=== PATIENT | female | born 1940 | race Caucasian/White ===

== ENCOUNTER → 2017-10-20 11:04 | Outpatient (CLI) | payer MEDICARE, OTHER, SELFPAY ==
--- NOTE | 2017-10-20 11:12 | NVE_ITS ---
Venous Exam Indications: 729.5 Pain in limb. IMPRESSIONS 1. There is no evidence of significant Reflux. 2. No evidence of deep or superficial vein thrombosis involving the left lower extremity Left lower extremity venous duplex evaluation. Doppler flow study including spectral analysis, color and gonzalez scale imaging. Location: Vascular laboratory. Patient status: Outpatient. Tables: Venous flow and imaging: + +-------+ + Location Overall Flow properties + +-------+ + Left common femoral Patent Normal phasicity; spontaneous; normal augmentation; compressible + +-------+ + Left saphenofemoral junction Patent Compressible + +-------+ + Left profunda femoral Patent Compressible + +-------+ + Left femoral Patent Normal phasicity; spontaneous; normal augmentation; compressible + +-------+ + Left greater saphenous Patent Normal phasicity; spontaneous; normal augmentation; compressible + +-------+ + Left popliteal Patent Normal phasicity; spontaneous; normal augmentation; compressible + +-------+ + Left posterior tibial Patent Compressible + +-------+ + Left peroneal Patent Compressible + +-------+ + Left gastrocnemius Patent Compressible + +-------+ + Left soleal Patent Compressible + +-------+ + (Report amended ) Electronically signed by: Mervin Haskins [id number]
== END ==
PROVIDERS: PCP Internal Medicine Adolescent Medicine; Visit Provider Nurse Practitioner Family
DX: M79.89 Other specified soft tissue disorders (principal); M79.605 Pain in left leg
CPT/HCPCS: 93971

== ENCOUNTER 2017-10-26 03:26 | Observation (INO) | payer MEDICARE, OTHER, SELFPAY ==
[2017-10-26] VITALS (21 sets, daily range): BP systolic 117–169; BP diastolic 49–82; PULSE 16–82; RESP 16–20; TEMP 36.4–37.1; O2SAT 94–99; BMI 28.3
--- NOTE | 2017-10-26 03:36 | XR_ITS ---
XR chest portable HISTORY: ITS.REASON: CHEST PAIN ORDERING PHYSICIAN: Ronny Marinelli MD PATIENT AGE: 77 years COMPARISON: 08/19/2017 FINDINGS: Borderline cardiomegaly without failure. Calcified nodes are present in the perihilar region with a calcified granuloma in the right lower lung zone. No lobar consolidation or collapse. Calcific tendinitis of the left shoulder. No acute bony anomalies. IMPRESSION: Borderline cardiomegaly without failure with old granulomatous disease. Calcific tendinitis of the left shoulder
--- NOTE | 2017-10-26 03:46 | HMH.EDCP ---
ED Disposition Clinical Impression: Chest pain Qualifiers: Chest pain type: other chest pain Qualified Code(s): R07.89 - Other chest pain; R07.8 - Other chest pain Disposition: Admitted as Observation Condition on Discharge: Good Referrals: Jus Zee MD [Primary Care Provider] - - Critical Care Critical Care Time: No Attestation: On 10/26/17, the high probability of a clinically significant, sudden or life threatening deterioration of the following system(s) required my full and direct attention, intervention and personal management. The time I documented below is in addition to time spent performing reported procedures but includes the following listed in this critical care notation. Medical Decision Making - Medical Records Medical records reviewed: Yes: I reviewed the patient's medical records. Vital Signs: 10/26/17 03:27 10/26/17 03:41 Temperature 98.7 F Temperature Source Oral Pulse Rate 49 L Pulse Rate [Right Brachial] 49 L Respiratory Rate 16 Blood Pressure [Right Arm] 153/64 Blood Pressure Mean [Right Arm] 93 Blood Pressure Source [Right Arm] Automatic Cuff Blood Pressure Position [Right Arm] Supine 02 Sat by Pulse Oximetry 99 Oxygen Delivery Method Room Air - Lab Data Lab results reviewed: Yes: I reviewed the patient's lab results. Lab Results 10/26/17 03:40: WBC 7.9, RBC 4.12 L, Hgb 11.5 L, Hct 36.8 L, MCV 89.4, MCH 28.0, MCHC 31.4 L, RDW 13.4, Plt Count 282, MPV 7.5, Neut % (Auto) 51.5, Lymph % (Auto) 38.7, Callaway % (Auto) 5.7, Eos % (Auto) 3.7, Baso % (Auto) 0.4, Neut # (Auto) 4.1, Lymph # (Auto) 3.1, Callaway # (Auto) 0.5, Eos # (Auto) 0.3, Baso # (Auto) 0.0 10/26/17 03:40: Sodium 143, Potassium 4.4, Chloride 108 H, Carbon Dioxide 27, Anion Gap 12.4, BUN 14, Creatinine 0.80, Estimated Creat Clear 47, Estimated GFR 70, Est GFR ( Amer) 84, Glucose 104, Calcium 8.2 L, Total Bilirubin 0.2, AST 4 L, ALT 21, Alkaline Phosphatase 91, Total Creatine Kinase 25 L, CK-MB (CK-2) < 0.5, CK-MB (CK-2) Rel Index 2.0, Troponin I < 0.02, Total Protein 6.2 L, Albumin 3.4, Globulin 2.8, Albumin/Globulin Ratio 1.2 Result diagrams: 10/26/17 03:40 10/26/17 03:40 Orders (Tests/Meds): ED MEDICATIONS Discontinued Medications Generic Name Dose Route Start Last Admin Trade Name Freq PRN Reason Stop Dose Admin Nitroglycerin 1 gm 10/26/17 05:02 10/26/17 05:05 Nitroglycerin 1 Inch Oint Udp TD 10/26/17 05:03 1 gm ONCE ONE Administration ORDERS Category Date Time Status ECG Request by /Tati Stat Y 10/26/17 03:36 Ordered - Radiology Data #1 Image(s): Chest Image Reviewed: Yes I reviewed the patient's radiology image Preliminary Findings: Normal/NAD - ECG Data Tracing #1 I reviewed this ECG and interpreted as documented below: Arrhythmias present: sinus ezekiel Ischemic changes: non-specific ST-T wave changes - Danilo Inquiry Pt receiving controlled substance: No Chest Pain HPI - General Chief Complaint: Chest Pain Stated Complaint: CHEST P[AIN Time Seen by Provider: 10/26/17 03:46 Mode of Arrival: EMS Limitations: No Limitations Description of Symptoms (Recalled from ER Triage Doc. by RN): MIDSTERNAL CP RADIATING TO NECK AND SHOULDER - History of Present Illness HPI narrative: pt with chest pain with hx of cad complaint: chest pain indicative of cardiac Onset (ago): hour(s) Duration: intermittent Activity at onset: during rest Pain location: substernal Severity: moderate Quality: tightness Exacerbating factors: nothing Risk Factors for CAD: Family Hx of CAD Treatments prior to or on arrival for Cardiac Chest Pain: aspirin - ARISTEO Score Non-Stemi Age of patient: 65 yrs or more Number of risk factors for CAD: Presence of 3 or more Prior coronary artery stenosis(seen in coronary angiography): Less than 50% ST-Segment deviation on ECG (more than 1 min): Absent Prior aspirin intake: ASA intake in the last 7 days Severe anginal madai
[2017-10-26 03:47] LABS: Basophils % 0.4 % (0.1-2.0); Eosinophils # 0.3 K/mm3 (0.0-0.4); Eosinophils % 3.7 % (0.1-12.0); Hematocrit 36.8 % (37.0-47.0); Hemoglobin 11.5 g/dL (12.2-16.2); Lymphocytes # 3.1 K/mm3 (0.7-4.5); Lymphocytes % 38.7 K/mm3 (10-50); Mean Corpuscular HGB Conc 31.4 g/dL (31.8-35.4); Mean Corpuscular Volume 89.4 fl (81-99); Mean Platelet Volume 7.5 fl (7.4-10.4); Monocytes # 0.5 K/mm3 (0.1-1.0); Monocytes % 5.7 % (1.7-9.3); Neutrophils # 4.1 K/mm3 (1.8-7.8); Neutrophils % 51.5 % (37.0-80.0); Platelet Count 282 K/mm3 (142-424); Red Blood Count 4.12 M/mm3 (4.20-5.40); Red Cell Distribution Width 13.4 % (11.5-17.5); White Blood Count 7.9 K/mm3 (4.8-10.8)
[2017-10-26 04:13] LABS: Alanine Aminotransferase 21 U/L (12-78); Albumin Level 3.4 gm/dL (3.4-5.0); Albumin/Globulin Ratio 1.2 (1.1-1.8); Alkaline Phosphatase 91 U/L (46-116); Anion Gap 12.4 mEq/L (5-15); Aspartate Amino Transferase 4 U/L (15-37); Bilirubin,Total 0.2 mg/dL (0.2-1.0); Blood Urea Nitrogen 14 mg/dL (7-18); Calcium 8.2 mg/dL (8.5-10.1); Carbon Dioxide 27 mmol/L (21.0-32.0); Chloride 108 mmol/L (98-107); Creatine Kinase 25 U/L (26-192); Creatine Kinase MB < 0.5 mg/ml (0.0-3.6); Creatinine Clearance Estimated 47 mL/min (0-300); Estimated Glomerular Filt Rate 70 ml/min (>60); GFR (African American) 84 ML/MIN (>60); Globulin 2.8 gm/dl (1.3-3.2); Glucose 104 mg/dL (74-106); Potassium 4.4 mmoL/L (3.5-5.1); Sodium 143 mmol/L (136-145); Total Protein,Serum 6.2 gm/dL (6.4-8.2); Troponin I < 0.02 ng/ml (0.00-0.06)
--- NOTE | 2017-10-26 07:15 | CA_ITS ---
PROCEDURE: 2-D M-mode and color Doppler study INDICATIONS FOR THE TEST: Chest pain X COPD Heart Murmur Tobacco Smoking Palpitations Fatigue Syncope Edema HypertensionXDiabetes Mellitus Rheumatic Fever SOBXDOE Obesity Hyperlipidemia Family History HD Additional History CAD PATIENT INFORMATION HEIGHT: 59 WEIGHT:140 GENDER: Female B/P:155/86 2-D/M-MODE INTERPRETATION: 2-D MEASUREMENTS OBSERVED VALUES IN CMS Right Ventricular Dimension (RVDd) 1.9 Interventricular Septum (Thickness)(IVsd) .9 Left Ventricular Internal Dimensions(LVIDd) 5.5 Left Ventricular Posterior Wall (Thickness)(LVPWd) .9 Aortic Root 2.6 Aortic Cusp Separation 1.8 Left Atrial Dimensions (LAD) 3.7 2D 1. Left atrium is qualitatively mildly enlarged, left ventricle is normal size, left ventricle wall thickness is upper limit of the normal, visually estimated ejection fraction approximately 45%, there appears to be moderate hypokinesis involving the inferior inferobasal and posterobasal wall. 2. The right atrium and right ventricle are normal size and contractility. 3. The aortic valve is minimally thickened and fibrosed. 4. The mitral and tricuspid valve leaflets are minimally thickened. 5. The pulmonic valve is poorly visualized. 6. No significant pericardial effusion noted. DOPPLER INTERROGATION: Doppler interrogation of the aortic, mitral and tricuspid valvular presence of mild mitral and tricuspid regurgitation, tricuspid and jet velocity is insufficient for calculation of the right ventricular systolic pressure, diastolic parameters are inconclusive. CONCLUSION: 1. Mildly enlarged left atrium, normal left ventricular size, visually estimated ejection fraction 45% with segmental wall motion abnormality described above, diastolic parameters are inconclusive. 2. Mild mitral and tricuspid regurgitation 3. No significant pericardial effusion noted.
--- NOTE | 2017-10-26 08:41 | PC.NURSE ---
Patient taking home dose of Plavix. RN instructed patient not to take Bisoprolol related to bradycardia. Updated patient's family on plan of care.
--- NOTE | 2017-10-26 09:39 | PC.NURSE ---
Patient has been boarding in ER, waiting for a bed upstairs. Will continue to monitor patient closely.
--- NOTE | 2017-10-26 10:19 | HMH.CNCARD ---
History of Present Illness Consult date: 10/26/17 Requesting physician: Ronny Marinelli Consult reason: chest pain Chief complaint: chest pain History of present illness: 77 yo WF with known CAD and 3 vessel stenting in 06/2017 presented to the ER with chest pain that woke her from sleep. Radiation of pain to right side of neck and shoulder. Symptoms concerned her so EMS called. NTG SL given en route with improvement and then resolution of symptoms with NTG paste. Initial troponin normal and EKG is sinus ezekiel without acute changes. Pt relates same symptoms prior to 3 vessel stenting in June. Denies any recent exertional symptoms but activity limited due to fatigue (possibly related to combo of BB/CCB for SVT which she is seeing Dr. Shine in [place] with ablation scheduled in November). Cardiology consulted for evaluation. [facility] History 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: Reports:: Coronary Artery Disease, Gastroesophageal Reflux Disease(GERD), Gastrointestinal Bleed, Hyperlipidemia, Hypertension Denies:: Diabetes Mellitus Type 2 Other 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: Reports: Arthritis, Cataracts, Sinus Problems Comment: 1. Tobacco use of one half to one pack per day ?60 years. 2. Hypertension. 3. History of palpitations, controlled with verapamil therapy. A. 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 Increased bisoprolol to 10 mg daily, 08/19/2017. 4. History of abdominal aortic aneurysm, last reported measurement of 4.6 cm approximately 2015. A. Abd U/S, 06/2017, 4 cm. 5. History of prediabetes per patient. She does not take medication and controls her blood sugars with her diet. 6. CAD. A. 3 vessel disease with DELBERT to prox Cx, LAD and RCA. 06/2017. Other Surgeries: Yes: Appendectomy, Hysterectomy-Total, Tubal Ligation Amputation: No Fractures: No - *Social History Smoking Status: Former smoker Tobacco Type: cigarettes #Yrs smoked (if former smoker): 50 Alcohol Intake: never Substance Use Type: denies use - Psychiatric History Expresses thoughts of harming self/others: None Suicide Plan Description: No Plan *Family Hx:: Diabetes, Cancer, Hyperlipidemia Meds Home Medications Medication Instructions Recorded Confirmed Type atorvastatin 40 mg tablet 40 mg PO DAILY 30 Days 10/01/17 10/26/17 History bisoprolol fumarate 5 mg tablet 5 mg PO DAILY 30 Days 10/01/17 10/26/17 History bupropion HCl SR 150 mg tablet,12 150 mg PO BID 30 Days 10/01/17 10/26/17 History hr sustained-release clopidogrel 75 mg tablet 75 mg PO DAILY 30 Days 10/01/17 10/26/17 History verapamil ER (SR) 180 mg 180 mg PO DAILY 30 Days 10/01/17 10/26/17 History tablet,extended release Aspirin [Aspirin 81mg EC Tab] 81 mg PO DAILY 10/26/17 10/26/17 History Allergies Allergy/AdvReac Type Severity Reaction Status Date / Time Antihistamines - Alkylamine Allergy Mild Verified 10/01/17 13:36 [ANTIHISTAMINES - ALKYLAMINE] codeine [CODEINE] Allergy Mild Verified 10/01/17 13:36 Penicillins [PENICILLINS] Allergy Mild Verified 10/01/17 13:36 Sulfa (Sulfonamide Allergy Mild Verified 10/01/17 13:36 Antibiotics) [SULFA (SULFONAMIDE ANTIBIOTICS)] Review of Systems - *Cardiovascular Reports chest pain, Reports shortness of breath - *Respiratory Reports shortness of breath with activity - *Gastrointestinal Reports nausea - *Neurologic Denies seizure-like activity Exam Vital signs and Labs for Last 24 Hours: Temp Pulse Resp BP Pulse Ox 98.7 F 52 L 20 155/73 98 10/26/17 03:27 10/26/17 08:30 10/26/17 08:30 10/26/17 08:30 10/26/17 08:30 - *Routine Neck Exam Absent: JVD - *Routine Respiratory Exam Present: CTA bilaterally - *Routine Cardiovascular Exam Present: RRR. Absent: murmur, gallop, rubs - *Routine Extremities Exam Absent: edema - *Routine Neurological Exam Present: alert, oriented X3, moving all extremities Assessment and Plan (1) Chest pain Current visit: Yes Status: Acute Quali
--- NOTE | 2017-10-26 10:21 | IR_ITS ---
CARDIAC CATHETERIZATION DATE OF CATHETERIZATION:10/26/2017 10:55 AM PROCEDURES: 1. Left heart catheterization 2. Left ventriculogram 3. Selective coronary angiogram 4. Drug-eluting stent deployment to the mid and distal dominant right coronary artery INDICATION FOR TEST: 1. Unstable angina 2. Known coronary artery disease Informed consent was obtained prior to the procedure. COMPLICATIONS: None ESTIMATED BLOOD LOSS: Less than 10 ml. TECHNIQUE: One percent lidocaine used to anesthetize the right anterior aspect of the wrist. The right radial artery was accessed via the Seldinger technique. A 6 Surinamese sheath was placed in the right radial artery. 2.5 mg of verapamil, 800 mcg of nitroglycerin and 5000 U Heparin were given through the arterial sheath. The trap catheter was also used to perform left heart catheterization left ventriculogram and selective coronary angiogram. An additional 2000 units of heparin was administered intravenously and an EVERYWARE right guide catheter was used intubate the right coronary artery. A BMW wire was placed distally and a 3 mm x 38 mm resolute Leon stent was deployed at 15 kyra reducing the severe stenoses to 0%. ARISTEO-3 flow was present down the vessel before and after the procedure. At the end of the procedure the sheath was removed good hemostasis was achieved using TR banding patient was transferred to the postop holding area in stable condition ANGIOGRAPHIC RESULTS: 1. The left main artery normal 2. The left anterior descending artery has a proximal stent which is widely patent free of in-stent restenosis with excellent distal and proximal transitioning. The mid LAD has a 40% long tubular stenosis followed by an additional 40% nonflow limiting stenosis. 3. The circumflex artery is a nondominant vessel and has a stent in the proximal segment which extends into the proximal portion of the large first obtuse marginal artery. This stent is widely patent free of in-stent restenosis. Distal to the stent is a 40% tapering into the first obtuse marginal artery. 4. The right coronary artery is a large dominant vessel with a proximal to mid vessel stent which is widely patent free of in-stent restenosis. Distal to the stent is a concentric 70-80% stenosis followed by 40-50% stenosis and an additional focal 50% stenosis followed by an additional 20-30% stenosis. 5. The VELAZQUEZ ventriculogram reveals normal 65% 6. The left ventricular end-diastolic pressure elevated at 30 mmHg IMPRESSION: 1. Patent LAD and circumflex artery stent as described above 2. Patent right coronary artery stent with de andrey disease distal to the stent 3. Successful stenting of the mid to distal dominant right coronary artery severe moderate and mild disease reduced to 0% with 1 drug-eluting stent 4. Normal ejection fraction 5. Moderate to severely elevated LVEDP PLAN: 1. Continue aspirin Plavix 2. Diuretics needed in order to decrease LVEDP 3. Cardiac rehabilitation 4. Avoidance of tobacco products 5. LDL less than 55
--- NOTE | 2017-10-26 10:31 | PC.NURSE ---
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
[2017-10-26 11:36] LABS: CATHL Activated Clotting Time 332 SEC (74-125)
[2017-10-26 15:00] LABS: Troponin I 0.06 ng/ml (0.00-0.06)
[2017-10-26 15:09] LABS: Chol/HDL Ratio 1.9 (1-3.5); Cholesterol 142 mg/dL (140-200); HDL Cholesterol 76 mg/dL (29-89); LDL Cholesterol 54 mg/dL (0-130); Triglycerides 61 mg/dL (30-200); VLDL Cholesterol 12 mg/dL (0-40)
--- NOTE | 2017-10-26 16:54 | PC.NURSE ---
PT STABLE. BRUISING AT THE SITE IS NOTED- NO LUMPS OR BLEEDING PRESENT.
--- NOTE | 2017-10-26 17:08 | HMH.HP ---
*Admission Date: 10/26/17 *Chief complaint: Chest pain *History of present illness: 77 yo WF with known CAD and 3 vessel stenting in 06/2017 presented to the ER with chest pain that woke her from sleep. Radiation of pain to right side of neck and shoulder. Symptoms concerned her so EMS called. NTG SL given en route with improvement and then resolution of symptoms with NTG paste. Initial troponin normal and EKG is sinus ezekiel without acute changes. Pt relates same symptoms prior to 3 vessel stenting in June. Denies any recent exertional symptoms but activity limited due to fatigue (possibly related to combo of BB/CCB for SVT which she is seeing Dr. Shine in [place] with ablation scheduled in November). [facility] History I have reviewed the patient's past medical history: Yes 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: Reports:: Coronary Artery Disease, Gastroesophageal Reflux Disease(GERD), Gastrointestinal Bleed, Hyperlipidemia, Hypertension Denies:: Diabetes Mellitus Type 2 Other 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: Reports: Arthritis, Cataracts, Sinus Problems Other Surgeries: Yes: Appendectomy, Hysterectomy-Total, Tubal Ligation Amputation: No Fractures: No - *Social History Smoking Status: Former smoker Tobacco Type: cigarettes #Yrs smoked (if former smoker): 50 Alcohol Intake: never Substance Use Type: denies use Occupational Status: retired Housing: house - Psychiatric History Expresses thoughts of harming self/others: None Suicide Plan Description: No Plan *Family Hx:: Diabetes, Cancer, Hyperlipidemia Review of Systems - Review of Systems Review of systems:: unable to obtain, other, pertinent systems reviewed and negative unless documented below - *Cardiovascular Reports chest pain, Reports chest pain with activity, Reports shortness of breath - *Neurologic Denies seizure-like activity Meds Home Medications Medication Instructions Recorded Confirmed Type atorvastatin 40 mg tablet 40 mg PO DAILY 30 Days 10/01/17 10/26/17 History bisoprolol fumarate 5 mg tablet 5 mg PO DAILY 30 Days 10/01/17 10/26/17 History bupropion HCl SR 150 mg tablet,12 150 mg PO BID 30 Days 10/01/17 10/26/17 History hr sustained-release clopidogrel 75 mg tablet 75 mg PO DAILY 30 Days 10/01/17 10/26/17 History verapamil ER (SR) 180 mg 180 mg PO DAILY 30 Days 10/01/17 10/26/17 History tablet,extended release Aspirin [Aspirin 81mg EC Tab] 81 mg PO DAILY 10/26/17 10/26/17 History Allergies Allergy/AdvReac Type Severity Reaction Status Date / Time Antihistamines - Alkylamine Allergy Mild Verified 10/01/17 13:36 [ANTIHISTAMINES - ALKYLAMINE] codeine [CODEINE] Allergy Mild Verified 10/01/17 13:36 Penicillins [PENICILLINS] Allergy Mild Verified 10/01/17 13:36 Sulfa (Sulfonamide Allergy Mild Verified 10/01/17 13:36 Antibiotics) [SULFA (SULFONAMIDE ANTIBIOTICS)] Exam Vital signs and Labs for Last 24 Hours: Temp Pulse Resp BP Pulse Ox 98.2 F 50 L 20 121/65 97 10/26/17 10:38 10/26/17 14:18 10/26/17 14:18 10/26/17 14:18 10/26/17 14:18 Laboratory Results - last 24 hr 10/26/17 14:37: Triglycerides 61, Cholesterol 142, LDL Cholesterol 54, VLDL Cholesterol 12, HDL Cholesterol 76, Cholesterol/HDL Ratio 1.9 10/26/17 14:37: Troponin I 0.06 - Constitutional no acute distress - *Routine HEENT Exam Head: Present: normocephalic - *Routine Respiratory Exam Present: CTA bilaterally. Absent: accessory muscle use - *Routine Cardiovascular Exam Present: Normal S1, Normal S2 - *Routine Abdominal Exam Present: soft, normoactive bowel sounds - *Routine Extremities Exam Present: full ROM, pulses intact. Absent: edema H&P: Result - Labs Labs: Cardiac Enzymes 10/26/17 Range/Units 14:37 Troponin I 0.06 (0.00-0.06) ng/ml Assessment and Plan (1) Chest pain Current visit: Yes Status: Acute Qualifiers: Chest pain type: other chest pain Qualified Code(s): R07.89 - Other chest pain; R07.8 - Other
[2017-10-27] VITALS (9 sets, daily range): BP systolic 122–187; BP diastolic 41–83; PULSE 48–61; RESP 14–18; TEMP 36.5–36.8; O2SAT 92–98
--- NOTE | 2017-10-27 02:15 | PC.NURSE ---
PT IS A&OX3. SHE HAS BEEN BRADYCARDIC ON TELEMETRY WHILE SLEEPING. PULSE 45-50. DENIES PAIN. RIGHT RADIAL DSG IS C/D/I. NO BRUISING OR SWELLING AT SITE. CAPILLARY REFILL <3. POSITIVE RADIAL AND PEDAL PULSES. PT EDUCATED NOT TO USE RIGHT ARM FOR STRENOUS ACTIVITY. SHE WAS EDUCATED THAT DSG COULD COME OFF AFTER 24 HOURS AND TO NOTIFY STAFF IMMEDIATELY IF SHE NOTED ANY BRUISING, BLEEDING, SWELLING, OR HAD ANY FEELINGS OF THROBBING OR PULSATING AT SITE. PT VERIFIED UNDERSTANDING. HER IS AT THE BEDSIDE.
--- NOTE | 2017-10-27 07:37 | P.CONPHA_ITS ---
[facility] Pharmacy VTE Monitoring - Patient Demographics Admission date: 10/26/17 Report Date: 10/27/17 Time: 07:37 Allergies/Adverse Reactions: Patient Allergies Antihistamines - Alkylamine [ANTIHISTAMINES - ALKYLAMINE] Allergy (Mild, Verified 10/01/17 13:36) codeine [CODEINE] Allergy (Mild, Verified 10/01/17 13:36) Penicillins [PENICILLINS] Allergy (Mild, Verified 10/01/17 13:36) Sulfa (Sulfonamide Antibiotics) [SULFA (SULFONAMIDE ANTIBIOTICS)] Allergy (Mild , Verified 10/01/17 13:36) Height: 1.5 m Weight: 65.771 kg Patient Problems: Current Active Problems Chest pain (Acute) CAD (coronary artery disease), cherokee coronary artery (Chronic) Hypertension (Acute) Hyperlipidemia (Acute) SVT (supraventricular tachycardia) (Acute) Ex-smoker (Acute) - VTE Risk Labs: VTE Related Lab Results Hgb 11.5 g/dL (12.2-16.2) L 10/26/17 03:40 Hct 36.8 % (37.0-47.0) L 10/26/17 03:40 Plt Count 282 K/mm3 (142-424) 10/26/17 03:40 BUN 14 mg/dL (7-18) 10/26/17 03:40 Creatinine 0.80 mg/dL (0.55-1.02) 10/26/17 03:40 Estimated Creat Clear 47 mL/min (0-300) 10/26/17 03:40 Was VTE Risk Assessment Performed: Yes VTE Risk Level: Very Low Risk Clinical Trial Participant: No - Prophylaxis VTE Prophylaxis Ordered?: Yes Types of VTE Prophylaxis: TEDS Knee High Location of Applied Device: Bilateral Lower Extremeties
--- NOTE | 2017-10-27 07:49 | HMH.DCSUM ---
General - General Admission date: 10/26/17 Discharge date: 10/27/17 HPI HPI: 77 yo WF with known CAD and 3 vessel stenting in 06/2017 presented to the ER with chest pain that woke her from sleep. Radiation of pain to right side of neck and shoulder. Symptoms concerned her so EMS called. NTG SL given en route with improvement and then resolution of symptoms with NTG paste. Initial troponin normal and EKG is sinus ezekiel without acute changes. Pt relates same symptoms prior to 3 vessel stenting in June. Denies any recent exertional symptoms but activity limited due to fatigue (possibly related to combo of BB/CCB for SVT which she is seeing Dr. Shine in [place] with ablation scheduled in November). Objective Vital signs: Temp Pulse Resp BP Pulse Ox 98.2 F 51 L 14 150/70 94 L 10/27/17 04:02 10/27/17 06:00 10/27/17 06:00 10/27/17 06:00 10/27/17 06:00 Narrative: This morning patient is doing well, chest pain-free, feels good, heart rate regular, lungs clear, abdomen soft, no edema noted. Hospital Course Hospital Course: Patient was admitted, taken to left heart catheterization which revealed new disease distal to the stent in the right coronary artery. This was stented successfully. Had mild elevation of the end-diastolic pressure, otherwise good ejection fraction. She was transferred to the floor in good condition and did well overnight. This morning she is ready to be discharged and feels good. Cardiology has recommended sending patient home on Holter monitor given atrial dysrhythmias and bradycardia issues. Results Labs on day of discharge: Labs from last 24 hours 10/26/17 10/26/17 14:37 14:37 Troponin I 0.06 Triglycerides 61 Cholesterol 142 LDL Cholesterol 54 VLDL Cholesterol 12 HDL Cholesterol 76 Cholesterol/HDL Ratio 1.9 DS: Diagnosis - Discharge Diagnosis (1) Chest pain Status: Acute (2) CAD (coronary artery disease), [place] coronary artery Status: Chronic (3) Hypertension Status: Acute (4) Hyperlipidemia Status: Acute (5) SVT (supraventricular tachycardia) Status: Acute (6) Ex-smoker Status: Acute Meds Home Medications Medication Instructions Recorded Confirmed Type atorvastatin 40 mg tablet 40 mg PO DAILY 30 Days 10/01/17 10/26/17 History bisoprolol fumarate 5 mg tablet 5 mg PO DAILY 30 Days 10/01/17 10/26/17 History bupropion HCl SR 150 mg tablet,12 150 mg PO BID 30 Days 10/01/17 10/26/17 History hr sustained-release clopidogrel 75 mg tablet 75 mg PO DAILY 30 Days 10/01/17 10/26/17 History verapamil ER (SR) 180 mg 180 mg PO DAILY 30 Days 10/01/17 10/26/17 History tablet,extended release Aspirin [Aspirin 81mg EC Tab] 81 mg PO DAILY 10/26/17 10/26/17 History Allergies Allergy/AdvReac Type Severity Reaction Status Date / Time Antihistamines - Alkylamine Allergy Mild Verified 10/01/17 13:36 [ANTIHISTAMINES - ALKYLAMINE] codeine [CODEINE] Allergy Mild Verified 10/01/17 13:36 Penicillins [PENICILLINS] Allergy Mild Verified 10/01/17 13:36 Sulfa (Sulfonamide Allergy Mild Verified 10/01/17 13:36 Antibiotics) [SULFA (SULFONAMIDE ANTIBIOTICS)] Discharge Plan - Patient Discharge Instructions ACTIVITY: Continue current activity DIET: continue same diet - Follow up Plan Follow up with: Thomas Du MD [Staff Physician] - 1 week Disposition: Home, Self-Usp Medications: Home Medications Medication Instructions Recorded Confirmed Type atorvastatin 40 mg tablet 40 mg PO DAILY 30 Days 10/01/17 10/26/17 History bisoprolol fumarate 5 mg tablet 5 mg PO DAILY 30 Days 10/01/17 10/26/17 History bupropion HCl SR 150 mg tablet,12 150 mg PO BID 30 Days 10/01/17 10/26/17 History hr sustained-release clopidogrel 75 mg tablet 75 mg PO DAILY 30 Days 10/01/17 10/26/17 History verapamil ER (SR) 180 mg 180 mg PO DAILY 30 Days 10/01/17 10/26/17 History tablet,ex
--- NOTE | 2017-10-27 07:54 | P.DS_ITS ---
General - General Admission date: 10/26/17 Discharge date: 10/27/17 HPI HPI: 77 yo WF with known CAD and 3 vessel stenting in 06/2017 presented to the ER with chest pain that woke her from sleep. Radiation of pain to right side of neck and shoulder. Symptoms concerned her so EMS called. NTG SL given en route with improvement and then resolution of symptoms with NTG paste. Initial troponin normal and EKG is sinus ezekiel without acute changes. Pt relates same symptoms prior to 3 vessel stenting in June. Denies any recent exertional symptoms but activity limited due to fatigue (possibly related to combo of BB/ CCB for SVT which she is seeing Dr. Shine in [place] with ablation scheduled in November). Objective Vital signs: Temp Pulse Resp BP Pulse Ox 98.2 F 51 L 14 150/70 94 L 10/27/17 04:02 10/27/17 06:00 10/27/17 06:00 10/27/17 06:00 10/27/17 06:00 Narrative: This morning patient is doing well, chest pain-free, feels good, heart rate regular, lungs clear, abdomen soft, no edema noted. Hospital Course Hospital Course: Patient was admitted, taken to left heart catheterization which revealed new disease distal to the stent in the right coronary artery. This was stented successfully. Had mild elevation of the end-diastolic pressure, otherwise good ejection fraction. She was transferred to the floor in good condition and did well overnight. This morning she is ready to be discharged and feels good. Cardiology has recommended sending patient home on Holter monitor given atrial dysrhythmias and bradycardia issues. Results Labs on day of discharge: Labs from last 24 hours 10/26/17 10/26/17 14:37 14:37 Troponin I 0.06 Triglycerides 61 Cholesterol 142 LDL Cholesterol 54 VLDL Cholesterol 12 HDL Cholesterol 76 Cholesterol/HDL Ratio 1.9 DS: Diagnosis - Discharge Diagnosis (1) Chest pain Status: Acute (2) CAD (coronary artery disease), [place] coronary artery Status: Chronic (3) Hypertension Status: Acute (4) Hyperlipidemia Status: Acute (5) SVT (supraventricular tachycardia) Status: Acute (6) Ex-smoker Status: Acute Meds Home Medications Medication Instructions Recorded Confirmed Type atorvastatin 40 mg tablet 40 mg PO DAILY 30 Days 10/01/17 10/26/17 History bisoprolol fumarate 5 mg tablet 5 mg PO DAILY 30 Days 10/01/17 10/26/17 History bupropion HCl SR 150 mg tablet,12 150 mg PO BID 30 Days 10/01/17 10/26/17 History hr sustained-release clopidogrel 75 mg tablet 75 mg PO DAILY 30 Days 10/01/17 10/26/17 History verapamil ER (SR) 180 mg 180 mg PO DAILY 30 Days 10/01/17 10/26/17 History tablet,extended release Aspirin [Aspirin 81mg EC Tab] 81 mg PO DAILY 10/26/17 10/26/17 History Allergies Allergy/AdvReac Type Severity Reaction Status Date / Time Antihistamines - Alkylamine Allergy Mild Verified 10/01/17 13:36 [ANTIHISTAMINES - ALKYLAMINE] codeine [CODEINE] Allergy Mild Verified 10/01/17 13:36 Penicillins [PENICILLINS] Allergy Mild Verified 10/01/17 13:36 Sulfa (Sulfonamide Allergy Mild Verified 10/01/17 13:36 Antibiotics) [SULFA (SULFONAMIDE ANTIBIOTICS)] Discharge Plan - Patient Disc
--- NOTE | 2017-10-27 08:57 | HMH.PNCARD ---
Subjective Date: 10/27/17 Time: 08:00 Principal diagnosis: Angina Interval history: 77 yo WF in bed in NAD. No further chest pains since cath and stent placement. Some questionable ezekiel-arrhythmia last evening for which patient was asymptomatic. EKG obtained showing sinus ezekiel in the 50's with telemetry strips indeterminate due to artifact. Review of Systems - *Cardiovascular Denies chest pain - *Respiratory Denies shortness of breath - *Neurologic Denies seizure-like activity Meds Home Medications Medication Instructions Recorded Confirmed Type atorvastatin 40 mg tablet 40 mg PO DAILY 30 Days 10/01/17 10/26/17 History bisoprolol fumarate 5 mg tablet 5 mg PO DAILY 30 Days 10/01/17 10/26/17 History bupropion HCl SR 150 mg tablet,12 150 mg PO BID 30 Days 10/01/17 10/26/17 History hr sustained-release clopidogrel 75 mg tablet 75 mg PO DAILY 30 Days 10/01/17 10/26/17 History verapamil ER (SR) 180 mg 180 mg PO DAILY 30 Days 10/01/17 10/26/17 History tablet,extended release Aspirin [Aspirin 81mg EC Tab] 81 mg PO DAILY 10/26/17 10/26/17 History Allergies Allergy/AdvReac Type Severity Reaction Status Date / Time Antihistamines - Alkylamine Allergy Mild Verified 10/01/17 13:36 [ANTIHISTAMINES - ALKYLAMINE] codeine [CODEINE] Allergy Mild Verified 10/01/17 13:36 Penicillins [PENICILLINS] Allergy Mild Verified 10/01/17 13:36 Sulfa (Sulfonamide Allergy Mild Verified 10/01/17 13:36 Antibiotics) [SULFA (SULFONAMIDE ANTIBIOTICS)] Exam Vital signs and Labs for Last 24 Hours: Temp Pulse Resp BP Pulse Ox 98.0 F 61 18 187/83 95 10/27/17 08:00 10/27/17 08:00 10/27/17 08:00 10/27/17 08:00 10/27/17 08:00 Laboratory Results - last 24 hr 10/26/17 14:37: Triglycerides 61, Cholesterol 142, LDL Cholesterol 54, VLDL Cholesterol 12, HDL Cholesterol 76, Cholesterol/HDL Ratio 1.9 10/26/17 14:37: Troponin I 0.06 I & O for Last 24 hours: Intake & Output 10/24/17 10/25/17 10/26/17 02/13/18 11:59 11:59 11:59 11:59 Intake Total 820 / 820 Output Total 300 / 300 Balance 520 / 520 Weight 145 lb - *Routine Respiratory Exam Present: CTA bilaterally - *Routine Cardiovascular Exam Present: RRR. Absent: murmur, gallop Plan - Patient/Caregiver Discharge Instructions Activity: Limited use of right wrist over the next few days. OK for discharge home on current meds. - Follow Up Plan Follow up with: Thomas Du MD [Staff Physician] - 1 week
--- NOTE | 2017-10-27 10:24 | P.CONCA_ITS ---
History of Present Illness Consult date: 10/26/17 Requesting physician: Ronny Marinelli Consult reason: chest pain Chief complaint: chest pain History of present illness: 77 yo WF with known CAD and 3 vessel stenting in 06/2017 presented to the ER with chest pain that woke her from sleep. Radiation of pain to right side of neck and shoulder. Symptoms concerned her so EMS called. NTG SL given en route with improvement and then resolution of symptoms with NTG paste. Initial troponin normal and EKG is sinus ezekiel without acute changes. Pt relates same symptoms prior to 3 vessel stenting in June. Denies any recent exertional symptoms but activity limited due to fatigue (possibly related to combo of BB/ CCB for SVT which she is seeing Dr. Shine in [place] with ablation scheduled in November). Cardiology consulted for evaluation. [facility] History 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: Reports:: Coronary Artery Disease, Gastroesophageal Reflux Disease(GERD), Gastrointestinal Bleed, Hyperlipidemia, Hypertension Denies:: Diabetes Mellitus Type 2 Other 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: Reports: Arthritis, Cataracts, Sinus Problems Comment: 1. Tobacco use of one half to one pack per day ?60 years. 2. Hypertension. 3. History of palpitations, controlled with verapamil therapy. A. 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 Increased bisoprolol to 10 mg daily, 08/19/2017. 4. History of abdominal aortic aneurysm, last reported measurement of 4.6 cm approximately 2015. A. Abd U/S, 06/2017, 4 cm. 5. History of prediabetes per patient. She does not take medication and controls her blood sugars with her diet. 6. CAD. A. 3 vessel disease with DELBERT to prox Cx, LAD and RCA. 06/2017. Other Surgeries: Yes: Appendectomy, Hysterectomy-Total, Tubal Ligation Amputation: No Fractures: No - *Social History Smoking Status: Former smoker Tobacco Type: cigarettes #Yrs smoked (if former smoker): 50 Alcohol Intake: never Substance Use Type: denies use - Psychiatric History Expresses thoughts of harming self/others: None Suicide Plan Description: No Plan *Family Hx:: Diabetes, Cancer, Hyperlipidemia Meds Home Medications Medication Instructions Recorded Confirmed Type atorvastatin 40 mg tablet 40 mg PO DAILY 30 Days 10/01/17 10/26/17 History bisoprolol fumarate 5 mg tablet 5 mg PO DAILY 30 Days 10/01/17 10/26/17 History bupropion HCl SR 150 mg tablet,12 150 mg PO BID 30 Days 10/01/17 10/26/17 History hr sustained-release clopidogrel 75 mg tablet 75 mg PO DAILY 30 Days 10/01/17 10/26/17 History verapamil ER (SR) 180 mg 180 mg PO DAILY 30 Days 10/01/17 10/26/17 History tablet,extended release Aspirin [Aspirin 81mg EC Tab] 81 mg PO DAILY 10/26/17 10/26/17 History Allergies Allergy/AdvReac Type Severity Reaction Status Date / Time Antihistamines - Alkylamine Allergy Mild Verified 10/01/17 13:36 [ANTIHISTAMINES - ALKYLAMINE] codeine [CODEINE] Allergy Mild Verified 10/01/17 13:36 Penicillins [PENICILLINS] Allergy Mild Verified 10/01/17 13:36 Sulfa (Sulfonamide Allergy Mild Verified 10/01/17 13:36 Antibiotics) [SULFA (SULFONAMIDE ANTIBIOTICS)] Review of Systems - *Cardiovascular Reports chest pain, Reports shortness of breath - *Respiratory Reports shortness of breath with activity - *Gastrointestinal Reports nausea - *Neurologic Denies seizure-like activity Exam Vital signs and Labs for Last 24 Hours: Temp Pul
== END 2017-10-27 10:20 | disposition home or self-care (01) ==
LOC: ER 07:27 → ICU 08:54 → CATHLAB 11:18 → ICU 13:26
PROVIDERS: Admitting Provider Internal Medicine Adolescent Medicine; Emergency Provider Emergency Medicine; PCP Internal Medicine Adolescent Medicine; Visit Provider Internal Medicine
DX: R07.9 Chest pain, unspecified (principal); I25.110 Atherosclerotic heart disease of native coronary artery with unstable angina pectoris; I47.1 Supraventricular tachycardia
CPT/HCPCS: 36415; 71045; 80053; 80061; 82550; 82553; 84484; 85025; 85347; 92928; 93005; 93041; 93225; 93226; 93306; 93458; 99152; 99284; C1725; C1769; C1876; C9600; G0378; J1644; J2405; Q9967

== ENCOUNTER 2017-10-28 18:12 | Observation (INO) | payer MEDICARE, OTHER, SELFPAY ==
[2017-10-28 18:13] VITALS: RESP 18; TEMP 36.8; O2SAT 98; BMI 30.2
--- NOTE | 2017-10-28 18:25 | XR_ITS ---
XR chest portable HISTORY: ITS.REASON: CHEST PAIN ORDERING PHYSICIAN: Richard Vera MD PATIENT AGE: 77 years COMPARISON: 10/26/2017 FINDINGS: The cardiomediastinal silhouette and pulmonary vascularity are within normal limits. The lungs are clear without infiltrates, suspicious nodules, or pleural effusions. There is evidence of old granulomatous disease No acute bony abnormalities. Calcification noted over the left humerus consistent with calcific tendinitis IMPRESSION: No change with no acute finding
[2017-10-28 18:53] LABS: Basophils % 0.3 % (0.1-2.0); Eosinophils # 0.3 K/mm3 (0.0-0.4); Eosinophils % 3.1 % (0.1-12.0); Hematocrit 41.9 % (37.0-47.0); Hemoglobin 13.6 g/dL (12.2-16.2); Lymphocytes # 3.2 K/mm3 (0.7-4.5); Lymphocytes % 40.1 K/mm3 (10-50); Mean Corpuscular HGB Conc 32.5 g/dL (31.8-35.4); Mean Corpuscular Hemoglobin 28.9 pg (27.0-31.2); Mean Corpuscular Volume 88.8 fl (81-99); Mean Platelet Volume 7.3 fl (7.4-10.4); Monocytes # 0.6 K/mm3 (0.1-1.0); Neutrophils # 3.9 K/mm3 (1.8-7.8); Neutrophils % 49.5 % (37.0-80.0); Platelet Count 311 K/mm3 (142-424); Red Blood Count 4.71 M/mm3 (4.20-5.40); Red Cell Distribution Width 13.2 % (11.5-17.5); White Blood Count 7.9 K/mm3 (4.8-10.8)
[2017-10-28 19:02] LABS: Alanine Aminotransferase 24 U/L (12-78); Albumin Level 3.9 gm/dL (3.4-5.0); Albumin/Globulin Ratio 1.2 (1.1-1.8); Alkaline Phosphatase 97 U/L (46-116); Anion Gap 8.9 mEq/L (5-15); Aspartate Amino Transferase 12 U/L (15-37); Bilirubin,Total 0.3 mg/dL (0.2-1.0); Blood Urea Nitrogen 23 mg/dL (7-18); CKMB Relative Index 1.5 U/L (0-4.0); Calcium 8.5 mg/dL (8.5-10.1); Carbon Dioxide 30 mmol/L (21.0-32.0); Chloride 101 mmol/L (98-107); Creatine Kinase 41 U/L (26-192); Creatine Kinase MB 0.6 mg/ml (0.0-3.6); Creatinine Clearance Estimated 51 mL/min (0-300); Creatinine,Serum 0.97 mg/dL (0.55-1.02); Estimated Glomerular Filt Rate 56 ml/min (>60); GFR (African American) 67 ML/MIN (>60); Globulin 3.3 gm/dl (1.3-3.2); Glucose 87 mg/dL (74-106); Potassium 3.9 mmoL/L (3.5-5.1); Sodium 136 mmol/L (136-145); Total Protein,Serum 7.2 gm/dL (6.4-8.2); Troponin I 0.08 ng/ml (0.00-0.06)
--- NOTE | 2017-10-28 21:47 | HMH.EDCP ---
ED Disposition Clinical Impression: Chest pain at rest, SVT (supraventricular tachycardia) Disposition: Admitted as Observation Condition on Discharge: Good Referrals: Jus Zee MD [Primary Care Provider] - - Critical Care Critical Care Time: No Attestation: On 10/28/17, the high probability of a clinically significant, sudden or life threatening deterioration of the following system(s) required my full and direct attention, intervention and personal management. The time I documented below is in addition to time spent performing reported procedures but includes the following listed in this critical care notation. Medical Decision Making - Medical Records Medical records reviewed: Yes: I reviewed the patient's medical records. Vital Signs: 10/28/17 18:13 Temperature 98.2 F Temperature Source Oral Respiratory Rate 18 02 Sat by Pulse Oximetry 98 Oxygen Delivery Method Room Air - Lab Data Lab results reviewed: Yes: I reviewed the patient's lab results. Lab Results 10/28/17 18:25: WBC 7.9, RBC 4.71, Hgb 13.6, Hct 41.9, MCV 88.8, MCH 28.9, MCHC 32.5, RDW 13.2, Plt Count 311, MPV 7.3 L, Neut % (Auto) 49.5, Lymph % (Auto) 40.1, Dunn % (Auto) 7.0, Eos % (Auto) 3.1, Baso % (Auto) 0.3, Neut # (Auto) 3.9, Lymph # (Auto) 3.2, Dunn # (Auto) 0.6, Eos # (Auto) 0.3, Baso # (Auto) 0.0 10/28/17 18:25: Sodium 136, Potassium 3.9, Chloride 101, Carbon Dioxide 30, Anion Gap 8.9, BUN 23 H D, Creatinine 0.97 D, Estimated Creat Clear 51, Estimated GFR 56 L, Est GFR ( Amer) 67 D, Glucose 87, Calcium 8.5, Total Bilirubin 0.3, AST 12 L D, ALT 24, Alkaline Phosphatase 97, Total Creatine Kinase 41, CK-MB (CK-2) 0.6, CK-MB (CK-2) Rel Index 1.5, Troponin I 0.08 H, Total Protein 7.2, Albumin 3.9, Globulin 3.3 H, Albumin/Globulin Ratio 1.2 Result diagrams: 10/28/17 18:25 10/28/17 18:25 Orders (Tests/Meds): ED MEDICATIONS Discontinued Medications Generic Name Dose Route Start Last Admin Trade Name Dorys PRN Reason Stop Dose Admin Acetaminophen 650 mg 10/28/17 22:04 10/28/17 22:08 Acetaminophen 325mg Tab PO 10/28/17 22:05 650 mg ONCE ONE Administration Nitroglycerin 0.4 mg 10/28/17 19:14 10/28/17 19:15 Nitrostat 0.4mg Sl Tablet SL 10/28/17 19:15 0.4 mg ONCE ONE Administration - Radiology Data #1 Image(s): Chest Image Reviewed: Yes I reviewed the patient's radiology image Preliminary Findings: Normal/NAD - ECG Data Tracing #1 I reviewed this ECG and interpreted as documented below: Normal Sinus Rhythm: Yes Ischemic changes: non-specific ST-T wave changes - Physician Consults Physician Consulted: yolie Reason -: Admission Additional Consult: dipti Reason -: Pt condition - Danilo Inquiry Pt receiving controlled substance: No Chest Pain HPI - General Chief Complaint: PAIN Stated Complaint: CHEST DISCOMFORT Time Seen by Provider: 10/28/17 21:47 Mode of Arrival: EMS Source of Information: Patient, Relative, EMS, Medical Record Limitations: No Limitations Description of Symptoms (Recalled from ER Triage Doc. by RN): CHEST PAIN SINCE 529 RADIATES TO LEFT CHEST/JAW - History of Present Illness HPI narrative: pt with recent stent and had episode of diaphoresis and chest pain relieved with ntg and no tachycardia but rad to neck - MD complaint: chest pain indicative of cardiac Onset (ago): hour(s) Duration: now resolved Activity at onset: during rest Pain location: substernal Severity: similar to previous episodes Quality: tightness Pain radiation: jaw/teeth Relieving factors: nitroglycerin Treatments prior to or on arrival for Cardiac Chest Pain: nitroglycerin - ARISTEO Score Non-Stemi Age of patient: Less than 65 yrs Number of risk factors for CAD: Presence of 3 or more Prior coronary artery stenosis(seen in coronary angiography): Less than 50% ST-Segment deviation on ECG (more than 1 min): Absent Prior aspirin intake: ASA intake in the last 7 days Se
--- NOTE | 2017-10-28 22:02 | ED_ITS ---
ED Disposition Clinical Impression: Chest pain at rest, SVT (supraventricular tachycardia) Disposition: Admitted as Observation Condition on Discharge: Good Referrals: Jus Zee MD [Primary Care Provider] - - Critical Care Critical Care Time: No Attestation: On 10/28/17, the high probability of a clinically significant, sudden or life threatening deterioration of the following system(s) required my full and direct attention, intervention and personal management. The time I documented below is in addition to time spent performing reported procedures but includes the following listed in this critical care notation. Medical Decision Making - Medical Records Medical records reviewed: Yes: I reviewed the patient's medical records. Vital Signs: 10/28/17 18:13 Temperature 98.2 F Temperature Source Oral Respiratory Rate 18 02 Sat by Pulse Oximetry 98 Oxygen Delivery Method Room Air - Lab Data Lab results reviewed: Yes: I reviewed the patient's lab results. Lab Results 10/28/17 18:25: WBC 7.9, RBC 4.71, Hgb 13.6, Hct 41.9, MCV 88.8, MCH 28.9, MCHC 32.5, RDW 13.2, Plt Count 311, MPV 7.3 L, Neut % (Auto) 49.5, Lymph % (Auto) 40.1, [place] % (Auto) 7.0, Eos % (Auto) 3.1, Baso % (Auto) 0.3, Neut # (Auto) 3.9 , Lymph # (Auto) 3.2, [place] # (Auto) 0.6, Eos # (Auto) 0.3, Baso # (Auto) 0.0 10/28/17 18:25: Sodium 136, Potassium 3.9, Chloride 101, Carbon Dioxide 30, Anion Gap 8.9, BUN 23 H D, Creatinine 0.97 D, Estimated Creat Clear 51, Estimated GFR 56 L, Est GFR ( Amer) 67 D, Glucose 87, Calcium 8.5, Total Bilirubin 0.3, AST 12 L D, ALT 24, Alkaline Phosphatase 97, Total Creatine Kinase 41, CK-MB (CK-2) 0.6, CK-MB (CK-2) Rel Index 1.5, Troponin I 0.08 H, Total Protein 7.2, Albumin 3.9, Globulin 3.3 H, Albumin/Globulin Ratio 1.2 Result diagrams: 10/28/17 18:25 10/28/17 18:25 Orders (Tests/Meds): ED MEDICATIONS Discontinued Medications Generic Name Dose Route Start Last Admin Trade Name Dorys PRN Reason Stop Dose Admin Acetaminophen 650 mg 10/28/17 22:04 10/28/17 22:08 Acetaminophen 325mg Tab PO 10/28/17 22:05 650 mg ONCE ONE Administration Nitroglycerin 0.4 mg 10/28/17 19:14 10/28/17 19:15 Nitrostat 0.4mg Sl Tablet SL 10/28/17 19:15 0.4 mg ONCE ONE Administration - Radiology Data #1 Image(s): Chest Image Reviewed: Yes I reviewed the patient's radiology image Preliminary Findings: Normal/NAD - ECG Data Tracing #1 I reviewed this ECG and interpreted as documented below: Normal Sinus Rhythm: Yes Ischemic changes: non-specific ST-T wave changes - Physician Consults Physician Consulted: yolie Reason -: Admission Additional Consult: dipti Reason -: Pt condition - Danilo Inquiry Pt receiving controlled substance: No Chest Pain HPI - General Chief Complaint: PAIN Stated Complaint: CHEST DISCOMFORT Time Seen by Provider: 10/28/17 21:47 Mode of Arrival: EMS Source of Information: Patient, Relative, EMS, Medical Record Limitations: No Limitations Description of Symptoms (Recalled from ER Triage Doc. by RN): CHEST PAIN SINCE 529 RADIATES TO LEFT CHEST/JAW - History of Present Illness HPI narrative: pt with recent stent and had episode of diaphoresis and chest pain relieved with ntg and no tachycardia but rad to neck - MD complaint: chest pain indicative of cardiac Onset
[2017-10-28 22:47] VITALS: BP 149/87; PULSE 74; RESP 16; TEMP -17.7; TEMP 0; O2SAT 95
--- NOTE | 2017-10-28 23:13 | PC.NURSE ---
Report called to Dian Junior RN, pt escorted to floor by same. Dian is currently in pt's room doing admission. Will continue to monitor.
[2017-10-28 23:41] VITALS: BP 142/74; PULSE 69; RESP 20; TEMP 37.1; O2SAT 98; BMI 28.0
[2017-10-28 23:49] VITALS: PULSE 60
[2017-10-29 00:09] VITALS: BP 149/87; PULSE 74; RESP 16; TEMP 36.3; O2SAT 95
[2017-10-29 04:00] VITALS: BP 133/57; PULSE 44; RESP 14; TEMP 36.9; O2SAT 95
--- NOTE | 2017-10-29 05:17 | PC.NURSE ---
Following earlier admission to med/surg unit, pt has not complained of any chest pain. NPO after midnight for upcoming Florian consult this am. Pt is pleasant and cooperative with her attentive at bs. IV infusing well with no s/s of erythema or infiltration. Pt remained safe and stable with nothing acute to report during my care.
--- NOTE | 2017-10-29 06:32 | PC.NURSE ---
Hi Bañuelos phoned to check pt's troponin's. The 0600 had been drawn but not resulted yet. Called lab to verify labs had been drawn, Ranjana voiced they were about to be resulted. Will continue monitoring.
[2017-10-29 06:49] LABS: Basophils % 0.4 % (0.1-2.0); Eosinophils # 0.3 K/mm3 (0.0-0.4); Eosinophils % 3.7 % (0.1-12.0); Hematocrit 37.6 % (37.0-47.0); Lymphocytes # 2.4 K/mm3 (0.7-4.5); Lymphocytes % 35.8 K/mm3 (10-50); Mean Corpuscular HGB Conc 32.5 g/dL (31.8-35.4); Mean Corpuscular Hemoglobin 28.9 pg (27.0-31.2); Mean Corpuscular Volume 88.8 fl (81-99); Mean Platelet Volume 7.5 fl (7.4-10.4); Monocytes # 0.5 K/mm3 (0.1-1.0); Monocytes % 7.6 % (1.7-9.3); Neutrophils # 3.5 K/mm3 (1.8-7.8); Neutrophils % 52.4 % (37.0-80.0); Platelet Count 285 K/mm3 (142-424); Red Blood Count 4.24 M/mm3 (4.20-5.40); Red Cell Distribution Width 13.3 % (11.5-17.5); White Blood Count 6.6 K/mm3 (4.8-10.8)
[2017-10-29 06:53] LABS: Anion Gap 12.2 mEq/L (5-15); Blood Urea Nitrogen 22 mg/dL (7-18); Carbon Dioxide 29 mmol/L (21.0-32.0); Chloride 104 mmol/L (98-107); Creatinine Clearance Estimated 47 mL/min (0-300); Creatinine,Serum 0.92 mg/dL (0.55-1.02); Estimated Glomerular Filt Rate 59 ml/min (>60); GFR (African American) 72 ML/MIN (>60); Glucose 101 mg/dL (74-106); Potassium 4.2 mmoL/L (3.5-5.1); Sodium 141 mmol/L (136-145)
[2017-10-29 06:59] LABS: Troponin I 0.05 ng/ml (0.00-0.06)
[2017-10-29 07:15] LABS: Hemoglobin 12.2 g/dL (12.2-16.2)
[2017-10-29 07:25] VITALS: BP 149/54; PULSE 54; RESP 20; TEMP 36.8; O2SAT 94
--- NOTE | 2017-10-29 07:59 | P.CONPHA_ITS ---
[facility] Pharmacy VTE Monitoring - Patient Demographics Admission date: 10/28/17 Report Date: 10/29/17 Time: 07:59 Allergies/Adverse Reactions: Patient Allergies Antihistamines - Alkylamine [ANTIHISTAMINES - ALKYLAMINE] Allergy (Mild, Verified 10/01/17 13:36) codeine [CODEINE] Allergy (Mild, Verified 10/01/17 13:36) Penicillins [PENICILLINS] Allergy (Mild, Verified 10/01/17 13:36) Sulfa (Sulfonamide Antibiotics) [SULFA (SULFONAMIDE ANTIBIOTICS)] Allergy (Mild , Verified 10/01/17 13:36) Height: 1.5 m Weight: 63.049 kg Patient Problems: Current Active Problems SVT (supraventricular tachycardia) (Acute) Chest pain at rest (Acute) - VTE Risk Labs: VTE Related Lab Results Hgb 12.2 g/dL (12.2-16.2) D 10/29/17 06:15 Hct 37.6 % (37.0-47.0) 10/29/17 06:15 Plt Count 285 K/mm3 (142-424) 10/29/17 06:15 BUN 22 mg/dL (7-18) H 10/29/17 06:15 Creatinine 0.92 mg/dL (0.55-1.02) 10/29/17 06:15 Estimated Creat Clear 47 mL/min (0-300) 10/29/17 06:15 Was VTE Risk Assessment Performed: Yes VTE Score: 1 VTE Risk Level: Very Low Risk - Prophylaxis VTE Prophylaxis Ordered?: Yes Types of VTE Prophylaxis: TEDS Knee High Location of Applied Device: Bilateral Lower Extremeties - VTE Diagnosis Confirmed Treatment or plan recommended: Continue Current Treatment
[2017-10-29 08:00] VITALS: PULSE 50; O2SAT 96
--- NOTE | 2017-10-29 08:04 | HMH.CNCARD ---
History of Present Illness Consult date: 10/29/17 Requesting physician: Jus Zee Consult reason: chest pain Chief complaint: Palpitations, chest pain History of present illness: 77-year-old white female with known coronary artery disease and recently admitted for chest pain with subsequent coronary artery stenting of the right coronary artery was discharged home on 10/27/2017 with a Holter monitor for possible bradycardia arrhythmia. Yesterday evening at about 5:30 PM, the patient developed sudden onset of a tachycardia with subsequent diaphoresis and chest pain. 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 Patient has seen Dr. 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 She will troponin in the emergency department was mildly elevated but the second troponin this morning is normal. Patient has had no further chest pain overnight. Her symptoms improved yesterday after sublingual nitroglycerin in the ambulance. Cardiology consulted for evaluation and recommendations. [facility] History 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: Reports:: Coronary Artery Disease, Gastroesophageal Reflux Disease(GERD), Gastrointestinal Bleed, Hyperlipidemia, Hypertension Denies:: Cancer, Diabetes Mellitus Type 1, Diabetes Mellitus Type 2, MRSA Other 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: Reports: Arthritis, Cataracts, Sinus Problems Other Surgeries: Yes: Appendectomy, Hysterectomy-Total, Tubal Ligation Amputation: No Fractures: No - *Social History Educational Level: Attended High School Smoking Status: Former smoker Tobacco Type: cigarettes #Yrs smoked (if former smoker): 50 Alcohol Intake: never Substance Use Type: denies use Occupational Status: retired Housing: house Household Members: spouse - Psychiatric History Expresses thoughts of harming self/others: None Suicide Plan Description: No Plan *Family Hx:: Diabetes, Cancer, Hyperlipidemia Meds Home Medications Medication Instructions Recorded Confirmed Type atorvastatin 40 mg tablet 40 mg PO DAILY 30 Days 10/01/17 10/28/17 History bisoprolol fumarate 5 mg tablet 5 mg PO DAILY 30 Days 10/01/17 10/28/17 History bupropion HCl SR 150 mg tablet,12 150 mg PO BID 30 Days 10/01/17 10/28/17 History hr sustained-release clopidogrel 75 mg tablet 75 mg PO DAILY 30 Days 10/01/17 10/28/17 History verapamil ER (SR) 180 mg 180 mg PO DAILY 30 Days 10/01/17 10/28/17 History tablet,extended release Aspirin [Aspirin 81mg EC Tab] 81 mg PO DAILY 10/26/17 10/28/17 History Furosemide [Lasix 40mg tab] 40 mg PO DAILY 10/28/17 10/28/17 History Omeprazole [Omeprazole 40mg 40 mg PO DAILY 10/28/17 10/28/17 History Capsule] Allergies Allergy/AdvReac Type Severity Reaction Status Date / Time Antihistamines - Alkylamine Allergy Mild Verified 10/01/17 13:36 [ANTIHISTAMINES - ALKYLAMINE] codeine [CODEINE] Allergy Mild Verified 10/01/17 13:36 Penicillins [PENICILLINS] Allergy Mild Verified 10/01/17 13:36 Sulfa (Sulfonamide Allergy Mild Verified 10/01/17 13:36 Antibiotics) [SULFA (SULFONAMIDE ANTIBIOTICS)] Review of Systems - *Cardiovascular Reports chest pain, Reports shortness of breath - *Respiratory Reports shortness of breath - *Gastrointestinal Denies abdominal pain - *Neurologic Denies seizure-like activity Exam Vital signs and Labs for Last 24 Hours: Temp Pulse Resp BP Pulse Ox 98.3 F 54 L 20 149/54 94 L 10/29/17 07:25 10/29/17 07:25 10/29/17 07:25 10/29/17 07:25 10/29/17 07:25 Laboratory Results - last 24 hr 10/29/17 06:15: Troponin I 0.05 10/29/17 06:15: WBC 6.6, RBC 4.24, Hgb 12.2 D, Hct 37.6, MCV 88.8, MCH 28.9, MCHC 32.5, RDW 13.3, Plt Count 285, MPV 7.5, Neut % (Auto) 52.4, Lymph % (Auto) 35.8, [place] % (Auto) 7.6, Eos % (Auto) 3.7, Baso % (Auto) 0.4, Neut # (Auto) 3.5, Lymph # (Auto) 2.4, [place] # (Auto) 0.5, Eos # (Auto) 0.3, Baso # (Auto) 0.0 10/29/17 06:15: Sodium 14
--- NOTE | 2017-10-29 08:27 | HMH.HP ---
*Admission Date: 10/28/17 *Chief complaint: chest pain, diaphoresis and tachycardia *History of present illness: 77-year-old white female with known coronary artery disease and recently admitted for chest pain with subsequent coronary artery stenting of the right coronary artery was discharged home on 10/27/2017 with a Holter monitor for possible bradycardia arrhythmia. Yesterday evening at about 5:30 PM, the patient developed sudden onset of a tachycardia with subsequent diaphoresis and chest pain. 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 Patient has seen Dr. 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 She will troponin in the emergency department was mildly elevated but the second troponin this morning is normal. Patient has had no further chest pain overnight. Her symptoms improved yesterday after sublingual nitroglycerin in the ambulance. Cardiology consulted for evaluation and recommendations. Above per Modesto Bañuelos PA-C. [facility] History I have reviewed the patient's past medical history: Yes 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: Reports:: Coronary Artery Disease, Gastroesophageal Reflux Disease(GERD), Gastrointestinal Bleed, Hyperlipidemia, Hypertension Denies:: Cancer, Diabetes Mellitus Type 1, Diabetes Mellitus Type 2, MRSA Other 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: Reports: Arthritis, Cataracts, Sinus Problems Other Surgeries: Yes: Appendectomy, Hysterectomy-Total, Tubal Ligation Amputation: No Fractures: No - *Social History Educational Level: Attended High School Smoking Status: Former smoker Tobacco Type: cigarettes #Yrs smoked (if former smoker): 50 Alcohol Intake: never Substance Use Type: denies use Occupational Status: retired Housing: house Household Members: spouse - Psychiatric History Expresses thoughts of harming self/others: None Suicide Plan Description: No Plan *Family Hx:: Diabetes, Cancer, Hyperlipidemia Review of Systems - Review of Systems Review of systems:: pertinent systems reviewed and negative unless documented below - *Cardiovascular Reports chest pain, Reports excessive sweating, Reports fast heart rate - *Neurologic Denies seizure-like activity Meds Home Medications Medication Instructions Recorded Confirmed Type atorvastatin 40 mg tablet 40 mg PO DAILY 30 Days 10/01/17 10/28/17 History bisoprolol fumarate 5 mg tablet 5 mg PO DAILY 30 Days 10/01/17 10/28/17 History bupropion HCl SR 150 mg tablet,12 150 mg PO BID 30 Days 10/01/17 10/28/17 History hr sustained-release clopidogrel 75 mg tablet 75 mg PO DAILY 30 Days 10/01/17 10/28/17 History verapamil ER (SR) 180 mg 180 mg PO DAILY 30 Days 10/01/17 10/28/17 History tablet,extended release Aspirin [Aspirin 81mg EC Tab] 81 mg PO DAILY 10/26/17 10/28/17 History Furosemide [Lasix 40mg tab] 40 mg PO DAILY 10/28/17 10/28/17 History Omeprazole [Omeprazole 40mg 40 mg PO DAILY 10/28/17 10/28/17 History Capsule] Allergies Allergy/AdvReac Type Severity Reaction Status Date / Time Antihistamines - Alkylamine Allergy Mild Verified 10/01/17 13:36 [ANTIHISTAMINES - ALKYLAMINE] codeine [CODEINE] Allergy Mild Verified 10/01/17 13:36 Penicillins [PENICILLINS] Allergy Mild Verified 10/01/17 13:36 Sulfa (Sulfonamide Allergy Mild Verified 10/01/17 13:36 Antibiotics) [SULFA (SULFONAMIDE ANTIBIOTICS)] Exam Vital signs and Labs for Last 24 Hours: Temp Pulse Resp BP Pulse Ox 98.3 F 54 L 20 149/54 94 L 10/29/17 07:25 10/29/17 07:25 10/29/17 07:25 10/29/17 07:25 10/29/17 07:25 Laboratory Results - last 24 hr 10/29/17 06:15: Troponin I 0.05 10/29/17 06:15: WBC 6.6, RBC 4.24, Hgb 12.2 D, Hct 37.6, MCV 88.8, MCH 28.9, MCHC 32.5, RDW 13.3, Plt Count 285, MPV 7.5, Neut % (Auto) 52.4, Lymph % (Auto) 35.8, [place] % (Auto) 7.6, Eos % (Auto) 3.7, Baso % (Auto) 0.4, Neut # (Auto) 3.5, Lymph # (Auto) 2.4, [place] # (Auto) 0.5, Eos # (Auto) 0
--- NOTE | 2017-10-29 08:31 | P.HP_ITS ---
*Admission Date: 10/28/17 *Chief complaint: chest pain, diaphoresis and tachycardia *History of present illness: 77-year-old white female with known coronary artery disease and recently admitted for chest pain with subsequent coronary artery stenting of the right coronary artery was discharged home on 10/27/2017 with a Holter monitor for possible bradycardia arrhythmia. Yesterday evening at about 5:30 PM, the patient developed sudden onset of a tachycardia with subsequent diaphoresis and chest pain. 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 Patient has seen Dr. 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 She will troponin in the emergency department was mildly elevated but the second troponin this morning is normal. Patient has had no further chest pain overnight. Her symptoms improved yesterday after sublingual nitroglycerin in the ambulance. Cardiology consulted for evaluation and recommendations. Above per Modesto Bañuelos PA-C. [facility] History I have reviewed the patient's past medical history: Yes 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: Reports:: Coronary Artery Disease, Gastroesophageal Reflux Disease(GERD), Gastrointestinal Bleed, Hyperlipidemia, Hypertension Denies:: Cancer, Diabetes Mellitus Type 1, Diabetes Mellitus Type 2, MRSA Other 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: Reports: Arthritis, Cataracts, Sinus Problems Other Surgeries: Yes: Appendectomy, Hysterectomy-Total, Tubal Ligation Amputation: No Fractures: No - *Social History Educational Level: Attended High School Smoking Status: Former smoker Tobacco Type: cigarettes #Yrs smoked (if former smoker): 50 Alcohol Intake: never Substance Use Type: denies use Occupational Status: retired Housing: house Household Members: spouse - Psychiatric History Expresses thoughts of harming self/others: None Suicide Plan Description: No Plan *Family Hx:: Diabetes, Cancer, Hyperlipidemia Review of Systems - Review of Systems Review of systems:: pertinent systems reviewed and negative unless documented below - *Cardiovascular Reports chest pain, Reports excessive sweating, Reports fast heart rate - *Neurologic Denies seizure-like activity Meds Home Medications Medication Instructions Recorded Confirmed Type atorvastatin 40 mg tablet 40 mg PO DAILY 30 Days 10/01/17 10/28/17 History bisoprolol fumarate 5 mg tablet 5 mg PO DAILY 30 Days 10/01/17 10/28/17 History bupropion HCl SR 150 mg tablet,12 150 mg PO BID 30 Days 10/01/17 10/28/17 History hr sustained-release clopidogrel 75 mg tablet 75 mg PO DAILY 30 Days 10/01/17 10/28/17 History verapamil ER (SR) 180 mg 180 mg PO DAILY 30 Days 10/01/17 10/28/17 History tablet,extended release Aspirin [Aspirin 81mg EC Tab] 81 mg PO DAILY 10/26/17 10/28/17 History Furosemide [Lasix 40mg tab] 40 mg PO DAILY 10/28/17 10/28/17 History Omeprazole [Omeprazole 40mg 40 mg PO DAILY 10/28/17 10/28/17 History Capsule] Allergies Allergy/AdvReac Type Severity Reaction Status Date / Time Antihistamines - Alkylamine Allergy Mild Verified 10/01/17 13:36 [ANTIHISTAMINES - ALKYLAMINE] codeine [CODEINE] Allergy Mild Verified 10/01/17 13:36 Penicillins [PENICILLINS] Allergy Mild Verified 10/01/17 13:36 Sulfa (Sulfonamide Allergy Mild Verified 10/01/17 13:36 Antibiotics) [SULFA (SULFONAMIDE ANTIBIOTICS)] Exam Vital signs and Labs for Last 24 Hours:
[2017-10-29 11:40] VITALS: BP 135/56; PULSE 50; RESP 20; TEMP 36.7; O2SAT 94
[2017-10-29 12:00] VITALS: PULSE 50
--- NOTE | 2017-10-29 12:34 | HMH.DCSUM ---
General - General Admission date: 10/28/17 Discharge date: 10/29/17 HPI HPI: 77-year-old white female with known coronary artery disease and recently admitted for chest pain with subsequent coronary artery stenting of the right coronary artery was discharged home on 10/27/2017 with a Holter monitor for possible bradycardia arrhythmia. Yesterday evening at about 5:30 PM, the patient developed sudden onset of a tachycardia with subsequent diaphoresis and chest pain. 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 Patient has seen Dr. 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 She will troponin in the emergency department was mildly elevated but the second troponin this morning is normal. Patient has had no further chest pain overnight. Her symptoms improved yesterday after sublingual nitroglycerin in the ambulance. Cardiology consulted for evaluation and recommendations. Above per Modesto Bañuelos PA-C. Objective Vital signs: Temp Pulse Resp BP Pulse Ox 98.0 F 50 L 20 135/56 94 L 10/29/17 11:40 10/29/17 11:40 10/29/17 11:40 10/29/17 11:40 10/29/17 11:40 Narrative: See H&P from this morning. Hospital Course Hospital Course: Patient has not had any further episodes of SVT throughout the day. She remains bradycardiac on the monitor 40-50's. spoke with Dr. Shine regarding patient's holter and recurrent symptoms. Holter monitor was faxed to his office for review. Dr. Shine recommends discharge home with plan for ablation in the next week. He is to call the patient with details. Discharge home on holter monitor. Fu in office with myself on 11/03. Results Labs on day of discharge: Labs from last 24 hours 10/29/17 10/29/17 10/29/17 06:15 06:15 06:15 WBC 6.6 RBC 4.24 Hgb 12.2 D Hct 37.6 MCV 88.8 MCH 28.9 MCHC 32.5 RDW 13.3 Plt Count 285 MPV 7.5 Neut % (Auto) 52.4 Lymph % (Auto) 35.8 [place] % (Auto) 7.6 Eos % (Auto) 3.7 Baso % (Auto) 0.4 Neut # (Auto) 3.5 Lymph # (Auto) 2.4 [place] # (Auto) 0.5 Eos # (Auto) 0.3 Baso # (Auto) 0.0 Sodium 141 Potassium 4.2 Chloride 104 Carbon Dioxide 29 Anion Gap 12.2 BUN 22 H Creatinine 0.92 Estimated Creat Clear 47 Estimated GFR 59 Est GFR ( Amer) 72 Glucose 101 Troponin I 0.05 DS: Diagnosis - Discharge Diagnosis (1) SVT (supraventricular tachycardia) Status: Acute (2) Chest pain Status: Acute (3) Hyperlipidemia Status: Acute (4) Hypertension Status: Acute (5) CAD (coronary artery disease), [place] coronary artery Status: Chronic Discharge Plan - Patient Discharge Instructions ACTIVITY: Continue current activity DIET: continue same diet - Follow up Plan Follow up with: Laura Parisi APRN [Nurse Practitioner] - 11/03/17 Disposition: Home, Self-Detention Medications: Home Medications Medication Instructions Recorded Confirmed Type atorvastatin 40 mg tablet 40 mg PO HS 30 Days 10/01/17 10/29/17 History bisoprolol fumarate 5 mg tablet 5 mg PO DAILY 30 Days 10/01/17 10/28/17 History bupropion HCl SR 150 mg tablet,12 150 mg PO BID 30 Days 10/01/17 10/28/17 History hr sustained-release clopidogrel 75 mg tablet 75 mg PO DAILY 30 Days 10/01/17 10/28/17 History verapamil ER (SR) 180 mg 180 mg PO DAILY 30 Days 10/01/17 10/28/17 History tablet,extended release Aspirin [Aspirin 81mg EC Tab] 81 mg PO DAILY 10/26/17 10/28/17 History Furosemide [Lasix 40mg tab] 40 mg PO DAILY 10/28/17 10/28/17 History Omeprazole [Omeprazole 40mg 40 mg PO DAILY 10/28/17 10/28/17 History Capsule] Prescriptions/Medication Reconciliation: New Melatonin/Pyridoxine HCl (B6) [Melatonin 5 mg Tablet] 1 each PO HS 30 Days #30 tablet Nitroglycerin [Nitrostat 0.4mg SL Tablet] 0.4 mg SL Q5MINP PRN #1 tab.
--- NOTE | 2017-10-29 12:40 | P.DS_ITS ---
General - General Admission date: 10/28/17 Discharge date: 10/29/17 HPI HPI: 77-year-old white female with known coronary artery disease and recently admitted for chest pain with subsequent coronary artery stenting of the right coronary artery was discharged home on 10/27/2017 with a Holter monitor for possible bradycardia arrhythmia. Yesterday evening at about 5:30 PM, the patient developed sudden onset of a tachycardia with subsequent diaphoresis and chest pain. 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 Patient has seen Dr. 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 She will troponin in the emergency department was mildly elevated but the second troponin this morning is normal. Patient has had no further chest pain overnight. Her symptoms improved yesterday after sublingual nitroglycerin in the ambulance. Cardiology consulted for evaluation and recommendations. Above per Modesto Bañuelos PA-C. Objective Vital signs: Temp Pulse Resp BP Pulse Ox 98.0 F 50 L 20 135/56 94 L 10/29/17 11:40 10/29/17 11:40 10/29/17 11:40 10/29/17 11:40 10/29/17 11:40 Narrative: See H&P from this morning. Hospital Course Hospital Course: Patient has not had any further episodes of SVT throughout the day. She remains bradycardiac on the monitor 40-50's. spoke with Dr. Shine regarding patient's holter and recurrent symptoms. Holter monitor was faxed to his office for review. Dr. Shine recommends discharge home with plan for ablation in the next week. He is to call the patient with details. Discharge home on holter monitor. Fu in office with myself on 11/03. Results Labs on day of discharge: Labs from last 24 hours 10/29/17 10/29/17 10/29/17 06:15 06:15 06:15 WBC 6.6 RBC 4.24 Hgb 12.2 D Hct 37.6 MCV 88.8 MCH 28.9 MCHC 32.5 RDW 13.3 Plt Count 285 MPV 7.5 Neut % (Auto) 52.4 Lymph % (Auto) 35.8 [place] % (Auto) 7.6 Eos % (Auto) 3.7 Baso % (Auto) 0.4 Neut # (Auto) 3.5 Lymph # (Auto) 2.4 [place] # (Auto) 0.5 Eos # (Auto) 0.3 Baso # (Auto) 0.0 Sodium 141 Potassium 4.2 Chloride 104 Carbon Dioxide 29 Anion Gap 12.2 BUN 22 H Creatinine 0.92 Estimated Creat Clear 47 Estimated GFR 59 Est GFR ( Amer) 72 Glucose 101 Troponin I 0.05 DS: Diagnosis - Discharge Diagnosis (1) SVT (supraventricular tachycardia) Status: Acute (2) Chest pain Status: Acute (3) Hyperlipidemia Status: Acute (4) Hypertension Status: Acute (5) CAD (coronary artery disease), [place] coronary artery Status: Chronic Discharge Plan - Patient Discharge Instructions ACTIVITY: Continue current activity DIET: continue same diet - Follow up Plan Follow up with: Laura Parisi APRN [Nurse Practitioner] - 11/03/17 Disposition: Home, Self-Long-Term Medications: Home Medications Medication Instructions Recorded Confirmed Type atorvastatin 40 mg tablet 40 mg PO HS 30 Days 10/01/17 10/29/17 History bisoprolol fumarate 5 mg tablet
--- NOTE | 2017-11-26 09:48 | P.CONS_ITS ---
History of Present Illness Consult date: 10/29/17 Requesting physician: Jus Zee Consult reason: chest pain Chief complaint: Palpitations, chest pain History of present illness: 77-year-old white female with known coronary artery disease and recently admitted for chest pain with subsequent coronary artery stenting of the right coronary artery was discharged home on 10/27/2017 with a Holter monitor for possible bradycardia arrhythmia. Yesterday evening at about 5:30 PM, the patient developed sudden onset of a tachycardia with subsequent diaphoresis and chest pain. 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 Patient has seen Dr. 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 She will troponin in the emergency department was mildly elevated but the second troponin this morning is normal. Patient has had no further chest pain overnight. Her symptoms improved yesterday after sublingual nitroglycerin in the ambulance. Cardiology consulted for evaluation and recommendations. [facility] History 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: Reports:: Coronary Artery Disease, Gastroesophageal Reflux Disease(GERD), Gastrointestinal Bleed, Hyperlipidemia, Hypertension Denies:: Cancer, Diabetes Mellitus Type 1, Diabetes Mellitus Type 2, MRSA Other 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: Reports: Arthritis, Cataracts, Sinus Problems Other Surgeries: Yes: Appendectomy, Hysterectomy-Total, Tubal Ligation Amputation: No Fractures: No - *Social History Educational Level: Attended High School Smoking Status: Former smoker Tobacco Type: cigarettes #Yrs smoked (if former smoker): 50 Alcohol Intake: never Substance Use Type: denies use Occupational Status: retired Housing: house Household Members: spouse - Psychiatric History Expresses thoughts of harming self/others: None Suicide Plan Description: No Plan *Family Hx:: Diabetes, Cancer, Hyperlipidemia Meds Home Medications Medication Instructions Recorded Confirmed Type atorvastatin 40 mg tablet 40 mg PO DAILY 30 Days 10/01/17 10/28/17 History bisoprolol fumarate 5 mg tablet 5 mg PO DAILY 30 Days 10/01/17 10/28/17 History bupropion HCl SR 150 mg tablet,12 150 mg PO BID 30 Days 10/01/17 10/28/17 History hr sustained-release clopidogrel 75 mg tablet 75 mg PO DAILY 30 Days 10/01/17 10/28/17 History verapamil ER (SR) 180 mg 180 mg PO DAILY 30 Days 10/01/17 10/28/17 History tablet,extended release Aspirin [Aspirin 81mg EC Tab] 81 mg PO DAILY 10/26/17 10/28/17 History Furosemide [Lasix 40mg tab] 40 mg PO DAILY 10/28/17 10/28/17 History Omeprazole [Omeprazole 40mg 40 mg PO DAILY 10/28/17 10/28/17 History Capsule] Allergies Allergy/AdvReac Type Severity Reaction Status Date / Time Antihistamines - Alkylamine Allergy Mild Verified 10/01/17 13:36 [ANTIHISTAMINES - ALKYLAMINE] codeine [CODEINE] Allergy Mild Verified 10/01/17 13:36 Penicillins [PENICILLINS] Allergy Mild Verified 10/01/17 13:36 Sulfa (Sulfonamide Allergy Mild Verified 10/01/17 13:36 Antibiotics) [SULFA (SULFONAMIDE ANTIBIOTICS)] Review of Systems - *Cardiovascular Reports chest pain, Reports shortness of breath - *Respiratory Reports shortness of breath - *Gastrointestinal Denies abdominal pain - *Neurologic Denies seizure-like activity Exam Vital signs and Labs for Last 24 Hours: T
== END 2017-10-29 16:40 | disposition home or self-care (01) ==
LOC: ER 21:55 → 2ND 22:33
PROVIDERS: Emergency Medicine; Admitting Provider Internal Medicine Adolescent Medicine; Emergency Provider Emergency Medicine; PCP Internal Medicine Adolescent Medicine; Visit Provider Internal Medicine Adolescent Medicine
DX: I47.1 Supraventricular tachycardia (principal); I25.10 Atherosclerotic heart disease of native coronary artery without angina pectoris; I10 Essential (primary) hypertension; Z90.710 Acquired absence of both cervix and uterus; Z79.02 Long term (current) use of antithrombotics/antiplatelets; Z79.82 Long term (current) use of aspirin; Z79.899 Other long term (current) drug therapy; Z88.5 Allergy status to narcotic agent; Z88.0 Allergy status to penicillin; Z88.2 Allergy status to sulfonamides; Z88.8 Allergy status to other drugs, medicaments and biological substances; Z87.891 Personal history of nicotine dependence; Z83.3 Family history of diabetes mellitus; Z83.49 Family history of other endocrine, nutritional and metabolic diseases; Z80.9 Family history of malignant neoplasm, unspecified; Z95.5 Presence of coronary angioplasty implant and graft
CPT/HCPCS: 71045; 80048; 80053; 82550; 82553; 84484; 85025; 93005; 93041; 93225; 93226; 96374; 99284; G0378

== ENCOUNTER 2017-11-12 01:33 | Emergency (ER) | payer MEDICARE, OTHER, SELFPAY ==
[2017-11-12 01:34] VITALS: BP 143/90; PULSE 71; RESP 16; TEMP 36.7; O2SAT 98; BMI 29.0
[2017-11-12 02:00] VITALS: BP 113/69; PULSE 70; RESP 16; O2SAT 98
[2017-11-12 02:02] LABS: Basophils # 0.1 K/mm3 (0-0.2); Basophils % 0.6 % (0.1-2.0); Eosinophils # 0.2 K/mm3 (0.0-0.4); Eosinophils % 2.1 % (0.1-12.0); Hematocrit 42.4 % (37.0-47.0); Hemoglobin 13.8 g/dL (12.2-16.2); Lymphocytes # 3.4 K/mm3 (0.7-4.5); Lymphocytes % 35.7 K/mm3 (10-50); Mean Corpuscular HGB Conc 32.6 g/dL (31.8-35.4); Mean Corpuscular Hemoglobin 28.4 pg (27.0-31.2); Mean Corpuscular Volume 87.1 fl (81-99); Mean Platelet Volume 7.3 fl (7.4-10.4); Monocytes # 0.8 K/mm3 (0.1-1.0); Monocytes % 7.9 % (1.7-9.3); Neutrophils # 5.1 K/mm3 (1.8-7.8); Neutrophils % 53.6 % (37.0-80.0); Platelet Count 340 K/mm3 (142-424); Red Blood Count 4.87 M/mm3 (4.20-5.40); Red Cell Distribution Width 12.6 % (11.5-17.5); White Blood Count 9.5 K/mm3 (4.8-10.8)
[2017-11-12 02:08] LABS: Activated Partial Thrombo Time 24.2 seconds (23.6-34.0); INR 0.89 (0.9-1.1); Prothrombin Time 9.6 seconds (9.4-11.8)
--- NOTE | 2017-11-12 02:18 | XR_ITS ---
XR chest 2V HISTORY: ITS.REASON: chest pain ORDERING PHYSICIAN: Ronny Marinelli MD PATIENT AGE: 77 years COMPARISON: 10/28/2017 FINDINGS: The cardiomediastinal silhouette and pulmonary vascularity are within normal limits. Calcified hilar lymph nodes are present The lungs are clear without infiltrates, suspicious nodules, or pleural effusions. Calcific tendinitis of the left shoulder. Bilateral subacromial stenosis. Coronary stents are present No acute bony abnormalities. IMPRESSION: 1. As above, no change with no acute finding. 2. Coronary artery disease 3. Old granulomatous disease. 4. Calcific tendinitis of the left shoulder with bilateral subacromial stenosis
[2017-11-12 02:25] LABS: Alanine Aminotransferase 27 U/L (12-78); Albumin/Globulin Ratio 1.2 (1.1-1.8); Alkaline Phosphatase 141 U/L (46-116); Anion Gap 10.9 mEq/L (5-15); Aspartate Amino Transferase 10 U/L (15-37); Bilirubin,Total 0.3 mg/dL (0.2-1.0); Blood Urea Nitrogen 23 mg/dL (7-18); Calcium 8.6 mg/dL (8.5-10.1); Carbon Dioxide 31 mmol/L (21.0-32.0); Chloride 100 mmol/L (98-107); Creatine Kinase 36 U/L (26-192); Creatinine Clearance Estimated 43 mL/min (0-300); Creatinine,Serum 1.12 mg/dL (0.55-1.02); Estimated Glomerular Filt Rate 47 ml/min (>60); GFR (African American) 57 ML/MIN (>60); Globulin 3.4 gm/dl (1.3-3.2); Glucose 114 mg/dL (74-106); Potassium 3.9 mmoL/L (3.5-5.1); Sodium 138 mmol/L (136-145); Total Protein,Serum 7.4 gm/dL (6.4-8.2); Troponin I < 0.02 ng/ml (0.00-0.06)
[2017-11-12 02:26] LABS: CKMB Relative Index 1.4 U/L (0-4.0); Creatine Kinase MB < 0.5 mg/ml (0.0-3.6)
[2017-11-12 02:44] VITALS: BP 135/70; PULSE 68; RESP 14; O2SAT 98
--- NOTE | 2017-11-12 04:29 | HMH.EDCP ---
ED Disposition Clinical Impression: Renal insufficiency Chest pain Qualifiers: Chest pain type: precordial pain Qualified Code(s): R07.2 - Precordial pain Disposition: Home, Self-Care Condition on Discharge: Good Instructions: DI for Chest Pain Additional Instructions: call pcp for follow up Prescriptions: Isosorbide Dinitrate [Isordil 10mg tablet] 10 mg PO BID #60 tab Referrals: Jus Zee MD [Primary Care Provider] - - Critical Care Critical Care Time: No Attestation: On 11/12/17, the high probability of a clinically significant, sudden or life threatening deterioration of the following system(s) required my full and direct attention, intervention and personal management. The time I documented below is in addition to time spent performing reported procedures but includes the following listed in this critical care notation. Medical Decision Making - Medical Records Medical records reviewed: Yes: I reviewed the patient's medical records. Vital Signs: 11/12/17 01:34 11/12/17 02:00 11/12/17 02:44 Temperature 98.0 F Temperature Source Oral Pulse Rate [Left Radial] 71 70 68 Respiratory Rate 16 16 14 Blood Pressure [Right Arm] 143/90 113/69 135/70 Blood Pressure Mean [Right Arm] 107 83 91 Blood Pressure Source [Right Arm] Automatic Cuff Automatic Cuff Automatic Cuff Blood Pressure Position [Right Arm] Supine Supine Sitting 02 Sat by Pulse Oximetry 98 98 98 Oxygen Delivery Method Room Air Room Air Room Air 11/12/17 04:45 Temperature 98.5 F Temperature Source Oral Pulse Rate [Left Radial] 68 Respiratory Rate 16 Blood Pressure [Right Arm] 113/70 Blood Pressure Mean [Right Arm] 84 Blood Pressure Source [Right Arm] Automatic Cuff Blood Pressure Position [Right Arm] Sitting 02 Sat by Pulse Oximetry 95 Oxygen Delivery Method Room Air - Lab Data Lab results reviewed: Yes: I reviewed the patient's lab results. Lab Results 11/12/17 01:50: WBC 9.5, RBC 4.87, Hgb 13.8, Hct 42.4, MCV 87.1, MCH 28.4, MCHC 32.6, RDW 12.6, Plt Count 340, MPV 7.3 L, Neut % (Auto) 53.6, Lymph % (Auto) 35.7, [place] % (Auto) 7.9, Eos % (Auto) 2.1, Baso % (Auto) 0.6, Neut # (Auto) 5.1, Lymph # (Auto) 3.4, [place] # (Auto) 0.8, Eos # (Auto) 0.2, Baso # (Auto) 0.1 11/12/17 01:50: PT 9.6, INR 0.89 L, APTT 24.2 11/12/17 01:50: Sodium 138, Potassium 3.9, Chloride 100, Carbon Dioxide 31, Anion Gap 10.9, BUN 23 H, Creatinine 1.12 H, Estimated Creat Clear 43, Estimated GFR 47 L, Est GFR ( Amer) 57 L, Glucose 114 H, Calcium 8.6, Total Bilirubin 0.3, AST 10 L, ALT 27, Alkaline Phosphatase 141 H, Total Creatine Kinase 36, CK-MB (CK-2) < 0.5, CK-MB (CK-2) Rel Index 1.4, Troponin I < 0.02, Total Protein 7.4, Albumin 4.0, Globulin 3.4 H, Albumin/Globulin Ratio 1.2 11/12/17 04:35: Troponin I < 0.02 Result diagrams: 11/12/17 01:50 11/12/17 01:50 Orders (Tests/Meds): ED MEDICATIONS Discontinued Medications Generic Name Dose Route Start Last Admin Trade Name Everettq PRN Reason Stop Dose Admin Aspirin 243 mg 11/12/17 01:50 11/12/17 01:58 Aspirin 81mg Chewable Tablet PO 11/12/17 01:51 243 mg ONCE ONE Administration Nitroglycerin 1 gm 11/12/17 02:39 11/12/17 02:43 Nitroglycerin 1 Inch Oint Udp TD 11/12/17 02:40 1 gm ONCE ONE Administration - Radiology Data #1 Image(s): Chest Image Reviewed: Yes I reviewed the patient's radiology image Preliminary Findings: Normal/NAD - ECG Data Tracing #1 I reviewed this ECG and interpreted as documented below: Normal Sinus Rhythm: Yes Ischemic changes: non-specific ST-T wave changes - Physician Consults Physician Consulted: yolie Reason -: Pt condition Additional Consult: dipti Reason -: Pt condition - Danilo Inquiry Pt receiving controlled substance: No Chest Pain HPI - General Chief Complaint: Chest Pain Stated Complaint: chest pain Time Seen by Provider: 11/12/17 02:00 Mode of Arrival: Ambulatory Source of Information: Rachna
--- NOTE | 2017-11-12 04:33 | ED_ITS ---
ED Disposition Clinical Impression: Renal insufficiency Chest pain Qualifiers: Chest pain type: precordial pain Qualified Code(s): R07.2 - Precordial pain Disposition: Home, Self-Care Condition on Discharge: Good Instructions: DI for Chest Pain Additional Instructions: call pcp for follow up Prescriptions: Isosorbide Dinitrate [Isordil 10mg tablet] 10 mg PO BID #60 tab Referrals: Jus Zee MD [Primary Care Provider] - - Critical Care Critical Care Time: No Attestation: On 11/12/17, the high probability of a clinically significant, sudden or life threatening deterioration of the following system(s) required my full and direct attention, intervention and personal management. The time I documented below is in addition to time spent performing reported procedures but includes the following listed in this critical care notation. Medical Decision Making - Medical Records Medical records reviewed: Yes: I reviewed the patient's medical records. Vital Signs: 11/12/17 01:34 11/12/17 02:00 11/12/17 02:44 Temperature 98.0 F Temperature Source Oral Pulse Rate [Left Radial] 71 70 68 Respiratory Rate 16 16 14 Blood Pressure [Right Arm] 143/90 113/69 135/70 Blood Pressure Mean [Right Arm] 107 83 91 Blood Pressure Source [Right Arm] Automatic Cuff Automatic Cuff Automatic Cuff Blood Pressure Position [Right Arm] Supine Supine Sitting 02 Sat by Pulse Oximetry 98 98 98 Oxygen Delivery Method Room Air Room Air Room Air 11/12/17 04:45 Temperature 98.5 F Temperature Source Oral Pulse Rate [Left Radial] 68 Respiratory Rate 16 Blood Pressure [Right Arm] 113/70 Blood Pressure Mean [Right Arm] 84 Blood Pressure Source [Right Arm] Automatic Cuff Blood Pressure Position [Right Arm] Sitting 02 Sat by Pulse Oximetry 95 Oxygen Delivery Method Room Air - Lab Data Lab results reviewed: Yes: I reviewed the patient's lab results. Lab Results 11/12/17 01:50: WBC 9.5, RBC 4.87, Hgb 13.8, Hct 42.4, MCV 87.1, MCH 28.4, MCHC 32.6, RDW 12.6, Plt Count 340, MPV 7.3 L, Neut % (Auto) 53.6, Lymph % (Auto) 35.7, Parmer % (Auto) 7.9, Eos % (Auto) 2.1, Baso % (Auto) 0.6, Neut # (Auto) 5.1 , Lymph # (Auto) 3.4, Parmer # (Auto) 0.8, Eos # (Auto) 0.2, Baso # (Auto) 0.1 11/12/17 01:50: PT 9.6, INR 0.89 L, APTT 24.2 11/12/17 01:50: Sodium 138, Potassium 3.9, Chloride 100, Carbon Dioxide 31, Anion Gap 10.9, BUN 23 H, Creatinine 1.12 H, Estimated Creat Clear 43, Estimated GFR 47 L, Est GFR ( Amer) 57 L, Glucose 114 H, Calcium 8.6, Total Bilirubin 0.3, AST 10 L, ALT 27, Alkaline Phosphatase 141 H, Total Creatine Kinase 36, CK-MB (CK-2) < 0.5, CK-MB (CK-2) Rel Index 1.4, Troponin I < 0.02, Total Protein 7.4, Albumin 4.0, Globulin 3.4 H, Albumin/Globulin Ratio 1.2 11/12/17 04:35: Troponin I < 0.02 Result diagrams: 11/12/17 01:50 11/12/17 01:50 Orders (Tests/Meds): ED MEDICATIONS Discontinued Medications Generic Name Dose Route Start Last Admin Trade Name Dorys PRN Reason Stop Dose Admin Aspirin 243 mg 11/12/17 01:50 11/12/17 01:58 Aspirin 81mg Chewable Tablet PO 11/12/17 01:51 243 mg ONCE ONE Administration Nitroglycerin 1 gm 11/12/17 02:39 11/12/17 02:43 Nitroglycerin 1 Inch Oint Udp TD 11/12/17 02:40 1 gm ONCE ONE Administration
[2017-11-12 04:45] VITALS: BP 113/70; PULSE 68; RESP 16; TEMP 36.9; O2SAT 95
[2017-11-12 04:58] LABS: Troponin I < 0.02 ng/ml (0.00-0.06)
--- NOTE | 2017-11-12 05:47 | PC.NURSE ---
DR domingo spoke with dr urbano.
--- NOTE | 2017-11-12 05:59 | PC.NURSE ---
DR LAUREN SPEAKING TO DR CONLEY PER DR RESENDIZ'S REQUEST AT THIS TIME
[2017-11-12 06:25] VITALS: BP 134/59; PULSE 78; RESP 16; TEMP 37; O2SAT 97
== END 2017-11-12 06:26 | disposition home or self-care (01) ==
PROVIDERS: Emergency Provider Emergency Medicine; PCP Internal Medicine Adolescent Medicine
DX: N28.9 Disorder of kidney and ureter, unspecified (principal); R07.2 Precordial pain; E78.5 Hyperlipidemia, unspecified; I10 Essential (primary) hypertension; Z86.79 Personal history of other diseases of the circulatory system; Z87.891 Personal history of nicotine dependence
CPT/HCPCS: 71046; 80053; 82550; 82553; 84484; 85025; 85610; 85730; 93005; 93041; 96374; 96375; 99283; J2405

== ENCOUNTER → 2018-01-20 15:39 | Outpatient (CLI) | payer MEDICARE, OTHER, SELFPAY ==
--- NOTE | 2018-01-20 15:43 | XR_ITS ---
XR foot LT min 3V HISTORY: ITS.REASON: LEFT HEEL PAIN ORDERING PHYSICIAN: Jus Zee MD PATIENT AGE: 77 years COMPARISON: None FINDINGS: No fracture or dislocation. No lytic or blastic change. There is normal mineralization.. The joint spaces are well-preserved. No significant degenerative/arthritic changes. No erosive changes evident. Probably small calcaneal spurs noted without erosive change IMPRESSION: Negative left foot, no acute finding
== END ==
PROVIDERS: PCP Internal Medicine Adolescent Medicine; Visit Provider Internal Medicine Adolescent Medicine
DX: M79.672 Pain in left foot (principal)
CPT/HCPCS: 73630

== ENCOUNTER → 2018-01-27 14:37 | Outpatient (CLI) | payer MEDICARE, OTHER, SELFPAY ==
--- NOTE | 2018-01-27 14:40 | MR_ITS ---
MR foot LT wo con Ordering Physician: Jus Zee MD Patient Age: 77 years: Female HISTORY: ITS.REASON: PAIN OF LEFT HEEL, FOOT PAIN, LEFT Left foot and ankle pain 2 weeks pain is mainly at the heel TECHNIQUE: Multiplanar multisequence foot imaging without contrast, on 1.5 T MR COMPARISON :Plain films left foot 01/20/2018 FINDINGS A abnormal calcaneus was seen on the preceding MRI ankle study.. MR appearance most suggestive of a calcaneal stress fracture. This MR study again that the mid foot and continues to the toes.q Metatarsals are intact. The cuneiforms intact, including intact.Cuboid . The slight Inhomogeneous field and signal from this MRI coil contributes to the bright appearance of toes on T1 image..-They appear normal on STIR images & overall toes 2, 3, 4 and 5 intact.. At the great toe I would note 3 mm cystic area At the dorsal base of the distal phalanx great toe. Likely small subchondral cyst. Less likely erosion. But not evident on recent plain film Very tiny 2 mm high signal focus likely tiny degenerative subchondral cystic focus., Noted at the inferior margin of first metatarsal head. No osseous stress reaction or stress response. Generous venous structures between base of first and second metatarsal noted. The sesamoids intact at plantar aspect first MTP joint. Scant edema question is seen between the second and third toe webspace. Equivocal. IMPRESSION No significant appearing findings at the forefoot nor at the visualized portions of the mid foot (Abnormalities at calcaneus as described on MRI ankle report)
--- NOTE | 2018-01-27 14:41 | MR_ITS ---
MR ankle LT wo con Ordering Physician: Jus Zee MD Patient Age: 77 years: Female HISTORY: : PAIN OF LEFT HEEL, ACHILLES TENDONITIS OF LEFT LOWER EXTREMI FOOT PAIN, LEFT Left foot , heel and ankle pain 2 weeks pain is mainly at the heel TECHNIQUE: Multiplanar multisequence foot imaging without contrast, on 1.5 T MR COMPARISON :Plain films left foot 01/20/2018 FINDINGS There is abnormal signal at the calcaneus.. . I favor this is likely traumatic in nature although I understand there is no recent history of acute trauma on note from Dr. Hernandez's office. No evidence of cellulitis or inflammation clinically.. MR pattern suggestive stress fracture.-Correlation required On today's MR images reveal no definitive cortical step-off nor dislocation.-. There is a a band of high signal which extends through the posterior calcaneus cortex slightly less well-defined where it extends through the cortex.-This being most most evident at the superior posterior margin of calcaneus. . suspect microfracture/stress fracture likely present here passing through the posterior calcaneus. Fracture line likely extending from its superior margin of posterior calcaneus, posterior to the ankle. Bone edema/ contusion is most pronounced in this area... Suspect Subtle microfracture line extending downward and in oblique fashion, with associated abnormal bone edema/following this band most evident extending to the medial aspect of posterior calcaneus. Bone edema also seen laterally at the same level but less evident laterally. Is also some subtle less evident bone edema, along the posterior margin the calcaneus just inferior to the Achilles tendon insertion. Achilles tendon insertion. There is edema in the soft tissues flanking the medial> lateral aspect of the posterior calcaneus. However there is concern develops regarding infection this might also be entertained but I believe unlikely from available history and overall appearance Achilles tendon itself seems overall intact withupper normal signal just above its calcaneal insertion... Upper normal caliber here as well borderline thickened.. I would note that there is minimal fluid all along the posterior aspect the distal Achilles tendon,, superior its calcaneal insertion. (. Axial slice 12-6,. & sagittal image 23) which could reflect some mild inflammation of the posterior paratendon as well, or merely dependent edema. I believe this is a secondary feature. In May warrant consider a venous duplex Doppler study as pain improves to exclude any associated such findings. Most evident fluid is seen just along the superior margin of the calcaneus posterior to the ankle. A small joint effusion with some focal bulging fluid posteriorly from the ankle joint as well as diffuse edema in the adjacent soft tissues throughout this region.... Also note slight increased fluid collection along the the anterior aspect of the ankle joint as well as tibial fibular articulation. Also note increased lateral subtalar joint. Modest focal fluid collection here seen extending from lateral subtalar joint,, extending lateral to the angle Gissane here and overlying the lateral ankle at this level Diffuse edema, flanking and stranding at the fat surrounding calcaneus reflects the reactive changes and calcaneus as well. Any additional recent activities or increased walking/step activity which may induce a stress reaction .? Reviewing other x-rays Patient appears to be demineralized typical of age but not excessively osteoporotic on available plain films of foot. 2017 CT chest from last year shows normal appearing bone overall density for age on that ovary view.. Consider DEXA scan. . lateral ankle: The anterior talofibular and tibiofibular ligaments are intact. Previously noted small collection fl
== END ==
PROVIDERS: PCP Internal Medicine Adolescent Medicine; Visit Provider Internal Medicine Adolescent Medicine
DX: M76.72 Peroneal tendinitis, left leg (principal); M76.62 Achilles tendinitis, left leg
CPT/HCPCS: 73718; 73721

== ENCOUNTER → 2018-04-09 11:59 | Outpatient (CLI) | payer MEDICARE, OTHER, SELFPAY ==
[2018-04-09 12:36] LABS: Hemoglobin A1C 7.1 % (0.0-7.0)
[2018-04-09 13:10] LABS: Alanine Aminotransferase 22 U/L (12-78); Albumin/Globulin Ratio 1.4 (1.1-1.8); Alkaline Phosphatase 124 U/L (46-116); Anion Gap 13.1 mEq/L (5-15); Aspartate Amino Transferase 8 U/L (15-37); Bilirubin,Total 0.3 mg/dL (0.2-1.0); Blood Urea Nitrogen 23 mg/dL (7-18); Calcium 9.2 mg/dL (8.5-10.1); Carbon Dioxide 30 mmol/L (21.0-32.0); Chloride 107 mmol/L (98-107); Creatinine,Serum 1.07 mg/dL (0.55-1.02); Estimated Glomerular Filt Rate 50 ml/min (>60); GFR (African American) 60 ML/MIN (>60); Globulin 2.8 gm/dl (1.3-3.2); Glucose 126 mg/dL (74-106); Potassium 5.1 mmoL/L (3.5-5.1); Sodium 145 mmol/L (136-145); Total Protein,Serum 6.8 gm/dL (6.4-8.2)
== END ==
PROVIDERS: Visit Provider Internal Medicine Adolescent Medicine
DX: R73.9 Hyperglycemia, unspecified (principal)
CPT/HCPCS: 36415; 80053; 83036

== ENCOUNTER → 2018-10-01 07:42 | Outpatient (CLI) | payer MEDICARE, OTHER, SELFPAY ==
--- NOTE | 2018-10-01 08:12 | MR_ITS ---
MR head/brain wo con Ordering Physician: Jus Zee MD Patient Age: 78 years: Female HISTORY: ITS.REASON: DIZZINESSand nausea in the morning. Short-term memory loss past 8 weeks. Intermittent dizziness TECHNIQUE: Routine MRI brain performed without contrast . Multiplanar FLAIR, T1, T2 weighted images along with axial diffusion/ADC imaging performed on 1.5 T. Siemens, MRI. COMPARISON :None FINDINGS Cerebral Hemispheres: No acute findings. No territorial infarct. No subdural/extra-axial collection.. No mass lesions Diffuse cerebral atrophy-typical to perhaps slightly advanced for age. With this there are prominent sulci and appropriate concomitant mild dilatation of the lateral ventricles and third ventricle.. . . Moderate chronic small vessel deep white matter ischemic/gliotic changes throughout the cerebral hemispheres bilaterally periventricular and subcortical.. Rim of periventricular signal reflects aging changes of the ependyma as well as likely chronic small vessel changes.. Scattered high signal white matter foci are seen bilaterally particularly evident at the superior aspect of darnell radiata bilaterally extending into centrum semiovale regions bilaterally... One of the aorta larger more confluent Some of the more peripheral white matter high signal foci extend slightly more peripherally, out into one of the precentral gyri, on left more so than right. Tiny barely evident symmetric small linear areas of increased signal along the posterior aspect of chrissie noted on axial FLAIR image 9. May reflect some very minor deep white matter small vessel changes here at posterior chrissie as well. Barely appreciable. Cerebellar hemispheres appear satisfactory bilaterally. Well-maintained with little if any atrophy evident. No mass lesion.. . CP angles are clear. What is seen at cranial nerves Vii & VIII on this nonenhanced survey study appears satisfactory. No appreciable lesion here. Diffusion images show no acute or recent ischemia or infarct. Mastoids. Bilateral mastoid effusion. Mucosal thickening and increased signal throughout the mastoid air cells bilaterally. A few tiny air-fluid levels seen within some of the right mastoid air cells; with this most notable towards right mastoid tip.. I see no definitive fluid within the middle air. Consider CT mastoids follow-up if symptoms progress Paranasal sinuses are well-developed and clear.. Upper normal mucosal thickness ethmoid air cells. Orbits unremarkable. Globes intact. Partial empty sella noted. Generous volume sella with flattened pituitary at the inferior aspect of the slight generous but normal size sella turcica measured up to nearly 12 mm AP. The the pituitary stalk remains midline. No suprasellar abnormalities optic chiasm unremarkable. Limited Views of the [place] with no prominent findings but do demonstrate what appear to be patent bilateral posterior communicating arteries.. The right vertebral artery is dominant with tiny left vertebral artery adjoining to form a normal appearing basilar artery. Incidental observation The cranial cervical junction appears satisfactory. IMPRESSION: 1. . No acute findings No mass lesion. No territorial infarct. No subdural collection. 2. Diffuse cerebral atrophy. 3. Chronic small vessel white matter ischemic/gliotic changes.-. Moderate pronounced throughout cerebral hemispheres bilaterally 4.. Diffuse bilateral mastoid effusions noted.-Slightly more pronounced throughout the right mastoid air cells. Consider CT mastoid follow-up if symptoms progress 5. Partial empty sella incidentally noted.. Generous but normal volume Fluid-filled sella , with flattened pituitary inferiorly . No suprasellar abnormalities
[2018-10-01 08:13] LABS: Blood Urea Nitrogen 24 mg/dL (7-18); Creatinine,Serum 1.67 mg/dL (0.55-1.02); Estimated Glomerular Filt Rate 30 ml/min (>60); GFR (African American) 36 ML/MIN (>60)
== END ==
PROVIDERS: Visit Provider Internal Medicine Adolescent Medicine
DX: R42 Dizziness and giddiness (principal)
CPT/HCPCS: 36415; 70551; 82565; 84520

== ENCOUNTER → 2018-10-11 11:28 | Outpatient (CLI) | payer MEDICARE, OTHER, SELFPAY ==
[2018-10-11 12:12] LABS: Basophils # 0.1 K/mm3 (0-0.2); Basophils % 0.7 % (0.1-2.0); Eosinophils # 0.5 K/mm3 (0.0-0.4); Eosinophils % 5.9 % (0.1-12.0); Hematocrit 36.2 % (37.0-47.0); Hemoglobin 11.1 g/dL (12.2-16.2); Lymphocytes # 2.4 K/mm3 (0.7-4.5); Mean Corpuscular HGB Conc 30.5 g/dL (31.8-35.4); Mean Corpuscular Hemoglobin 27.7 pg (27.0-31.2); Mean Corpuscular Volume 90.7 fl (81-99); Mean Platelet Volume 7.7 fl (7.4-10.4); Monocytes # 0.6 K/mm3 (0.1-1.0); Monocytes % 8.2 % (1.7-9.3); Neutrophils # 4.2 K/mm3 (1.8-7.8); Neutrophils % 54.2 % (37.0-80.0); Platelet Count 331 K/mm3 (142-424); Red Cell Distribution Width 13.2 % (11.5-17.5); White Blood Count 7.7 K/mm3 (4.8-10.8)
[2018-10-11 13:21] LABS: Alanine Aminotransferase 15 U/L (12-78); Albumin Level 3.7 gm/dL (3.4-5.0); Albumin/Globulin Ratio 1.3 (1.1-1.8); Alkaline Phosphatase 140 U/L (46-116); Anion Gap 13.5 mEq/L (5-15); Aspartate Amino Transferase 10 U/L (15-37); Bilirubin,Total 0.3 mg/dL (0.2-1.0); Blood Urea Nitrogen 18 mg/dL (7-18); Calcium 9.1 mg/dL (8.5-10.1); Carbon Dioxide 29 mmol/L (21.0-32.0); Chloride 102 mmol/L (98-107); Creatinine,Serum 1.32 mg/dL (0.55-1.02); Estimated Glomerular Filt Rate 39 ml/min (>60); Free Thyroxine Index 2.3 ug/dL (5.93-13.13); GFR (African American) 47 ML/MIN (>60); Globulin 2.9 gm/dl (1.3-3.2); Glucose 97 mg/dL (74-106); Potassium 4.5 mmoL/L (3.5-5.1); Sodium 140 mmol/L (136-145); T4 (Thyroxine) 6.9 ug/dl (4.7-13.3); Thyroid Stimulating Hormone 1.35 uIU/ml (0.358-3.740); Total Protein,Serum 6.6 gm/dL (6.4-8.2); Triiodothryronine (T3) Uptake 34 % (31-39)
[2018-10-12 09:47] LABS: Vitamin B12 202 pg/mL (232-1245); Vitamin D 25 Hydroxy 12.6 ng/mL (30.0-100.0)
[2018-10-15 12:17] LABS: Methylmalonic Acid 958 nmol/L (0-378)
== END ==
PROVIDERS: Visit Provider Internal Medicine Adolescent Medicine
DX: I25.10 Atherosclerotic heart disease of native coronary artery without angina pectoris (principal); R41.3 Other amnesia; R27.0 Ataxia, unspecified
CPT/HCPCS: 36415; 80053; 82131; 82607; 82652; 84436; 84443; 84479; 85025

== ENCOUNTER → 2018-11-01 13:49 | Outpatient (CLI) | payer MEDICARE, OTHER, SELFPAY ==
--- NOTE | 2018-11-01 13:53 | MR_ITS ---
MR cervical spine wo con Ordering Physician: Jean Delgado MD Patient Age: 78 years: Female HISTORY: ITS.REASON: BALANCE IMPAIRMENTpast 3 weeks. Unable to walk. Neck pain with turning head. TECHNIQUE: Sagittal STIR, T1, T2, axial T1 and T2. On 1.5T Siemens wide bore MRI. 3-D MR myelogram image set obtained & performed on MRI workstation. Additional sagittal thin section T2 weighted dataset obtained from this latter acquisition as well (---76 CPT) COMPARISON :CT cervical spine March 2015 FINDINGS Ovoid mass well-circumscribed inferior right neck posterior aspect of the thyroid. This measures 2 cm length as 1.4 cm AP as 1.6 cm transverse. It appears similar size as to a March 2015 CT C-spine study where they ovoid slight low-density mass along the posterior aspect of the thyroid can be seen in retrospect.. Nonetheless is mass would benefit from fine-needle biopsy aspiration for definitive diagnosis. This is mixed density mass with containing a few ovoid cystic areas throughout the largest measuring up to 7.5 mm size. It seemed to slightly displace the right lobe of thyroid overlying this area. Right Thyroid gland overlying this area is homogeneous with no additional findings but is right lobe thyroid only partially imaged. The isthmus of thyroid region unremarkable Submandibular glands are unremarkable. Right submandibular gland-imaged measuring 3.7 cm in length x 2 cm AP. Left submandibular gland- measures 3.6 cm in length x 2 cm AP IMPRESSION... Well-circumscribed 2 cm x 1.4 x 1.6 cm nodule along the posterior aspect of right lobe of thyroid. Mixed density nodule with a few scattered ovoid cystic areas within it. Recommend FNA biopsy to further evaluate of this most likely benign nodule (Suspect benign nodule likely present on on a 2015 CT cervical spine study..)
== END ==
PROVIDERS: PCP Internal Medicine Adolescent Medicine; Visit Provider Psychiatry & Neurology Sleep Medicine
DX: R41.3 Other amnesia (principal)
CPT/HCPCS: 72141; 76376

== ENCOUNTER → 2018-11-05 15:01 | Outpatient (CLI) | payer MEDICARE, OTHER, SELFPAY ==
[2018-11-05 15:31] LABS: Basophils # 0.1 K/mm3 (0-0.2); Basophils % 0.6 % (0.1-2.0); Eosinophils # 0.4 K/mm3 (0.0-0.4); Eosinophils % 4.5 % (0.1-12.0); Hemoglobin 12.2 g/dL (12.2-16.2); Lymphocytes # 2.3 K/mm3 (0.7-4.5); Lymphocytes % 26.5 % (10-50); Mean Corpuscular HGB Conc 32.9 g/dL (31.8-35.4); Mean Corpuscular Hemoglobin 28.3 pg (27.0-31.2); Mean Platelet Volume 7.6 fl (7.4-10.4); Monocytes # 0.6 K/mm3 (0.1-1.0); Monocytes % 6.6 % (1.7-9.3); Neutrophils # 5.3 K/mm3 (1.8-7.8); Neutrophils % 61.7 % (37.0-80.0); Platelet Count 344 K/mm3 (142-424); Red Blood Count 4.31 M/mm3 (4.20-5.40); Red Cell Distribution Width 12.8 % (11.5-17.5); White Blood Count 8.6 K/mm3 (4.8-10.8)
[2018-11-05 16:06] LABS: Anion Gap 12.6 mEq/L (5-15); Blood Urea Nitrogen 18 mg/dL (7-18); Calcium 9.6 mg/dL (8.5-10.1); Carbon Dioxide 31 mmol/L (21.0-32.0); Chloride 100 mmol/L (98-107); Creatinine,Serum 1.63 mg/dL (0.55-1.02); Estimated Glomerular Filt Rate 31 ml/min (>60); Free Thyroxine Index 3.1 ug/dL (5.93-13.13); GFR (African American) 37 ML/MIN (>60); Glucose 116 mg/dL (74-106); Potassium 3.6 mmoL/L (3.5-5.1); Sodium 140 mmol/L (136-145); T4 (Thyroxine) 8.9 ug/dl (4.7-13.3); Thyroid Stimulating Hormone 1.63 uIU/ml (0.358-3.740); Triiodothryronine (T3) Uptake 35 % (31-39)
== END ==
PROVIDERS: Visit Provider Internal Medicine Adolescent Medicine
DX: R27.0 Ataxia, unspecified (principal); N17.9 Acute kidney failure, unspecified; E04.1 Nontoxic single thyroid nodule
CPT/HCPCS: 36415; 80048; 84436; 84443; 84479; 85025

== ENCOUNTER → 2018-11-11 12:47 | Outpatient (CLI) | payer MEDICARE, OTHER, SELFPAY ==
--- NOTE | 2018-11-11 12:49 | MR_ITS ---
MR lumbar spine wo con, MR 3-d myelogram/MRCP HISTORY: Low back pain X 3 months or so. Bilateral leg pain. ITS.REASON: LUMBAR NEURALGIA ORDERING PHYSICIAN: Jus Zee MD PATIENT AGE: 78 years Comparison: None TECHNIQUE: Standard multiplanar multiecho sequences are performed without contrast. 3-D MIP and myelographic images are also rendered and reviewed FINDINGS: There is normal alignment. The spinal cord and at the L1 level. T10-T11 and T11-T12 show mild degenerative disc disease with mild disc desiccation. T12-L1: Mild concentric bulging disc. L1-L2: Degenerative disc disease with bulging disc with a small broad-based right paracentral and foraminal disc protrusion causing mild right lateral recess narrowing and moderate right-sided foraminal narrowing. L2-L3: Degenerative disc disease with bulging disc with both right and paracentral and foraminal left broad-based disc protrusions along with facet and ligamentum flavum hypertrophy with moderate bilateral lateral recess and foraminal narrowing. There is transverse narrowing of the canal from the facet and ligamentum flavum hypertrophy. L3-L4: Concentric bulging disc with moderate facet and ligamentum flavum hypertrophy and moderate bilateral lateral recess and mild bilateral foraminal narrowing. L4-L5: Concentric bulging disc along with facet and ligamentum flavum hypertrophy with mild bilateral lateral recess and foraminal narrowing. There is small central disc protrusion with borderline narrowing of the canal at this level. L5-S1: Mild concentric bulging disc which is slightly eccentric toward the left versus a small broad-based central and left paracentral disc protrusion with mild left-sided foraminal and lateral recess narrowing No extruded herniated disc is evident. Incidental note made of a 4.5 cm cyst along the upper pole the right kidney. IMPRESSION: 1. L1-L2: Degenerative disc disease with bulging disc with a small broad-based right paracentral and foraminal disc protrusion causing mild right lateral recess narrowing and moderate right-sided foraminal narrowing. 2. L2-L3: Degenerative disc disease with bulging disc with both right and paracentral and foraminal left broad-based disc protrusions along with facet and ligamentum flavum hypertrophy with moderate bilateral lateral recess and foraminal narrowing. There is transverse narrowing of the canal from the facet and ligamentum flavum hypertrophy. 3. L3-L4: Concentric bulging disc with moderate facet and ligamentum flavum hypertrophy and moderate bilateral lateral recess and mild bilateral foraminal narrowing. 4. L4-L5: Concentric bulging disc along with facet and ligamentum flavum hypertrophy with mild bilateral lateral recess and foraminal narrowing. There is small central disc protrusion with borderline narrowing of the canal at this level. 5. L5-S1: Mild concentric bulging disc which is slightly eccentric toward the left versus a small broad-based central and left paracentral disc protrusion with mild left-sided foraminal and lateral recess narrowing 6. No extruded herniated disc evident
== END ==
PROVIDERS: PCP Internal Medicine Adolescent Medicine; Visit Provider Internal Medicine Adolescent Medicine
DX: M54.16 Radiculopathy, lumbar region (principal)
CPT/HCPCS: 72148; 76376

== ENCOUNTER → 2018-11-12 11:04 | Outpatient (CLI) | payer MEDICARE, OTHER, SELFPAY ==
[2018-11-12 13:16] LABS: Anion Gap 12.8 mEq/L (5-15); Blood Urea Nitrogen 13 mg/dL (7-18); Calcium 9.5 mg/dL (8.5-10.1); Carbon Dioxide 30 mmol/L (21.0-32.0); Chloride 102 mmol/L (98-107); Estimated Glomerular Filt Rate 34 ml/min (>60); GFR (African American) 41 ML/MIN (>60); Glucose 103 mg/dL (74-106); Potassium 3.8 mmoL/L (3.5-5.1); Sodium 141 mmol/L (136-145)
== END ==
PROVIDERS: Visit Provider Internal Medicine Adolescent Medicine
DX: N17.9 Acute kidney failure, unspecified (principal)
CPT/HCPCS: 36415; 80048

== ENCOUNTER → 2018-12-31 09:13 | Outpatient (CLI) | payer MEDICARE, OTHER, SELFPAY ==
[2018-12-31 10:27] LABS: Blood Urea Nitrogen 10 mg/dL (7-18); Calcium 9.3 mg/dL (8.5-10.1); Carbon Dioxide 27 mmol/L (21.0-32.0); Chloride 106 mmol/L (98-107); Creatinine,Serum 1.34 mg/dL (0.55-1.02); Estimated Glomerular Filt Rate 38 ml/min (>60); GFR (African American) 46 ML/MIN (>60); Glucose 115 mg/dL (74-106); Sodium 140 mmol/L (136-145)
== END ==
PROVIDERS: Visit Provider Internal Medicine Adolescent Medicine
DX: I25.10 Atherosclerotic heart disease of native coronary artery without angina pectoris (principal)
CPT/HCPCS: 36415; 80048

== ENCOUNTER → 2019-02-08 08:45 | Outpatient (CLI) | payer MEDICARE, OTHER, SELFPAY ==
--- NOTE | 2019-02-08 08:47 | CI_ITS ---
Cerebrovascular Exam Indications: Follow-up carotid 433.10. IMPRESSIONS 1. The bilateral vertebral arteries are patent with normal antegrade flow. 2. Study suggests less than 20% stenosis involving the right internal carotid artery. No change from the study of 27-Aug-2017. 3. Study suggests 20-49% stenosis involving the left internal carotid artery. Disease progression from the study of 17-Aug-2017. 4. Tortuous carotid arteries seen bilaterally. History: Risk factors: Hyperlipidemia. Carotid duplex study. Complete study and Doppler flow study including spectral analysis, color and gonzalez scale imaging. Height: Height: 149.9cm. Height: 59in. Weight: Weight: 62.1kg. Weight: 136.7lb. Body mass index: BMI: 27.7kg/m^2. Body surface area: BSA: 1.63m^2. Location: Vascular laboratory. Patient status: Outpatient. Tables: Arterial flow: + +--------+--------+ Location V sys V ed + +--------+--------+ Right CCA - proximal 79.2cm/s 18cm/s + +--------+--------+ Right CCA - distal 94.2cm/s 26.7cm/s + +--------+--------+ Right ECA 62.2cm/s 10.7cm/s + +--------+--------+ Right ICA - proximal 117cm/s 25.9cm/s + +--------+--------+ Right ICA - mid 99.3cm/s 25.9cm/s + +--------+--------+ Right ICA - distal 82.9cm/s 26.1cm/s + +--------+--------+ Right vertebral 47.5cm/s 15.4cm/s + +--------+--------+ Left CCA - proximal 72.4cm/s 18cm/s + +--------+--------+ Left CCA - distal 96.6cm/s 21.2cm/s + +--------+--------+ Left ECA 91.2cm/s 14.8cm/s + +--------+--------+ Left ICA - proximal 130cm/s 31.4cm/s + +--------+--------+ Left ICA - mid 110cm/s 26.9cm/s + +--------+--------+ Left ICA - distal 84.3cm/s 26.9cm/s + +--------+--------+ Left vertebral 36.3cm/s 12.6cm/s + +--------+--------+ Velocity ratios: + + + + + + Right, V sys Right, V ed Left, V sys Left, V ed + + + + + + Max ICA/dist CCA 1.24 0.98 1.35 1.48 + + + + + + (Report amended ) Electronically signed by: Mervin Haskins [id number]
== END ==
PROVIDERS: PCP Internal Medicine Adolescent Medicine; Visit Provider Urology
DX: I65.23 Occlusion and stenosis of bilateral carotid arteries (principal); R42 Dizziness and giddiness
CPT/HCPCS: 93880

== ENCOUNTER 2019-02-22 09:08 | Day surgery (SDC) | payer MEDICARE, OTHER, SELFPAY ==
[2019-02-21 14:09] VITALS: BMI 26.2
[2019-02-22 10:14] VITALS: BP 159/79; PULSE 71; RESP 18; TEMP 36.8; O2SAT 97
== END 2019-02-22 10:57 | disposition home or self-care (01) ==
LOC: OUTP 09:11
PROVIDERS: PCP Internal Medicine Adolescent Medicine; Visit Provider Ophthalmology
PROC: (CPT 66821; principal; 2019-02-22 11:00)
DX: H26.40 Unspecified secondary cataract (principal)
CPT/HCPCS: 66821

== ENCOUNTER → 2019-03-09 10:55 | Outpatient (CLI) | payer MEDICARE, OTHER, SELFPAY ==
[2019-03-09 11:22] LABS: Basophils % 0.5 % (0.1-2.0); Eosinophils # 0.4 K/mm3 (0.0-0.4); Eosinophils % 7.1 % (0.1-12.0); Hemoglobin 10.6 g/dL (12.2-16.2); Lymphocytes # 2.1 K/mm3 (0.7-4.5); Lymphocytes % 36.3 % (10-50); Mean Corpuscular HGB Conc 30.4 g/dL (31.8-35.4); Mean Corpuscular Hemoglobin 27.2 pg (27.0-31.2); Mean Corpuscular Volume 89.5 fl (81-99); Mean Platelet Volume 7.9 fl (7.4-10.4); Monocytes # 0.4 K/mm3 (0.1-1.0); Monocytes % 6.3 % (1.7-9.3); Neutrophils # 2.9 K/mm3 (1.8-7.8); Neutrophils % 49.8 % (37.0-80.0); Platelet Count 282 K/mm3 (142-424); Red Blood Count 3.91 M/mm3 (4.20-5.40); Red Cell Distribution Width 13.8 % (11.5-17.5); White Blood Count 5.8 K/mm3 (4.8-10.8)
[2019-03-09 12:23] LABS: Alanine Aminotransferase 16 U/L (12-78); Albumin Level 3.7 gm/dL (3.4-5.0); Albumin/Globulin Ratio 1.4 (1.1-1.8); Alkaline Phosphatase 88 U/L (46-116); Anion Gap 13.7 mEq/L (5-15); Aspartate Amino Transferase 11 U/L (15-37); Bilirubin,Total 0.3 mg/dL (0.2-1.0); Blood Urea Nitrogen 14 mg/dL (7-18); Calcium 8.8 mg/dL (8.5-10.1); Carbon Dioxide 29 mmol/L (21.0-32.0); Chloride 104 mmol/L (98-107); Chol/HDL Ratio 2.3 (1-3.5); Cholesterol 129 mg/dL (140-200); Creatinine,Serum 1.16 mg/dL (0.55-1.02); Estimated Glomerular Filt Rate 45 ml/min (>60); GFR (African American) 55 ML/MIN (>60); Globulin 2.7 gm/dl (1.3-3.2); Glucose 95 mg/dL (74-106); HDL Cholesterol 56 mg/dL (29-89); LDL Cholesterol 55 mg/dL (0-130); Potassium 4.7 mmoL/L (3.5-5.1); Sodium 142 mmol/L (136-145); Total Protein,Serum 6.4 gm/dL (6.4-8.2); Triglycerides 88 mg/dL (30-200); VLDL Cholesterol 18 mg/dL (0-40)
[2019-03-09 12:58] LABS: Hemoglobin A1C 6.4 % (0.0-7.0)
== END ==
PROVIDERS: Visit Provider Internal Medicine Adolescent Medicine
DX: I25.10 Atherosclerotic heart disease of native coronary artery without angina pectoris (principal); E11.9 Type 2 diabetes mellitus without complications; N18.2 Chronic kidney disease, stage 2 (mild)
CPT/HCPCS: 36415; 80053; 80061; 83036; 85025

== ENCOUNTER 2020-04-30 00:01 | Observation (INO) | payer MEDICARE, OTHER, SELFPAY ==
[2020-04-29 23:45] VITALS: BP 127/109; PULSE 147; RESP 18; TEMP 37.2; O2SAT 96; BMI 26.2
--- NOTE | 2020-04-29 23:56 | XR_ITS ---
PROCEDURE: XR CHEST 2V CLINICAL HISTORY: chest pain COMPARISON: CR CXR1VP XR chest portable from 10/26/2017 CR CXR1VP XR chest portable from 10/28/2017 CR CXR2V XR chest 2V from 11/12/2017 FINDINGS: The cardiomediastinal silhouette and pulmonary vascularity are within normal limits. There are coronary artery calcifications. The lungs are clear without infiltrates, suspicious nodules, or pleural effusions. No acute bony abnormalities. IMPRESSION: No acute findings. Dictated by: Mervin Haskins MD 04/30/2020 05:40 Mervin Haskins MD in [facility] 04/30/2020 05:40
--- NOTE | 2020-04-29 23:56 | ECG_ITS ---
APPROVED REPORT Exam: Resting ECG HR:138 bpm ECG Measurements Heart Rate 138 AXES QRSd 86 QRS 21 QT 346 T 92 QTc 524 <Conclusion> Atrial fibrillation with rapid ventricular response with premature ventricular or aberrantly conducted complexes Nonspecific ST and T wave abnormality, probably digitalis effect Abnormal ECG Electronically signed by : Tarik Mckeon, 04/30/2020 09:58:30
[2020-04-30] VITALS (13 sets, daily range): BP systolic 94–144; BP diastolic 57–74; PULSE 60–110; RESP 16–19; TEMP 36.6–36.9; O2SAT 94–97; BMI 29.0
[2020-04-30 00:02] LABS: Basophils % 0.3 % (0.1-2.0); Eosinophils # 0.4 K/mm3 (0.0-0.4); Eosinophils % 5.1 % (0.1-12.0); Hematocrit 34.2 % (37.0-47.0); Hemoglobin 10.9 g/dL (12.2-16.2); Lymphocytes # 3.1 K/mm3 (0.7-4.5); Lymphocytes % 43.2 % (10-50); Mean Corpuscular HGB Conc 31.9 g/dL (31.8-35.4); Mean Corpuscular Hemoglobin 28.3 pg (27.0-31.2); Mean Corpuscular Volume 88.7 fl (81-99); Mean Platelet Volume 7.6 fl (7.4-10.4); Monocytes # 0.5 K/mm3 (0.1-1.0); Monocytes % 6.5 % (1.7-9.3); Neutrophils # 3.2 K/mm3 (1.8-7.8); Neutrophils % 44.9 % (37.0-80.0); Platelet Count 226 K/mm3 (142-424); Red Blood Count 3.86 M/mm3 (4.20-5.40); Red Cell Distribution Width 13.2 % (11.5-17.5); White Blood Count 7.1 K/mm3 (4.8-10.8)
[2020-04-30 00:07] LABS: Alanine Aminotransferase 7 U/L (12-78); Alkaline Phosphatase 67 U/L (38-126); Aspartate Amino Transferase 18 U/L (14-36); Bilirubin,Total 0.3 mg/dl (0.2-1.3); Blood Urea Nitrogen 13 mg/dl (7-17); Creatinine Clearance Estimated 42 mL/min (50-200); Estimated Glomerular Filt Rate 53 ml/min (>60); GFR (African American) 65 ML/MIN (>60); Potassium 3.8 mmoL/L (3.5-5.1)
[2020-04-30 00:08] LABS: Albumin Level 3.8 g/dl (3.5-5.0); Albumin/Globulin Ratio 1.6 (1.1-1.8); Calcium 8.8 mg/dl (8.4-10.2); Carbon Dioxide 29 mmol/L (22.0-30.0); Globulin 2.4 g/dL (1.3-3.2); Glucose 116 mg/dl (74-100); Total Protein,Serum 6.2 g/dl (6.3-8.2)
[2020-04-30 00:11] LABS: Microscopic, Urine URINE MICROSCOPIC (MICROSCOPIC)
[2020-04-30 00:13] LABS: Appearance,Urine CLEAR (Clear); Bilirubin,Urine Negative (Negative); Blood, Urine Negative (Negative); Color,Urine YELLOW (Yellow); Glucose,Urine (UA) Negative (Negative); Ketones,Urine Negative (Negative); Leukocyte Esterase,Urine 1+ (Negative); Nitrate,Urine Negative (Negative); PH,Urine 6.5 (5.0-8.5); Protein,Urine Negative (Negative); Specific Gravity, Urine <= 1.005 (1.005-1.030); Urobilinogen,Urine 0.2 EU/dl (0.2)
[2020-04-30 00:15] LABS: Anion Gap 9.8 mEq/L (5-15); Chloride 104 mmol/L (98-107); Sodium 139 mmol/L (136-145)
[2020-04-30 00:20] LABS: Troponin I < 0.01 ng/ml (0.00-0.034)
--- NOTE | 2020-04-30 00:36 | HMH.EDCP ---
ED Disposition Clinical Impression: Chest pain Qualifiers: Chest pain type: precordial pain Qualified Code(s): R07.2 - Precordial pain A-fib Qualifiers: Atrial fibrillation type: paroxysmal Qualified Code(s): I48.0 - Paroxysmal atrial fibrillation Disposition: Admitted as Observation Condition on Discharge: Good Referrals: Jus Zee MD [Primary Care Provider] - - Critical Care Critical Care Time: No Attestation: On 04/30/20, the high probability of a clinically significant, sudden or life threatening deterioration of the following system(s) required my full and direct attention, intervention and personal management. The time I documented below is in addition to time spent performing reported procedures but includes the following listed in this critical care notation. Medical Decision Making - Medical Records Medical records reviewed: Yes: I reviewed the patient's medical records. - Danilo Inquiry Pt receiving controlled substance: No Vital Signs: 04/29/20 23:45 Temperature 98.9 F Temperature Source Oral Pulse Rate [Left] 147 H Respiratory Rate 18 Blood Pressure [Right Arm] 127/109 H Blood Pressure Mean [Right Arm] 115 Blood Pressure Source [Right Arm] Manual Cuff/ Doppler Blood Pressure Position [Right Arm] Sitting 02 Sat by Pulse Oximetry 96 Oxygen Delivery Method Room Air - Lab Data Lab results reviewed: Yes: I reviewed the patient's lab results. Lab Results 04/29/20 23:45: WBC 7.1, RBC 3.86 L, Hgb 10.9 L, Hct 34.2 L, MCV 88.7, MCH 28.3, MCHC 31.9, RDW 13.2, Plt Count 226, MPV 7.6, Neut % (Auto) 44.9, Lymph % (Auto) 43.2, [place] % (Auto) 6.5, Eos % (Auto) 5.1, Baso % (Auto) 0.3, Neut # (Auto) 3.2, Lymph # (Auto) 3.1, [place] # (Auto) 0.5, Eos # (Auto) 0.4, Baso # (Auto) 0.0 04/29/20 23:45: Sodium 139, Potassium 3.8, Chloride 104, Carbon Dioxide 29, Anion Gap 9.8, BUN 13, Creatinine 1.00, Estimated Creat Clear 42, Estimated GFR 53 L, Est GFR ( Amer) 65, Glucose 116 H, Calcium 8.8, Total Bilirubin 0.3, AST 18, ALT 7 L, Alkaline Phosphatase 67, Troponin I < 0.01, Total Protein 6.2 L, Albumin 3.8, Globulin 2.4, Albumin/Globulin Ratio 1.6 04/30/20 00:04: Urine Color Yellow, Urine Appearance Clear, Urine pH 6.5, Ur Specific [place] <= 1.005, Urine Protein Negative, Urine Glucose (UA) Negative, Urine Ketones Negative, Urine Blood Negative, Urine Nitrate Negative, Urine Bilirubin Negative, Urine Urobilinogen 0.2, Ur Leukocyte Esterase 1+ A, Urine WBC 5-10 Result diagrams: 04/29/20 23:45 04/29/20 23:45 Orders (Tests/Meds): ED MEDICATIONS Generic Name Dose Route Start Last Admin Trade Name Freq PRN Reason Stop Dose Admin Nitroglycerin 0.4 mg 04/29/20 23:57 04/29/20 23:57 Nitrostat 0.4mg Sl Tablet SL 05/29/20 23:56 0.4 mg Q5MINP PRN Administration Chest Pain Discontinued Medications Generic Name Dose Route Start Last Admin Trade Name Freq PRN Reason Stop Dose Admin Nitroglycerin 1 gm 04/30/20 00:11 04/30/20 00:13 Nitroglycerin 1 Inch Oint Udp TD 04/30/20 00:12 1 gm ONCE ONE Administration ORDERS Category Date Time Status XR chest 2V Stat Exams 04/29/20 23:56 Taken Full Resp Panel (COVID)(INPT) Routine Lab 04/30/20 00:33 Ordered Troponin I Q3H Lab 04/30/20 03:00 Ordered Troponin I Q3H Lab 04/30/20 06:00 Ordered Urine Culture Stat Micro 04/30/20 00:04 Received - ECG Data Tracing #1 Arrhythmias present: afib Ischemic changes: non-specific ST-T wave changes Tracing #2 Normal Sinus Rhythm: Yes Ischemic changes: non-specific ST-T wave changes - Physician Consults Physician Consulted: russel Reason -: Admission Chest Pain HPI - General Chief Complaint: Chest Pain Stated Complaint: chest pain Time Seen by Provider: 04/30/20 00:05 Mode of Arrival: EMS Source of Information: Patient, Spouse, EMS, Medical Record Limitations: No Limitations Description of Symptoms (Recalled from ER Triage Doc. by RN): pt states she wa
--- NOTE | 2020-04-30 00:45 | ECG_ITS ---
APPROVED REPORT Exam: Resting ECG HR:76 bpm ECG Measurements Heart Rate 76 AXES MO 146 P 31 QRSd 84 QRS 20 QT 400 T 43 QTc 450 <Conclusion> Normal sinus rhythm Minor NDST-T Changes Otherwise a Normal ECG Electronically signed by : Tarik Mckeon, 04/30/2020 09:58:06
[2020-04-30 00:55] LABS: Adenovirus,PCR Not Detected (NotDetected); Bordetella Pertussis Not Detected (NotDetected); Chlamydophila Pneumoniae, PCR Not Detected (NotDetected); Coronavirus 19, PCR Not Detected (NotDetected); Coronavirus 229E Not Detected (NotDetected); Coronavirus NL63 Not Detected (NotDetected); Coronavirus OC43 Not Detected (NotDetected); Coronovirus HKU1,PCR Not Detected (NotDetected); Human Metapneumovirus Not Detected (NotDetected); Influenza A, PCR Not Detected (NotDetected); Influenza AH1, 2009 Not Detected (NotDetected); Influenza AH1, PCR Not Detected (NotDetected); Influenza AH3,PCR Not Detected (NotDetected); Influenza B, PCR Not Detected (NotDetected); Mycoplasma Pneumoniae, PCR Not Detected (NotDetected); Parainfluenza 1, PCR Not Detected (NotDetected); Parainfluenza 2, PCR Not Detected (NotDetected); Parainfluenza 3, PCR Not Detected (NotDetected); Parainfluenza 4, PCR Not Detected (NotDetected); Respiratory Syncytial Virus Not Detected (NotDetected); Rhinovirus/Enterovirus Not Detected (NotDetected)
[2020-04-30 01:22] LABS: T4 (Thyroxine) 5.5 ug/dl (5.53-11.0)
[2020-04-30 01:36] LABS: Thyroid Stimulating Hormone 5.56 uIU/mL (0.465-4.68)
[2020-04-30 03:25] LABS: Troponin I < 0.01 ng/ml (0.00-0.034)
--- NOTE | 2020-04-30 03:41 | PC.NURSE ---
report called to Christy Jamison RN
--- NOTE | 2020-04-30 03:57 | PC.NURSE ---
patient up to floor via wheelchair per staff.
[2020-04-30 05:52] LABS: Basophils % 0.5 % (0.1-2.0); Eosinophils # 0.4 K/mm3 (0.0-0.4); Hematocrit 32.1 % (37.0-47.0); Hemoglobin 10.6 g/dL (12.2-16.2); Lymphocytes # 2.2 K/mm3 (0.7-4.5); Lymphocytes % 35.4 % (10-50); Mean Corpuscular Hemoglobin 28.9 pg (27.0-31.2); Mean Corpuscular Volume 87.7 fl (81-99); Mean Platelet Volume 8.3 fl (7.4-10.4); Monocytes # 0.4 K/mm3 (0.1-1.0); Monocytes % 6.7 % (1.7-9.3); Neutrophils # 3.2 K/mm3 (1.8-7.8); Neutrophils % 51.3 % (37.0-80.0); Platelet Count 214 K/mm3 (142-424); Red Blood Count 3.67 M/mm3 (4.20-5.40); Red Cell Distribution Width 13.2 % (11.5-17.5); White Blood Count 6.2 K/mm3 (4.8-10.8)
[2020-04-30 06:22] LABS: Chloride 105 mmol/L (98-107); Potassium 4.2 mmoL/L (3.5-5.1); Sodium 140 mmol/L (136-145)
[2020-04-30 06:25] LABS: Anion Gap 10.2 mEq/L (5-15); Blood Urea Nitrogen 11 mg/dl (7-17); Carbon Dioxide 29 mmol/L (22.0-30.0); Cholesterol 127 mg/dl (140-200); Creatinine Clearance Estimated 42 mL/min (50-200); Estimated Glomerular Filt Rate 60 ml/min (>60); GFR (African American) 73 ML/MIN (>60); Triglycerides 158 mg/dl (30-150); VLDL Cholesterol 32 mg/dL (0-40)
[2020-04-30 06:26] LABS: Calcium 8.9 mg/dl (8.4-10.2); Chol/HDL Ratio 2.2 (1-3.5); Glucose 106 mg/dl (74-100); HDL Cholesterol 57 mg/dl (40-60); Magnesium 2.2 mg/dl (1.6-2.3)
--- NOTE | 2020-04-30 06:30 | PC.NURSE ---
A&OX4. PT TOLERATING RA WELL. PT HAS HAD NO C/O CP OR SOA T/O SHIFT. PT HAS RESTED WELL SINCE ARRIVAL TO FLOOR. PT TOLERATING NPO DIET. VSS WILL CONTINUE TO MONITOR.
[2020-04-30 06:37] LABS: Direct LDL Cholesterol 43.36 mg/dL (100-129)
[2020-04-30 06:38] LABS: Troponin I < 0.01 ng/ml (0.00-0.034)
--- NOTE | 2020-04-30 07:59 | HMH.PHAINT ---
MEDICATION RECONCILIATION COMPLETED ON PATIENT USING EXTERNAL FILL HISTORY FROM PHARMACY. -KRYSTEN HAM, AAROND
--- NOTE | 2020-04-30 08:00 | CA_ITS ---
APPROVED REPORT EXAM: Comprehensive 2D, Doppler, and color-flow Echocardiogram [employer] Professor: Zayra Casillas CRT Ht: 4 ft 11 in Wt: 130lbs BSA: 1.54 BP: 127/109 mmHg Indications: Palpitations, CAD, Hyperlipidemia, Hypertension/HDD, GERD, SVT, Ex smoker, stent, ablation 2017 2D Dimensions LVOT 1.70 cm (M/F) 1.5-2.5 M-Mode Dimensions RVDd 3.10 cm (0.9-2.6) LA Diam 3.50 cm (1.9-4.0) LVDd 4.40 cm (3.5-5.7) Ao Diam 3.10 cm (2.0-3.7) LVDs 3.20 cm (3.5-5.7) AV Cusp 1.80 cm (1.5-2.6) IVSd 1.10 cm (0.6-1.1) PWd 0.90 cm (0.6-1.1) EF (Teich) 53.20% FS 27.30% EDV (Teich) 87.70 mL ESV (Teich) 41.00 mL LV Diastology E/A Ratio 0.70 MED E' 5.36 (< 7 cm/sec) E'/MED E' Ratio 17.10 (>14) LAT E' 5.95 (<10 cm/sec) E/LAT E' Ratio 15.40 (>14) Aortic Valve AoV Peak Dyllan. 155.00 (50-130 cm/s) AO Peak GR. 10.00 mmHg Mitral Valve MV E Max Dyllan. 91.80 (40-130 cm/s) MV A Velocity 133.00 (40-130 cm/s) E/A Ratio 0.70 Pulmonary Valve MO End VMAX 93.70 cm/s PA Accel Time 109.00 (>120 msec) Tricuspid Valve TR P. Velocity 211.00 cm/s RAP Estimate 10.00 mmHg RVSP 28.00 mmHg Left Ventricle Left atrium is mildly enlarged, left ventricle is normal size, mild concentric left ventricular hypertrophy, visually estimated ejection fraction 55% with no regional wall motion abnormality, grade 1 diastolic dysfunction seen with tissue Doppler evidence of raise left atrial pressure. Right Ventricle Right atrium and right ventricle are normal size and contractility. Aortic Valve Aortic valve is thickened and calcified leaflet chordae display good mobility, there is no aortic stenosis or aortic insufficiency. Mitral Valve Mitral valve has mitral calcification, leaflets are minimally thickened, there is no mitral stenosis, there is mild mitral regurgitation. Tricuspid Valve Tricuspid valve grossly normal, there is mild tricuspid regurgitation, tricuspid regurgitation jet velocity is inadequate for calculation of the right ventricular systolic pressure. Pulmonic Valve Pulmonic valve is poorly visualized. Great Vessels Aortic root is normal size. Pericardium No significant pericardial effusion noted. Conclusion 1. Mildly enlarged left atrium, normal left ventricular size, mild concentric left ventricular hypertrophy, visually estimated ejection fraction 55% with no regional wall motion abnormality, grade 1 diastolic dysfunction seen with tissue Doppler evidence of raise left atrial pressure. 2. Mild mitral and tricuspid regurgitation. 3. No significant pericardial effusion noted. Electronically signed by : Sohail Dong, 04/30/2020 21:39:26
--- NOTE | 2020-04-30 08:14 | HMH.PHAVTE ---
[facility] Pharmacy VTE Monitoring - Patient Demographics Admission date: 04/30/20 Report Date: 04/30/20 Time: 08:14 Allergies/Adverse Reactions: Patient Allergies Antihistamines - Alkylamine [ANTIHISTAMINES - ALKYLAMINE] Allergy (Mild, Verified 04/30/20 04:06) codeine [CODEINE] Allergy (Mild, Verified 04/30/20 04:06) midodrine Allergy (Mild, Verified 04/30/20 04:06) Penicillins [PENICILLINS] Allergy (Mild, Verified 04/30/20 04:06) Sulfa (Sulfonamide Antibiotics) [SULFA (SULFONAMIDE ANTIBIOTICS)] Allergy (Mild, Verified 04/30/20 04:06) Height: 1.5 m Weight: 0 g Patient Problems: Current Active Problems Chest pain (Acute) A-fib (Acute) - VTE Risk Labs: VTE Related Lab Results Hgb 10.6 g/dL (12.2-16.2) L 04/30/20 05:42 Hct 32.1 % (37.0-47.0) L 04/30/20 05:42 Plt Count 214 K/mm3 (142-424) 04/30/20 05:42 BUN 11 mg/dl (7-17) 04/30/20 05:42 Creatinine 0.90 mg/dl (0.52-1.04) 04/30/20 05:42 Estimated Creat Clear 42 mL/min (50-200) 04/30/20 05:42 - Prophylaxis VTE Prophylaxis Ordered?: Yes Types of VTE Prophylaxis: TEDS Knee High Location of Applied Device: Bilateral Lower Extremeties - VTE Diagnosis Confirmed Treatment or plan recommended: Continue Current Treatment
--- NOTE | 2020-04-30 09:43 | HMH.CNCARD ---
History of Present Illness Consult date: 04/30/20 Requesting physician: Jus Zee Consult reason: atrial fibrillation Chief complaint: chest pain, A. fib with RVR Additional 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:: 1. 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 PAF, 04/2020, CHADS of 5 B. Xarelto started 04/2020 2. Possible obstructive sleep apnea with history of snoring 3. Hypertension 4. Diabetes mellitus 5. Hyperlipidemia 6. Coronary artery disease A. [facility],10/2017, ANGIOGRAPHIC RESULTS: 1. The left main artery normal 2. The left anterior descending artery has a proximal stent which is widely patent free of in-stent restenosis with excellent distal and proximal transitioning. The mid LAD has a 40% long tubular stenosis followed by an additional 40% nonflow limiting stenosis. 3. The circumflex artery is a nondominant vessel and has a stent in the proximal segment which extends into the proximal portion of the large first obtuse marginal artery. This stent is widely patent free of in-stent restenosis. Distal to the stent is a 40% tapering into the first obtuse marginal artery. 4. The right coronary artery is a large dominant vessel with a proximal to mid vessel stent which is widely patent free of in-stent restenosis. Distal to the stent is a concentric 70-80% stenosis followed by 40-50% stenosis and an additional focal 50% stenosis followed by an additional 20-30% stenosis. 5. The VELAZQUEZ ventriculogram reveals normal 65% 6. The left ventricular end-diastolic pressure elevated at 30 mmHg IMPRESSION: 1. Patent LAD and circumflex artery stent as described above 2. Patent right coronary artery stent with de andrey disease distal to the stent 3. Successful stenting of the mid to distal dominant right coronary artery severe moderate and mild disease reduced to 0% with 1 drug-eluting stent 4. Normal ejection fraction 5. Moderate to severely elevated LVEDP PLAN: 1. Continue aspirin Plavix 2. Diuretics needed in order to decrease LVEDP 3. Cardiac rehabilitation 4. Avoidance of tobacco products 5. LDL less than 55 7. History of GI bleed History of present illness: 79-year-old white female with known coronary artery disease and diabetes presented to the emergency department after being awakened from sleep with a rapid heart rate associated with chest discomfort. Patient contacted EMS and was brought to the emergency room quickly. She was given 2 sublingual nitroglycerin in route and a nitroglycerin patch which helped alleviate the chest discomfort along with resolution of the A. fib in the ER after a total of about 30 minutes. Patient was kept overnight for observation and troponins have returned normal x4 and patient has had no further episodes of A. fib or chest discomfort overnight. [facility] History 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: Reports:: Atrial Fibrillation, Coronary Artery Disease, Gastroesophageal Reflux Disease(GERD), Gastrointestinal Bleed, Hyperlipidemia, Hypertension, Palpitations, Supraventricular Tachycardia Denies:: Cancer, Diabetes Mellitus Type 1, Diabetes Mellitus Type 2, Internal Pacemaker, Lung Disease, MRSA, Seizures *Have you ever received a pneumonia vaccine?: No *Have you received a flu vaccine this season?: No Other 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: Reports: Arthritis, Cataracts, Sinus Problems Other Surgeries: Yes: No Previous Surgery, Appendectomy, Cardiac Catheterization, Coronary Stent, Hysterectomy-Total, Tubal Ligation. No: Pacemaker Amputation: No Fractures: No - *Social History Last grade of school completed: 11th or 12th Smoking Status: Former smoker Tobacco Type: cigarettes #Yrs smoked (if former smoker): 50 Alcohol Intake: never Alcohol Intake Frequency:: other Substance Use Type: denies use *Occupational Status:: employed Housing: house Household Members: spouse *Travel in the last 8 weeks: None Family Hx:: Diabetes, Cancer, Hyperlipidemia Meds Home Medications Medication
--- NOTE | 2020-04-30 12:45 | HMH.HPDC ---
General - General Admission date:: 04/30/20 Discharge date: 04/30/20 *Admission Date: 04/30/20 *Chief complaint: Chest pain *History of present illness: 1. 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 PAF, 04/2020, CHADS of 5 B. Xarelto started 04/2020 2. Possible obstructive sleep apnea with history of snoring 3. Hypertension 4. Diabetes mellitus 5. Hyperlipidemia 6. Coronary artery disease A. [facility],10/2017, ANGIOGRAPHIC RESULTS: 1. The left main artery normal 2. The left anterior descending artery has a proximal stent which is widely patent free of in-stent restenosis with excellent distal and proximal transitioning. The mid LAD has a 40% long tubular stenosis followed by an additional 40% nonflow limiting stenosis. 3. The circumflex artery is a nondominant vessel and has a stent in the proximal segment which extends into the proximal portion of the large first obtuse marginal artery. This stent is widely patent free of in-stent restenosis. Distal to the stent is a 40% tapering into the first obtuse marginal artery. 4. The right coronary artery is a large dominant vessel with a proximal to mid vessel stent which is widely patent free of in-stent restenosis. Distal to the stent is a concentric 70-80% stenosis followed by 40-50% stenosis and an additional focal 50% stenosis followed by an additional 20-30% stenosis. 5. The VELAZQUEZ ventriculogram reveals normal 65% 6. The left ventricular end-diastolic pressure elevated at 30 mmHg IMPRESSION: 1. Patent LAD and circumflex artery stent as described above 2. Patent right coronary artery stent with de andrey disease distal to the stent 3. Successful stenting of the mid to distal dominant right coronary artery severe moderate and mild disease reduced to 0% with 1 drug-eluting stent 4. Normal ejection fraction 5. Moderate to severely elevated LVEDP PLAN: 1. Continue aspirin Plavix 2. Diuretics needed in order to decrease LVEDP 3. Cardiac rehabilitation 4. Avoidance of tobacco products 5. LDL less than 55 7. History of GI bleed History of present illness: 79-year-old white female with known coronary artery disease and diabetes presented to the emergency department after being awakened from sleep with a rapid heart rate associated with chest discomfort. Patient contacted EMS and was brought to the emergency room quickly. She was given 2 sublingual nitroglycerin in route and a nitroglycerin patch which helped alleviate the chest discomfort along with resolution of the A. fib in the ER after a total of about 30 minutes. Patient was kept overnight for observation and troponins have returned normal x4 and patient has had no further episodes of A. fib or chest discomfort overnight. [facility] History I have reviewed the patient's past medical history: Yes 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: Reports:: Atrial Fibrillation, Coronary Artery Disease, Gastroesophageal Reflux Disease(GERD), Gastrointestinal Bleed, Hyperlipidemia, Hypertension, Palpitations, Supraventricular Tachycardia Denies:: Cancer, Diabetes Mellitus Type 1, Diabetes Mellitus Type 2, Internal Pacemaker, Lung Disease, MRSA, Seizures *Have you ever received a pneumonia vaccine?: No *Have you received a flu vaccine this season?: No Other 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: Reports: Arthritis, Cataracts, Sinus Problems Other Surgeries: Yes: No Previous Surgery, Appendectomy, Cardiac Catheterization, Coronary Stent, Hysterectomy-Total, Tubal Ligation. No: Pacemaker Amputation: No Fractures: No - *Social History Last grade of school completed: 11th or 12th Smoking Status: Former smoker Tobacco Type: cigarettes #Yrs smoked (if former smoker): 50 Alcohol Intake: never Alcohol Intake Frequency:: other Substance Use Type: denies use *Occupational Status:: employed Housing: house Household Members: spouse *Travel in the last 8 weeks: None Family Hx:: Diabetes, Cancer, Hyperlipidemia Review of System
--- NOTE | 2020-04-30 13:04 | SW/DCPLANNER ---
CALLED VERONICA ZAMUDIO, RESP JEWELRY BENCH MOLDER AND SHE IS GOING TO SET THIS PATIENT UP FOR A SLEEP STUDY..... PATIENT IS DISCHARGING HOME TODAY AND VERONICA DENTON STATED SHE WILL CONTACT HER IN THE AM TO SET HER UP...
--- NOTE | 2020-04-30 13:05 | HMH.PHAINT ---
DISCHARGE COUNSELING COMPLETED ON PATIENT. NEW PRESCRIPTIONS INCLUDE DILTIAZEM, XARELTO, AND NITROGLYCERIN. DILTIAZEM AND NITROGLYCERIN WERE SENT TO [facility] IN [place]. SAMPLES OF XARELTO WERE PROVIDED BY DR. RESENDIZ. PATIENT IS TO CONTINUE ALL OTHER HOME MEDICATIONS WITH THE EXCEPTION OF ASPIRIN. PATIENT VERBALIZED UNDERSTANDING AND HAD NO QUESTIONS AT THIS TIME. -KRYSTEN HAM, AAROND
== END 2020-04-30 13:25 | disposition home or self-care (01) ==
LOC: ER 00:51 → 2ND 03:21
PROVIDERS: Admitting Provider Emergency Medicine; Emergency Provider Emergency Medicine; PCP Internal Medicine Adolescent Medicine; Visit Provider Internal Medicine Adolescent Medicine
DX: I48.0 Paroxysmal atrial fibrillation (principal); R07.9 Chest pain, unspecified; I10 Essential (primary) hypertension; I25.10 Atherosclerotic heart disease of native coronary artery without angina pectoris; Z95.5 Presence of coronary angioplasty implant and graft; E78.5 Hyperlipidemia, unspecified; Z87.891 Personal history of nicotine dependence; Z88.0 Allergy status to penicillin; Z88.8 Allergy status to other drugs, medicaments and biological substances; Z88.2 Allergy status to sulfonamides; Z88.1 Allergy status to other antibiotic agents; Z88.5 Allergy status to narcotic agent; E11.9 Type 2 diabetes mellitus without complications; Z79.899 Other long term (current) drug therapy
CPT/HCPCS: 36415; 71046; 80048; 80053; 80061; 81001; 83735; 84436; 84443; 84484; 85025; 87086; 87581; 87633; 87798; 93005; 93041; 93306; 99284; G0378

== ENCOUNTER → 2020-05-03 12:58 | Outpatient (CLI) | payer MEDICARE, OTHER, SELFPAY | PROVIDERS: PCP Internal Medicine Adolescent Medicine; Visit Provider Internal Medicine Adolescent Medicine | DX: G47.33 Obstructive sleep apnea (adult) (pediatric) (principal) | CPT/HCPCS: G0399 ==

== ENCOUNTER 2020-05-12 09:33 | Emergency (ER) | payer MEDICARE, OTHER, SELFPAY ==
--- NOTE | 2020-05-12 09:36 | HMH.EDGENADL ---
ED Disposition Clinical Impression: Pain in left lower leg Disposition: Home, Self-Care Condition on Discharge: Good Additional Instructions: Follow-up with your PCP in the next 2 to 3 days. If you have any new, changing, worsening, or concerning symptoms, come back to the emergency department. Referrals: Jus Zee MD [Primary Care Provider] - Time of Disposition: 12:07 - Critical Care Critical Care Time: No Attestation: On , the high probability of a clinically significant, sudden or life threatening deterioration of the following system(s) required my full and direct attention, intervention and personal management. The time I documented below is in addition to time spent performing reported procedures but includes the following listed in this critical care notation. Medical Decision Making - Medical Records Medical records reviewed: Yes: I reviewed the patient's medical records. MR Comment: 79-year-old female with a history of A. fib presents emergency department with left lower extremity pain. She is concerned that she may have a blood clot in her left lower extremity, no history of clots. She is on Plavix and Xarelto for due to A. fib. She has strong palpable pulses in her bilateral lower extremities with no discoloration of the skin, no swelling or paralysis. Sensation and range of motion are entirely intact throughout. No history of trauma or falls, I do not think x-rays would be helpful. She does not have an arterial thrombus clinically. Will ultrasound the left lower extremity and reassess. On reassessment, patient remains well. Labs are personally reviewed and nonactionable. Ultrasound of the lower extremity does not show any signs of DVT. She is ambulating with assistance, tolerating p.o. And advised that she follow-up with her PCP for reevaluation next 2 to 3 days. She was given strict return precautions and discharge instructions and verbalized understanding and agreed to the plan. Safe to discharge. - Danilo Inquiry Pt receiving controlled substance: No Vital Signs: 05/12/20 09:43 05/12/20 12:16 Temperature 98.7 F 98.9 F Temperature Source Oral Oral Pulse Rate 89 Pulse Rate [Right Radial] 75 Respiratory Rate 15 17 Blood Pressure 145/78 H Blood Pressure [Right Arm] 143/73 H Blood Pressure Mean [Right Arm] 96 02 Sat by Pulse Oximetry 96 Oxygen Delivery Method Room Air - Lab Data Lab Results 05/12/20 09:57: WBC 7.9, RBC 4.04 L, Hgb 11.5 L, Hct 36.5 L, MCV 90.2, MCH 28.5, MCHC 31.6 L, RDW 13.0, Plt Count 251, MPV 7.8, Neut % (Auto) 64.1, Lymph % (Auto) 25.2, [place] % (Auto) 6.0, Eos % (Auto) 4.0, Baso % (Auto) 0.6, Neut # (Auto) 5.1, Lymph # (Auto) 2.0, [place] # (Auto) 0.5, Eos # (Auto) 0.3, Baso # (Auto) 0.1 05/12/20 09:57: PT 13.3 H, INR 1.31 H, APTT 28.1 05/12/20 09:57: Sodium 137, Potassium 4.5, Chloride 100, Carbon Dioxide 28, Anion Gap 13.5, BUN 11, Creatinine 1.00, Estimated Creat Clear 42, Estimated GFR 53 L, Est GFR ( Amer) 65, Glucose 126 H, Calcium 9.0, Total Bilirubin 0.4, AST 22, ALT 9 L, Alkaline Phosphatase 90, Total Protein 6.7, Albumin 4.2, Globulin 2.5, Albumin/Globulin Ratio 1.7 Result diagrams: 05/12/20 09:57 05/12/20 09:57 General Adult HPI - General Time Seen by Provider: 05/12/20 09:37 - History of Present Illness HPI narrative: 79-year-old female with a history of A. fib on Xarelto and Plavix presents to the emergency department with left lower extremity pain. She states that she has felt a sore pain in her left lower extremity since about 4 PM yesterday. She has had no trauma or falls. She denies any history of blood clots, no long car rides or recent surgeries. However she did come in to the hospital about 9 to 10 days ago due to her history of A. fib. She denies any chest pain or back pain. She denies any discoloration of the left lower extremity. She does not take anything for the pain. She denies any other symptoms or concerns at t
[2020-05-12 09:43] VITALS: BP 143/73; PULSE 75; RESP 15; TEMP 37.1; O2SAT 96; BMI 26.2
--- NOTE | 2020-05-12 09:47 | CA_ITS ---
APPROVED REPORT Left Lower Extremity Venous Study for DVT. Purse Framer: LAKESHA McclellandT Indications Lower Extremity Pain: Left Lower Extremity Edema: Left left lower leg pain, r/o blood clot,bruising lt calf,nki Medications PT ON ELIQUS Vein Imaging CFV (L): compressive, spontaneous, phasic, augmentation FEM (L): compressive, spontaneous, phasic, augmentation POP (L): compressive, spontaneous, phasic, augmentation PTV (L): Compressible GSV (L): Compressible Peroneals (L):Compressible GAS (L): Compressible Findings Study suggests no evidence of DVT of the left lower extremity. Study suggests no evidence of SVT of the left lower extremity. Conclusion Study suggests no evidence of DVT of the left lower extremity. Study suggests no evidence of SVT of the left lower extremity. Critical Notification Physician Notified Date: 05/12/2020 Time: 12:11 Physician Name: Dr rod Electronically signed by : Mervin Haskins MD 05/14/2020 16:50:41
--- NOTE | 2020-05-12 09:53 | PC.NURSE ---
Vascular lab paged.
[2020-05-12 10:04] LABS: Basophils # 0.1 K/mm3 (0-0.2); Basophils % 0.6 % (0.1-2.0); Eosinophils # 0.3 K/mm3 (0.0-0.4); Hematocrit 36.5 % (37.0-47.0); Hemoglobin 11.5 g/dL (12.2-16.2); Lymphocytes % 25.2 % (10-50); Mean Corpuscular HGB Conc 31.6 g/dL (31.8-35.4); Mean Corpuscular Hemoglobin 28.5 pg (27.0-31.2); Mean Corpuscular Volume 90.2 fl (81-99); Mean Platelet Volume 7.8 fl (7.4-10.4); Monocytes # 0.5 K/mm3 (0.1-1.0); Neutrophils # 5.1 K/mm3 (1.8-7.8); Neutrophils % 64.1 % (37.0-80.0); Platelet Count 251 K/mm3 (142-424); Red Blood Count 4.04 M/mm3 (4.20-5.40); White Blood Count 7.9 K/mm3 (4.8-10.8)
[2020-05-12 10:11] LABS: Alanine Aminotransferase 9 U/L (12-78); Albumin Level 4.2 g/dl (3.5-5.0); Albumin/Globulin Ratio 1.7 (1.1-1.8); Alkaline Phosphatase 90 U/L (38-126); Anion Gap 13.5 mEq/L (5-15); Aspartate Amino Transferase 22 U/L (14-36); Bilirubin,Total 0.4 mg/dl (0.2-1.3); Blood Urea Nitrogen 11 mg/dl (7-17); Carbon Dioxide 28 mmol/L (22.0-30.0); Chloride 100 mmol/L (98-107); Creatinine Clearance Estimated 42 mL/min (50-200); Estimated Glomerular Filt Rate 53 ml/min (>60); GFR (African American) 65 ML/MIN (>60); Globulin 2.5 g/dL (1.3-3.2); Glucose 126 mg/dl (74-100); Potassium 4.5 mmoL/L (3.5-5.1); Sodium 137 mmol/L (136-145); Total Protein,Serum 6.7 g/dl (6.3-8.2)
[2020-05-12 10:14] LABS: Activated Partial Thrombo Time 28.1 seconds (23.6-34.0); INR 1.31 (0.9-1.1); Prothrombin Time 13.3 seconds (9.4-11.8)
--- NOTE | 2020-05-12 12:03 | PC.NURSE ---
electrical power station technician reports negative doppler. dr rod notified.
[2020-05-12 12:16] VITALS: BP 145/78; PULSE 89; RESP 17; TEMP 37.2; O2SAT 99
== END 2020-05-12 12:16 | disposition home or self-care (01) ==
PROVIDERS: Emergency Provider Emergency Medicine; PCP Internal Medicine Adolescent Medicine
DX: M79.662 Pain in left lower leg (principal); I47.1 Supraventricular tachycardia; I48.20 Chronic atrial fibrillation, unspecified; I25.10 Atherosclerotic heart disease of native coronary artery without angina pectoris; K21.9 Gastro-esophageal reflux disease without esophagitis; I10 Essential (primary) hypertension; E78.5 Hyperlipidemia, unspecified; F17.210 Nicotine dependence, cigarettes, uncomplicated; Z88.0 Allergy status to penicillin; Z88.2 Allergy status to sulfonamides; Z88.5 Allergy status to narcotic agent
CPT/HCPCS: 80053; 85025; 85610; 85730; 93971; 99283

== ENCOUNTER → 2021-01-05 09:26 | Outpatient (CLI) | payer MEDICARE, OTHER, SELFPAY ==
[2021-01-05 10:26] LABS: Basophils % 0.5 % (0.1-2.0); Eosinophils # 0.3 K/mm3 (0.0-0.4); Eosinophils % 4.6 % (0.1-12.0); Hematocrit 35.8 % (37.0-47.0); Hemoglobin 11.4 g/dL (12.2-16.2); Mean Corpuscular HGB Conc 31.8 g/dL (31.8-35.4); Mean Platelet Volume 8.2 fl (7.4-10.4); Monocytes # 0.4 K/mm3 (0.1-1.0); Monocytes % 6.3 % (1.7-9.3); Neutrophils # 3.7 K/mm3 (1.8-7.8); Neutrophils % 57.7 % (37.0-80.0); Platelet Count 234 K/mm3 (142-424); Red Blood Count 4.07 M/mm3 (4.20-5.40); Red Cell Distribution Width 13.5 % (11.5-17.5); White Blood Count 6.5 K/mm3 (4.8-10.8)
[2021-01-05 11:00] LABS: Alanine Aminotransferase 8 U/L (12-78); Albumin Level 4.4 g/dl (3.5-5.0); Albumin/Globulin Ratio 2.1 (1.1-1.8); Alkaline Phosphatase 81 U/L (38-126); Anion Gap 12.3 mEq/L (5-15); Aspartate Amino Transferase 20 U/L (14-36); Bilirubin,Total 0.3 mg/dl (0.2-1.3); Blood Urea Nitrogen 12 mg/dl (7-17); Calcium 9.4 mg/dl (8.4-10.2); Carbon Dioxide 28 mmol/L (22.0-30.0); Chloride 103 mmol/L (98-107); Chol/HDL Ratio 2.1 (1-3.5); Cholesterol 149 mg/dl (140-200); Creatine Kinase 155 U/L (30-135); Estimated Glomerular Filt Rate 43 ml/min (>60); GFR (African American) 52 ML/MIN (>60); Globulin 2.1 g/dL (1.3-3.2); Glucose 112 mg/dl (74-100); HDL Cholesterol 72 mg/dl (40-60); Potassium 5.3 mmoL/L (3.5-5.1); Sodium 138 mmol/L (136-145); Total Protein,Serum 6.5 g/dl (6.3-8.2); Triglycerides 142 mg/dl (30-150); VLDL Cholesterol 28 mg/dL (0-40)
[2021-01-05 11:01] LABS: Erythrocyte Sedimentation Rate 21 mm/hr (0-30)
[2021-01-05 11:11] LABS: C-Reactive Protein 0.7 mg/L (0-4); Direct LDL Cholesterol 44.45 mg/dL (100-129)
== END ==
PROVIDERS: Visit Provider Internal Medicine Adolescent Medicine
DX: I25.10 Atherosclerotic heart disease of native coronary artery without angina pectoris (principal); M79.10 Myalgia, unspecified site
CPT/HCPCS: 36415; 80053; 80061; 82550; 85025; 85651; 86140

== ENCOUNTER → 2021-08-30 09:44 | Outpatient (CLI) | payer MEDICARE, OTHER, SELFPAY ==
[2021-08-30 10:56] LABS: Hemoglobin A1C 5.8 % (4.0-6.0)
[2021-08-30 11:22] LABS: Basophils # 0.1 K/mm3 (0-0.2); Basophils % 0.8 % (0.1-2.0); Eosinophils # 0.4 K/mm3 (0.0-0.4); Eosinophils % 6.1 % (0.1-12.0); Hematocrit 37.8 % (37.0-47.0); Lymphocytes # 2.1 K/mm3 (0.7-4.5); Lymphocytes % 34.2 % (10-50); Mean Corpuscular HGB Conc 31.8 g/dL (31.8-35.4); Mean Corpuscular Hemoglobin 28.5 pg (27.0-31.2); Mean Corpuscular Volume 89.6 fl (81-99); Mean Platelet Volume 8.8 fl (7.4-10.4); Monocytes # 0.3 K/mm3 (0.1-1.0); Monocytes % 5.4 % (1.7-9.3); Neutrophils # 3.3 K/mm3 (1.8-7.8); Neutrophils % 53.5 % (37.0-80.0); Platelet Count 289 K/mm3 (142-424); Red Blood Count 4.22 M/mm3 (4.20-5.40); Red Cell Distribution Width 13.9 % (11.5-17.5); White Blood Count 6.1 K/mm3 (4.8-10.8)
[2021-08-30 11:37] LABS: Alanine Aminotransferase 11 U/L (12-78); Albumin Level 4.2 g/dl (3.5-5.0); Albumin/Globulin Ratio 1.9 (1.1-1.8); Alkaline Phosphatase 87 U/L (38-126); Anion Gap 11.2 mEq/L (5-15); Aspartate Amino Transferase 22 U/L (14-36); Bilirubin,Total 0.2 mg/dl (0.2-1.3); Blood Urea Nitrogen 13 mg/dl (7-17); Calcium 9.3 mg/dl (8.4-10.2); Carbon Dioxide 29 mmol/L (22.0-30.0); Chloride 101 mmol/L (98-107); Chol/HDL Ratio 1.7 (1-3.5); Cholesterol 144 mg/dl (140-200); Estimated Glomerular Filt Rate 53 ml/min (>60); GFR (African American) 64 ML/MIN (>60); Globulin 2.2 g/dL (1.3-3.2); Glucose 128 mg/dl (74-100); HDL Cholesterol 84 mg/dl (40-60); Potassium 4.2 mmoL/L (3.5-5.1); Sodium 137 mmol/L (136-145); Total Protein,Serum 6.4 g/dl (6.3-8.2); Triglycerides 109 mg/dl (30-150); VLDL Cholesterol 22 mg/dL (0-40)
[2021-08-30 11:48] LABS: Direct LDL Cholesterol 45.62 mg/dL (100-129)
[2021-08-30 12:05] LABS: Thyroid Stimulating Hormone 1.16 uIU/mL (0.465-4.68)
== END ==
PROVIDERS: Visit Provider Internal Medicine Adolescent Medicine
DX: Z00.00 Encounter for general adult medical examination without abnormal findings (principal); I25.10 Atherosclerotic heart disease of native coronary artery without angina pectoris; I48.0 Paroxysmal atrial fibrillation; Z79.899 Other long term (current) drug therapy
CPT/HCPCS: 36415; 80053; 80061; 83036; 84443; 85025

== ENCOUNTER 2022-07-22 19:59 | Inpatient (IN) | payer MEDICARE, OTHER, SELFPAY ==
[2022-07-22 19:59] VITALS: BP 160/83; PULSE 73; RESP 16; TEMP 36.6; O2SAT 97; BMI 27.8
--- NOTE | 2022-07-22 20:20 | XR_ITS ---
PROCEDURE INFORMATION: Exam: XR Left Hip Exam date and time: 07/22/2022 8:23 PM Age: 82 years old Clinical indication: Injury or trauma; Fall; Blunt trauma (contusions or hematomas); Left; Hip TECHNIQUE: Imaging protocol: Radiologic exam of the Left hip. Views: 2 or 3 views hip with pelvis when performed. COMPARISON: SPLUMBWO MR lumbar spine wo con 11/11/2018 1:05 PM FINDINGS: Bones/joints: No visible fracture or dislocation. Soft tissues: Unremarkable. IMPRESSION: No visible fracture or dislocation.
--- NOTE | 2022-07-22 20:20 | XR_ITS ---
PROCEDURE INFORMATION: Exam: XR Left Tibia and Fibula Exam date and time: 07/22/2022 8:28 PM Age: 82 years old Clinical indication: Injury or trauma; Fall; Blunt trauma; Lower leg; Left TECHNIQUE: Imaging protocol: Radiologic exam of the Left tibia and fibula. Views: 2 views. COMPARISON: EKATERINA MR ankle LT wo con 01/27/2018 3:16 PM FINDINGS: Bones/joints: There is redemonstration of acute depressed fracture of the lateral tibial plateau. Moderate lipohemarthrosis. There is suprapatellar soft tissue swelling. Soft tissues: See Bones/joints finding. IMPRESSION: There is redemonstration of acute depressed fracture of the lateral tibial plateau.
--- NOTE | 2022-07-22 20:20 | XR_ITS ---
PROCEDURE INFORMATION: Exam: XR Left Femur Exam date and time: 07/22/2022 8:24 PM Age: 82 years old Clinical indication: Injury or trauma; Fall; Blunt trauma; Thigh or upper leg; Left TECHNIQUE: Imaging protocol: Radiologic exam of the Left femur. Views: 2 views. COMPARISON: CR XR HIP LT 2-3V W/PELVIS 07/22/2022 8:23 PM FINDINGS: Bones/joints: There is redemonstration of acute depressed fracture of the lateral tibial plateau. femoral shaft is intact. Femoral head is well seated in the acetabulum. Soft tissues: Unremarkable. IMPRESSION: There is redemonstration of acute depressed fracture of the lateral tibial plateau. femoral shaft is intact. Femoral head is well seated in the acetabulum.
--- NOTE | 2022-07-22 20:20 | XR_ITS ---
PROCEDURE INFORMATION: Exam: XR Left Knee Exam date and time: 07/22/2022 8:26 PM Age: 82 years old Clinical indication: Injury or trauma; Fall; Blunt trauma; Knee; Left TECHNIQUE: Imaging protocol: Radiologic exam of the Left knee. Views: 3 views. COMPARISON: CR XR FEMUR LT 2V 07/22/2022 8:24 PM FINDINGS: Bones/joints: Moderate lipohemarthrosis. Acute depressed fracture of the lateral tibial plateau. Suprapatellar soft tissue swelling noted. Soft tissues: See Bones/joints finding. IMPRESSION: Acute depressed fracture of the lateral tibial plateau.
--- NOTE | 2022-07-22 20:20 | XR_ITS ---
PROCEDURE INFORMATION: Exam: XR Left Foot Exam date and time: 07/22/2022 8:34 PM Age: 82 years old Clinical indication: Injury or trauma; Fall; Blunt trauma; Foot; Left TECHNIQUE: Imaging protocol: Radiologic exam of the Left foot. Views: 3 or more views. COMPARISON: FOOTLTWO MR foot LT wo con 01/27/2018 3:16 PM FINDINGS: Bones/joints: Diffuse osteopenia.No visible fracture or dislocation. Soft tissues: Normal. IMPRESSION: Diffuse osteopenia.No visible fracture or dislocation.
--- NOTE | 2022-07-22 20:42 | XR_ITS ---
PROCEDURE INFORMATION: Exam: XR Right Foot Exam date and time: 07/22/2022 8:37 PM Age: 82 years old Clinical indication: Injury or trauma; Fall; Blunt trauma; Foot; Right; Additional info: Patient fell, right foot pain TECHNIQUE: Imaging protocol: Radiologic exam of the Right foot. Views: 3 or more views. COMPARISON: No relevant prior studies available. FINDINGS: Bones/joints: Acute mildly impacted fracture along the neck of the 5th metatarsal. Lisfranc interval is intact on this nonweightbearing view. Soft tissues: Overlying soft tissue swelling noted. IMPRESSION: Acute mildly impacted fracture along the neck of the 5th metatarsal.
--- NOTE | 2022-07-22 20:53 | PC.NURSE ---
patient back from Rad @ 20:51.
[2022-07-22 21:00] VITALS: BP 141/61; PULSE 65; O2SAT 98
[2022-07-22 21:30] VITALS: BP 132/61; PULSE 65; O2SAT 95
[2022-07-22 22:01] VITALS: BP 161/73; PULSE 62; O2SAT 95
[2022-07-22 22:30] VITALS: BP 154/76; PULSE 67; O2SAT 94
--- NOTE | 2022-07-22 22:53 | PC.NURSE ---
notified of pt need for pain medications. no orders at this time
--- NOTE | 2022-07-22 22:57 | PC.NURSE ---
notified pt requesting pain meds at this time
--- NOTE | 2022-07-22 23:00 | PC.NURSE ---
Pt/family updated. No other needs or complaints voiced at this time.
[2022-07-22 23:05] LABS: Coronavirus 19, PCR Not Detected (NotDetected); Influenza A, PCR Not Detected (NotDetected); Influenza B, PCR Not Detected (NotDetected)
--- NOTE | 2022-07-22 23:08 | PC.NURSE ---
Dr. Marinelli at
--- NOTE | 2022-07-22 23:11 | PC.NURSE ---
Dr. Tj astudillo
--- NOTE | 2022-07-22 23:11 | PC.NURSE ---
chayo gave verbal order for 2mg morphine
--- NOTE | 2022-07-22 23:12 | PC.NURSE ---
Dr. Marinelli speaking to Dr. Spencer
[2022-07-22 23:17] LABS: Basophils # 0.1 K/mm3 (0-0.2); Basophils % 1.1 % (0.1-2.0); Eosinophils # 0.3 K/mm3 (0.0-0.4); Eosinophils % 2.8 % (0.1-12.0); Hematocrit 34.7 % (37.0-47.0); Hemoglobin 11.1 g/dL (12.2-16.2); Lymphocytes # 1.7 K/mm3 (0.7-4.5); Lymphocytes % 16.8 % (10-50); Mean Corpuscular Hemoglobin 28.3 pg (27.0-31.2); Mean Corpuscular Volume 88.2 fl (81-99); Mean Platelet Volume 7.9 fl (7.4-10.4); Monocytes # 0.5 K/mm3 (0.1-1.0); Monocytes % 4.6 % (1.7-9.3); Neutrophils # 7.7 K/mm3 (1.8-7.8); Neutrophils % 74.6 % (37.0-80.0); Platelet Count 269 K/mm3 (142-424); Red Blood Count 3.94 M/mm3 (4.20-5.40); Red Cell Distribution Width 13.2 % (11.5-17.5); White Blood Count 10.3 K/mm3 (4.8-10.8)
--- NOTE | 2022-07-22 23:21 | CT_ITS ---
PROCEDURE INFORMATION: Exam: CT Left Lower Extremity Without Contrast, Knee Exam date and time: 07/23/2022 12:32 AM Age: 82 years old Clinical indication: Injury or trauma; Fall; Blunt trauma; Knee; Left; Additional info: Fracture TECHNIQUE: Imaging protocol: CT of the Left lower extremity without contrast was performed. Exam focused on the knee. Radiation optimization: All CT scans at this facility use at least one of these dose optimization techniques: automated exposure control; mA and/or kV adjustment per patient size (includes targeted exams where dose is matched to clinical indication); or iterative reconstruction. COMPARISON: CR XR KNEE LT 3V 07/22/2022 8:26 PM FINDINGS: Bones/joints: There is a depressed fracture of the left lateral tibial plateau. Depression is estimated at approximately 6-7 mm. Medial plateau appears intact. A nondisplaced fracture of the proximal fibula is suspect with cortical discontinuity posteriorly. Femur and patella are intact. There is a moderate lipohemarthrosis. Soft tissues: Unremarkable. IMPRESSION: 1. Depressed fracture of the lateral tibial plateau with moderate lipohemarthrosis. 2. Nondisplaced fracture of the proximal fibula is suspect.
[2022-07-22 23:22] LABS: Chloride 104 mmol/L (98-107); Potassium 4.3 mmoL/L (3.5-5.1); Sodium 139 mmol/L (136-145)
--- NOTE | 2022-07-22 23:23 | HMH.EDFALL ---
Discharge Plan Disposition Patient Disposition: Admitted As Inpatient Chief Complaint: Fall Prescriptions Prescriptions: No Action trazodone 50 mg tablet 100 mg PO HS Eliquis 2.5 mg tablet 2.5 mg PO BID Qty: 60 5RF clopidogrel [Plavix] 75 mg tablet 75 mg PO DAILY Qty: 30 5RF omeprazole 40 mg capsule,delayed release(DR/EC) 40 mg PO DAILY Qty: 30 5RF bupropion HCl 150 MG tablet sustained-release 12 hr 150 mg PO DAILY donepezil 5 MG tablet 5 mg PO HS escitalopram oxalate 10 MG tablet 10 mg PO DAILY furosemide 40 MG tablet 40 mg PO DAILY rosuvastatin 20 MG tablet 20 mg PO HS nitroglycerin 0.4 MG tablet, sublingual 0.4 mg SL Q5MINP PRN (Reason: Chest Pain) Qty: 25 2RF diltiazem HCl 120 MG capsule,extended release 24hr 120 mg PO DAILY Qty: 30 1RF Referrals Follow up/Referrals: Jus Zee MD [Primary Care Provider] - See instructions Clinical Impressions Clinical Impression: Fracture of tibial plateau, Foot fracture, right Discharge ED Provider: Ronny Marinelli Fall HPI General Chief Complaint: Fall Stated Complaint: Fall Time Seen by Provider: 07/22/22 23:23 Mode of Arrival: EMS Source of Information: Patient, Relative, EMS and Medical Record Limitations: No Limitations Description of Symptoms (Recalled from ER Triage Doc. by RN): pt states was putting away groceries and tripped and fall on top of her. pt c/o lt hip,knee pain and rt foot pain History of Present Illness HPI Narrative: fell on pt and has lt knee and rt foot injury - on [place] PA[place]E complaint: fall Onset (ago): hour(s) Fall witnessed: yes, by family Place fall occurred: home Loss of consciousness: none Prolonged down time: no Context: tripped/slipped Location of injury - extremities: Left: knee and Right: foot Severity: moderate Associated symptoms (after fall): unable to walk Related Data Home Medications Medication Instructions Recorded Confirmed donepezil 5 mg tablet 5 mg PO HS memory 04/30/20 01/20/22 escitalopram oxalate 10 mg tablet 10 mg PO DAILY MOOD 04/30/20 01/20/22 furosemide 40 mg tablet 40 mg PO DAILY Fluid 04/30/20 01/20/22 rosuvastatin 20 mg tablet 20 mg PO HS Cholesterol 04/30/20 01/20/22 apixaban 2.5 mg tablet (Eliquis) 2.5 mg PO BID Blood thinner 07/22/22 07/22/22 diltiazem HCl 120 mg 120 mg PO DAILY Heart rhythm 07/22/22 07/22/22 capsule,extended release 24 hr gabapentin 100 mg capsule 100 mg PO BID Pain 07/22/22 07/22/22 (Neurontin) Previous Rx's Medication Instructions Recorded clopidogrel 75 mg tablet (Plavix) 75 mg PO DAILY Blood thinner #30 05/12/19 tabs omeprazole 40 mg capsule,delayed 40 mg PO DAILY GERD #30 caps 07/19/19 release nitroglycerin 0.4 mg sublingual 0.4 mg SL Q5MINP PRN Chest Pain 04/30/20 tablet ##25 Allergies Allergy/AdvReac Type Severity Reaction Status Date / Time Antihistamines - Alkylamine Allergy Mild Verified 01/20/22 09:26 [ANTIHISTAMINES - ALKYLAMINE] codeine [CODEINE] Allergy Mild Verified 01/20/22 09:26 midodrine Allergy Mild Verified 01/20/22 09:26 Penicillins [PENICILLINS] Allergy Mild Verified 01/20/22 09:26 Sulfa (Sulfonamide Allergy Mild Verified 01/20/22 09:26 Antibiotics) [SULFA (SULFONAMIDE ANTIBIOTICS)] [facility] 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 (Updated 07/22/22 @ 23:32 by Ronny Marinelli MD) Carotid artery stenosis Dizziness HHD (hypertensive heart disease) Orthostatic dizziness Orthostatic hypotension SVT (supraventricular tachycardia) Tachycardia Social History Smoking Status: Never smoker second hand exposure: No alcohol intake: never substance use type: denies use current occupational status: employed Travel in the last 8 weeks: None household members: spouse housing: house current occupational exposures/hazards: No caffeine: No ROS Obtained: Yes All systems reviewed & no additional complaints except as docume
[2022-07-22 23:25] LABS: Alanine Aminotransferase 12 U/L (12-78); Albumin Level 3.6 g/dl (3.5-5.0); Albumin/Globulin Ratio 1.6 (1.1-1.8); Alkaline Phosphatase 99 U/L (38-126); Anion Gap 9.3 mEq/L (5-15); Aspartate Amino Transferase 20 U/L (14-36); Blood Urea Nitrogen 10 mg/dl (7-17); Carbon Dioxide 30 mmol/L (22.0-30.0); Creatinine Clearance Estimated 36 mL/min (50-200); Estimated Glomerular Filt Rate 43 ml/min (>60); GFR (African American) 52 ML/MIN (>60); Globulin 2.3 g/dL (1.3-3.2); Total Protein,Serum 5.9 g/dl (6.3-8.2)
[2022-07-22 23:26] LABS: Calcium 9.2 mg/dl (8.4-10.2); Glucose 110 mg/dl (74-100)
[2022-07-22 23:28] LABS: Bilirubin,Total < 0.1 mg/dl (0.2-1.3)
--- NOTE | 2022-07-22 23:30 | XR_ITS ---
PROCEDURE INFORMATION: Exam: XR Chest Exam date and time: 07/22/2022 11:53 PM Age: 82 years old Clinical indication: Injury or trauma; Fall; Blunt trauma (contusions or hematomas) TECHNIQUE: Imaging protocol: Radiologic exam of the chest. Views: 1 view. COMPARISON: CR XR CHEST 2V 04/29/2020 11:56 PM FINDINGS: Lungs: Unremarkable. No consolidation. Pleural spaces: Unremarkable. No pleural effusion. No pneumothorax. Heart/Mediastinum: Unremarkable. No cardiomegaly. Bones/joints: There is mild dextroscoliosis of the thoracic spine. IMPRESSION: No acute intrathoracic abnormality.
[2022-07-22 23:39] LABS: Microscopic, Urine URINE MICROSCOPIC (MICROSCOPIC)
[2022-07-22 23:42] LABS: Appearance,Urine CLEAR (Clear); Bilirubin,Urine Negative (Negative); Blood, Urine Negative (Negative); Color,Urine STRAW (Yellow); Glucose,Urine (UA) Negative (Negative); Ketones,Urine Negative (Negative); Leukocyte Esterase,Urine 1+ (Negative); Nitrate,Urine Negative (Negative); PH,Urine 5.5 (5.0-8.5); Protein,Urine Negative (Negative); Urobilinogen,Urine 0.2 EU/dl (0.2)
[2022-07-23 00:19] VITALS: BP 159/58; PULSE 64; RESP 16; TEMP 36.6; O2SAT 97
[2022-07-23 00:35] LABS: Bacteria,Urine 1+ /lpf
--- NOTE | 2022-07-23 00:35 | PC.NURSE ---
Pt arrived to floor via stretcher @ [id number].
--- NOTE | 2022-07-23 00:37 | CA_ITS ---
APPROVED REPORT EXAM: Comprehensive 2D, Doppler, and color-flow Echocardiogram Frit Burner: Zayra Casillas CRT Ht: 4 ft 11 in Wt: 138lbs BSA: 1.58 BP: 163/80 mmHg Indications: Palpitations, Hypertension/HDD, SVT, RIVER, LT TIBIAL FX, rFOOT FX, STENT, ABLATION 2017 2D Dimensions LA Volume 14.60 mL LA Volume Index 9.10 mL/m2 (M/F) 16-34 M-Mode Dimensions RVDd 2.94 cm (0.9-2.6) LA Diam 3.00 cm (1.9-4.0) LVDd 3.97 cm (3.5-5.7) Ao Diam 3.33 cm (2.0-3.7) LVDs 2.65 cm (3.5-5.7) IVSd 1.12 cm (0.6-1.1) PWd 0.78 cm (0.6-1.1) EF (Teich) 62.50% FS 33.20% EDV (Teich) 68.80 mL TAPSE 1.83 (<1.7) ESV (Teich) 25.80 mL LV Diastology E Decel Time 267.00 (160-240 msec) E/A Ratio 0.53 MED E' 8.90 (< 7 cm/sec) MED A' 15.70 cm/s E'/MED E' Ratio 6.74 (>14) LAT E' 7.80 (<10 cm/sec) LAT A' 17.10 cm/s E/LAT E' Ratio 7.69 (>14) Aortic Valve AO Peak GR. 10.90 mmHg Mitral Valve MV E Max Dyllan. 60.00 (40-130 cm/s) MV A Velocity 113.00 (40-130 cm/s) E/A Ratio 0.53 MV Decel. Time 267.00 (160-240 ms) MV PHT 78.00 ms Pulmonary Valve PV Peak Velocity 139.00 (50-150 cm/s) Tricuspid Valve TR P. Velocity 277.00 cm/s RAP Estimate 10.00 mmHg RVSP 40.70 mmHg Left Ventricle Left atrium is mildly enlarged, left ventricle normal size mild concentric left ventricular hypertrophy, estimated ejection fraction 55% with no regional wall motion abnormality, grade 1 diastolic dysfunction seen without tissue Doppler evidence of raise left atrial pressure. Right Ventricle Right atrium and right ventricle are mildly enlarged with normal contractility. Aortic Valve Aortic valve is minimally thickened and fibrosed there is no aortic stenosis or aortic insufficiency. Mitral Valve Mitral valve grossly normal, there is mild mitral regurgitation. Tricuspid Valve Tricuspid grossly normal, there is mild tricuspid regurgitation, tricuspid regurgitation jet velocity is inadequate for calculation of the right ventricular systolic pressure. Pulmonic Valve Pulmonic valve is poorly visualized. Great Vessels Aortic root is normal size. Inferior vena cava is poorly visualized. Pericardium No significant pericardial effusion noted. Conclusion 1. Normal left ventricular size, mild concentric left ventricular hypertrophy, estimated ejection fraction 55% with no regional wall motion abnormality, grade 1 diastolic dysfunction seen without tissue Doppler evidence of raise left atrial pressure. 2. Mild mitral and tricuspid regurgitation. 3. No significant pericardial effusion. 4. Inferior vena cava is poorly visualized. Electronically signed by : Sohail Dong MD 07/23/2022 20:06:05
[2022-07-23 00:46] VITALS: BP 122/56; PULSE 64; RESP 20; TEMP 36.8; O2SAT 98; BMI 28.5
[2022-07-23 04:00] VITALS: BP 137/61; PULSE 76; RESP 16; TEMP 37.5; O2SAT 98; BMI 28.5
[2022-07-23 06:21] LABS: Basophils % 0.4 % (0.1-2.0); Eosinophils # 0.1 K/mm3 (0.0-0.4); Eosinophils % 0.8 % (0.1-12.0); Hematocrit 32.8 % (37.0-47.0); Hemoglobin 10.5 g/dL (12.2-16.2); Lymphocytes # 1.4 K/mm3 (0.7-4.5); Lymphocytes % 14.9 % (10-50); Mean Corpuscular Hemoglobin 28.2 pg (27.0-31.2); Mean Corpuscular Volume 88.1 fl (81-99); Mean Platelet Volume 8.2 fl (7.4-10.4); Monocytes # 0.6 K/mm3 (0.1-1.0); Monocytes % 6.7 % (1.7-9.3); Neutrophils # 7.3 K/mm3 (1.8-7.8); Neutrophils % 77.2 % (37.0-80.0); Platelet Count 257 K/mm3 (142-424); Red Blood Count 3.72 M/mm3 (4.20-5.40); Red Cell Distribution Width 13.4 % (11.5-17.5); White Blood Count 9.4 K/mm3 (4.8-10.8)
[2022-07-23 06:32] LABS: Anion Gap 12.4 mEq/L (5-15); Blood Urea Nitrogen 13 mg/dl (7-17); Calcium 8.8 mg/dl (8.4-10.2); Carbon Dioxide 28 mmol/L (22.0-30.0); Chloride 104 mmol/L (98-107); Creatinine Clearance Estimated 44 mL/min (50-200); Estimated Glomerular Filt Rate 53 ml/min (>60); GFR (African American) 64 ML/MIN (>60); Glucose 118 mg/dl (74-100); Potassium 4.4 mmoL/L (3.5-5.1); Sodium 140 mmol/L (136-145)
[2022-07-23 07:15] VITALS: BP 136/71; PULSE 73; RESP 16; TEMP 37.3; O2SAT 91
[2022-07-23 09:06] VITALS: BMI 28.5
--- NOTE | 2022-07-23 09:12 | EXP.HP ---
History of Present Illness *Admission Date: 07/23/22 *Reason for visit:: Fall at home with fractures *History of present illness: 82-year-old white female with excellent functional status at home who was home with her unloading groceries when he lost his balance and fell down, striking her in the knees and knocking her to the floor. She was unable to walk or bear weight because of intense pain. Brought to the emergency department. Found to have left knee fracture as well as left ankle fracture. Please see ER notes for details. Orthopedics were consulted. Recommended admission for operative intervention. Complicating factors include her ongoing Eliquis therapy. [facility] 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 Carotid artery stenosis Dizziness HHD (hypertensive heart disease) Orthostatic dizziness Orthostatic hypotension SVT (supraventricular tachycardia) Tachycardia Surgical History (Updated 07/23/22 @ 01:27 by Margarette Delgado RN) History of hysterectomy Family History (Updated 07/23/22 @ 01:26 by Margarette Delgado RN) Family history of cancer Social History (Updated 07/23/22 @ 01:30 by Margarette Delgado RN) Smoking Status: Former smoker pack-years: 50 second hand exposure: No alcohol intake: never substance use type: denies use current occupational status: employed and retired Travel in the last 8 weeks: None household members: spouse housing: house current occupational exposures/hazards: No caffeine: No Review of Systems Review of Systems Review of systems:: pertinent systems reviewed and negative unless documented below Meds Home Medications and Allergies Home Medications Medication Instructions Recorded Confirmed Type clopidogrel 75 mg tablet (Plavix) 75 mg PO DAILY Blood thinner #30 05/12/19 07/22/22 Rx tabs omeprazole 40 mg capsule,delayed 40 mg PO DAILY GERD #30 caps 07/19/19 07/22/22 Rx release donepezil 5 mg tablet 5 mg PO HS memory 04/30/20 07/22/22 History escitalopram oxalate 10 mg tablet 10 mg PO DAILY MOOD 04/30/20 07/23/22 History furosemide 40 mg tablet 40 mg PO DAILY Fluid 04/30/20 01/20/22 History nitroglycerin 0.4 mg sublingual 0.4 mg SL Q5MINP PRN Chest Pain 04/30/20 07/22/22 Rx tablet ##25 rosuvastatin 20 mg tablet 20 mg PO HS Cholesterol 04/30/20 07/22/22 History apixaban 2.5 mg tablet (Eliquis) 2.5 mg PO BID Blood thinner 07/22/22 07/22/22 History diltiazem HCl 120 mg 120 mg PO DAILY Heart rhythm 07/22/22 07/22/22 History capsule,extended release 24 hr gabapentin 100 mg capsule 100 mg PO BID Back pain 07/22/22 07/23/22 History (Neurontin) bupropion HCl 150 mg 24 hr tablet, 150 mg PO DAILY Depression 07/23/22 07/23/22 History extended release lisinopril 5 mg tablet 5 mg PO DAILY High blood pressure 07/23/22 07/23/22 History lisinopril 5 mg tablet 5 mg PO DAILY High blood pressure 07/23/22 07/23/22 History trazodone 50 mg tablet 50 mg PO HS sleep 07/23/22 07/23/22 History trazodone 50 mg tablet 100 mg PO HS sleep 07/23/22 07/23/22 History New Prescriptions to Start Prescriptions: Allergies Allergy/AdvReac Type Severity Reaction Status Date / Time Antihistamines - Alkylamine Allergy Mild Verified 01/20/22 09:26 [ANTIHISTAMINES - ALKYLAMINE] codeine [CODEINE] Allergy Mild Verified 01/20/22 09:26 midodrine Allergy Mild Verified 01/20/22 09:26 Penicillins [PENICILLINS] Allergy Mild Verified 01/20/22 09:26 Sulfa (Sulfonamide Allergy Mild Verified 01/20/22 09:26 Antibiotics) [SULFA (SULFONAMIDE ANTIBIOTICS)] Exam Data for Last 24 hours Vital signs and Labs for Last 24 Hours: Temp Pulse Resp BP Pulse Ox 99.1 F 73 16 136/71 91 L 07/23/22 07:15 07/23/22 07:15 07/23/22 07:15 07/23/22 07:15 07/23/22 07:15 Laboratory Results - last 24 hr 07/22/22 22:59: SARS-CoV-2 (PCR) Not detected, Influenza A Untype (PCR) Not detected, Influenza Type B (PCR) Not detected
--- NOTE | 2022-07-23 10:11 | HMH.PHAINT1 ---
Pharmacy Intervention Comments: MEDICATION RECONCILIATION COMPLETED ON PATIENT USING EXTERNAL FILL HISTORY FROM PHARMACY AND PATIENT INTERVIEW. -KRYSTEN HAM, AAROND
[2022-07-23 14:49] VITALS: BP 137/61; PULSE 63; RESP 17; TEMP 37; O2SAT 94
--- NOTE | 2022-07-23 16:53 | EXP.ORTH.CON ---
Documented by User: MALDONADO Yuan 07/23/22 17:14 History of Present Illness *Admission Date: 07/23/22 *Reason for visit:: left tibial plateau fracture, right fifth metatarsal fracture *History of present illness: Mrs. Ocasio is a very pleasant 82-year-old female patient admitted to the acute inpatient service after sustaining a mechanical fall at home. She reports that she was unloading groceries with her yesterday evening when he lost his balance and fell, causing her to fall to the ground as well. She reports that she was unable to walk or bear weight due to pain so she was brought into the [facility] emergency department for further evaluation. Subsequent x-ray demonstrates a fracture of the right fifth metatarsal and left tibial plateau. This afternoon the patient is lying comfortably in bed and her and son are present at the bedside. She continues to report right foot and left knee pain as to be expected but states that it is well controlled with as needed pain medication and rest. No history of any distal tingling/numbness. At baseline she ambulates without the use of a cane or walker and is independent for her activities of daily living. Her past medical history is significant for atrial fibrillation on long-term anticoagulation with Eliquis, coronary artery disease, hypertension, hyperlipidemia, renal insufficiency, carotid artery stenosis, and cardiac ablation. She is a former smoker. She reports that she had lunch today around noon. She denies any other symptoms or concerns at this time. [facility] 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 (Updated 07/23/22 @ 17:03 by MALDONADO Yuan) Carotid artery stenosis Dizziness HHD (hypertensive heart disease) Orthostatic dizziness Orthostatic hypotension SVT (supraventricular tachycardia) Tachycardia Surgical History (Updated 07/23/22 @ 01:27 by Margarette Delgado RN) History of hysterectomy Family History (Updated 07/23/22 @ 01:26 by Margarette Delgado RN) Other Family history of cancer Social History (Updated 07/23/22 @ 01:30 by Margarette Delgado RN) Smoking Status: Former smoker pack-years: 50 second hand exposure: No alcohol intake: never substance use type: denies use current occupational status: employed and retired Travel in the last 8 weeks: None household members: spouse housing: house current occupational exposures/hazards: No caffeine: No Meds Home Medications and Allergies Home Medications Medication Instructions Recorded Confirmed Type omeprazole 40 mg capsule,delayed 40 mg PO DAILY GERD #30 caps 07/19/19 07/22/22 Rx release donepezil 5 mg tablet 5 mg PO HS memory 04/30/20 07/22/22 History escitalopram oxalate 10 mg tablet 10 mg PO DAILY MOOD 04/30/20 07/23/22 History furosemide 40 mg tablet 40 mg PO DAILYP PRN Edema 04/30/20 07/23/22 History rosuvastatin 20 mg tablet 20 mg PO HS Cholesterol 04/30/20 07/22/22 History apixaban 2.5 mg tablet (Eliquis) 2.5 mg PO BID A FIB 07/22/22 07/23/22 History diltiazem HCl 120 mg 120 mg PO DAILY Heart rhythm 07/22/22 07/22/22 History capsule,extended release 24 hr gabapentin 100 mg capsule 100 mg PO BID Back pain 07/22/22 07/23/22 History (Neurontin) lisinopril 5 mg tablet 2.5 mg PO DAILY High blood pressure 07/23/22 07/23/22 History trazodone 50 mg tablet 100 mg PO HS sleep 07/23/22 07/23/22 History New Prescriptions to Start Prescriptions: Allergies Allergy/AdvReac Type Severity Reaction Status Date / Time Antihistamines - Alkylamine Allergy Mild Verified 01/20/22 09:26 [ANTIHISTAMINES - ALKYLAMINE] codeine [CODEINE] Allergy Mild Verified 01/20/22 09:26 midodrine Allergy Mild Verified 01/20/22 09:26 Penicillins [PENICILLINS] Allergy Mild Verified 01/20/22 09:26 Sulfa (Sulfonamide Allergy Mild Verified 01/20/22 09:26 Antibiotics) [SULFA (SULFONAMIDE ANTIBIOTICS)] Ortho Exam (Inpt) Vital signs and Labs for Last 24 Hours:
[2022-07-23 19:29] VITALS: BP 109/48; PULSE 67; RESP 18; TEMP 37.5; O2SAT 90
--- NOTE | 2022-07-23 19:30 | PC.NURSE ---
Pt remains stable, meds given per nov. VSS. Have flushed tabares cath to help with pt's c/os of burning. Report given to Caron Cao RN.
[2022-07-24] VITALS (22 sets, daily range): BP systolic 128–168; BP diastolic 51–80; PULSE 68–91; RESP 12–18; TEMP 36–43; O2SAT 90–98; BMI 29.0
--- NOTE | 2022-07-24 04:44 | PC.NURSE ---
pt rested well t/o the night. she is a&oX4. she had no complaints of pain. remains NPO since midnight. Slight wheezes noted to bilat upper lobes this am, pt had no complaints of SOA. NS infusing at 75 ml/hr. Pelaez in place draining clear/yellow urine.
--- NOTE | 2022-07-24 08:23 | EXP.ACUTE.PN ---
Subjective *Date: 07/24/22 *Time: 08:23 Interval history: Patient slept well overnight, pains under fairly good control. She has no cough or congestion but does feel like her breathing is a bit tight this morning. No chest pain. Medical Exam Vital signs and Labs for Last 24 Hours: Vital Signs Temp Pulse Resp BP Pulse Ox 07/24/22 07:15 98.5 F 70 16 137/51 L 90 L 07/24/22 03:50 98.7 F 75 16 148/60 H 90 L 07/23/22 19:29 99.5 F 67 18 109/48 L 90 L 07/23/22 14:49 98.6 F 63 17 137/61 94 L Intake and Output 07/23/22 07/24/22 07/24/22 19:59 03:59 11:59 Intake Total 1140 / 2105 965 / 2105 Output Total 400 / 650 250 / 650 0 / 650 Balance 740 / 1455 -250 / 1455 965 / 1455 Intake: Intake, Oral Amount 240 / 240 0 / 240 Intake, Total IV Amount 900 / 1865 965 / 1865 0.9 % Sodium Chloride 1,000 ml 900 / 1865 965 / 1865 @ 75 mls/hr IV .[id number] [facility] Rx# :[id number] Output: Output, Urine Amount 0 / 250 250 / 250 0 / 250 Output, Urine Amount (Catheter) 400 / 400 Pelaez 400 / 400 Other: Number of Unmeasured Voids 0 0 0 Weight 144 lb 1 oz Patient Weight 07/24/22 11:59 Weight 144 lb 1 oz I & O for Labs for Last 24 Hours: Intake & Output 07/21/22 07/22/22 07/23/22 07/24/22 11:59 11:59 11:59 11:59 Intake Total 0 / 0 2105 / 2105 Output Total 0 / 0 650 / 650 Balance 0 / 0 1455 / 1455 Weight 141 lb 12.116 oz 144 lb 1 oz Microbiology Reports for the Last 24 Hours: Microbiology 07/22/22 23:34 Urine,Catheterized Urine Culture - Preliminary NO GROWTH AFTER 24 HOURS Comment:: Alert and pleasant, oriented x3. A little bit of expiratory wheezing in the anterior lung cordero. Heart rate regular. Abdomen soft. No edema or clubbing. Extremity exam per orthopedics. Assessment and Plan *Assessment and plan (1) Fracture of tibial plateau: Status: Acute Qualifiers: Encounter type: initial encounter Fracture type: closed Laterality: left Qualified Code(s): S82.142A - Displaced bicondylar fracture of left tibia, initial encounter for closed fracture Category: Medical Code(s): S82.143A - Displaced bicondylar fracture of unspecified tibia, initial encounter for closed fracture (2) Fracture of fifth metatarsal bone: Status: Acute Qualifiers: Encounter type: initial encounter Fracture type: closed Physeal involvement: unspecified Laterality: right Qualified Code(s): S92.351A - Displaced fracture of fifth metatarsal bone, right foot, initial encounter for closed fracture Category: Medical Code(s): S92.353A - Displaced fracture of fifth metatarsal bone, unspecified foot, initial encounter for closed fracture (3) A-fib: Status: Acute Qualifiers: Atrial fibrillation type: paroxysmal Qualified Code(s): I48.0 - Paroxysmal atrial fibrillation Category: Medical Code(s): I48.91 - Unspecified atrial fibrillation (4) Hypertension: Status: Chronic Qualifiers: Hypertension type: essential hypertension Qualified Code(s): I10 - Essential (primary) hypertension Category: Medical Code(s): I10 - Essential (primary) hypertension (5) Wheezing: Status: Acute Category: Medical Code(s): R06.2 - Wheezing Plan I have discussed the clinical findings and diagnostic imaging with the patient and her family. Today we have discussed all management options including surgical as well as nonsurgical and the associated risks/benefits and alternatives to each. For her left tibial plateau fracture, we discussed that she will likely need surgical remediation in the form of an ORIF; further surgical recommendations per Dr. Spencer. The patient last took her home dose of Eliquis the morning of 07/22/2022. In regards to her right fifth metatarsal fracture, I have recommended conservative management with
--- NOTE | 2022-07-24 09:24 | PC.NURSE ---
Pt to surgery @ 911.
--- NOTE | 2022-07-24 09:29 | SW/DCPLANNER ---
Addendum entered by Vicky Ortiz 07/25/22 09:41: This patient will discharge to [facility] level of care today. COVID swab will be collected prior to discharge. Addendum entered by Vicky Ortiz 07/24/22 15:25: This patient has been accepted to [facility] at time of discharge. Original Note: Patient/family expressed an interest in [facility] for SNF level of care at time of discharge. [facility] stated that she will have a female bed open tomorrow. I will fax patient information to [facility] today and continue to follow up with patient and MD.
--- NOTE | 2022-07-24 10:15 | EXP.ORTH.PN ---
Subjective *Date: 07/24/22 *Time: 10:15 Interval history: Resting comfortably. Pain tolerable. Ortho Exam (Inpt) Vital signs and Labs for Last 24 Hours: Temp Pulse Resp BP Pulse Ox 98.5 F 80 16 137/51 L 90 L 07/24/22 07:15 07/24/22 10:09 07/24/22 07:15 07/24/22 07:15 07/24/22 07:15 I & O for Labs for Last 24 Hours: Intake & Output 07/21/22 07/22/22 07/23/22 07/24/22 23:59 23:59 23:59 23:59 Intake Total 1140 / 1140 965 / 965 Output Total 400 / 400 250 / 250 Balance 740 / 740 715 / 715 Weight 138 lb 141 lb 12.116 oz 144 lb 1 oz Microbiology Reports for the Last 24 Hours: Microbiology 07/22/22 23:34 Urine,Catheterized Urine Culture - Preliminary NO GROWTH AFTER 24 HOURS Head: Present normocephalic and atraumatic ENT: Present mucous membranes moist Neck: Present normal inspection Respiratory: Present normal respiratory effort and symmetric chest movement; Absent accessory muscle use or respiratory distress Cardiac: Present Reg Rate and Rhythm and radial pulses present GI: Present soft; Absent distention Rectal (female): Present deferred (female): Present deferred Additional Findings:: Left lower extremity: Tenderness lateral left knee. Palpable dorsalis pedis/posterior tibial pulse. Sensation intact to light touch deep peroneal, superficial peroneal, tibial, sural, saphenous nerve distribution. 4/5 motor function intact to extensor hallicus longus, flexor hallicus longus, tibialis anterior, gastroc/soleus, posterior tibialis, foot eversion secondary to pain. No pain with passive stretch. Assessment and Plan *Assessment and plan (1) Fracture of tibial plateau: Status: Acute Qualifiers: Encounter type: initial encounter Fracture type: closed Laterality: left Qualified Code(s): S82.142A - Displaced bicondylar fracture of left tibia, initial encounter for closed fracture Category: Medical Code(s): S82.143A - Displaced bicondylar fracture of unspecified tibia, initial encounter for closed fracture Plan 82-year-old female with left lateral split depression tibial plateau fracture. I had a discussion with her and her family at bedside regarding further management including nonoperative management versus operative intervention. Given the significant depression of her lateral tibial plateau, I think she would benefit from open reduction internal fixation. They are amenable with the plan. Plan for open reduction internal fixation left tibial plateau fracture. She has been off of Eliquis for 48 hours. She is n.p.o., marked, consented. We discussed the risk and benefits of surgery. Risks included but were not limited to pain, bleeding, infection, damage to adjacent structures, need for further surgery, wound healing complications, loss of limb, . Patient expressed verbal consent and written consent was obtained for the above procedure. Plan for nonoperative management right fifth metatarsal fracture.
--- NOTE | 2022-07-24 12:38 | XR_ITS ---
FINAL REPORT CLINICAL HISTORY: ORIF LEFT TIBIA IN OR FINDINGS: FLUORO TIME PROCEDURE: Fluoroscopy in the operating room. FINDINGS: Fluoroscopy time was provided by the radiology department for the clinical service. 6 films were obtained for ORIF of the left tibia. Fluoroscopy exposure time: 2.26 IMPRESSION: See operative report. Reviewed, Interpreted and Dictated by Ramesh Trevino MD Transcribed by Cris Phillips Authenticated and [facility]
--- NOTE | 2022-07-24 12:56 | EXP.OP.NOTE ---
Date of procedure: 07/24/22 Pre-op Diagnosis:: Right split depression lateral tibial plateau fracture Post-op Diagnosis:: Same Procedure performed:: 39066: Open treatment of left tibial plateau fracture Surgeon:: Florentino Spencer JR, MD Electric Cutter Operator(s):: Tonya Benoit PA-C Anesthesia: GETA Estimated blood loss (mL): 30 Clinical Note:: 82-year-old female sustained a left lateral tibial plateau fracture when her fell on her. She was on Eliquis, last dose 48 hours ago. I had a discussion with her and her family regarding further management. We discussed nonoperative versus operative management. Given the depressed unstable nature of the fracture I recommended open reduction internal fixation. They were amenable with the plan. We discussed the risk and benefits of surgery. Risks included but were not limited to pain, bleeding, infection, damage to adjacent structures, need for further surgery, wound healing complications, loss of limb, . Patient expressed verbal consent and written consent was obtained for the above procedure. Operative findings:: Stress view following open reduction internal fixation was suggestive of lateral collateral ligament injury. Operative note:: Patient was identified in preoperative holding. Operative site was marked in indelible ink. History, physical, consent were reviewed and updated. Patient was surrendered to the anesthesia team, taken to the operative suite, placed supine on a well-padded operative table. Ipsilateral hip bump was placed as was a nonsterile thigh tourniquet. Anesthesia was induced. The operative extremity was prepped and draped in the usual sterile fashion. The operative team donned sterile gowns and gloves and a timeout was called. All in attendance agreed regarding the patient's identity, procedure, operative site. Weight-based dose of antibiotics was given prior to incision. I made a curvilinear incision centered over Lilibeth's tubercle, split the IT band proximally. I made some meniscal arthrotomy, noted a rodriguez of hematoma. Utilizing a freer, and tamp through a window distal laterally, I was able to elevate the lateral joint surface. I backfilled this with calcium phosphate cement, applied a precontoured proximal tibial plate, applied a buttress screw, rafting locking screws proximally, and locking screws distally. Orthogonal fluoroscopic views demonstrated mormon of joint alignment, safe intraosseous, extra-articular hardware placement. I copiously irrigated the wound, repaired the sound meniscal arthrotomy, closed in anatomic layers assisted by Tonya Benoit. Postoperatively plan for 23 hours intravenous antibiotics, PT/OT, hinged knee sleeve locked in extension when mobilizing, otherwise unlocked. Okay to resume Eliquis DVT prophylaxis tomorrow. Follow-up 2 weeks for wound check, x-rays. Condition: stable Disposition: PACU Complications:: None apparent
--- NOTE | 2022-07-24 13:04 | XR_ITS ---
FINAL REPORT CLINICAL HISTORY: postop in pacu, lt tibia orif FINDINGS: 2 views of the left knee were obtained. The there is a sideplate and screws securing the lateral tibial plateau. The joint spaces are preserved. There is gas in the subcutaneous soft tissues. IMPRESSION: Postoperative changes without evidence of complication. Reviewed, Interpreted and Dictated by Ramesh Trevino MD Transcribed by Asad Mojica Authenticated and [facility]
--- NOTE | 2022-07-24 13:20 | EXP.ANES.I ---
[facility] Anesthesia Record Part I Anesthesia Record I Intake, IV Amount: 800 Estimated blood loss (mL): 30 Urine output (mL): 200 Blood Products used (#): none Blood Pressure: 129/75 SaO2: 97 Pulse Rate: 68 Respiratory Rate: 12 Temperature: 97.5 F Patient is:: Drowsy and Stable Stable to PACU at:: 13:05
--- NOTE | 2022-07-24 14:01 | SUR.PHASEI ---
PATIENT TRANSPORTED TO 2ND FLOOR ROOM 203 WITH Kobe MELENDREZ RN AND Tena RAMEY RN AT BEDSIDE. BED PUT IN LOWEST POSITON, RAILS UP, AND BED ALARM ON. Thomas SHETTY RN, PRIMARY NURSE, MET STAFF AT BEDSIDE. PT IN STABLE CONDITION, TALKING TO .
--- NOTE | 2022-07-24 14:34 | HMH.PTEV ---
Physical Therapy Evaluation Rehab PT IP Evaluation Start: 07/24/22 13:01 Freq: ONCE Status: Active Protocol: Document 07/24/22 14:30 YOUNG (Rec: 07/24/22 14:34 [email or web address] [id number]) Subjective/History History History This is the initial IP PT evaluation for Georgette Ocasio. Pt is an 83 y/o female who suffered fall at home. Pt was unloading groceries w/ when he fell into her knocking her to ground. Pt suffered L tibial plateau fx requiring ORIF, and R 5th met fx - conservative management only Subjective Subjective Pt c/o severe pain w/ mvmnt of LLE - pt just back to floor from PACU Rehab PT IP Eval Objective Appearance Patient Behavior Sedated Patient Orientation Place,Name,Birthday,Year Difficulty following instructions mild Speech Pattern Soft-Spoken Ambulation Patient Able to Ambulate No Rehab PT IP prob,goals,plan Problems Date of Evaluation: 07/24/22 PT IP Problems Bed Mobility,Transfers,Gait, Balance,Self care,Safety Rehab Potential Rehab Potential Fair Discharge Plan PT Discharge Plan Pt to need skilled therapy while in [facility] and continue to need skilled therapy upon DC from [facility]. G -code Required Yes Eval Complexity Eval Charge Codes 83801 - Moderate Complexity G Codes PT Current Status Mobility PT Current Status Modifier CL-At least 60% but less than 80% impaired, limited or restricted PT Goal Status Mobility PT Goal Status Modifer CL-At least 60% but less than 80% impaired, limited or restricted PHYSICIAN CERTIFICATION: I certify the specified therapy services for Georgette Ocasio are required, authorized, and reviewed every 30 days.
--- NOTE | 2022-07-24 15:58 | EXP.ORTH.PN ---
Subjective *Date: 07/24/22 *Time: 16:12 Interval history: Mrs. Ocasio is a pleasant 82 year old female patient who underwent an open reduction, internal fixation of her left tibia performed by Dr. Spencer earlier today. This afternoon she is lying comfortably in bed. She reports minimal pain in her left knee that she states is well controlled with as needed pain medication and rest. She is currently eating lunch and denies any episodes of nausea or vomiting. She continues to report minimal pain in her right foot, she is being treated conservatively for a right fifth metatarsal fracture. No history of any distal tingling/numbness. She denies any other symptoms or concerns at this time. Ortho Exam (Inpt) Vital signs and Labs for Last 24 Hours: Temp Pulse Resp BP Pulse Ox 98.0 F 75 14 150/66 H 97 07/24/22 14:10 07/24/22 14:10 07/24/22 14:10 07/24/22 14:10 07/24/22 14:10 I & O for Labs for Last 24 Hours: Intake & Output 07/21/22 07/22/22 07/23/22 07/24/22 23:59 23:59 23:59 23:59 Intake Total 1140 / 1140 1819 / 1819 Output Total 400 / 400 550 / 550 Balance 740 / 740 1269 / 1269 Weight 138 lb 141 lb 12.116 oz 144 lb 1 oz Microbiology Reports for the Last 24 Hours: Microbiology 07/22/22 23:34 Urine,Catheterized Urine Culture - Preliminary NO GROWTH AFTER 24 HOURS Head: Present normocephalic and atraumatic Eyes: Present as per HPI ENT: Present normal exam Neck: Present normal inspection, full ROM and trachea midline; Absent lymphadenopathy Respiratory: Present normal respiratory effort, able to speak in complete sentences and symmetric chest movement; Absent accessory muscle use Cardiac: Present Reg Rate and Rhythm GI: Present soft; Absent tenderness Comment:: Upon examination of the left knee: Dressings present over the left knee are clean, dry, and intact. No evidence of drainage or bleeding noted. There is a hinged knee brace in place. Attempted movements of the left knee are somewhat painful. Thigh and calf are soft nontender; Homans' sign is negative. No clinical evidence of DVT or compartment syndrome noted. Posterior tibial pulse 2+; capillary refill is brisk. Distal neurovascular status is intact. Upon examination of the right foot: The skin is intact. No lacerations, abrasions, wounds, or ulcerations evident. The fifth metatarsal is tender to palpation over the fracture site. The toes, ankle, and malleoli are nontender to palpation. Range of motion of the foot/toes is limited secondary to pain. Range of motion of the ankle is full and nonpainful. Thigh and calf are soft nontender; Homans' sign is negative. No clinical evidence of DVT or compartment syndrome noted. Posterior tibial pulse 2+; capillary refill is brisk. Sensation to light touch is grossly intact throughout. The patient is active mobilizing the foot, ankle, and toes. Diagnostic imaging: Postoperative x-ray performed at [facility] today reviewed along with radiologist report. X-ray of the left knee demonstrates a lateral tibial plateau fracture status post ORIF with orthopedic components in satisfactory alignment and fixation. No evidence of orthopedic complications noted. Radiologist report is as follows: FINDINGS: 2 views of the left knee were obtained. The there is a sideplate and screws securing the lateral tibial plateau. The joint spaces are preserved. There is gas in the subcutaneous soft tissues. IMPRESSION: Postoperative changes without evidence of complication. Reviewed, Interpreted and Dictated by Ramesh Trevino MD Transcribed by Asad Mojica Authenticated and [facility] Skin: Present intact, warm and normal turgor; Absent cyanosis, erythema, lesions or jaundice Neuro: Present Cranial Nerve 2-12 Intact, Motor Function Intact, Sensory Function Intact, alert, awake, oriented x 3, t
[2022-07-25 03:42] VITALS: BP 127/71; PULSE 77; RESP 16; TEMP 37.2; O2SAT 95
[2022-07-25 04:52] VITALS: BMI 30.5
--- NOTE | 2022-07-25 07:31 | P.PNANES_ITS ---
[facility] Anesthesia Record Part II Anesthesia Record Part II Discharge Time: 13:35 Destination: Medical Surgical Department PACU nurse assessment reviewed?: Yes Patient Condition:: Good Anesthesia Complications:: None Swallowing reflex intact?: Yes Cyanosis?: No Blood Pressure: 159/64 Pulse Rate: 71 Temperature: 97.9 F Mental Status: Alert & Oriented Pain level:: 0 Nausea and/or vomitting:: None Intake, IV Amount: 0
[2022-07-25 07:32] VITALS: BP 159/64; PULSE 71; TEMP 36.6
[2022-07-25 08:00] VITALS: BP 141/63; PULSE 81; RESP 16; TEMP 36.5; O2SAT 96
[2022-07-25 08:19] LABS: Basophils % 0.1 % (0.1-2.0); Eosinophils % 0.1 % (0.1-12.0); Hematocrit 31.4 % (37.0-47.0); Lymphocytes # 0.8 K/mm3 (0.7-4.5); Lymphocytes % 6.7 % (10-50); Mean Corpuscular HGB Conc 31.8 g/dL (31.8-35.4); Mean Corpuscular Hemoglobin 28.4 pg (27.0-31.2); Mean Corpuscular Volume 89.3 fl (81-99); Mean Platelet Volume 8.8 fl (7.4-10.4); Monocytes # 0.6 K/mm3 (0.1-1.0); Neutrophils # 10.8 K/mm3 (1.8-7.8); Neutrophils % 88.2 % (37.0-80.0); Platelet Count 214 K/mm3 (142-424); Red Blood Count 3.52 M/mm3 (4.20-5.40); Red Cell Distribution Width 13.4 % (11.5-17.5); White Blood Count 12.2 K/mm3 (4.8-10.8)
[2022-07-25 08:21] LABS: MANUAL DIFFERENTIAL MANUAL DIFFERENTIAL (MANUAL DIFF)
[2022-07-25 08:26] LABS: Anion Gap 16.2 mEq/L (5-15); Blood Urea Nitrogen 12 mg/dl (7-17); Calcium 8.5 mg/dl (8.4-10.2); Carbon Dioxide 26 mmol/L (22.0-30.0); Chloride 103 mmol/L (98-107); Creatinine Clearance Estimated 47 mL/min (50-200); Estimated Glomerular Filt Rate 60 ml/min (>60); GFR (African American) 73 ML/MIN (>60); Glucose 192 mg/dl (74-100); Potassium 4.2 mmoL/L (3.5-5.1); Sodium 141 mmol/L (136-145)
[2022-07-25 08:39] LABS: Lymphocytes % 9 % (10-50); Monocytes % 3 % (2-9); Neutrophils % 88 % (42-76); Platelet Estimate Normal; RBC Morphology Normal; Total Cells Counted 100
--- NOTE | 2022-07-25 08:45 | EXP.DC.SUM ---
General Admission date:: 07/23/22 Discharge date: 07/25/22 HPI HPI HPI: Mrs. Ocasio is a very pleasant 82-year-old female patient admitted to the acute inpatient service after sustaining a mechanical fall at home. She reports that she was unloading groceries with her yesterday evening when he lost his balance and fell, causing her to fall to the ground as well. She reports that she was unable to walk or bear weight due to pain so she was brought into the [facility] emergency department for further evaluation. Subsequent x-ray demonstrates a fracture of the right fifth metatarsal and left tibial plateau. This afternoon the patient is lying comfortably in bed and her and son are present at the bedside. She continues to report right foot and left knee pain as to be expected but states that it is well controlled with as needed pain medication and rest. No history of any distal tingling/numbness. At baseline she ambulates without the use of a cane or walker and is independent for her activities of daily living. Her past medical history is significant for atrial fibrillation on long-term anticoagulation with Eliquis, coronary artery disease, hypertension, hyperlipidemia, renal insufficiency, carotid artery stenosis, and cardiac ablation. She is a former smoker. She reports that she had lunch today around noon. She denies any other symptoms or concerns at this time. Hospital Course Hospital Course Hospital Course: Patient was admitted. Eliquis was held, subjected to orthopedic intervention with operative repair of her left tibial plateau fracture that went extremely well. Postoperatively she did very nicely. She was able to participate in rehab yesterday and deemed appropriate for transfer to skilled care today. She will be transferred to the [facility] today. She has a little bit of wheezing that is responded to nebulizer so she will need to be on oxygen to titrate to above 90% on her nasal cannula. She also need DuoNebs 4 times daily as needed. Other medications are noted on the discharge reconciliation form. Follow-up will be per our rounds and with orthopedics as scheduled. Exam Data for Last 24 hours Vital signs and Labs for Last 24 Hours: Temp Pulse Resp BP Pulse Ox 97.9 F 71 16 159/64 H 95 07/25/22 07:32 07/25/22 07:32 07/25/22 03:42 07/25/22 07:32 07/25/22 03:42 Laboratory Results - last 24 hr 07/25/22 08:05: WBC 12.2 H D, RBC 3.52 L, Hgb 10.0 L, Hct 31.4 L, MCV 89.3, MCH 28.4, MCHC 31.8, RDW 13.4, Plt Count 214, MPV 8.8, Neut % (Auto) 88.2 H, Lymph % (Auto) 6.7 L, [place] % (Auto) 5.0, Eos % (Auto) 0.1, Baso % (Auto) 0.1, Neut # (Auto) 10.8 H, Lymph # (Auto) 0.8, [place] # (Auto) 0.6, Eos # (Auto) 0.0, Baso # (Auto) 0.0, Total Counted 100, Neutrophils % (Manual) 88 H, Lymphocytes % (Manual) 9 L, Monocytes % (Manual) 3, Platelet Estimate Normal, RBC Morphology Normal 07/25/22 08:05: Sodium 141, Potassium 4.2, Chloride 103, Carbon Dioxide 26, Anion Gap 16.2 H, BUN 12, Creatinine 0.90, Estimated Creat Clear 47, Estimated GFR 60, Est GFR ( Amer) 73, Glucose 192 H, Calcium 8.5 I & O for Last 24 hours: Intake & Output 07/22/22 07/23/22 07/24/22 07/25/22 11:59 11:59 11:59 11:59 Intake Total 0 / 0 2105 / 2105 974 / 974 Output Total 0 / 0 650 / 650 750 / 750 Balance 0 / 0 1455 / 1455 224 / 224 Weight 141 lb 12.116 oz 144 lb 1 oz 151 lb 8 oz Microbiology Reports for the Last 24 Hours: Microbiology 07/22/22 23:34 Urine,Catheterized Urine Culture - Final NO GROWTH AFTER 48 HOURS Constitutional Constitutional: no acute distress *Routine HEENT Exam Head: Present normocephalic Eye: Present EOMI and PERRL ENT: Present mucous membranes moist *Routine Neck Exam Neck: Present supple; Absent lymphadenopathy *Routine Respiratory Exam Respiratory: Present rhonchi *Routine Cardiovascular Exam Cardiovascular: Present murmur and irregu
--- NOTE | 2022-07-25 09:24 | HMH.OTEV ---
OT Inpatient Evaluation Rehab OT IP Evaluation Start: 07/24/22 13:01 Freq: ONCE Status: Complete Protocol: Document 07/25/22 09:16 [facility] (Rec: 07/25/22 09:24 [facility] [id number]) Rehab OT IP Assessment Subjective History Pt oriented x 3 on arrival. Pt agreeable to engage in therapy evaluation. Daughter present and supportive during evaluation. Pt was admitted via ED on 07/22/22 due to a fall at home with multiple fractures. Pt required a Open treatment of left tibial plateau fracture on 07/23/22. Prior to injuries she was living at home with her . Pt was independent with all ADLs and IADls. She did not drive; her sister would take her grocery shopping. She did not use a walker during ambulation ( unless her family insisted). Pt has a past medical history of: Carotid artery stenosis Dizziness HHD (hypertensive heart disease) Orthostatic dizziness Orthostatic hypotension SVT (supraventricular tachycardia) Tachycardia Subjective I will try my best. Objective Patient Orientation Person,Place,Birthday Upper Extremity Gross ROM WFL Bed Mobility bed mobility-scooting,bed mobility - supine/sit,bed mobility - rolling Assist Level Maximum x 2 (75% assist) Rehab OT IP prob,goals,plan Problems Date of Evaluation: 07/25/22 OT IP Problems Bed Mobility,Transfers,Balance ,Self care,Safety Rehab Potential Rehab Potential Good Equipment Needs Assistive Devices Rolling / Wheeled Walker Plan OT intervention Plan Bed Mobility,Transfers,Balance ,Self care,Safety,Therapeutic Exercise OT Plan Frequency BID Duration LOS Discharge Goals Bed Mobility Ability Assistance x1 Sit to
[2022-07-25 10:13] LABS: Coronavirus 19, PCR Not Detected (NotDetected); Influenza A, PCR Not Detected (NotDetected); Influenza B, PCR Not Detected (NotDetected)
--- NOTE | 2022-07-28 12:36 | CARE MANAGER ---
Contacted [facility] and they state patient is a little more lethargic than usual, but that she is doing ok. They will talk to Dian tomorrow when she comes to see patients. Denies other questions or cocnerns. ADRIENNE Ratliff
== END 2022-07-25 14:02 | DRG 494 ==
LOC: ER 23:32 → 2ND 07-23 00:09
PROVIDERS: Orthopaedic Surgery; Admitting Provider Family Medicine; Emergency Provider Emergency Medicine; PCP Internal Medicine Adolescent Medicine; Visit Provider Internal Medicine Adolescent Medicine
PROC: 0QSH04Z Reposition Left Tibia with Internal Fixation Device, Open Approach (ICD-10-PCS; principal; 2022-07-24 10:00)
DX: S82.142A Displaced bicondylar fracture of left tibia, initial encounter for closed fracture (principal); I48.0 Paroxysmal atrial fibrillation; I10 Essential (primary) hypertension; Z79.899 Other long term (current) drug therapy; Z79.01 Long term (current) use of anticoagulants; Z87.891 Personal history of nicotine dependence; S92.351A Displaced fracture of fifth metatarsal bone, right foot, initial encounter for closed fracture; W03.XXXA Other fall on same level due to collision with another person, initial encounter; Y92.010 Kitchen of single-family (private) house as the place of occurrence of the external cause; I65.29 Occlusion and stenosis of unspecified carotid artery
CPT/HCPCS: 27536; 36415; 51702; 71045; 73502; 73552; 73560; 73562; 73590; 73630; 73700; 80048; 80053; 81001; 85007; 85025; 87086; 93306; 94640; 97162; 97166; 97530; 97760; 99285; C1713; C1776; C9803; J2405; U0003; U0005

== ENCOUNTER → 2022-07-28 18:48 | Outpatient (REF) | payer MEDICARE, OTHER, SELFPAY ==
[2022-07-28 18:56] LABS: Microscopic, Urine URINE MICROSCOPIC (MICROSCOPIC)
[2022-07-28 18:58] LABS: Appearance,Urine CLEAR (Clear); Bilirubin,Urine Negative (Negative); Blood, Urine 2+ (Negative); Color,Urine YELLOW (Yellow); Glucose,Urine (UA) Negative (Negative); Ketones,Urine Negative (Negative); Leukocyte Esterase,Urine Negative (Negative); Nitrate,Urine POSITIVE (Negative); Protein,Urine TRACE (Negative); Specific Gravity, Urine 1.015 (1.005-1.030)
[2022-07-28 19:43] LABS: Bacteria,Urine Trace /lpf; WBC,Urine Occasional #/hpf (0-3)
== END ==
LOC: LAB.DROPOF 18:48
PROVIDERS: Visit Provider Nurse Practitioner Family
DX: N39.0 Urinary tract infection, site not specified (principal)
CPT/HCPCS: 81001; 87086; 87088; 87186

== ENCOUNTER → 2022-08-02 07:36 | Outpatient (REF) | payer MEDICARE, OTHER, SELFPAY ==
[2022-08-02 08:34] LABS: Basophils % 0.6 % (0.1-2.0); Eosinophils # 0.4 K/mm3 (0.0-0.4); Hemoglobin 9.3 g/dL (12.2-16.2); Lymphocytes # 2.2 K/mm3 (0.7-4.5); Lymphocytes % 37.3 % (10-50); Mean Corpuscular Volume 87.1 fl (81-99); Mean Platelet Volume 7.9 fl (7.4-10.4); Monocytes # 0.5 K/mm3 (0.1-1.0); Monocytes % 8.8 % (1.7-9.3); Neutrophils # 2.8 K/mm3 (1.8-7.8); Neutrophils % 47.2 % (37.0-80.0); Platelet Count 485 K/mm3 (142-424); Red Blood Count 3.45 M/mm3 (4.20-5.40); Red Cell Distribution Width 13.3 % (11.5-17.5); White Blood Count 5.9 K/mm3 (4.8-10.8)
[2022-08-02 08:56] LABS: Anion Gap 13.9 mEq/L (5-15); Blood Urea Nitrogen 17 mg/dl (7-17); Calcium 8.4 mg/dl (8.4-10.2); Carbon Dioxide 34 mmol/L (22.0-30.0); Chloride 97 mmol/L (98-107); Estimated Glomerular Filt Rate 29 ml/min (>60); GFR (African American) 35 ML/MIN (>60); Glucose 88 mg/dl (74-100); Potassium 3.9 mmoL/L (3.5-5.1); Sodium 141 mmol/L (136-145)
== END ==
LOC: LAB.DROPOF 07:36
PROVIDERS: Nurse Practitioner Family; Visit Provider Internal Medicine Adolescent Medicine
DX: I10 Essential (primary) hypertension (principal)
CPT/HCPCS: 80048; 85025

== ENCOUNTER → 2022-09-04 13:57 | Outpatient (CLI) | payer MEDICARE, OTHER, SELFPAY ==
--- NOTE | 2022-09-04 14:23 | XR_ITS ---
FINAL REPORT CLINICAL HISTORY: fracture LEFT LOWER LEG FRACTURE POST SURGERY FOLLOW UP. COMPARISON: July 24, 2022 FINDINGS: Two views of the left tibia-fibula demonstrate no acute fracture or dislocation. There are postoperative changes of the proximal tibia. There is a screw plate and multiple screws. Hardware is stable. The joints are intact. IMPRESSION: Stable postoperative change of the proximal tibia. Reviewed, Interpreted and Dictated by Nima Cooper III, MD Transcribed by Asad Mojica Authenticated and . [facility]
--- NOTE | 2022-09-04 14:23 | XR_ITS ---
FINAL REPORT CLINICAL HISTORY: fracture EVALUATE AFTER INJURY RIGHT FOOT. COMPARISON: July 22, 2022 FINDINGS: 3 views of the right foot were obtained. There is subacute fractures of the distal 4th and 5th metatarsals with evidence of further interval healing. No other fractures are identified. There are mild degenerative changes. There is a posterior calcaneal spur. The bones are osteopenic. The soft tissues are unremarkable. IMPRESSION: Healing subacute distal 4th and 5th metatarsal fractures. Reviewed, Interpreted and Dictated by Nima Cooper III, MD Transcribed by Asad Mojica Authenticated and [facility]
[2022-09-04 15:11] LABS: Basophils # 0.1 K/mm3 (0-0.2); Basophils % 0.8 % (0.1-2.0); Eosinophils # 0.3 K/mm3 (0.0-0.4); Eosinophils % 4.9 % (0.1-12.0); Hematocrit 32.5 % (37.0-47.0); Hemoglobin 10.1 g/dL (12.2-16.2); Lymphocytes # 1.5 K/mm3 (0.7-4.5); Lymphocytes % 27.3 % (10-50); Mean Corpuscular HGB Conc 31.1 g/dL (31.8-35.4); Mean Corpuscular Hemoglobin 27.9 pg (27.0-31.2); Mean Platelet Volume 8.9 fl (7.4-10.4); Monocytes # 0.3 K/mm3 (0.1-1.0); Neutrophils # 3.3 K/mm3 (1.8-7.8); Platelet Count 235 K/mm3 (142-424); Red Blood Count 3.62 M/mm3 (4.20-5.40); Red Cell Distribution Width 14.7 % (11.5-17.5); White Blood Count 5.4 K/mm3 (4.8-10.8)
[2022-09-04 15:52] LABS: Alanine Aminotransferase 9 U/L (12-78); Albumin Level 3.6 g/dl (3.5-5.0); Alkaline Phosphatase 118 U/L (38-126); Aspartate Amino Transferase 18 U/L (14-36); Bilirubin,Unconjugated 0.1 mg/dL (0.0-1.1); Blood Urea Nitrogen 17 mg/dl (7-17); Calcium 9.1 mg/dl (8.4-10.2); Carbon Dioxide 28 mmol/L (22.0-30.0); Chloride 105 mmol/L (98-107); Chol/HDL Ratio 2.1 (1-3.5); Cholesterol 117 mg/dl (140-200); Estimated Glomerular Filt Rate 43 ml/min (>60); GFR (African American) 52 ML/MIN (>60); Glucose 123 mg/dl (74-100); HDL Cholesterol 56 mg/dl (40-60); Sodium 139 mmol/L (136-145); Total Protein,Serum 5.7 g/dl (6.3-8.2); Triglycerides 79 mg/dl (30-150); VLDL Cholesterol 16 mg/dL (0-40)
[2022-09-04 15:56] LABS: Bilirubin,Indirect 0.1 mg/dL (0.0-0.9); Bilirubin,Total 0.1 mg/dl (0.2-1.3)
[2022-09-04 16:03] LABS: Direct LDL Cholesterol 38.13 mg/dL (100-129)
[2022-09-04 16:10] LABS: Free T4 (Free Thyroxine) 0.77 ng/dl (0.78-2.19)
== END ==
PROVIDERS: PCP Internal Medicine Adolescent Medicine; Visit Provider Nurse Practitioner
DX: I11.9 Hypertensive heart disease without heart failure; I25.10 Atherosclerotic heart disease of native coronary artery without angina pectoris; I48.0 Paroxysmal atrial fibrillation; I65.29 Occlusion and stenosis of unspecified carotid artery; R00.1 Bradycardia, unspecified; R94.31 Abnormal electrocardiogram [ECG] [EKG]; S92.901A Unspecified fracture of right foot, initial encounter for closed fracture; S82.142A Displaced bicondylar fracture of left tibia, initial encounter for closed fracture
CPT/HCPCS: 36415; 73590; 73630; 80048; 80061; 80076; 83735; 84439; 84443; 85025

== ENCOUNTER 2022-09-10 20:39 | Emergency (ER) | payer MEDICARE, OTHER, SELFPAY ==
[2022-09-10] VITALS (8 sets, daily range): BP systolic 122–151; BP diastolic 46–78; PULSE 53–75; RESP 14–22; TEMP 36.9; O2SAT 93–99; BMI 26.2
--- NOTE | 2022-09-10 20:43 | ECG_ITS ---
APPROVED REPORT Exam: Resting ECG HR:55 bpm ECG Measurements Heart Rate 55 AXES QRSd 93 QRS 58 QT 452 T 75 QTc 440 Conclusion ATRIAL FIBRILLATION WITH SLOW VENTRICULAR RESPONSE ABNORMAL RHYTHM ECG UNCONFIRMED REPORT Electronically signed by : Jus Zee MD 09/12/2022 08:53:41
--- NOTE | 2022-09-10 21:07 | XR_ITS ---
PROCEDURE INFORMATION: Exam: XR Chest Exam date and time: 09/10/2022 9:24 PM Age: 82 years old Clinical indication: Shortness of breath; Additional info: SOA TECHNIQUE: Imaging protocol: Radiologic exam of the chest. Views: 1 view. COMPARISON: CR XR CHEST PORTABLE 07/22/2022 11:53 PM FINDINGS: Lungs: No consolidation. Pleural spaces: No pneumothorax. Heart/Mediastinum: No cardiomegaly. Bones/joints: No acute abnormality. IMPRESSION: No acute findings.
[2022-09-10 21:25] LABS: Coronavirus 19, PCR Not Detected (NotDetected); Influenza A, PCR Not Detected (NotDetected); Influenza B, PCR Not Detected (NotDetected)
[2022-09-10 21:31] LABS: Alanine Aminotransferase 12 U/L (12-78); Albumin Level 3.7 g/dl (3.5-5.0); Albumin/Globulin Ratio 1.5 (1.1-1.8); Alkaline Phosphatase 102 U/L (38-126); Anion Gap 9.8 mEq/L (5-15); Aspartate Amino Transferase 24 U/L (14-36); Bilirubin,Total 0.3 mg/dl (0.2-1.3); Blood Urea Nitrogen 15 mg/dl (7-17); Calcium 8.8 mg/dl (8.4-10.2); Carbon Dioxide 28 mmol/L (22.0-30.0); Chloride 106 mmol/L (98-107); Creatinine Clearance Estimated 37 mL/min (50-200); Estimated Glomerular Filt Rate 48 ml/min (>60); GFR (African American) 58 ML/MIN (>60); Globulin 2.5 g/dL (1.3-3.2); Glucose 107 mg/dl (74-100); Potassium 3.8 mmoL/L (3.5-5.1); Sodium 140 mmol/L (136-145); Total Protein,Serum 6.2 g/dl (6.3-8.2)
[2022-09-10 21:36] LABS: C-Reactive Protein 4.3 mg/L (0-4)
[2022-09-10 21:38] LABS: Basophils % 0.4 % (0.1-2.0); Eosinophils # 0.8 K/mm3 (0.0-0.4); Eosinophils % 9.5 % (0.1-12.0); Hematocrit 31.8 % (37.0-47.0); Hemoglobin 10.2 g/dL (12.2-16.2); Lymphocytes # 4.2 K/mm3 (0.7-4.5); Lymphocytes % 48.6 % (10-50); Mean Corpuscular Hemoglobin 28.2 pg (27.0-31.2); Mean Corpuscular Volume 88.4 fl (81-99); Mean Platelet Volume 8.8 fl (7.4-10.4); Monocytes # 0.5 K/mm3 (0.1-1.0); Monocytes % 5.5 % (1.7-9.3); Neutrophils # 3.1 K/mm3 (1.8-7.8); Neutrophils % 36.1 % (37.0-80.0); Platelet Count 325 K/mm3 (142-424); Red Blood Count 3.59 M/mm3 (4.20-5.40); Red Cell Distribution Width 14.4 % (11.5-17.5); White Blood Count 8.7 K/mm3 (4.8-10.8)
[2022-09-10 21:46] LABS: NT Pro Brain Natriuretic Pep. 398 pg/mL (0-450)
[2022-09-10 21:50] LABS: Procalcitonin 0.062 ng/mL (0.0-2.0)
[2022-09-10 22:06] LABS: Troponin I < 0.01 ng/ml (0.00-0.034)
--- NOTE | 2022-09-10 22:11 | HMH.EDSOB ---
Discharge Plan Disposition Patient Disposition: Home, Self-Care Chief Complaint: Shortness of Breath/Dyspnea Prescriptions Prescriptions: No Action ondansetron HCl 4 mg tablet 4 mg PO DAILY PRN (Reason: Vomiting) bupropion HCl 150 mg tablet extended release 24 hr 150 mg PO DAILY cyanocobalamin (vitamin B-12) 5,000 mcg capsule 5,000 mcg PO DAILY omeprazole 40 mg capsule,delayed release(DR/EC) 40 mg PO DAILY Qty: 30 5RF donepezil 5 MG tablet 5 mg PO HS escitalopram oxalate 10 MG tablet 10 mg PO DAILY furosemide 40 MG tablet 40 mg PO DAILYP PRN (Reason: Edema) rosuvastatin 20 MG tablet 20 mg PO HS Eliquis 2.5 mg tablet 2.5 mg PO BID trazodone 50 mg tablet 100 mg PO HS Label Comments: TAKE 2 TABLETS BY MOUTH AT BEDTIME tramadol 50 mg tablet 50 mg PO Q8H PRN (Reason: pain) Qty: 30 0RF gabapentin [Neurontin] 100 mg capsule 100 mg PO BID 30 Days Qty: 60 2RF diltiazem HCl 120 mg capsule,extended release 24hr 90 mg PO DAILY doxycycline hyclate 100 mg capsule 100 mg PO BID Label Comments: TAKE 1 CAPSULE BY MOUTH TWICE DAILY FOR 10 DAYS benzonatate 100 mg capsule 100 mg PO TID Label Comments: TAKE 1 CAPSULE BY MOUTH THREE TIMES DAILY FOR 5 DAYS Combivent Respimat 20-100 mcg/actuation mist 20 puff INHALATION QID Label Comments: INHALE 1 PUFF BY MOUTH 4 TIMES DAILY cephalexin 500 mg capsule 500 mg PO QID Referrals Follow up/Referrals: Jus Zee MD [Primary Care Provider] - See instructions Clinical Impressions Clinical Impression: Acute exacerbation of chronic obstructive airways disease, Abdominal aortic aneurysm (AAA) Instructions Patient Instructions: DI for Chronic Obstructive Pulmonary Disease Discharge ED Provider: Ronny Marinelli Resp/SOB HPI General Chief Complaint: Shortness of Breath/Dyspnea Stated Complaint: SOA Time Seen by Provider: 09/10/22 22:11 Mode of Arrival: EMS Source of Information: Patient Limitations: No Limitations Description of Symptoms (Recalled from ER Triage Doc. by RN): pt states she was having trouble breathing at home. pt states that she has had some breathing issues for the past week like bronchitis and was exposed to covid on da. pt arrive with audible wheezing History of Present Illness pt with hx of copd and had episode of sob - pt with hx of recent lt lower leg surg - no chest pain MD Complaint: shortness of breath and cough Onset (ago): hour(s) Severity: moderate Consistency/Duration: intermittent Known history of: asthma Associated symptoms: denies other symptoms Treatment prior to arrival: bronchodilator Related Data Home oxygen amount: none Home Medications Medication Instructions Recorded Confirmed donepezil 5 mg tablet 5 mg PO HS memory 04/30/20 09/10/22 escitalopram oxalate 10 mg tablet 10 mg PO DAILY MOOD 04/30/20 09/10/22 furosemide 40 mg tablet 40 mg PO DAILYP PRN Edema 04/30/20 09/10/22 rosuvastatin 20 mg tablet 20 mg PO HS Cholesterol 04/30/20 09/10/22 apixaban 2.5 mg tablet (Eliquis) 2.5 mg PO BID A FIB 07/22/22 09/10/22 trazodone 50 mg tablet 100 mg PO HS sleep 07/23/22 09/10/22 bupropion HCl 150 mg 24 hr tablet, 150 mg PO DAILY Depression 09/04/22 09/10/22 extended release cyanocobalamin (vitamin B-12) 5,000 mcg PO DAILY Supplement 09/04/22 09/10/22 5,000 mcg capsule diltiazem HCl 120 mg 90 mg PO DAILY Heart rhythm 09/04/22 09/10/22 capsule,extended release 24 hr ondansetron HCl 4 mg tablet 4 mg PO DAILY PRN Vomiting 09/04/22 09/10/22 benzonatate 100 mg capsule 100 mg PO TID Cough/cold 09/10/22 09/10/22 cephalexin 500 mg capsule 500 mg PO QID Infection 09/10/22 09/10/22 doxycycline hyclate 100 mg capsule 100 mg PO BID Infection 09/10/22 09/10/22 ipratropium 20 mcg-albuterol 100 20 puff inhalation QID Cough/cold 09/10/22 09/10/22 mcg/actuation mist for inhalation (Combivent Respimat) Previous R
--- NOTE | 2022-09-10 22:13 | CT_ITS ---
PROCEDURE INFORMATION: Exam: CTA Chest With Contrast Exam date and time: 09/10/2022 10:26 PM Age: 82 years old Clinical indication: Shortness of breath; Additional info: Short of air TECHNIQUE: Imaging protocol: Computed tomographic angiography of the chest with contrast. 3D rendering (Not supervised by radiologist): MIP and/or 3D reconstructed images were created by the technologist. Radiation optimization: All CT scans at this facility use at least one of these dose optimization techniques: automated exposure control; mA and/or kV adjustment per patient size (includes targeted exams where dose is matched to clinical indication); or iterative reconstruction. Contrast material: ISOVUE; Contrast volume: 70 ml; Contrast route: INTRAVENOUS (IV); COMPARISON: CR XR CHEST PORTABLE 09/10/2022 9:24 PM FINDINGS: Pulmonary arteries: Normal. No pulmonary emboli. Aorta: 4 cm abdominal aortic aneurysm. Lungs: Emphysema with multiple pulmonary nodules measuring up to 16 mm. Pleural spaces: No pneumothorax. No pleural effusion. Heart: Cardiomegaly. Coronary arteries: Coronary artery calcifications. Lymph nodes: No enlarged lymph nodes. Diaphragm: Small hiatal hernia. Adrenal glands: Bilateral adrenal thickening measuring 9 mm. Kidneys and ureters: 3.3 cm right renal cyst. Bones/joints: No acute fracture. Soft tissues: No significant swelling. IMPRESSION: 1. Emphysema with multiple pulmonary nodules measuring up to 16 mm. For patients at high risk (history of smoking or of other known risk factors), recommend CT Chest at 3-6 months, then CT Chest at 18-24 months. (Reference: Melvina) 2. Cardiomegaly. 3. 4 cm abdominal aortic aneurysm. 4. Bilateral adrenal thickening measuring 9 mm. 5. Small hiatal hernia. References: Melvina Reardon et al. Guidelines for Management of Incidental Pulmonary Nodules Detected on CT Images: From the Fleischner Society 2017. Radiology. 2017;284(1):228-243.
[2022-09-10 22:35] LABS: Erythrocyte Sedimentation Rate 61 mm/hr (0-30)
[2022-09-11 00:01] VITALS: BP 136/59; PULSE 71; RESP 14; O2SAT 93
[2022-09-11 00:36] LABS: Troponin I < 0.01 ng/ml (0.00-0.034)
[2022-09-11 00:56] VITALS: BP 134/74; PULSE 70; RESP 16; TEMP 36.9; O2SAT 97
== END 2022-09-11 01:08 | disposition home or self-care (01) ==
PROVIDERS: Emergency Provider Emergency Medicine; PCP Internal Medicine Adolescent Medicine
DX: J44.1 Chronic obstructive pulmonary disease with (acute) exacerbation (principal); R94.31 Abnormal electrocardiogram [ECG] [EKG]; R00.1 Bradycardia, unspecified; R11.10 Vomiting, unspecified; R60.0 Localized edema; Z20.822 Contact with and (suspected) exposure to COVID-19; I11.9 Hypertensive heart disease without heart failure; I25.10 Atherosclerotic heart disease of native coronary artery without angina pectoris; R01.1 Cardiac murmur, unspecified; I48.0 Paroxysmal atrial fibrillation; I47.1 Supraventricular tachycardia; I71.40 Abdominal aortic aneurysm, without rupture, unspecified; M19.90 Unspecified osteoarthritis, unspecified site; Z79.01 Long term (current) use of anticoagulants; Z79.1 Long term (current) use of non-steroidal anti-inflammatories (NSAID); Z79.899 Other long term (current) drug therapy; Z88.0 Allergy status to penicillin; Z88.2 Allergy status to sulfonamides; Z88.5 Allergy status to narcotic agent; Z88.8 Allergy status to other drugs, medicaments and biological substances; Z87.891 Personal history of nicotine dependence; Z80.9 Family history of malignant neoplasm, unspecified
CPT/HCPCS: 71045; 71275; 80053; 83880; 84145; 84484; 85025; 85651; 86140; 93005; 96360; 99285; C9803; Q9967; U0003; U0005

== ENCOUNTER → 2022-10-10 11:29 | Outpatient (CLI) | payer MEDICARE, OTHER, SELFPAY ==
--- NOTE | 2022-10-10 11:35 | XR_ITS ---
FINAL REPORT CLINICAL HISTORY: f/u fracture COMPARISON: 09/04/2022 FINDINGS: RIGHT FOOT Three views of the right foot demonstrate healing fractures of the 4th and 5th metatarsal necks. The fractures are less evident than on the prior exam compatible with further improvement. Noted fracture is identified. There is severe osteopenia. The joint spaces are preserved. The soft tissues are unremarkable. IMPRESSION: Healing fractures of the 4th and 5th metatarsal necks. Severe osteopenia. Reviewed, Interpreted and Dictated by Butch Diaz MD Transcribed by Aziza Mejía Authenticated and [facility]
--- NOTE | 2022-10-10 11:35 | XR_ITS ---
FINAL REPORT CLINICAL HISTORY: f/u fracture FINDINGS: LEFT TIBIA FIBULA 2 views were obtained. There are postoperative changes from ORIF of the proximal tibia. There is no acute fracture. There is generalized osteopenia. There is no soft tissue abnormality. IMPRESSION: Postoperative changes with no acute fracture. Reviewed, Interpreted and Dictated by Butch Diaz MD Transcribed by Aziza Mejía Authenticated and . [facility]
== END ==
PROVIDERS: PCP Internal Medicine Adolescent Medicine; Visit Provider Orthopaedic Surgery
DX: S92.901A Unspecified fracture of right foot, initial encounter for closed fracture (principal); S82.142A Displaced bicondylar fracture of left tibia, initial encounter for closed fracture
CPT/HCPCS: 73590; 73630

== ENCOUNTER → 2022-10-24 08:25 | Outpatient (CLI) | payer MEDICARE, OTHER, SELFPAY ==
--- NOTE | 2022-10-24 08:30 | XR_ITS ---
FINAL REPORT CLINICAL HISTORY: injury COMPARISON: 10/10/2022 FINDINGS: Left tibia fibula Two views were obtained. Sideplate and screws are seen securing the proximal tibia. The fibula is intact. The bones are osteopenic. IMPRESSION: Postsurgical changes. Reviewed, Interpreted and Dictated by Ramesh Trevino MD Transcribed by Alley Pearce Authenticated and [facility]
--- NOTE | 2022-10-24 08:30 | XR_ITS ---
FINAL REPORT CLINICAL HISTORY: injury and surgery on left leg COMPARISON: 10/10/2022 FINDINGS: Right foot Three views were obtained. There is no acute fracture or dislocation. 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 The bones are osteopenic. The joint spaces appear normal. No soft tissue abnormality is identified. IMPRESSION: No acute process. Reviewed, Interpreted and Dictated by Ramesh Trevino MD Transcribed by Alley Pearce Authenticated and [facility]
== END ==
PROVIDERS: PCP Internal Medicine Adolescent Medicine; Visit Provider Orthopaedic Surgery
DX: S92.901A Unspecified fracture of right foot, initial encounter for closed fracture; S82.142A Displaced bicondylar fracture of left tibia, initial encounter for closed fracture
CPT/HCPCS: 73590; 73630

== ENCOUNTER 2023-01-17 21:12 | Emergency (ER) | payer MEDICARE, OTHER, SELFPAY ==
[2023-01-17 21:13] VITALS: BP 151/61; PULSE 59; RESP 20; TEMP 36.7; O2SAT 94; BMI 27.2
--- NOTE | 2023-01-17 21:22 | ECG_ITS ---
APPROVED REPORT Exam: Resting ECG HR:50 bpm ECG Measurements Heart Rate 50 AXES QRSd 85 QRS 62 QT 447 T 75 QTc 420 Conclusion ATRIAL FIBRILLATION WITH SLOW VENTRICULAR RESPONSE MODERATE ST DEPRESSION [0.05+ mV ST DEPRESSION] ABNORMAL ECG UNCONFIRMED REPORT Electronically signed by : Jus Zee MD 01/18/2023 21:44:41
--- NOTE | 2023-01-17 21:23 | XR_ITS ---
PROCEDURE INFORMATION: Exam: XR Chest Exam date and time: 01/17/2023 9:53 PM Age: 82 years old Clinical indication: Shortness of breath; Additional info: SOA TECHNIQUE: Imaging protocol: Radiologic exam of the chest. Views: 1 view. COMPARISON: CR XR CHEST PORTABLE 09/10/2022 9:24 PM FINDINGS: Lungs: Pulmonary vessels are normal. Patchy density right inferior hemithorax. Pleural spaces: Unremarkable. No pleural effusion. No pneumothorax. Heart/Mediastinum: Cardiac silhouette is normal. Bones/joints: Unremarkable. IMPRESSION: Patchy density right inferior hemithorax. Overlying soft tissue density versus airspace opacification. Lateral projection radiograph or CT chest may be helpful.
[2023-01-17 21:30] LABS: Basophils % 0.4 % (0.1-2.0); Eosinophils # 0.8 K/mm3 (0.0-0.4); Hematocrit 32.8 % (37.0-47.0); Hemoglobin 10.6 g/dL (12.2-16.2); Lymphocytes # 2.4 K/mm3 (0.7-4.5); Lymphocytes % 34.2 % (10-50); Mean Corpuscular HGB Conc 32.3 g/dL (31.8-35.4); Mean Corpuscular Hemoglobin 27.3 pg (27.0-31.2); Mean Corpuscular Volume 84.5 fl (81-99); Mean Platelet Volume 8.2 fl (7.4-10.4); Monocytes # 0.5 K/mm3 (0.1-1.0); Monocytes % 6.6 % (1.7-9.3); Neutrophils # 3.2 K/mm3 (1.8-7.8); Neutrophils % 46.7 % (37.0-80.0); Platelet Count 281 K/mm3 (142-424); Red Blood Count 3.88 M/mm3 (4.20-5.40); Red Cell Distribution Width 14.8 % (11.5-17.5); White Blood Count 6.9 K/mm3 (4.8-10.8)
[2023-01-17 21:32] LABS: Chloride 100 mmol/L (98-107)
[2023-01-17 21:33] LABS: Potassium 4.1 mmoL/L (3.5-5.1); Sodium 142 mmol/L (136-145)
[2023-01-17 21:35] LABS: Alanine Aminotransferase 15 U/L (12-78); Albumin Level 3.7 g/dl (3.5-5.0); Albumin/Globulin Ratio 1.5 (1.1-1.8); Alkaline Phosphatase 113 U/L (38-126); Anion Gap 18.1 mEq/L (5-15); Aspartate Amino Transferase 28 U/L (14-36); Bilirubin,Total 0.2 mg/dl (0.2-1.3); Blood Urea Nitrogen 12 mg/dl (7-17); Carbon Dioxide 28 mmol/L (22.0-30.0); Creatinine Clearance Estimated 38 mL/min (50-200); Estimated Glomerular Filt Rate 48 ml/min (>60); GFR (African American) 58 ML/MIN (>60); Globulin 2.5 g/dL (1.3-3.2); Total Protein,Serum 6.2 g/dl (6.3-8.2)
[2023-01-17 21:36] LABS: Calcium 8.4 mg/dl (8.4-10.2); Glucose 132 mg/dl (74-100)
[2023-01-17 21:41] LABS: C-Reactive Protein 5.4 mg/L (0-4)
[2023-01-17 21:44] VITALS: PULSE 81
[2023-01-17 21:45] VITALS: PULSE 84
[2023-01-17 21:55] LABS: Troponin I < 0.01 ng/ml (0.00-0.034)
[2023-01-17 21:56] LABS: Lactic Acid 0.9 mmol/L (0.7-2.1)
[2023-01-17 22:00] VITALS: BP 141/56; PULSE 48; O2SAT 96
[2023-01-17 22:06] LABS: NT Pro Brain Natriuretic Pep. 829 pg/mL (0-450)
--- NOTE | 2023-01-17 22:43 | CT_ITS ---
PROCEDURE INFORMATION: Exam: CT Chest Without Contrast; Diagnostic Exam date and time: 01/17/2023 10:55 PM Age: 82 years old Clinical indication: Shortness of breath; Additional info: SOA TECHNIQUE: Imaging protocol: Diagnostic computed tomography of the chest without contrast. Radiation optimization: All CT scans at this facility use at least one of these dose optimization techniques: automated exposure control; mA and/or kV adjustment per patient size (includes targeted exams where dose is matched to clinical indication); or iterative reconstruction. REPORTING DATA: Count of CT and Cardiac NM exams in prior 12 months: This patient has received 2 known CTs and 0 known cardiac nuclear medicine studies in the 12 months prior to the current study. COMPARISON: CT ANGIO CHEST PE PROTOCOL 09/10/2022 10:26 PM FINDINGS: Lungs: Redemonstration of paraseptal emphysema similar to 09/10/2022. Calcified granuloma right lower lobe multiple pulmonary nodules similar to 09/10/2022. Left lower lobe nodule is spiculated measuring 13.8 x 18mm compared with with 17.7 by 6 0. mm on the prior study. Pleural spaces: Unremarkable. No pneumothorax. No pleural effusion. Heart: Unremarkable. No cardiomegaly. No pericardial effusion. Coronary arteries: Severe coronary artery calcifications. Lymph nodes: Unremarkable. No enlarged lymph nodes. Vasculature: Moderate aortic calcifications. Diaphragm: Small hiatal hernia. Adrenal glands: Partially visualized right adrenal gland slightly thickened similar to the previous exam Bones/joints: Unremarkable. No acute fracture. Soft tissues: Unremarkable. IMPRESSION: 1. No focal infiltrates to suggest pneumonia. 2. Redemonstration of paraseptal emphysema similar to 09/10/2022 3. Calcified granuloma right lower lobe. 4. Multiple pulmonary nodules, most of which are similar to 09/10/2022 . 5. Left lower lobe nodule is spiculated measuring 13.8 x 18mm compared with with 17.7 by 16.6. mm on the prior study. . Despite the relative stability compared with the previous exam the spiculation seen on coronal image 1001/77 is a worrisome feature PET CT or biopsy may be considered. 6. Severe coronary artery calcifications. 7. Moderate aortic calcifications. 8. Partially visualized right adrenal gland slightly thickened similar to the previous exam 9. Small hiatal hernia.
[2023-01-17 23:45] VITALS: BP 137/73; PULSE 79; RESP 16; TEMP 36.7; O2SAT 96
--- NOTE | 2023-01-18 01:51 | HMH.EDGENADL ---
Discharge Plan Disposition Patient Disposition: Home, Self-Care Condition: Good Prescriptions Prescriptions: New doxycycline monohydrate 100 mg capsule 100 mg PO BID 7 Days Qty: 14 0RF prednisone 50 mg tablet 50 mg PO DAILY 5 Days Qty: 5 0RF No Action ondansetron HCl 4 mg tablet 4 mg PO DAILY PRN (Reason: Vomiting) bupropion HCl 150 mg tablet extended release 24 hr 150 mg PO DAILY cyanocobalamin (vitamin B-12) 5,000 mcg capsule 5,000 mcg PO DAILY omeprazole 40 mg capsule,delayed release(DR/EC) 40 mg PO DAILY Qty: 30 5RF donepezil 5 MG tablet 5 mg PO HS escitalopram oxalate 10 MG tablet 10 mg PO DAILY furosemide 40 MG tablet 40 mg PO DAILYP PRN (Reason: Edema) rosuvastatin 20 MG tablet 20 mg PO HS Eliquis 2.5 mg tablet 2.5 mg PO BID trazodone 50 mg tablet 100 mg PO HS Label Comments: TAKE 2 TABLETS BY MOUTH AT BEDTIME tramadol 50 mg tablet 50 mg PO Q8H PRN (Reason: pain) Qty: 30 0RF gabapentin [Neurontin] 100 mg capsule 100 mg PO BID 30 Days Qty: 60 2RF diltiazem HCl 120 mg capsule,extended release 24hr 90 mg PO DAILY doxycycline hyclate 100 mg capsule 100 mg PO BID Label Comments: TAKE 1 CAPSULE BY MOUTH TWICE DAILY FOR 10 DAYS benzonatate 100 mg capsule 100 mg PO TID Label Comments: TAKE 1 CAPSULE BY MOUTH THREE TIMES DAILY FOR 5 DAYS Combivent Respimat 20-100 mcg/actuation mist 20 puff INHALATION QID Label Comments: INHALE 1 PUFF BY MOUTH 4 TIMES DAILY cephalexin 500 mg capsule 500 mg PO QID Referrals Follow up/Referrals: Jus Zee MD [Primary Care Provider] - See instructions Clinical Impressions Clinical Impression: Acute exacerbation of chronic obstructive pulmonary disease Discharge ED Provider: Carlos Pruett Adult HPI General Chief complaint: Shortness of Breath/Dyspnea Stated complaint: SOA Time Seen by Provider: 01/17/23 21:18 Mode of Arrival: Wheelchair Source of Information: Patient Limitations: No Limitations Description of Symptoms (Recalled from ER Triage Doc. by RN): pt c/o increasing SOA x 4 days History of Present Illness HPI narrative: This is a very pleasant 89-year-old lady who does not have a past medical history of COPD but who regularly uses inhalers and has a prolonged smoking history who presents to the emergency department chief complaint of shortness of breath. Gradual in onset 4 days ago. Constant. Moderate. Associated with a nonproductive cough. No fevers. No chest pain. No abdominal pain, nausea, vomiting, numbness, weakness, or paresthesias. No leg pain or leg swelling. Related Data Home Medications Medication Instructions Recorded Confirmed donepezil 5 mg tablet 5 mg PO HS memory 04/30/20 10/24/22 escitalopram oxalate 10 mg tablet 10 mg PO DAILY MOOD 04/30/20 10/24/22 furosemide 40 mg tablet 40 mg PO DAILYP PRN Edema 04/30/20 10/24/22 rosuvastatin 20 mg tablet 20 mg PO HS Cholesterol 04/30/20 10/24/22 apixaban 2.5 mg tablet (Eliquis) 2.5 mg PO BID A FIB 07/22/22 10/24/22 trazodone 50 mg tablet 100 mg PO HS sleep 07/23/22 10/24/22 bupropion HCl 150 mg 24 hr tablet, 150 mg PO DAILY Depression 09/04/22 10/24/22 extended release cyanocobalamin (vitamin B-12) 5,000 mcg PO DAILY Supplement 09/04/22 10/24/22 5,000 mcg capsule diltiazem HCl 120 mg 90 mg PO DAILY Heart rhythm 09/04/22 10/24/22 capsule,extended release 24 hr ondansetron HCl 4 mg tablet 4 mg PO DAILY PRN Vomiting 09/04/22 10/24/22 benzonatate 100 mg capsule 100 mg PO TID Cough/cold 09/10/22 10/24/22 cephalexin 500 mg capsule 500 mg PO QID Infection 09/10/22 10/24/22 doxycycline hyclate 100 mg capsule 100 mg PO BID Infection 09/10/22 10/24/22 ipratropium 20 mcg-albuterol 100 20 puff inhalation QID Cough/cold 09/10/22 10/24/22 mcg/actuation mist for inhalation (Combivent Respimat) Previous Rx's Medication Instructions Recor
== END 2023-01-17 23:46 | disposition home or self-care (01) ==
PROVIDERS: Emergency Provider Emergency Medicine; PCP Internal Medicine Adolescent Medicine
DX: J44.1 Chronic obstructive pulmonary disease with (acute) exacerbation (principal); Z87.891 Personal history of nicotine dependence
CPT/HCPCS: 71045; 71250; 80053; 83605; 83880; 84484; 85025; 86140; 93005; 96374; 99285

== ENCOUNTER 2023-02-11 13:52 | Observation (INO) | payer MEDICARE, OTHER, SELFPAY ==
[2023-02-11] VITALS (15 sets, daily range): BP systolic 102–141; BP diastolic 40–67; PULSE 50–68; RESP 15–20; TEMP 36.5–37; O2SAT 90–97; BMI 37.8; BMI 29.3
--- NOTE | 2023-02-11 13:51 | ECG_ITS ---
APPROVED REPORT Exam: Resting ECG HR:53 bpm ECG Measurements Heart Rate 53 AXES AL 134 P 56 QRSd 84 QRS 53 QT 460 T 66 QTc 443 Conclusion SINUS BRADYCARDIA WITH SINUS ARRHYTHMIA BORDERLINE ECG UNCONFIRMED REPORT Electronically signed by : Jus Zee MD 02/11/2023 17:32:24
--- NOTE | 2023-02-11 14:19 | HMH.EDGENADL ---
Discharge Plan Disposition Chief Complaint: Weakness Prescriptions Prescriptions: No Action ondansetron HCl 4 mg tablet 4 mg PO DAILY PRN (Reason: Vomiting) bupropion HCl 150 mg tablet extended release 24 hr 150 mg PO DAILY cyanocobalamin (vitamin B-12) 5,000 mcg capsule 5,000 mcg PO DAILY omeprazole 40 mg capsule,delayed release(DR/EC) 40 mg PO DAILY Qty: 30 5RF donepezil 5 MG tablet 5 mg PO HS escitalopram oxalate 10 MG tablet 10 mg PO DAILY furosemide 40 MG tablet 40 mg PO DAILYP PRN (Reason: Edema) rosuvastatin 20 MG tablet 20 mg PO HS Eliquis 2.5 mg tablet 2.5 mg PO BID trazodone 50 mg tablet 100 mg PO HS Label Comments: TAKE 2 TABLETS BY MOUTH AT BEDTIME tramadol 50 mg tablet 50 mg PO Q8H PRN (Reason: pain) Qty: 30 0RF gabapentin [Neurontin] 100 mg capsule 100 mg PO BID 30 Days Qty: 60 2RF diltiazem HCl 120 mg capsule,extended release 24hr 90 mg PO DAILY doxycycline hyclate 100 mg capsule 100 mg PO BID Label Comments: TAKE 1 CAPSULE BY MOUTH TWICE DAILY FOR 10 DAYS benzonatate 100 mg capsule 100 mg PO TID Label Comments: TAKE 1 CAPSULE BY MOUTH THREE TIMES DAILY FOR 5 DAYS Combivent Respimat 20-100 mcg/actuation mist 20 puff INHALATION QID Label Comments: INHALE 1 PUFF BY MOUTH 4 TIMES DAILY cephalexin 500 mg capsule 500 mg PO QID doxycycline monohydrate 100 mg capsule 100 mg PO BID 7 Days Qty: 14 0RF prednisone 50 mg tablet 50 mg PO DAILY 5 Days Qty: 5 0RF Referrals Follow up/Referrals: Provider,Referral, [Referring] - See instructions Discharge ED Provider: Roman Amaya General Adult HPI General Chief complaint: Weakness Stated complaint: Weakness Time Seen by Provider: 02/11/23 14:19 History of Present Illness HPI narrative: Patient is an 82-year-old female presents today with generalized weakness. She has a history of COPD and CHF and coronary artery disease presenting with profound weakness over the last week. She states that her heart rate was in the 30s 1 week ago around when this began she was stopped on one of her medication she is not exactly sure which one since that time her heart rates been in the low 50s upper 40s. She had a lower extremity injury 8 months ago and she has been having difficulty walking since that time. Therefore she has home health home health today went to her house and found that she had a blood pressure of 70s systolic and called Dr. Alba said to come to the emergency department. Patient states her blood pressure is normally around 120 from a systolic standpoint. Patient has not had any vomiting or diarrhea she is on Lasix and has had increased urinary frequency. The patient denies any fevers or chills she denies any other urinary symptoms including dysuria urgency cough or any other rash no CVA tenderness from historical standpoint. She states she is just very weak she has no pain anywhere. Related Data Home Medications Medication Instructions Recorded Confirmed donepezil 5 mg tablet 5 mg PO HS memory 04/30/20 10/24/22 escitalopram oxalate 10 mg tablet 10 mg PO DAILY MOOD 04/30/20 10/24/22 furosemide 40 mg tablet 40 mg PO DAILYP PRN Edema 04/30/20 10/24/22 rosuvastatin 20 mg tablet 20 mg PO HS Cholesterol 04/30/20 10/24/22 apixaban 2.5 mg tablet (Eliquis) 2.5 mg PO BID A FIB 07/22/22 10/24/22 trazodone 50 mg tablet 100 mg PO HS sleep 07/23/22 10/24/22 bupropion HCl 150 mg 24 hr tablet, 150 mg PO DAILY Depression 09/04/22 10/24/22 extended release cyanocobalamin (vitamin B-12) 5,000 mcg PO DAILY Supplement 09/04/22 10/24/22 5,000 mcg capsule diltiazem HCl 120 mg 90 mg PO DAILY Heart rhythm 09/04/22 10/24/22 capsule,extended release 24 hr ondansetron HCl 4 mg tablet 4 mg PO DAILY PRN Vomiting 09/04/22 10/24/22 benzonatate 100 mg capsule 100 mg PO TID Cough/cold 09/10/22 10/24/22 cephalexin 500 mg capsule 500 m
--- NOTE | 2023-02-11 14:27 | XR_ITS ---
FINAL REPORT CLINICAL HISTORY: Shortness of breath COMPARISON: 01/17/2023 FINDINGS: The heart size is normal. The mediastinum is normal. The lungs are underinflated. There is no focal infiltrate or edema. There are no pleural effusions. There is no pneumothorax. There is no osseous abnormality. IMPRESSION: No acute cardiopulmonary process Reviewed, Interpreted and Dictated by Ramesh Trevino MD Transcribed by Meliza Dowell Authenticated and [facility]
[2023-02-11 14:38] LABS: Chloride 98 mmol/L (98-107); Sodium 135 mmol/L (136-145)
[2023-02-11 14:40] LABS: Alanine Aminotransferase 12 U/L (12-78); Aspartate Amino Transferase 28 U/L (14-36); Blood Urea Nitrogen 23 mg/dl (7-17); Creatinine Clearance Estimated 24 mL/min (50-200); Estimated Glomerular Filt Rate 27 ml/min (>60); GFR (African American) 33 ML/MIN (>60)
[2023-02-11 14:41] LABS: Albumin Level 3.5 g/dl (3.5-5.0); Albumin/Globulin Ratio 1.5 (1.1-1.8); Alkaline Phosphatase 94 U/L (38-126); Bilirubin,Total < 0.1 mg/dl (0.2-1.3); Calcium 8.2 mg/dl (8.4-10.2); Carbon Dioxide 31 mmol/L (22.0-30.0); Globulin 2.4 g/dL (1.3-3.2); Glucose 103 mg/dl (74-100); Magnesium 2.2 mg/dl (1.6-2.3); Phosphorous 5.4 mg/dl (2.5-4.5); Total Protein,Serum 5.9 g/dl (6.3-8.2)
[2023-02-11 14:46] LABS: Basophils % 0.4 % (0.1-2.0); Eosinophils # 0.3 K/mm3 (0.0-0.4); Eosinophils % 5.9 % (0.1-12.0); Hematocrit 34.1 % (37.0-47.0); Hemoglobin 10.4 g/dL (12.2-16.2); Lymphocytes # 2.4 K/mm3 (0.7-4.5); Lymphocytes % 43.7 % (10-50); Mean Corpuscular HGB Conc 30.5 g/dL (31.8-35.4); Mean Corpuscular Hemoglobin 26.3 pg (27.0-31.2); Mean Corpuscular Volume 86.2 fl (81-99); Monocytes # 0.4 K/mm3 (0.1-1.0); Neutrophils # 2.4 K/mm3 (1.8-7.8); Platelet Count 250 K/mm3 (142-424); Red Blood Count 3.96 M/mm3 (4.20-5.40); Red Cell Distribution Width 15.2 % (11.5-17.5); White Blood Count 5.5 K/mm3 (4.8-10.8)
[2023-02-11 14:54] LABS: Troponin I < 0.01 ng/ml (0.00-0.034)
[2023-02-11 15:01] LABS: Microscopic, Urine URINE MICROSCOPIC (MICROSCOPIC)
[2023-02-11 15:03] LABS: Appearance,Urine CLEAR (Clear); Bilirubin,Urine Negative (Negative); Blood, Urine Negative (Negative); Color,Urine YELLOW (Yellow); Glucose,Urine (UA) Negative (Negative); Ketones,Urine Negative (Negative); Leukocyte Esterase,Urine 1+ (Negative); Nitrate,Urine Negative (Negative); PH,Urine 5.5 (5.0-8.5); Protein,Urine Negative (Negative); Specific Gravity, Urine 1.015 (1.005-1.030); Urobilinogen,Urine 0.2 EU/dl (0.2)
[2023-02-11 15:12] LABS: Thyroid Stimulating Hormone 0.91 uIU/mL (0.465-4.68)
--- NOTE | 2023-02-11 15:18 | PC.NURSE ---
NOTHING NEEDED AT THIS TIME, TAP BECKMAN AT BS
[2023-02-11 15:36] LABS: Bacteria,Urine 2+ /lpf; RBC,Urine Occasional #/hpf (0-3)
[2023-02-11 15:58] LABS: Lactic Acid 1.4 mmol/L (0.7-2.1)
--- NOTE | 2023-02-11 16:15 | PC.NURSE ---
DR RESENDIZ ACCEPTED PT FOR ADMISSION
[2023-02-11 16:21] LABS: Coronavirus 19, PCR Not Detected (NotDetected); Influenza A, PCR Not Detected (NotDetected); Influenza B, PCR Not Detected (NotDetected)
--- NOTE | 2023-02-11 17:32 | PC.NURSE ---
ROUNDED ON PT NO COMPLAINTS, PT DID VOID IN BEDPAN UNMEASURED VOID, TAP BECKMAN AT BS
--- NOTE | 2023-02-11 17:42 | PC.NURSE ---
arrived by w/c from ED
--- NOTE | 2023-02-11 18:23 | PC.NURSE ---
A&OX4. HAS HAD NO C/O NOTED SINCE ARRIVAL TO FLOOR. FAMILY AT BEDSIDE. PURE WICK IN PLACE. 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 NO NEEDS NOTED THUS FAR, VSS.
[2023-02-11 18:48] LABS: Troponin I < 0.01 ng/ml (0.00-0.034)
[2023-02-11 21:06] LABS: Troponin I < 0.01 ng/ml (0.00-0.034)
[2023-02-12] VITALS: PULSE 60
[2023-02-12 04:00] VITALS: BP 108/52; PULSE 60; PULSE 61; RESP 20; TEMP 36.7; O2SAT 90; BMI 29.7
--- NOTE | 2023-02-12 05:23 | PC.NURSE ---
NO ACUTE CHANGES. PT HAS RESTED WELL. NO C/O PAIN. PUREWICK IN PLACE AND DRAINING ADEQUATE AMOUNTS OF CLEAR YELLOW URINE. VSS. BED ALARM IN PLACE DUE TO PT STATING THAT SHE SLEEP WALKS. NO OTHER NEEDS VOICED AT THIS TIME.
[2023-02-12 07:04] LABS: Chloride 101 mmol/L (98-107)
[2023-02-12 07:05] LABS: Potassium 5.1 mmoL/L (3.5-5.1); Sodium 138 mmol/L (136-145)
[2023-02-12 07:07] LABS: Blood Urea Nitrogen 22 mg/dl (7-17); Creatinine Clearance Estimated 33 mL/min (50-200); Estimated Glomerular Filt Rate 36 ml/min (>60); GFR (African American) 44 ML/MIN (>60)
[2023-02-12 07:08] LABS: Anion Gap 9.1 mEq/L (5-15); Carbon Dioxide 33 mmol/L (22.0-30.0); Glucose 99 mg/dl (74-100)
[2023-02-12 08:00] VITALS: BP 127/57; PULSE 69; RESP 18; TEMP 36.4; O2SAT 94
--- NOTE | 2023-02-12 08:08 | SW/DCPLANNER ---
Addendum entered by Vicky Ortiz 02/12/23 09:44: Per Briana flores/ [facility] services will resume for this patient. Original Note: Patient is currently established with [facility]. I will fax updated information to [facility] at time of discharge. Patient will discharge home later today.
--- NOTE | 2023-02-12 08:11 | HMH.PHAINT1 ---
Pharmacy Intervention Comments: Home medication list verified by list from outside pharmacy and patient interview.
--- NOTE | 2023-02-12 08:26 | EXP.HPDC ---
General Admission date:: 02/11/23 Discharge date: 02/12/23 *Admission Date: 02/11/23 *Chief complaint: Weakness, low blood pressure and low pulse rate *History of present illness: 82-year-old female with history of COPD, atrial dysrhythmias and recent tibial plateau fracture approximately 4 months ago has been rehabbing from this at home. We have been successively titrating down to calcium channel blockers because of low blood pressure and pulse rate, and she has been on a lower dose over the past couple of weeks along with LUIS M inhibitor because of her known diagnosis of atrial dysrhythmias and heart failure and she is been doing fairly well until yesterday when she felt a little bit dehydrated and weak and home health noticed that her blood pressure was in the 70s. Brought to the ER at my request. Found to have an PATO, evidence of urinary tract infection and low heart rate that responded to a small bolus of fluids. She was admitted to hospital overnight for observation, IV antibiotics and fluids. [facility] Disclaimer: The information contained in this section may have been updated after the patient was seen, as this information can be updated by other users. 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 Abnormal electrocardiogram [ECG] [EKG] Bradycardia CAD (coronary artery disease), [place] coronary artery Carotid artery stenosis Coronary artery disease Dizziness Ex-smoker HHD (hypertensive heart disease) Hyperlipidemia Orthostatic dizziness Orthostatic hypotension Osteoarthritis Pain in left lower leg Paroxysmal atrial fibrillation with rapid ventricular response Renal insufficiency Shoulder pain SVT (supraventricular tachycardia) Tachycardia Surgical History History of hysterectomy History of radiofrequency ablation procedure for cardiac arrhythmia Family History Other Family history of cancer Social History Smoking Status: Never smoker second hand exposure: No alcohol intake: never substance use type: denies use current occupational status: employed and retired Travel in the last 8 weeks: None household members: spouse housing: house current occupational exposures/hazards: No caffeine: No Review of Systems Review of Systems Review of systems:: pertinent systems reviewed and negative unless documented below Exam Data for Last 24 hours Vital signs and Labs for Last 24 Hours: Temp Pulse Resp BP Pulse Ox 97.6 F 69 18 127/57 L 94 L 02/12/23 08:00 02/12/23 08:00 02/12/23 08:00 02/12/23 08:00 02/12/23 08:00 Laboratory Results - last 24 hr 02/11/23 13:05: WBC 5.5, RBC 3.96 L, Hgb 10.4 L, Hct 34.1 L, MCV 86.2, MCH 26.3 L, MCHC 30.5 L, RDW 15.2, Plt Count 250, MPV 8.0, Neut % (Auto) 43.0, Lymph % (Auto) 43.7, [place] % (Auto) 7.0, Eos % (Auto) 5.9, Baso % (Auto) 0.4, Neut # (Auto) 2.4, Lymph # (Auto) 2.4, [place] # (Auto) 0.4, Eos # (Auto) 0.3, Baso # (Auto) 0.0 02/11/23 13:05: Sodium 135 L, Potassium 5.0, Chloride 98, Carbon Dioxide 31 H, Anion Gap 11.0, BUN 23 H, Creatinine 1.80 H, Estimated Creat Clear 24, Estimated GFR 27 L, Est GFR ( Amer) 33 L, Glucose 103 H, Calcium 8.2 L, Phosphorus 5.4 H, Magnesium 2.2, Total Bilirubin < 0.1 L, AST 28, ALT 12, Alkaline Phosphatase 94, Troponin I < 0.01, Total Protein 5.9 L, Albumin 3.5, Globulin 2.4, Albumin/Globulin Ratio 1.5, TSH 0.91 02/11/23 14:48: Urine Color Yellow, Urine Appearance Clear, Urine pH 5.5, Ur Specific [place] 1.015, Urine Protein Negative, Urine Glucose (UA) Negative, Urine Ketones Negative, Urine Blood Negative, Urine Nitrate Negative, Urine Bilirubin Negative, Urine Urobilinogen 0.2, Ur Leukocyte Esterase 1+ A, Urine RBC Occasional, Urine WBC 5-10, Ur Squamous Epith Cells 3-5, Ur Renal Epithelial Cell 3-5, Urine Bacteria 2+, Hyaline Cast
--- NOTE | 2023-02-12 08:51 | HMH.PHAINT1 ---
Pharmacy Intervention Comments: Discharge medication counseling completed. Patient was starting the following new meds: -cefdinir: 300 mg BID. Told of possible side effects of stomach upset and/or diarrhea and said taking with food may prevent this. -dilitazem: was switching from 60 mg BID to 30 mg BID, which patient discussed with Dr. Zee this morning Patient was told to stop taking diltiazem 60 mg BID and lisinopril 5mg. Patient verbalized understanding and I confirmed that the new medications were being sent to her preferred pharmacy. Patient had no further questions.
--- NOTE | 2023-02-12 09:38 | HMH.OTEV ---
OT Inpatient Evaluation Rehab OT IP Evaluation Start: 02/12/23 07:35 Freq: ONCE Status: Active Protocol: Document 02/12/23 09:32 LC (Rec: 02/12/23 09:38 [facility] [id number]) Rehab OT IP Assessment Subjective History Pt oriented x 4 on arrival. Pt agreeable to engage in therapy evaluation. Pt was admitted on 02/11/23 due to Weakness, low blood pressure, UTI, PATO, and low pulse rate. Pt reports prior to being in the hosptial she lived at home with her . She claims to be independent with all ADLs such as dressing, bathing , and feeding. She is able to complete most IADLs such as cooking small meals and light cleaning. Her family does complete grocery shopping for her because she no longer drives. She uses a rollator during functional transfers. She has been receiving home health therapy due to a previous leg fx. Pt has a past medical history of: Abnormal electrocardiogram [ ECG] [EKG] Bradycardia CAD (coronary artery disease), [place] coronary artery Carotid artery stenosis Coronary artery disease Dizziness Ex-smoker HHD (hypertensive heart disease) Hyperlipidemia Orthostatic dizziness Orthostatic hypotension Osteoarthritis Pain in left lower leg Paroxysmal atrial fibrillation with rapid ventricular response Renal insufficiency Shoulder pain SVT (supraventricular tachycardia) Tachycardia Subjective Let me know what to do.
--- NOTE | 2023-02-13 12:48 | CARE MANAGER ---
Attempted post-discharge phone interview, no answer and no voicemail capabilities available.
--- NOTE | 2023-02-17 14:46 | CARE MANAGER ---
CM called and spoke with patient today to discuss recent discharge. Patient concerned about excessive sputum, increased HR and low O2 saturations. She has an appointment tomorrow and wants to wait and see Dr. Zee. I advised her to call for help if she needed it.
== END 2023-02-12 09:55 | disposition home health service (06) ==
LOC: ER 14:22 → 2ND 16:37
PROVIDERS: Admitting Provider Internal Medicine Adolescent Medicine; Emergency Provider Student in an Organized Health Care Education/Training Program; PCP Internal Medicine Adolescent Medicine; Visit Provider Internal Medicine Adolescent Medicine
DX: N39.0 Urinary tract infection, site not specified (principal); N17.9 Acute kidney failure, unspecified; I11.0 Hypertensive heart disease with heart failure; I48.0 Paroxysmal atrial fibrillation; Z79.01 Long term (current) use of anticoagulants; I25.10 Atherosclerotic heart disease of native coronary artery without angina pectoris; I50.9 Heart failure, unspecified; Z79.899 Other long term (current) drug therapy
CPT/HCPCS: G0378; 36415; 71045; 80048; 80053; 81001; 83605; 83735; 84100; 84443; 84484; 85025; 87086; 87635; 87636; 93005; 97165; 99285; C9803; J0696; U0003; U0005

== ENCOUNTER 2023-03-10 14:39 | Emergency (ER) | payer MEDICARE, OTHER, SELFPAY ==
[2023-03-10 14:40] VITALS: BP 137/103; PULSE 63; RESP 20; TEMP 36.6; O2SAT 93; BMI 31.1
--- NOTE | 2023-03-10 14:41 | ECG_ITS ---
APPROVED REPORT Exam: Resting ECG HR:61 bpm ECG Measurements Heart Rate 61 AXES ID 150 P 58 QRSd 84 QRS 44 QT 421 T 71 QTc 424 Conclusion SINUS RHYTHM NORMAL ECG UNCONFIRMED REPORT Electronically signed by : Jus Zee MD 03/10/2023 21:33:25
--- NOTE | 2023-03-10 14:54 | XR_ITS ---
FINAL REPORT CLINICAL HISTORY: SHORTNESS OF BREATH COMPARISON: 02/11/2023 FINDINGS: SINGLE-VIEW CHEST The heart size is normal. The mediastinum is normal. There is worsening bibasilar pneumonia or atelectasis. There is no pneumothorax. IMPRESSION: Worsening bibasilar pneumonia or atelectasis. Reviewed, Interpreted and Dictated by Nima Cooper III, MD Transcribed by Alley Pearce Authenticated and [facility]
--- NOTE | 2023-03-10 14:56 | HMH.EDCP ---
Discharge Plan Disposition Patient Disposition: Home, Self-Care Condition: Fair Prescriptions Prescriptions: No Action ondansetron HCl 4 mg tablet 4 mg PO Q8HP PRN (Reason: Nausea) cyanocobalamin (vitamin B-12) 5,000 mcg capsule 5,000 mcg PO DAILY donepezil 5 MG tablet 5 mg PO HS escitalopram oxalate 10 MG tablet 10 mg PO DAILY furosemide 40 MG tablet 20 mg PO DAILY rosuvastatin 20 MG tablet 20 mg PO HS Eliquis 2.5 mg tablet 2.5 mg PO BID trazodone 50 mg tablet 100 mg PO HS Label Comments: TAKE 2 TABLETS BY MOUTH AT BEDTIME gabapentin [Neurontin] 100 mg capsule 100 mg PO BID 30 Days Qty: 60 2RF Combivent Respimat 20-100 mcg/actuation mist 20 puff INHALATION DAILYP PRN (Reason: Breathing Problems) Label Comments: INHALE 1 PUFF BY MOUTH 4 TIMES DAILY omeprazole 40 mg capsule,delayed release(DR/EC) 40 mg PO DAILY Label Comments: TAKE 1 CAPSULE BY MOUTH ONCE DAILY tramadol 50 mg tablet 50 mg PO Q6HP PRN (Reason: Pain) Label Comments: TAKE 1 TABLET BY MOUTH EVERY 6 HOURS NEEDED FOR PAIN FOR 14 DAYS diltiazem HCl 30 mg tablet 30 mg PO BID Qty: 60 1RF cefdinir 300 mg capsule 300 mg PO BID 5 Days Qty: 10 0RF Referrals Follow up/Referrals: Jus Zee MD [Primary Care Provider] - 3 days Clinical Impressions Clinical Impression: Congestive heart failure Instructions Patient Instructions: Heart Failure Print Language Print Language: Macedonian Discharge ED Provider: Fan Beckford Chest Pain HPI General Chief Complaint: Shortness of Breath/Dyspnea Stated Complaint: SOA Time Seen by Provider: 03/10/23 14:56 Mode of Arrival: Wheelchair Source of Information: Patient Limitations: No Limitations Description of Symptoms (Recalled from ER Triage Doc. by RN): PT REPORTS INCREASED SHORTNESS OF BREATH AND WEIGHT GAIN OF 9 POUNDS. FAMILY REPORTS PT HAS NOT BEEN TAKING LASIX History of Present Illness HPI narrative: The patient presents to the emergency department with dyspnea over the past 6 days. The patient also reports weight gain. The patient has not been tasting taking her Lasix because she has been with her and has no easy access to a bathroom. The patient's ambulatory status is compromised. MD complaint: other (Dyspnea) Onset (ago): day(s) (6) Duration: constant Activity at onset: during exertion and light activity Severity: moderate Related Data Home Medications Medication Instructions Recorded Confirmed donepezil 5 mg tablet 5 mg PO HS Memory 04/30/20 02/11/23 escitalopram oxalate 10 mg tablet 10 mg PO DAILY Mood 04/30/20 02/11/23 furosemide 40 mg tablet 20 mg PO DAILY Fluid 04/30/20 02/12/23 rosuvastatin 20 mg tablet 20 mg PO HS Cholesterol 04/30/20 02/11/23 apixaban 2.5 mg tablet (Eliquis) 2.5 mg PO BID A FIB 07/22/22 02/11/23 trazodone 50 mg tablet 100 mg PO HS Sleep 07/23/22 02/11/23 cyanocobalamin (vitamin B-12) 5,000 mcg PO DAILY Supplement 09/04/22 02/11/23 5,000 mcg capsule ondansetron HCl 4 mg tablet 4 mg PO Q8HP PRN Nausea 09/04/22 02/12/23 ipratropium 20 mcg-albuterol 100 20 puff inhalation DAILYP PRN 09/10/22 02/12/23 mcg/actuation mist for inhalation Breathing Problems (Combivent Respimat) omeprazole 40 mg capsule,delayed 40 mg PO DAILY Acid reflux 02/12/23 02/12/23 release tramadol 50 mg tablet 50 mg PO Q6HP PRN Pain 02/12/23 02/12/23 Previous Rx's Medication Instructions Recorded gabapentin 100 mg capsule 100 mg PO BID Back pain 30 days 07/25/22 (Neurontin) #60 caps cefdinir 300 mg capsule 300 mg PO BID 5 days #10 caps 02/12/23 diltiazem HCl 30 mg tablet 30 mg PO BID #60 tabs 02/12/23 Allergies Allergy/AdvReac Type Severity Reaction Status Date / Time Antihistamines - Alkylamine Allergy Mild Verified 10/24/22 09:20 [ANTIHISTAMINES - ALKYLAMINE] codeine [CODEINE] Allergy Mild Verified 10/24/22 09:20 midodrine Allergy Mild Verified
--- NOTE | 2023-03-10 14:57 | PC.NURSE ---
DR FLORIAN AT BEDSIDE
[2023-03-10 14:59] LABS: Basophils % 0.6 % (0.1-2.0); Eosinophils # 0.5 K/mm3 (0.0-0.4); Eosinophils % 7.7 % (0.1-12.0); Hematocrit 36.9 % (37.0-47.0); Hemoglobin 11.3 g/dL (12.2-16.2); Lymphocytes # 2.1 K/mm3 (0.7-4.5); Lymphocytes % 32.2 % (10-50); Mean Corpuscular HGB Conc 30.5 g/dL (31.8-35.4); Mean Corpuscular Hemoglobin 26.5 pg (27.0-31.2); Mean Corpuscular Volume 86.6 fl (81-99); Mean Platelet Volume 8.6 fl (7.4-10.4); Monocytes # 0.5 K/mm3 (0.1-1.0); Monocytes % 7.8 % (1.7-9.3); Neutrophils # 3.3 K/mm3 (1.8-7.8); Neutrophils % 51.7 % (37.0-80.0); Platelet Count 229 K/mm3 (142-424); Red Blood Count 4.26 M/mm3 (4.20-5.40); Red Cell Distribution Width 14.6 % (11.5-17.5); White Blood Count 6.4 K/mm3 (4.8-10.8)
[2023-03-10 15:02] LABS: Chloride 99 mmol/L (98-107); Sodium 140 mmol/L (136-145)
[2023-03-10 15:03] VITALS: BP 114/64; PULSE 50; O2SAT 95
[2023-03-10 15:05] LABS: Alanine Aminotransferase 15 U/L (12-78); Albumin Level 4.1 g/dl (3.5-5.0); Albumin/Globulin Ratio 1.5 (1.1-1.8); Alkaline Phosphatase 108 U/L (38-126); Aspartate Amino Transferase 26 U/L (14-36); Bilirubin,Total 0.2 mg/dl (0.2-1.3); Blood Urea Nitrogen 14 mg/dl (7-17); Carbon Dioxide 34 mmol/L (22.0-30.0); Creatinine Clearance Estimated 43 mL/min (50-200); Estimated Glomerular Filt Rate 48 ml/min (>60); GFR (African American) 58 ML/MIN (>60); Globulin 2.7 g/dL (1.3-3.2); Glucose 96 mg/dl (74-100); Total Protein,Serum 6.8 g/dl (6.3-8.2)
[2023-03-10 15:15] LABS: NT Pro Brain Natriuretic Pep. 594 pg/mL (0-450)
--- NOTE | 2023-03-10 15:26 | PC.NURSE ---
DAUGHTER UPDATED AT THIS TIME
[2023-03-10 15:31] VITALS: BP 130/110; PULSE 52; O2SAT 96
[2023-03-10 15:33] LABS: Troponin I < 0.01 ng/ml (0.00-0.034)
[2023-03-10 16:01] VITALS: BP 137/94; PULSE 50; O2SAT 94
[2023-03-10 16:30] VITALS: BP 144/68; PULSE 52; O2SAT 94
[2023-03-10 16:50] VITALS: BP 144/68; PULSE 50; RESP 18; TEMP 36.6; O2SAT 95
== END 2023-03-10 16:55 | disposition home or self-care (01) ==
PROVIDERS: Emergency Provider Emergency Medicine; PCP Internal Medicine Adolescent Medicine
DX: I11.0 Hypertensive heart disease with heart failure (principal); I50.9 Heart failure, unspecified; R06.02 Shortness of breath; R63.5 Abnormal weight gain; I25.10 Atherosclerotic heart disease of native coronary artery without angina pectoris; I65.29 Occlusion and stenosis of unspecified carotid artery; E78.5 Hyperlipidemia, unspecified; I48.0 Paroxysmal atrial fibrillation; I47.1 Supraventricular tachycardia; Z87.891 Personal history of nicotine dependence
CPT/HCPCS: 71045; 80053; 83880; 84484; 85025; 93005; 96374; 99284; 99285

== ENCOUNTER 2023-08-30 08:58 | Emergency (ER) | payer MEDICARE, OTHER, SELFPAY ==
[2023-08-30] VITALS (10 sets, daily range): BP systolic 128–162; BP diastolic 53–89; PULSE 48–56; RESP 12–20; TEMP 36.6; O2SAT 90–95; BMI 27.6
--- NOTE | 2023-08-30 08:58 | ECG_ITS ---
APPROVED REPORT Exam: Resting ECG HR:58 bpm ECG Measurements Heart Rate 58 AXES NE 154 P 57 QRSd 78 QRS 57 QT 434 T 66 QTc 432 Conclusion SINUS BRADYCARDIA BORDERLINE ECG UNCONFIRMED REPORT Electronically signed by : Jus Zee MD 08/31/2023 14:46:04
--- NOTE | 2023-08-30 09:07 | PC.NURSE ---
DR GOLD AT BEDSIDE
--- NOTE | 2023-08-30 09:10 | XR_ITS ---
PROCEDURE INFORMATION: Exam: XR Chest Exam date and time: 08/30/2023 9:18 AM Age: 83 years old Clinical indication: Pain; Left-sided; Additional info: L chest pain TECHNIQUE: Imaging protocol: Radiologic exam of the chest. Views: 1 view. COMPARISON: CR XR CHEST PORTABLE 03/10/2023 3:10 PM FINDINGS: Lungs: Unremarkable. No consolidation. Pleural spaces: Unremarkable. No pleural effusion. No pneumothorax. Heart/Mediastinum: Unremarkable. No cardiomegaly. Bones/joints: Unremarkable. IMPRESSION: No acute findings.
[2023-08-30 09:19] LABS: Chloride 100 mmol/L (98-107); Sodium 139 mmol/L (136-145)
--- NOTE | 2023-08-30 09:19 | HMH.EDGENADL ---
Discharge Plan Disposition Patient Disposition: Home, Self-Care Condition: Good Prescriptions Prescriptions: No Action ondansetron HCl 4 mg tablet 4 mg PO Q8HP PRN (Reason: Nausea) cyanocobalamin (vitamin B-12) 5,000 mcg capsule 5,000 mcg PO DAILY donepezil 5 MG tablet 5 mg PO HS escitalopram oxalate 10 MG tablet 10 mg PO DAILY furosemide 40 MG tablet 20 mg PO DAILY rosuvastatin 20 MG tablet 20 mg PO HS Eliquis 2.5 mg tablet 2.5 mg PO BID trazodone 50 mg tablet 100 mg PO HS Patient Comments: TAKE 2 TABLETS BY MOUTH AT BEDTIME gabapentin [Neurontin] 100 mg capsule 100 mg PO BID 30 Days Qty: 60 2RF Combivent Respimat 20-100 mcg/actuation mist 20 puff INHALATION DAILYP PRN (Reason: Breathing Problems) Patient Comments: INHALE 1 PUFF BY MOUTH 4 TIMES DAILY omeprazole 40 mg capsule,delayed release(DR/EC) 40 mg PO DAILY Patient Comments: TAKE 1 CAPSULE BY MOUTH ONCE DAILY tramadol 50 mg tablet 50 mg PO Q6HP PRN (Reason: Pain) Patient Comments: TAKE 1 TABLET BY MOUTH EVERY 6 HOURS NEEDED FOR PAIN FOR 14 DAYS diltiazem HCl 30 mg tablet 30 mg PO BID Qty: 60 1RF cefdinir 300 mg capsule 300 mg PO BID 5 Days Qty: 10 0RF Referrals Follow up/Referrals: Jus Zee MD [Primary Care Provider] - See instructions Activity Restrictions/Add. Instructions Additional Instructions/Restrictions: You were evaluated at the emergency department today. At this time, your workup is reassuring. It is likely that your chest pain is musculoskeletal, however I recommend that you follow-up very closely with your primary care provider and microsoft windows engineer for further evaluation and management. Return to the emergency department for new or worsening symptoms. Clinical Impressions Clinical Impression: Chest pain, Arm pain, left Instructions Patient Instructions: DI for Atypical Chest Pain Discharge ED Provider: Marcelina Cheema General Adult HPI General Chief complaint: Chest Pain Stated complaint: chest pain Time Seen by Provider: 08/30/23 08:59 Mode of Arrival: Family Vehicle Source of Information: Patient, Relative and Medical Record Limitations: No Limitations Description of Symptoms (Recalled from ER Triage Doc. by RN): Pt c/o left sided chest pain that awoke her at 0500 today. States the pain then radiates down her left arm form the shoulder to her elbow. Reports exertional SOA. Pt is on Xarelto for anticoag therapy d/t cardiac stents. She has 3 stents and most recent heart cath was [address] Du. History of Present Illness HPI narrative: This patient is an 83-year-old female with a history of CAD status post stenting, CHF, renal insufficiency, paroxysmal atrial fibrillation, AAA, carotid artery stenosis, and previous left tibia fracture in September presented to the emergency department for evaluation with concern for left-sided chest pain that woke her up from sleep around 5:00 this morning. She states the pain goes down her left arm. She also notes she has dyspnea on exertion and feels like she cannot take in a full deep breath. The pain gets worse when she gets up and gets moving around. She denies any changes with position or other concerns. No other concerns noted at this time. She notes her last heart catheterization was [address] Du. She denies any recent fevers, chills, cough, congestion, abdominal pain, nausea, vomiting, changes bowel movement of note, she notes that she was very active yesterday doing laundry and making beds at home. s, or other concerns. She does note compliance with her home medications, including Xarelto. Of note, she does note that her left leg is chronically swollen since her leg fracture. Related Data Home Medications Medication Instructions Recorded Confirmed donepezil 5 mg tablet 5 mg PO HS Memory 04/30/20 02/11/23 escitalopram oxalate 10 mg tablet 10
[2023-08-30 09:20] LABS: Potassium 4.2 mmoL/L (3.5-5.1)
--- NOTE | 2023-08-30 09:21 | PC.NURSE ---
RAD at for CXR
[2023-08-30 09:22] LABS: Alanine Aminotransferase 13 U/L (12-78); Albumin/Globulin Ratio 1.5 (1.1-1.8); Alkaline Phosphatase 101 U/L (38-126); Anion Gap 7.2 mEq/L (5-15); Aspartate Amino Transferase 29 U/L (14-36); Bilirubin,Total 0.5 mg/dl (0.2-1.3); Blood Urea Nitrogen 13 mg/dl (7-17); Carbon Dioxide 36 mmol/L (22.0-30.0); Creatinine Clearance Estimated 35 mL/min (50-200); Estimated Glomerular Filt Rate 43 ml/min (>60); GFR (African American) 52 ML/MIN (>60); Globulin 2.6 g/dL (1.3-3.2); Total Protein,Serum 6.6 g/dl (6.3-8.2)
[2023-08-30 09:23] LABS: Basophils % 0.4 % (0.1-2.0); Calcium 8.5 mg/dl (8.4-10.2); Eosinophils # 0.6 K/mm3 (0.0-0.4); Eosinophils % 8.6 % (0.1-12.0); Glucose 107 mg/dl (74-100); Hematocrit 36.4 % (37.0-47.0); Hemoglobin 11.4 g/dL (12.2-16.2); Lymphocytes # 2.2 K/mm3 (0.7-4.5); Lymphocytes % 31.1 % (10-50); Mean Corpuscular HGB Conc 31.4 g/dL (31.8-35.4); Mean Corpuscular Hemoglobin 27.3 pg (27.0-31.2); Mean Corpuscular Volume 86.7 fl (81-99); Mean Platelet Volume 8.5 fl (7.4-10.4); Monocytes # 0.4 K/mm3 (0.1-1.0); Monocytes % 6.1 % (1.7-9.3); Neutrophils # 3.8 K/mm3 (1.8-7.8); Neutrophils % 53.8 % (37.0-80.0); Platelet Count 257 K/mm3 (142-424); Red Cell Distribution Width 14.5 % (11.5-17.5)
[2023-08-30 09:31] LABS: Activated Partial Thrombo Time 33.6 seconds (22.8-30.6); INR 1.36 (0.9-1.1); Prothrombin Time 14.4 seconds (10.1-12.5)
[2023-08-30 09:32] LABS: NT Pro Brain Natriuretic Pep. 528 pg/mL (0-450)
[2023-08-30 09:35] LABS: Troponin I < 0.01 ng/ml (0.00-0.034)
--- NOTE | 2023-08-30 09:40 | PC.NURSE ---
SWAB SENT TO LAB
[2023-08-30 09:42] LABS: Coronavirus 19, PCR Not Detected (NotDetected); Influenza A, PCR Not Detected (NotDetected); Influenza B, PCR Not Detected (NotDetected)
[2023-08-30 09:45] LABS: D-Dimer 0.38 ug/mL (0.0-0.5)
--- NOTE | 2023-08-30 10:30 | PC.NURSE ---
Rounded on pt. Updated that second trop would be drawn and 12. No needs voiced at this time and call light within reach.
--- NOTE | 2023-08-30 11:29 | PC.NURSE ---
Rounded on pt. Pt advised she was in no pain at this time. Call light within reach.
--- NOTE | 2023-08-30 12:00 | PC.NURSE ---
Second trop drawn and sent to lab
[2023-08-30 12:30] LABS: Troponin I < 0.01 ng/ml (0.00-0.034)
== END 2023-08-30 12:46 | disposition home or self-care (01) ==
PROVIDERS: Emergency Provider Emergency Medicine; PCP Internal Medicine Adolescent Medicine
DX: R07.9 Chest pain, unspecified (principal); M79.602 Pain in left arm; R06.02 Shortness of breath; I11.0 Hypertensive heart disease with heart failure; I50.9 Heart failure, unspecified; I47.10 Supraventricular tachycardia, unspecified; I48.0 Paroxysmal atrial fibrillation; I25.10 Atherosclerotic heart disease of native coronary artery without angina pectoris; I65.29 Occlusion and stenosis of unspecified carotid artery; E78.5 Hyperlipidemia, unspecified; N28.9 Disorder of kidney and ureter, unspecified; I71.40 Abdominal aortic aneurysm, without rupture, unspecified; Z87.891 Personal history of nicotine dependence; R00.1 Bradycardia, unspecified; Z79.01 Long term (current) use of anticoagulants
CPT/HCPCS: 71045; 80053; 83880; 84484; 85025; 85378; 85610; 85730; 87636; 93005; 99285

== ENCOUNTER 2023-10-21 15:00 | Observation (INO) | payer MEDICARE, OTHER, SELFPAY ==
[2023-10-21] VITALS (8 sets, daily range): BP systolic 105–154; BP diastolic 48–89; PULSE 47–69; RESP 16–20; TEMP 36.5–36.9; O2SAT 93–96; BMI 28.3; BMI 29.1
--- NOTE | 2023-10-21 15:44 | CT_ITS ---
PROCEDURE INFORMATION: Exam: CTA Chest With Contrast Exam date and time: 10/21/2023 4:21 PM Age: 83 years old Clinical indication: Other: Hemoptysis; Additional info: Hemoptysis, on xarelto, TECHNIQUE: Imaging protocol: Computed tomographic angiography of the chest with contrast. Exam focused on the arteries. 3D rendering (Not supervised by radiologist): MIP and/or 3D reconstructed images were created by the technologist. Radiation optimization: All CT scans at this facility use at least one of these dose optimization techniques: automated exposure control; mA and/or kV adjustment per patient size (includes targeted exams where dose is matched to clinical indication); or iterative reconstruction. Contrast material: ISOVUE 360; Contrast volume: 100 ml; Contrast route: INTRAVENOUS (IV); COMPARISON: 1. CT ANGIO CHEST PE PROTOCOL 09/10/2022 10:[address] CHEST WO CON 01/17/2023 10:55 PM 3. CR XR CHEST PORTABLE 08/30/2023 9:18 AM FINDINGS: Pulmonary arteries: There is a segmental filling defect within a right upper lobe pulmonary artery (image 34 series 5) which is at the level of some small artifact. There is dilation of the main pulmonary artery as well as the major branch pulmonary arteries. This may reflect underlying pulmonary hypertension. Aorta: There is atherosclerotic disease of the visualized aorta and its major branch vessels. Lungs: There has been significant interval growth of the left lower lobe pulmonary nodule which now measures 3.9 x 3.4 cm (image 39 series 5), previously 1.4 x 1.4 cm. There are scattered areas of emphysema throughout the lungs. Scattered areas of bronchial wall thickening which are likely chronic inflammatory. A few areas of subpleural reticulation are noted, nonspecific. Stable subpleural nodule in the right lower lobe. Stable left upper lobe subpleural nodule. There are scattered calcified granulomas in the lungs which most likely reflect prior granulomatous disease. Pleural spaces: Unremarkable. No pneumothorax. No pleural effusion. Heart: The heart is enlarged. No evidence for right heart strain, RV to LV ratio is 1. Coronary arteries: There is moderate coronary atherosclerotic disease/calcification although evaluation is limited secondary to the non gated nature of the study. Lymph nodes: Prominent left hilar lymph nodes possibly reflecting metastatic lymphadenopathy. There are calcified mediastinal lymph nodes likely reflecting prior granulomatous disease. Adrenal glands: Nodular thickening of the right adrenal gland is stable finding. Kidneys and ureters: Partially visualized right renal cyst. Bones/joints: There is diffuse degenerative disease of the visualized osseous structures. Soft tissues: Unremarkable. Other findings: Fleischner Society follow up recommendations for incidental nodules are not indicated. Follow up per the patient's medical condition. Motion artifact mildly limits evaluation. IMPRESSION: 1. Interval growth of the left lower lobe pulmonary mass which now measures up to 3.9 cm. 2. Segmental right upper lobe pulmonary arterial filling defect may reflect a small embolus although this is associated with some motion artifact. 3. Findings which suggest underlying pulmonary arterial hypertension. COMMENTS: Consistent with the [employer]'s Incidental Findings Committee white paper (J Am Rosario Radiol 2018): Any incidental renal lesion less than 1 cm or classified as too small to characterize, or any incidental cystic renal lesion characterized as simple-appearing, is likely benign. No follow-up imaging is recommended for these lesions per consensus recommendations based on imaging criteria.
--- NOTE | 2023-10-21 15:47 | HMH.EDGENADL ---
Discharge Plan Disposition Patient Disposition: Admitted Chief Complaint: Upper Respiratory Infection Prescriptions Prescriptions: No Action ondansetron HCl 4 mg tablet 4 mg PO Q8HP PRN (Reason: Nausea) cyanocobalamin (vitamin B-12) 5,000 mcg capsule 5,000 mcg PO DAILY donepezil 5 MG tablet 5 mg PO HS escitalopram oxalate 10 MG tablet 10 mg PO DAILY furosemide 40 MG tablet 20 mg PO DAILY rosuvastatin 20 MG tablet 20 mg PO HS Eliquis 2.5 mg tablet 2.5 mg PO BID trazodone 50 mg tablet 100 mg PO HS Patient Comments: TAKE 2 TABLETS BY MOUTH AT BEDTIME gabapentin [Neurontin] 100 mg capsule 100 mg PO BID 30 Days Qty: 60 2RF Combivent Respimat 20-100 mcg/actuation mist 20 puff INHALATION DAILYP PRN (Reason: Breathing Problems) Patient Comments: INHALE 1 PUFF BY MOUTH 4 TIMES DAILY omeprazole 40 mg capsule,delayed release(DR/EC) 40 mg PO DAILY Patient Comments: TAKE 1 CAPSULE BY MOUTH ONCE DAILY tramadol 50 mg tablet 50 mg PO Q6HP PRN (Reason: Pain) Patient Comments: TAKE 1 TABLET BY MOUTH EVERY 6 HOURS NEEDED FOR PAIN FOR 14 DAYS diltiazem HCl 30 mg tablet 30 mg PO BID Qty: 60 1RF cefdinir 300 mg capsule 300 mg PO BID 5 Days Qty: 10 0RF Referrals Follow up/Referrals: Jus Zee MD [Primary Care Provider] - See instructions Clinical Impressions Clinical Impression: Lung mass, Hemoptysis, Anticoagulated Discharge ED Provider: Roman Amaya General Adult HPI General Chief complaint: Upper Respiratory Infection Stated complaint: cough, coughing up blood Time Seen by Provider: 10/21/23 15:26 Mode of Arrival: Ambulatory Source of Information: Patient Limitations: No Limitations Description of Symptoms (Recalled from ER Triage Doc. by RN): Pt states, my saliva is mucous and salty. pt states when she clears her throat there is bright blood. pt states her PCP Dr. Zee is aware and this has been ongoing since . History of Present Illness HPI narrative: Patient is an 83-year-old female with a history of COPD presenting today with hemoptysis. States for the last month she has had some thick saliva that has been blood-tinged every time she clears her throat. She denies any hematemesis. Says she has not had any fevers or chills increased sputum production wheezing etc. She states she went to Dr. Alba who did a chest x-ray and she states that was unremarkable also states that she was given some nose spray without any significant improvement. Denies any significant weight loss has had chronic night sweats. No chest pain associated with this no fevers or chills. No history of lung cancer that she is aware of no lower extremity swelling history of DVT etc. She is on Xarelto chronically for her atrial fibrillation. Related Data Home Medications Medication Instructions Recorded Confirmed donepezil 5 mg tablet 5 mg PO HS Memory 04/30/20 02/11/23 escitalopram oxalate 10 mg tablet 10 mg PO DAILY Mood 04/30/20 02/11/23 furosemide 40 mg tablet 20 mg PO DAILY Fluid 04/30/20 02/12/23 rosuvastatin 20 mg tablet 20 mg PO HS Cholesterol 04/30/20 02/11/23 apixaban 2.5 mg tablet (Eliquis) 2.5 mg PO BID A FIB 07/22/22 02/11/23 trazodone 50 mg tablet 100 mg PO HS Sleep 07/23/22 02/11/23 cyanocobalamin (vitamin B-12) 5,000 mcg PO DAILY Supplement 09/04/22 02/11/23 5,000 mcg capsule ondansetron HCl 4 mg tablet 4 mg PO Q8HP PRN Nausea 09/04/22 02/12/23 ipratropium 20 mcg-albuterol 100 20 puff inhalation DAILYP PRN 09/10/22 02/12/23 mcg/actuation mist for inhalation Breathing Problems (Combivent Respimat) omeprazole 40 mg capsule,delayed 40 mg PO DAILY Acid reflux 02/12/23 02/12/23 release tramadol 50 mg tablet 50 mg PO Q6HP PRN Pain 02/12/23 02/12/23 Previous Rx's Medication Instructions Recorded gabapentin 100 mg capsule 100 mg PO BID Back pain 30 days 07/25/22 (Neurontin) #60 caps cefdinir 300 mg capsule 300 mg PO BID 5 days #10 caps 02/12/23 diltiazem HCl 30 mg tablet 30 mg PO BID #60 tabs 02/12/23 Allergies Allergy/AdvReac Type Severity Reaction Status Date / Time Antihistamines - Alkylamine Allergy Mild Verified 10/24/22 09:20 [ANTIHISTAMINES - ALKYLAMINE] codeine [CODEINE] Allergy Mild Verified 10/24/22 09:20 midodrine Allergy Mild Verified 10/24/22 09:20 Penicillins [PENICILLINS] Allergy Mild Verified 10/24/22 09:20 Sulfa (Sulfonamide Allergy Mild Verified 10/24/22 09:20 Antibiotics) [SULFA (SULFONAMIDE ANTIBIOTICS)] [facility] Disclaimer: The information contained in this section may have been updated after the patient was seen, as this information can be updated by other users. 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 Abnormal electrocardiogram [ECG] [EKG] Bradycardia CAD (coronary artery disease), [place] coronary artery Carotid artery stenosis Coronary artery disease Dizziness Ex-smoker HHD (hypertensive heart disease) Hyperlipidemia Orthostatic dizziness Orthostatic hypotension Osteoarthritis Pain in left lower leg Paroxysmal atrial fibrillation with rapid ventricular response Renal insufficiency Shoulder pain SVT (supraventricular tachycardia) Tachycardia Surgical History History of hysterectomy History of radiofrequency ablation procedure for cardiac arrhythmia Family History Other Family history of cancer Social History Smoking Status: Former smoker tobacco type: cigarettes second hand exposure: No alcohol intake: never substance use type: denies use current occupational status: employed and retired Travel in the last 8 weeks: None household members: spouse housing: house current occupational exposures/hazards: No caffeine: No ROS Obtained: Yes All systems reviewed & no additional complaints except as documented Physical Exam General General appearance: alert ENT ENT exam: Present normal exam and TM's normal bilaterally Respiratory Respiratory exam: Present normal lung sounds bilaterally and respiratory distress Cardiovascular Cardiovascular exam: Present regular rate and normal rhythm Neurological Exam Neurological exam: Present alert and oriented X3 Medical Decision Making Danilo Inquiry Pt receiving controlled substance: No Vital Signs: 10/21/23 15:14 10/21/23 15:31 Temperature 98.4 F Temperature Source Oral Pulse Rate 55 L Pulse Rate [Left] 55 L Respiratory Rate 16 Blood Pressure 141/68 H Blood Pressure [Right Arm] 123/89 Blood Pressure Mean 92 Blood Pressure Mean [Right Arm] 100 02 Sat by Pulse Oximetry 95 95 Oxygen Delivery Method Room Air Lab Data Lab results reviewed: Yes I reviewed the patient's lab results. Lab Results 10/21/23 15:58: WBC 6.6, RBC 4.15 L, Hgb 11.5 L, Hct 35.6 L, MCV 85.9, MCH 27.7, MCHC 32.3, RDW 14.4, Plt Count 263, MPV 8.4, Neut % (Auto) 51.5, Lymph % (Auto) 35.8, [place] % (Auto) 6.4, Eos % (Auto) 5.6, Baso % (Auto) 0.7, Neut # (Auto) 3.4, Lymph # (Auto) 2.4, [place] # (Auto) 0.4, Eos # (Auto) 0.4, Baso # (Auto) 0.1, PT 12.4, INR 1.16 H, APTT 31.6 H, Sodium 139, Potassium 3.6, Chloride 99, Carbon Dioxide 36 H, Anion Gap 7.6, BUN 13, Creatinine 1.30 H, Estimated Creat Clear 33, Estimated GFR 39 L, Est GFR ( Amer) 47 L, Glucose 93, Calcium 8.6, Total Bilirubin 0.3, AST 24, ALT 12, Alkaline Phosphatase 114, Troponin I < 0.01, NT-Pro-B Natriuret Pep 403, Total Protein 6.8, Albumin 3.9, Globulin 2.9, Albumin/Globulin Ratio 1.3 10/21/23 15:58 10/21/23 15:58 Orders (Tests/Meds): ED MEDICATIONS Discontinued Medications Generic Name Dose Route Start Last Admin Trade Name Freq PRN Reason Stop Dose Admin Lactated Ringer's 500 mls @ 999 mls/hr 10/21/23 15:45 10/21/23 16:07 Lactated Ringer's 1000 Ml Bag IV 10/21/23 16:15 Not Given .Q31M ARIS Lactated Ringer's 500 mls @ 999 mls/hr 10/21/23 16:07 10/21/23 16:15 Lactated Ringer's 500ml IV 10/21/23 16:37 999 mls/hr .Q31M ONE Administration Iopamidol 100 ml 10/21/23 16:34 10/21/23 16:35 Iopamidol-370 (76%);100ml Bottle IV 10/21/23 16:35 100 ml ONCE ONE Administration Sodium Chloride 50 ml 10/21/23 16:34 10/21/23 16:35 0.9 % Sodium Chloride 50 Ml Vial IV 10/21/23 16:35 50 ml ONCE ONE Administration Sodium Chloride 10 ml 10/21/23 16:34 10/21/23 16:35 Sodium Chloride 0.9% 10ml Syr (Rad Only) IV 10/21/23 16:35 10 ml ONCE ONE Administration ORDERS Category Date Time Status CT angio chest PE protocol Stat Cat Scan 10/21/23 15:44 Completed BNP [Brain Natriuretic Peptide] Stat Lab 10/21/23 15:58 Completed CBC w/Auto Diff [Complete Blood Count Auto Diff] Stat Lab 10/21/23 15:58 Completed CMP [Comprehensive Metabolic Panel] Stat Lab 10/21/23 15:58 Completed PT/PTT Stat Lab 10/21/23 15:58 Completed Trop I [Troponin I] Stat Lab 10/21/23 15:58 Completed Troponin I Q3H Lab 10/21/23 18:45 Ordered Troponin I Q3H Lab 10/21/23 21:45 Ordered Medical Decision Narrative: Patient is an 83-year-old female with a history of COPD and what sounds like chronic bronchitis presents today with hemoptysis. Most likely explanation of this is some chronic inflammatory change from her bronchitis in the setting of Xarelto however other things in the differential include pneumonia, lung malignancy, PTE, etc. Will get a CT PE to further evaluate this to make sure that is not underlying malignancy which is a concern of mine. Is unlikely that she has a pulmonary embolism as she is compliant with her medications, Xarelto. She is very well-appearing does not appear to be a COPD exacerbation or an acute exacerbation of her chronic bronchitis. She is afebrile has a normal lung exam is not any respiratory distress. I will reassess after her initial workup is complete EKG performed at person interpreted which shows a ventricular rate of 54 sinus bradycardia there is low voltage QRS in precordial leads there is normal axis no acute ischemic changes or significant conduction abnormalities noted. Assessment 5:[address] scan performed at person interpreted which shows an interval growth of the left lower lobe pulmonary mass which now measures 3.9 cm she had a CT scan back in January which demonstrated a spiculated mass at that time had stability but was concerning for malignancy and it has nearly doubled in size since that time. This is almost certainly the cause of her chronic hemoptysis. Radiology read a segmental right upper lobe pulmonary defect which may represent a small embolus but I do not see this personally and I also feel like patient remaining on anticoagulation is outweighing any benefit at this moment. I strongly recommended patient stop her anticoagulation. After discussing further with her she states she had a slight increase in hemoptysis this morning at the most a tablespoon. Has been stable since that time. But given the fact that she has this new worrisome mass and ongoing hemoptysis she would like to come in the hospital for discontinuation of her medication and observation. I do not believe that she needs a cardiothoracic surgeon or interventional radiology at the moment but if her symptoms worsen that possibly could be a need in the future. I discussed this with them. I do not believe that she is sick enough to require transfer to a tertiary care referral center. We had an extensive discussion myself with her and her family at the bedside. While she states that if she were to from this she is ready to go she would like to proceed with possible bronc biopsy and discussion of possible treatment options if this is in fact a malignancy which it is highly concerning for. She is a patient of Dr. Lima I will admit the patient to hospital medicine for further evaluation and treatment. Critical Care Critical Care Time Critical Care Time: No
--- NOTE | 2023-10-21 16:03 | ECG_ITS ---
APPROVED REPORT Exam: Resting ECG HR:54 bpm ECG Measurements Heart Rate 54 AXES SC 146 P 56 QRSd 85 QRS 52 QT 467 T 66 QTc 453 Conclusion SINUS BRADYCARDIA LOW QRS VOLTAGE IN PRECORDIAL LEADS [QRS DEFLECTION < 1.0 mV IN CHEST LEADS] BORDERLINE ECG UNCONFIRMED REPORT Electronically signed by : Jus Zee MD 10/21/2023 21:44:50
[2023-10-21 16:09] LABS: Basophils # 0.1 K/mm3 (0-0.2); Basophils % 0.7 % (0.1-2.0); Eosinophils # 0.4 K/mm3 (0.0-0.4); Eosinophils % 5.6 % (0.1-12.0); Hematocrit 35.6 % (37.0-47.0); Hemoglobin 11.5 g/dL (12.2-16.2); Lymphocytes # 2.4 K/mm3 (0.7-4.5); Lymphocytes % 35.8 % (10-50); Mean Corpuscular HGB Conc 32.3 g/dL (31.8-35.4); Mean Corpuscular Hemoglobin 27.7 pg (27.0-31.2); Mean Corpuscular Volume 85.9 fl (81-99); Mean Platelet Volume 8.4 fl (7.4-10.4); Monocytes # 0.4 K/mm3 (0.1-1.0); Monocytes % 6.4 % (1.7-9.3); Neutrophils # 3.4 K/mm3 (1.8-7.8); Neutrophils % 51.5 % (37.0-80.0); Platelet Count 263 K/mm3 (142-424); Red Blood Count 4.15 M/mm3 (4.20-5.40); Red Cell Distribution Width 14.4 % (11.5-17.5); White Blood Count 6.6 K/mm3 (4.8-10.8)
[2023-10-21 16:10] LABS: Chloride 99 mmol/L (98-107); Potassium 3.6 mmoL/L (3.5-5.1); Sodium 139 mmol/L (136-145)
[2023-10-21 16:12] LABS: Alanine Aminotransferase 12 U/L (12-78); Aspartate Amino Transferase 24 U/L (14-36); Blood Urea Nitrogen 13 mg/dl (7-17); Creatinine Clearance Estimated 33 mL/min (50-200); Estimated Glomerular Filt Rate 39 ml/min (>60); GFR (African American) 47 ML/MIN (>60)
[2023-10-21 16:13] LABS: Albumin Level 3.9 g/dl (3.5-5.0); Albumin/Globulin Ratio 1.3 (1.1-1.8); Alkaline Phosphatase 114 U/L (38-126); Anion Gap 7.6 mEq/L (5-15); Bilirubin,Total 0.3 mg/dl (0.2-1.3); Calcium 8.6 mg/dl (8.4-10.2); Carbon Dioxide 36 mmol/L (22.0-30.0); Globulin 2.9 g/dL (1.3-3.2); Glucose 93 mg/dl (74-100); Total Protein,Serum 6.8 g/dl (6.3-8.2)
[2023-10-21 16:15] LABS: Activated Partial Thrombo Time 31.6 seconds (22.8-30.6); INR 1.16 (0.9-1.1); Prothrombin Time 12.4 seconds (10.1-12.5)
[2023-10-21] MEDS: RINGERS SOLUTION,LACTATED 500 ML 999 ML IV (16:15)
[2023-10-21 16:22] LABS: NT Pro Brain Natriuretic Pep. 403 pg/mL (0-450)
[2023-10-21] MEDS: IOPAMIDOL-370 (76%);100ML BOTTLE 100 ML IV (16:35)
[2023-10-21] MEDS: 0.9 % SODIUM CHLORIDE 50 ML VIAL IV (16:35)
[2023-10-21] MEDS: SODIUM CHLORIDE 0.9% 10ML SYR (RAD ONLY) 10 ML IV (16:35)
[2023-10-21 16:42] LABS: Troponin I < 0.01 ng/ml (0.00-0.034)
--- NOTE | 2023-10-21 17:21 | PC.NURSE ---
Dr Amaya speaking with Dr Vuong
--- NOTE | 2023-10-21 17:30 | PC.NURSE ---
call made to dietary for dinner tray for pt.
--- NOTE | 2023-10-21 17:35 | EXP.HP ---
History of Present Illness *Admission Date: 10/21/23 *Reason for visit:: cough, hemoptysis *History of present illness: This is a 83-year-old female with a PMHx of COPD, no on home oxygen, CAD, Afib on xarelto, presented to ED today with hemoptysis. Stated started last month when she has had some thick saliva that has been blood-tinged every time she cough or clears her throat. She denies any hematemesis. Says she has not had any fevers or chills increased sputum production wheezing etc. She recently completed outpatient treatment for pneumonia and states she went to her PCP, who did a follow up chest x-ray that was unremarkable. Denies any significant weight loss has had chronic night sweats. No chest pain associated with this no fevers or chills. No history of lung cancer that she is aware of no lower extremity swelling history of DVT etc. Admitted for further work up and treatment. [facility] Disclaimer: The information contained in this section may have been updated after the patient was seen, as this information can be updated by other users. 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 (Updated 10/21/23 @ 20:07 by Kumar Ball APRN) Abnormal electrocardiogram [ECG] [EKG] Bradycardia CAD (coronary artery disease), [place] coronary artery Carotid artery stenosis Coronary artery disease Dizziness Ex-smoker HHD (hypertensive heart disease) Hyperlipidemia Orthostatic dizziness Orthostatic hypotension Osteoarthritis Pain in left lower leg Paroxysmal atrial fibrillation with rapid ventricular response Renal insufficiency Shoulder pain SVT (supraventricular tachycardia) Tachycardia Surgical History History of hysterectomy History of radiofrequency ablation procedure for cardiac arrhythmia Family History Family history of cancer Social History Smoking Status: Former smoker tobacco type: cigarettes second hand exposure: No alcohol intake: never substance use type: denies use current occupational status: employed and retired Travel in the last 8 weeks: None household members: spouse housing: house current occupational exposures/hazards: No caffeine: No Review of Systems Review of Systems Review of systems:: pertinent systems reviewed and negative unless documented below Meds Home Medications and Allergies Home Medications Medication Instructions Recorded Confirmed Type donepezil 5 mg tablet 5 mg PO HS Memory 08/17/20 02/07/24 History escitalopram oxalate 10 mg tablet 10 mg PO DAILY Mood 04/30/20 10/21/23 History furosemide 40 mg tablet 20 mg PO DAILY Fluid 04/30/20 10/21/23 History rosuvastatin 20 mg tablet 20 mg PO HS Cholesterol 04/30/20 10/21/23 History trazodone 50 mg tablet 100 mg PO HS Sleep 07/23/22 10/21/23 History cyanocobalamin (vitamin B-12) 5,000 mcg PO DAILY Supplement 09/04/22 10/21/23 History 5,000 mcg capsule ondansetron HCl 4 mg tablet 4 mg PO Q8HP PRN Nausea 09/04/22 10/21/23 History ipratropium 20 mcg-albuterol 100 20 puff inhalation DAILYP PRN 09/10/22 10/21/23 History mcg/actuation mist for inhalation Breathing Problems (Combivent Respimat) omeprazole 40 mg capsule,delayed 40 mg PO DAILY Acid reflux 02/12/23 10/21/23 History release tramadol 50 mg tablet 50 mg PO Q6H 02/12/23 10/21/23 History gabapentin 100 mg capsule 100 mg PO TID Back pain 10/21/23 10/21/23 History (Neurontin) New Prescriptions to Start Prescriptions: Allergies Allergy/AdvReac Type Severity Reaction Status Date / Time Antihistamines - Alkylamine Allergy Mild Verified 10/21/23 17:49 [ANTIHISTAMINES - ALKYLAMINE] codeine [CODEINE] Allergy Mild Verified 10/21/23 17:49 midodrine Allergy Mild Verified 10/21/23 17:49 Penicillins [PENICILLINS] Allergy Mild Verified 10/21/23 17:49 Sulfa (Sulfonamide Allergy Mild Verified 10/21/23 17:49 Antibiotics) [SULFA (SULFONAMIDE ANTIBIOTICS)] Exam Data for Last 24 hours Vital signs and Labs for Last 24 Hours: Temp Pulse Resp BP Pulse Ox O2 Del Method 98.4 F 55 L 16 141/68 H 95 Room Air 10/21/23 15:14 10/21/23 15:31 10/21/23 15:14 10/21/23 15:31 10/21/23 15:31 10/21/23 15:14 Laboratory Results - last 24 hr 10/21/23 15:58: WBC 6.6, RBC 4.15 L, Hgb 11.5 L, Hct 35.6 L, MCV 85.9, MCH 27.7, MCHC 32.3, RDW 14.4, Plt Count 263, MPV 8.4, Neut % (Auto) 51.5, Lymph % (Auto) 35.8, [place] % (Auto) 6.4, Eos % (Auto) 5.6, Baso % (Auto) 0.7, Neut # (Auto) 3.4, Lymph # (Auto) 2.4, [place] # (Auto) 0.4, Eos # (Auto) 0.4, Baso # (Auto) 0.1, PT 12.4, INR 1.16 H, APTT 31.6 H, Sodium 139, Potassium 3.6, Chloride 99, Carbon Dioxide 36 H, Anion Gap 7.6, BUN 13, Creatinine 1.30 H, Estimated Creat Clear 33, Estimated GFR 39 L, Est GFR ( Amer) 47 L, Glucose 93, Calcium 8.6, Total Bilirubin 0.3, AST 24, ALT 12, Alkaline Phosphatase 114, Troponin I < 0.01, NT-Pro-B Natriuret Pep 403, Total Protein 6.8, Albumin 3.9, Globulin 2.9, Albumin/Globulin Ratio 1.3 I & O for Last 24 hours: Intake & Output 10/18/23 10/19/23 10/20/23 10/21/23 23:59 23:59 23:59 23:59 Weight 63.503 kg Constitutional Constitutional: mild distress and cooperative *Routine HEENT Exam Head: Present normocephalic and atraumatic Eye: Present EOMI, PERRL and normal accommodation ENT: Present mucous membranes moist *Routine Neck Exam Neck: Present supple, full ROM and trachea midline; Absent lymphadenopathy *Routine Respiratory Exam Respiratory: Present CTA bilaterally, normal respiratory effort, able to speak in complete sentences and symmetric chest movement *Routine Cardiovascular Exam Cardiovascular: Present RRR, Normal S1 and Normal S2 *Routine Abdominal Exam Abdominal: Present soft and normoactive bowel sounds; Absent tenderness or organomegaly *Routine Rectal Exam Rectal:: deferred *Routine Genitalia Exam Genitalia:: deferred *Routine Extremities Exam Extremities: Present full ROM; Absent cyanosis, clubbing or edema *Routine Skin Exam Skin: Present intact, dry and warm; Absent rash *Routine Neurological Exam Neurological: Present alert, oriented X3, normal reflexes, moving all extremities and normal speech Routine Psychiatric Exam Psychiatric: Present normal thought process, cooperative and good judgment H&P: Result Imaging and Cardiology CT scan - chest: Status: image reviewed by me, Preliminary report and final report EKG: Status: image reviewed by me and Preliminary report Assessment and Plan *Assessment and plan (1) Hemoptysis: Status: Acute Category: Medical Code(s): R04.2 - Hemoptysis (2) Anticoagulated: Status: Acute Category: Medical Code(s): Z79.01 - retirement (current) use of anticoagulants (3) Lung mass: Status: Acute Category: Medical Code(s): R91.8 - Other nonspecific abnormal finding of lung field (4) A-fib: Status: Resolved Qualifiers: Atrial fibrillation type: paroxysmal Qualified Code(s): I48.0 - Paroxysmal atrial fibrillation Category: Medical Code(s): I48.91 - Unspecified atrial fibrillation (5) CAD (coronary artery disease), [place] coronary artery: Status: Acute Qualifiers: Associated angina: without angina [place] vs. transplanted heart: [place] heart Qualified Code(s): I25.10 - Atherosclerotic heart disease of [place] coronary artery without angina pectoris Category: Medical Code(s): I25.10 - Atherosclerotic heart disease of [place] coronary artery without angina pectoris (6) COPD (chronic obstructive pulmonary disease): Status: Acute Qualifiers: COPD type: unspecified COPD Qualified Code(s): J44.9 - Chronic obstructive pulmonary disease, unspecified Category: Medical Code(s): J44.9 - Chronic obstructive pulmonary disease, unspecified (7) Ex-smoker: Status: Acute Category: Social Hx Code(s): Z87.891 - Personal history of nicotine dependence Plan 83-year-old female with a PMHx of COPD, no on home oxygen, CAD, Afib on xarelto, presented to ED today with hemoptysis. Stated started last month when she has had some thick saliva that has been blood-tinged every time she cough or clears her throat. On arrival CTA of chest was obtained, which shows an interval growth of the left lower lobe pulmonary mass which now measures 3.[address] had [address] scan back in January which demonstrated a spiculated mass at that time had stability but was concerning for malignancy and it has nearly doubled in size since that time. labs are grossly unremarkable, Hb stable, Cr around baseline. findings were discussed with the ED provider for admission. Plan as follow: - Hemptysis. on the setting of lung mass and chronic anticoagulation due to Hx of Afib: patient admitted for medical services. Dispo Med-surg Start continuous monitoring per unit Monitor for O2 saturation. Currently on room air Hold anticoagulant Pulmonary consult Monitor for CBC and hemoglobin. Labs 11.5 stable Continuous desk monitor -History of CAD: Resume rosuvastatin -COPD: Not on exacerbation. DuoNeb every 6 for wheezing or shortness of breath -Former smoker: Stopped smoking several years ago. Presented as a risk factor for lung cancer. Reinforced keeping the current state SCD for DVT prophylaxis. Low concern for DVT On Protonix for GI bleed protection Full code Rounded on patient with nurse practitioner. Personally examined and interviewed patient. Agree with exam findings and care plan as documented.
--- NOTE | 2023-10-21 17:58 | PC.NURSE ---
call made to warehouse shipping associate for bed assignment
--- NOTE | 2023-10-21 18:41 | PC.NURSE ---
Called report to Maris DELEON
[2023-10-21 19:56] LABS: Troponin I < 0.01 ng/ml (0.00-0.034)
[2023-10-21] MEDS: DONEPEZIL 5MG TAB 5 MG PO (20:14)
[2023-10-21] MEDS: PANTOPRAZOLE 40MG TABLET 40 MG PO (20:14)
[2023-10-21] MEDS: TRAZODONE 50MG TABLET 100 MG PO (20:18)
--- NOTE | 2023-10-21 20:19 | PC.NURSE ---
patient refused diltiazem - states urbano stopped it completely not long ago.
[2023-10-21 22:26] LABS: Troponin I < 0.01 ng/ml (0.00-0.034)
[2023-10-21] MEDS: IPRATROPIUM/ALBUTEROL 3 ML NEB IH (23:48)
[2023-10-22] VITALS (27 sets, daily range): BP systolic 98–142; BP diastolic 44–73; PULSE 48–106; RESP 12–18; TEMP 36.4–36.9; O2SAT 90–96; BMI 29.9
[2023-10-22] MEDS: IPRATROPIUM/ALBUTEROL 3 ML NEB IH ×4 (06:28→23:26)
[2023-10-22 07:15] LABS: Chloride 102 mmol/L (98-107); Sodium 139 mmol/L (136-145)
[2023-10-22 07:16] LABS: Potassium 3.7 mmoL/L (3.5-5.1)
[2023-10-22 07:17] LABS: Basophils % 0.1 % (0.1-2.0); Eosinophils # 0.2 K/mm3 (0.0-0.4); Eosinophils % 3.4 % (0.1-12.0); Hematocrit 34.1 % (37.0-47.0); Hemoglobin 10.6 g/dL (12.2-16.2); Lymphocytes # 2.6 K/mm3 (0.7-4.5); Lymphocytes % 37.6 % (10-50); Mean Corpuscular HGB Conc 31.2 g/dL (31.8-35.4); Mean Corpuscular Hemoglobin 26.8 pg (27.0-31.2); Mean Corpuscular Volume 85.9 fl (81-99); Mean Platelet Volume 7.7 fl (7.4-10.4); Monocytes # 0.4 K/mm3 (0.1-1.0); Monocytes % 6.2 % (1.7-9.3); Neutrophils # 3.6 K/mm3 (1.8-7.8); Neutrophils % 52.8 % (37.0-80.0); Platelet Count 242 K/mm3 (142-424); Red Blood Count 3.97 M/mm3 (4.20-5.40); Red Cell Distribution Width 14.2 % (11.5-17.5); White Blood Count 6.9 K/mm3 (4.8-10.8)
[2023-10-22 07:18] LABS: Alanine Aminotransferase 17 U/L (12-78); Albumin Level 3.5 g/dl (3.5-5.0); Albumin/Globulin Ratio 1.3 (1.1-1.8); Alkaline Phosphatase 111 U/L (38-126); Anion Gap 6.7 mEq/L (5-15); Aspartate Amino Transferase 30 U/L (14-36); Bilirubin,Total 0.4 mg/dl (0.2-1.3); Blood Urea Nitrogen 10 mg/dl (7-17); Calcium 8.6 mg/dl (8.4-10.2); Carbon Dioxide 34 mmol/L (22.0-30.0); Creatinine Clearance Estimated 35 mL/min (50-200); Estimated Glomerular Filt Rate 39 ml/min (>60); GFR (African American) 47 ML/MIN (>60); Globulin 2.6 g/dL (1.3-3.2); Glucose 110 mg/dl (74-100); Total Protein,Serum 6.1 g/dl (6.3-8.2)
[2023-10-22 07:19] LABS: Magnesium 2.5 mg/dl (1.6-2.3)
--- NOTE | 2023-10-22 10:21 | EXP.PULM.CON ---
History of Present Illness History of present illness: Ms. Ocasio is a 83-year-old female greater than [id number] smoking history, last smoked in 2017 with reported history of COPD, CAD, A-fib on Xarelto presented to the ER with hemoptysis and pulmonary was called for further evaluation and management. No significant baseline respiratory symptoms, using albuterol/nebs on as-needed basis, not using more than 3-4 times per month. Denies any recent exacerbations. [facility] Disclaimer: The information contained in this section may have been updated after the patient was seen, as this information can be updated by other users. 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 (Updated 10/21/23 @ 20:07 by Kumar Ball APRN) Abnormal electrocardiogram [ECG] [EKG] Bradycardia CAD (coronary artery disease), [place] coronary artery Carotid artery stenosis Coronary artery disease Dizziness Ex-smoker HHD (hypertensive heart disease) Hyperlipidemia Orthostatic dizziness Orthostatic hypotension Osteoarthritis Pain in left lower leg Paroxysmal atrial fibrillation with rapid ventricular response Renal insufficiency Shoulder pain SVT (supraventricular tachycardia) Tachycardia Surgical History History of hysterectomy History of radiofrequency ablation procedure for cardiac arrhythmia Family History Family history of cancer Social History Smoking Status: Former smoker tobacco type: cigarettes second hand exposure: No alcohol intake: never substance use type: denies use current occupational status: employed and retired Travel in the last 8 weeks: None household members: spouse housing: house current occupational exposures/hazards: No caffeine: No Review of Systems Constitutional Constitutional: Reports fatigue Eyes Eyes: Denies eye discharge, Denies dry eyes, Denies irritation and Denies itchy eyes ENT Ears, Nose, Mouth, and Throat: Denies epistaxis, Denies facial pain, Denies lip swelling and Denies throat swelling *Cardiovascular Cardiovascular: Reports dyspnea and Reports dyspnea on exertion *Respiratory Respiratory: Denies change in phlegm color, Denies chest congestion, Reports cough, Reports dyspnea, Reports dyspnea on exertion, Denies excessive phlegm production, Reports hemoptysis, Denies pain on inspiration and Denies wheezing *Gastrointestinal Gastrointestinal: Denies abdominal pain, Denies belching and Denies cramping *Musculoskeletal Musculoskeletal: Reports back pain and Reports other (No small joint swelling or Pain) Psychiatric Psychiatric: Denies homicidal ideation and Denies suicidal ideation Endocrine Endocrine: Reports fatigue and Denies heat intolerance Hematologic/Lymphatic Hematologic/Lymphatic: Denies easy bleeding and Denies lymphadenopathy Allergic/Immunologic Allergic/Immunologic: Denies itchy eyes, Denies lip swelling, Denies throat swelling and Denies wheezing Pulmonology Exam Inpatient Vital signs and Labs for Last 24 Hours: Temp Pulse Resp BP Pulse Ox O2 Del Method 98.0 F 70 18 100/60 L 95 Room Air 10/22/23 08:00 10/22/23 08:00 10/22/23 08:00 10/22/23 08:00 10/22/23 08:00 10/22/23 10:13 Laboratory Results - last 24 hr 10/21/23 15:58: WBC 6.6, RBC 4.15 L, Hgb 11.5 L, Hct 35.6 L, MCV 85.9, MCH 27.7, MCHC 32.3, RDW 14.4, Plt Count 263, MPV 8.4, Neut % (Auto) 51.5, Lymph % (Auto) 35.8, [place] % (Auto) 6.4, Eos % (Auto) 5.6, Baso % (Auto) 0.7, Neut # (Auto) 3.4, Lymph # (Auto) 2.4, [place] # (Auto) 0.4, Eos # (Auto) 0.4, Baso # (Auto) 0.1, PT 12.4, INR 1.16 H, APTT 31.6 H, Sodium 139, Potassium 3.6, Chloride 99, Carbon Dioxide 36 H, Anion Gap 7.6, BUN 13, Creatinine 1.30 H, Estimated Creat Clear 33, Estimated GFR 39 L, Est GFR ( Amer) 47 L, Glucose 93, Calcium 8.6, Total Bilirubin 0.3, AST 24, ALT 12, Alkaline Phosphatase 114, Troponin I < 0.01, NT-Pro-B Natriuret Pep 403, Total Protein 6.8, Albumin 3.9, Globulin 2.9, Albumin/Globulin Ratio 1.3 10/21/23 19:21: Troponin I < 0.01 10/21/23 21:56: Troponin I < 0.01 10/22/23 06:45: WBC 6.9, RBC 3.97 L, Hgb 10.6 L, Hct 34.1 L, MCV 85.9, MCH 26.8 L, MCHC 31.2 L, RDW 14.2, Plt Count 242, MPV 7.7, Neut % (Auto) 52.8, Lymph % (Auto) 37.6, [place] % (Auto) 6.2, Eos % (Auto) 3.4, Baso % (Auto) 0.1, Neut # (Auto) 3.6, Lymph # (Auto) 2.6, [place] # (Auto) 0.4, Eos # (Auto) 0.2, Baso # (Auto) 0.0, Sodium 139, Potassium 3.7, Chloride 102, Carbon Dioxide 34 H, Anion Gap 6.7, BUN 10, Creatinine 1.30 H, Estimated Creat Clear 35, Estimated GFR 39 L, Est GFR ( Amer) 47 L, Glucose 110 H, Calcium 8.6, Magnesium 2.5 H, Total Bilirubin 0.4, AST 30, ALT 17 D, Alkaline Phosphatase 111, Total Protein 6.1 L, Albumin 3.5 D, Globulin 2.6, Albumin/Globulin Ratio 1.3 I & O for Labs for Last 24 Hours: Intake & Output 10/19/23 10/20/23 10/21/23 10/22/23 23:59 23:59 23:59 23:59 Intake Total 120 / 120 0 / 0 Output Total 0 / 0 Balance 120 / 120 0 / 0 Weight 144 lb 3 oz 148 lb 6.4 oz Constitutional: Present mild distress Head: Present normocephalic and atraumatic ENT: Present normal exam, normal oropharynx and mucous membranes moist Neck: Present normal inspection and full ROM Respiratory: Present able to speak in complete sentences; Absent respiratory distress, wheezes or diminished air movement Cardiac: Present S1/S2, Tachycardia and radial pulses present GI: Present soft and distention; Absent tenderness or guarding Rectal (female): Present deferred (female): Present deferred Skin: Present intact; Absent cyanosis or jaundice Neuro: Present alert, awake and oriented x 3 Extremities: Present normal inspection; Absent clubbing or cyanosis Psychiatric: Present normal affect and cooperative Meds Home Medications and Allergies Home Medications Medication Instructions Recorded Confirmed Type donepezil 5 mg tablet 5 mg PO HS Memory 04/30/20 10/21/23 History escitalopram oxalate 10 mg tablet 10 mg PO DAILY Mood 04/30/20 10/21/23 History rosuvastatin 20 mg tablet 20 mg PO HS Cholesterol 04/30/20 10/21/23 History trazodone 50 mg tablet 100 mg PO HS Sleep 07/23/22 10/21/23 History cyanocobalamin (vitamin B-12) 5,000 mcg PO DAILY Supplement 09/04/22 10/21/23 History 5,000 mcg capsule ondansetron HCl 4 mg tablet 4 mg PO Q8HP PRN Nausea 09/04/22 10/21/23 History ipratropium 20 mcg-albuterol 100 20 puff inhalation DAILYP PRN 09/10/22 10/21/23 History mcg/actuation mist for inhalation Breathing Problems (Combivent Respimat) omeprazole 40 mg capsule,delayed 40 mg PO DAILY Acid reflux 02/12/23 10/21/23 History release tramadol 50 mg tablet 50 mg PO Q6H 02/12/23 10/21/23 History gabapentin 100 mg capsule 100 mg PO TID Back pain 10/21/23 10/21/23 History (Neurontin) bisoprolol fumarate 5 mg tablet 5 mg PO DAILY High Blood Pressure 10/22/23 10/22/23 History furosemide 20 mg tablet 20 mg PO DAILY High Blood Pressure 10/22/23 10/22/23 History rivaroxaban 15 mg tablet (Xarelto) 15 mg PO DAILY Blood Thinner 10/22/23 10/22/23 History New Prescriptions to Start Prescriptions: Allergies Allergy/AdvReac Type Severity Reaction Status Date / Time Antihistamines - Alkylamine Allergy Mild Verified 10/21/23 17:49 [ANTIHISTAMINES - ALKYLAMINE] codeine [CODEINE] Allergy Mild Verified 10/21/23 17:49 midodrine Allergy Mild Verified 10/21/23 17:49 Penicillins [PENICILLINS] Allergy Mild Verified 10/21/23 17:49 Sulfa (Sulfonamide Allergy Mild Verified 10/21/23 17:49 Antibiotics) [SULFA (SULFONAMIDE ANTIBIOTICS)] Results Laboratory Findings 10/22/23 06:45 10/22/23 06:45 PT/INR, D-dimer PT 12.4 seconds (10.1-12.5) 10/21/23 15:58 INR 1.16 (0.9-1.1) H 10/21/23 15:58 Abnormal lab findings: Abnormal Labs 10/21/23 10/22/23 15:58 06:45 RBC 4.15 L 3.97 L Hgb 11.5 L 10.6 L Hct 35.6 L 34.1 L MCH 26.8 L MCHC 31.2 L INR 1.16 H APTT 31.6 H Carbon Dioxide 36 H 34 H Creatinine 1.30 H 1.30 H Estimated GFR 39 L 39 L Est GFR ( Amer) 47 L 47 L Glucose 110 H Magnesium 2.5 H Total Protein 6.1 L Assessment and Plan *Assessment and plan (1) Hemoptysis: Status: Acute Category: Medical Code(s): R04.2 - Hemoptysis (2) Lung mass: Status: Acute Category: Medical Code(s): R91.8 - Other nonspecific abnormal finding of lung field (3) COPD (chronic obstructive pulmonary disease): Status: Acute Qualifiers: COPD type: unspecified COPD Qualified Code(s): J44.9 - Chronic obstructive pulmonary disease, unspecified Category: Medical Code(s): J44.9 - Chronic obstructive pulmonary disease, unspecified Plan Ms. Ocasio is a 83-year-old female greater than [id number] smoking history, last smoked in 2016 with reported history of COPD, CAD, A-fib on Xarelto presented to the ER with hemoptysis and pulmonary was called for further evaluation and management. No significant baseline respiratory symptoms, using albuterol/nebs on as-needed basis, not using more than 3-4 times per month. Denies any recent exacerbations. CTA upon admission positive for segmental pulmonary embolism. Also showed left lower lobe mass with questionable carinal lymphadenopathy but no other significant lymphadenopathy noted. No significant left hilar lymphadenopathy noted. Left lower lobe mass was seen on her CT from Jul 2022, significant increase in size now at 4 cm in size from 1.2 cm previously. I discussed with the family regarding the possibility of cancer and needing a tissue diagnosis to further determine plan of care. Patient family initially planning to pursue her further care at [facility] in the state of [place] however they later decided to pursue bronchoscopy transabdominal bronchial biopsy here at [facility]. Hemoptysis reviewed, scant bright red blood admixed with phlegm. Improving. Xarelto has been held. Plan: DuoNebs every 6 hours on a scheduled basis N.p.o., hold Xarelto pending bronchoscopy. Schedule for bronchoscopy transbronchial biopsy. Will discuss with cardiology regarding the need for reinitiating her A-fib and if so the possibility of starting her on Lovenox shots in the setting of hemoptysis.
--- NOTE | 2023-10-22 13:55 | XR_ITS ---
FINAL REPORT CLINICAL HISTORY: BRONCH IN OR FINDINGS: FLUOROSCOPY LESS THAN 1 HOUR HISTORY: Intraoperative bronchoscopy FINDINGS: Fluoroscopic guidance was provided for intraoperative bronchoscopy. A single spot film was obtained. 1 minute 50 seconds of fluoroscopy time were used. Dosage was 20.03 mGy. IMPRESSION: As above. Reviewed, Interpreted and Dictated by Nima Cooper III, MD Transcribed by Agnieszka Molina Authenticated and [facility]
--- NOTE | 2023-10-22 14:03 | EXP.ANES.I ---
[facility] Anesthesia Record Part I Anesthesia Record I Intake, IV Amount: 500 Hydration: Adequate Estimated blood loss (mL): 0 Urine output (mL): 0 Blood Pressure: 127/73 SaO2: 92 Pulse Rate: 106 Airway Patency: Patent Respiratory Rate: 12 Temperature: 97.8 F Patient is:: Stable Stable to PACU at:: 14:05
--- NOTE | 2023-10-22 15:08 | XR_ITS ---
FINAL REPORT CLINICAL HISTORY: post procedure, post procedure COMPARISON: 08/30/2023 FINDINGS: SINGLE VIEW CHEST The heart is normal in size. The mediastinum is unremarkable. Left perihilar soft tissue opacity is worse from prior worrisome for mass. There is worsening left base atelectasis. There is no pneumothorax. IMPRESSION: Worsening left perihilar soft tissue opacity worrisome for mass. Reviewed, Interpreted and Dictated by Nima Cooper III, MD Transcribed by Alley Pearce Authenticated and [facility]
--- NOTE | 2023-10-22 15:09 | P.PCN_ITS ---
Procedure: Date: 10/22/23 Patient Date of :: 1940 Procedure Performed:: Bronchoscopy, airway examination bronchoalveolar lavage, transbronchial and endobronchial lung biopsy Indications:: Lung mass. Hemoptysis. Performing Provider:: Minda Jim MD Referring Provider:: Dr. Vuong Sedation:: General anesthesia Procedure:: Bronchoscopy, airway examination bronchoalveolar lavage, transbronchial and endo bronchial lung biopsy: A clean DIAGNOSTIC bronchoscopy was advanced through the ET tube and airways were examined up to subsegmental bronchi. No evidence of mucoid secretions or mucous plugging noted. Prior bleeding history blood-tinged airways were noted in the left lower lobe bronchus. No obvious evidence of active bleeding/blood clots noted. Endobronchial lesion was noted in the left lower lobe superior segment. 5 endobronchial biopsies were performed were sent in formalin for examination. The rest of the left lower lobe bronchial lumens appeared to be extrinsically compressed however bronchoscopy was able to pass through with no significant airway abnormalities as visualized. Bronchoalveolar lavage was performed in the LEFT UPPER LOBE with instillation of 60 cc normal saline with return of 30 cc back. BAL fluid was sent for cell count and differential along with bacterial fungal and AFB stain and cultures. Transbronchial biopsy was performed in the LEFT UPPER LOBE with a total of 7 biopsies performed, 5 biopsy specimens were sent in formalin for cytopathologic examination. The other 2 biopsy samples, were sent one each in two separate normal saline specimen cups for bacterial fungal and AFB stain cultures. Special request was also made for the pathologist to evaluate for AFB and fungal organisms on the cytopathologic examination. No evidence of bleeding noted after endobronchial and transbronchial biopsies. Patient tolerated the procedure with no immediate acute complications. We will follow the patient in pulmonary clinic in 7 to 10 days. Findings:: Please see the procedure note Recommendations:: Please see the progress note from today Postoperative bronchoscopy instructions Follow in pulmonary clinic in 5 to 7 days with the results Anticoagulation for her atrial fibrillation can be resumed from 10/23/2023 if deemed necessary by cardiology Complications:: No acute immediate complication Estimated blood obtained (mL): 5
--- NOTE | 2023-10-22 16:09 | CA_ITS ---
FINAL REPORT CLINICAL HISTORY: PE,LEG PAIN,PT ON XARELTO FINDINGS: Color Doppler, duplex Doppler and compression sonography of the bilateral lower extremities was performed. There is no evidence of deep venous thrombosis from the level of the groin to the calf. The deep veins are patent and compressible. IMPRESSION: No evidence of deep venous thrombosis bilateral lower extremities. Reviewed, Interpreted and Dictated by Nima Cooper III, MD Transcribed by Alley Pearce Authenticated and [facility]
[2023-10-22] MEDS: CEPACOL THROAT LOZENGES 16 LOZ/BOX 1 EACH MM ×2 (16:48→21:23)
--- NOTE | 2023-10-22 16:56 | P.PN_ITS ---
Subjective *Date: 10/22/23 *Time: 16:56 Interval history: Patient feels well this morning. Stable on room air. No significant hemoptysis. Seen with decreased amount of blood-tinged sputum. Pulmonology evaluating today. Afebrile. Hemodynamically stable. Medical Exam Vital signs and Labs for Last 24 Hours: Vital Signs Temp Pulse Pulse Resp BP BP Pulse Ox 10/22/23 16:45 97.9 F 86 18 123/59 L 94 L 10/22/23 16:15 97.9 F 85 18 117/66 94 L 10/22/23 15:52 10/22/23 15:45 97.9 F 95 H 18 142/58 H 96 10/22/23 15:30 97.9 F 85 18 121/73 96 10/22/23 15:15 97.9 F 94 H 18 117/59 L 95 10/22/23 14:59 97.9 F 97 H 18 110/61 93 L 10/22/23 14:56 10/22/23 14:15 103 H 15 106/66 L 93 L 10/22/23 14:35 98 H 15 117/67 93 L 10/22/23 14:25 103 H 18 114/66 94 L 10/22/23 14:05 97.8 F 106 H 18 127/73 94 L 10/22/23 12:00 65 10/22/23 12:00 98.1 F 83 18 119/66 94 L 10/22/23 11:45 64 10/22/23 11:45 64 10/22/23 11:41 10/22/23 10:13 10/22/23 08:00 95 10/22/23 09:00 10/22/23 08:00 70 10/22/23 08:00 98.0 F 70 18 100/60 L 91 L 10/22/23 06:29 56 L 10/22/23 06:29 61 10/22/23 06:16 10/22/23 04:00 48 L 10/22/23 04:53 10/22/23 03:59 97.6 F 58 L 16 109/58 L 95 10/22/23 03:00 10/22/23 00:00 54 L 10/21/23 23:59 97.7 F 47 L 16 105/48 L 93 L 10/22/23 00:42 10/21/23 23:54 56 L 10/21/23 23:54 52 L 10/21/23 22:48 10/21/23 20:00 59 L 10/21/23 21:00 10/21/23 20:00 10/21/23 19:05 98.0 F 66 16 133/72 96 10/21/23 18:57 98.4 F 69 16 149/72 H 10/21/23 17:00 60 20 154/70 H 96 10/22/23 14:04 97.8 F 106 H 12 127/73 O2 Del Method O2 Flow Rate 10/22/23 16:45 Nasal Cannula 1 10/22/23 16:15 Nasal Cannula 1 10/22/23 15:52 Nasal Cannula 1 10/22/23 15:45 Nasal Cannula 1 10/22/23 15:30 Nasal Cannula 1 10/22/23 15:15 Nasal Cannula 1 10/22/23 14:59 1 10/22/23 14:56 Nasal Cannula 1 10/22/23 14:15 Nasal Cannula 1 10/22/23 14:35 Room Air 10/22/23 14:25 Nasal Cannula 1 10/22/23 14:05 Nasal Cannula 4 10/22/23 12:00 10/22/23 12:00 Room Air 10/22/23 11:45 10/22/23 11:45 10/22/23 11:41 Room Air 10/22/23 10:13 Room Air 10/22/23 08:00 Room Air 10/22/23 09:00 Room Air 10/22/23 08:00 10/22/23 08:00 Room Air 10/22/23 06:29 10/22/23 06:29 10/22/23 06:16 Room Air 10/22/23 04:00 10/22/23 04:53 Room Air 10/22/23 03:59 Room Air 10/22/23 03:00 Room Air 10/22/23 00:00 10/21/23 23:59 Room Air 10/22/23 00:42 Room Air 10/21/23 23:54 10/21/23 23:54 10/21/23 22:48 Room Air 10/21/23 20:00 10/21/23 21:00 Room Air 10/21/23 20:00 Room Air 10/21/23 19:05 Room Air 10/21/23 18:57 10/21/23 17:00 10/22/23 14:04 Intake and Output 10/22/23 10/22/23 10/22/23 07:59 15:59 23:59 Intake Total 500 / 500 Output Total 0 / 0 Balance 500 / 500 Intake: Intake, Oral Amount 0 / 0 Intake, Total IV Amount 500 / 500 Output: Output, Urine Amount 0 / 0 Other: Number of Voids 1 Number of Unmeasured Voids 1 1 Weight 67.313 kg Patient Weight 10/22/23 23:59 Weight 67.313 kg Laboratory Results - last 24 hr 10/21/23 19:21: Troponin I < 0.01 10/21/23 21:56: Troponin I < 0.01 10/22/23 06:45: WBC 6.9, RBC 3.97 L, Hgb 10.6 L, Hct 34.1 L, MCV 85.9, MCH 26.8 L, MCHC 31.2 L, RDW 14.2, Plt Count 242, MPV 7.7, Neut % (Auto) 52.8, Lymph % (Auto) 37.6, [place] % (Auto) 6.2, Eos % (Auto) 3.4, Baso % (Auto) 0.1, Neut # (Auto) 3.6, Lymph # (Auto) 2.6, [place] # (Auto) 0.4, Eos # (Auto) 0.2, Baso # (Auto) 0.0, Sodium 139, Potassium 3.7, Chloride 102, Carbon Dioxide 34 H, Anion Gap 6.7, BUN 10, Creatinine 1.30 H, Estimated Creat Clear 35, Estimated GFR 39 L , Est GFR ( Amer) 47 L, Glucose 110 H, Calcium 8.6, Magnesium 2.5 H, Total Bilirubin 0.4, AST 30, ALT 17 D, Alkaline Phosphatase 111, Total Protein 6.1 L, Albumin 3.5 D, Globulin 2.6, Albumin/Globulin Ratio 1.3 I & O for Labs for Last 24 Hours: Intake & Output 10/19/23 10/20/23 10/21/23 10/22/23 23:59 23:59 23:59 23:59 Intake Total 120 / 120 500 / 500 Output Total 0 / 0 0 / 0 Balance 120 / 120 500 / 500 Weight 65.402 kg 67.313 kg Constitutional: Present no acute distress, average body habitus and cooperative Head: Present atraumatic and normocephalic ENT: Present normal exam Respiratory: Present normal respiratory effort; Absent rhonchi, wheezes or 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 Cardiac: Present Reg Rate and Rhythm GI: Present soft and normal bowel sounds; Absent distention or tenderness Extremities: Present normal inspection and full ROM; Absent edema Skin: Present intact; Absent erythema Neuro: Present Grossly Intact, alert, awake, oriented x 3 and moves all extremities Assessment and Plan *Assessment and plan (1) Hemoptysis: Status: Acute Category: Medical Code(s): R04.2 - Hemoptysis (2) Anticoagulated: Status: Acute Category: Medical Code(s): Z79.01 - correction (current) use of anticoagulants (3) Lung mass: Status: Acute Category: Medical Code(s): R91.8 - Other nonspecific abnormal finding of lung field (4) A-fib: Status: Resolved Qualifiers: Atrial fibrillation type: paroxysmal Qualified Code(s): I48.0 - Paroxysmal atrial fibrillation Category: Medical Code(s): I48.91 - Unspecified atrial fibrillation (5) CAD (coronary artery disease), [place] coronary artery: Status: Acute Qualifiers: [place] vs. transplanted heart: [place] heart Associated angina: without angina Qualified Code(s): I25.10 - Atherosclerotic heart disease of [place] coronary artery without angina pectoris Category: Medical Code(s): I25.10 - Atherosclerotic heart disease of [place] coronary artery without angina pectoris (6) COPD (chronic obstructive pulmonary disease): Status: Acute Qualifiers: COPD type: unspecified COPD Qualified Code(s): J44.9 - Chronic obstructive pulmonary disease, unspecified Category: Medical Code(s): J44.9 - Chronic obstructive pulmonary disease, unspecified (7) Ex-smoker: Status: Acute Category: Social Hx Code(s): Z87.891 - Personal history of nicotine dependence Plan 83-year-old female with a PMHx of COPD, no on home oxygen, CAD, Afib on xarelto, presented to ED today with hemoptysis. Stated started last month when she has had some thick saliva that has been blood-tinged every time she cough or clears her throat. On arrival CTA of chest was obtained, which shows an interval growth of the left lower lobe pulmonary mass which now measures 3.9 [address] a [address] scan back in January which demonstrated a spiculated mass at that time had stability but was concerning for malignancy and it has nearly doubled in size since that time. labs are grossly unremarkable, Hgb stable, Cr around baseline. findings were discussed with the ED provider for admission. Pulmonology consulted, plan on bronchoscopy today with biopsy. Continues to require inpatient management. Plan as follow: - Hemptysis. on the setting of lung mass and chronic anticoagulation due to Hx of Afib: Pulmonology consulted. Will forward with bronchoscopy today per discussion. Patient remains NPO. Review of CTA from yesterday, does have concern for subsegmental PE. Will transition to Lovenox 1 mg/kg twice daily for anticoagulation. Stable on room air. No oxygen requirement at this time. Hemoglobin stable, 10.6 today. Platelets stable at 242. Repeat CBC, CMP, magnesium ordered for the morning. -History of CAD: Continue rosuvastatin -COPD: Not on exacerbation, duoNeb every 6 for wheezing or shortness of breath -Former smoker: Stopped smoking several years ago. Presented as a risk factor for lung cancer. On Protonix for GI bleed protection Full code TLOV If remains stable overnight, anticipate discharge tomorrow.
--- NOTE | 2023-10-22 18:39 | PC.NURSE ---
Patient had bronchoscopy this shift. patient a&ox4 and vss. Patient has no c/o pain at this time
[2023-10-22] MEDS: TRAZODONE 50MG TABLET 100 MG PO (20:08)
[2023-10-23] VITALS: BP 103/52; PULSE 79; PULSE 80; RESP 16; TEMP 37; O2SAT 92
[2023-10-23 04:00] VITALS: BP 126/61; PULSE 70; RESP 16; TEMP 36.8; O2SAT 90; BMI 29.7
[2023-10-23 06:07] LABS: Eosinophils % 0.1 % (0.1-12.0); Hematocrit 33.4 % (37.0-47.0); Hemoglobin 10.8 g/dL (12.2-16.2); Lymphocytes # 0.8 K/mm3 (0.7-4.5); Lymphocytes % 10.9 % (10-50); Mean Corpuscular HGB Conc 32.4 g/dL (31.8-35.4); Mean Corpuscular Hemoglobin 27.6 pg (27.0-31.2); Mean Corpuscular Volume 85.3 fl (81-99); Mean Platelet Volume 8.6 fl (7.4-10.4); Monocytes # 0.2 K/mm3 (0.1-1.0); Monocytes % 3.3 % (1.7-9.3); Neutrophils % 85.7 % (37.0-80.0); Platelet Count 250 K/mm3 (142-424); Red Blood Count 3.91 M/mm3 (4.20-5.40); Red Cell Distribution Width 14.4 % (11.5-17.5)
[2023-10-23 06:09] LABS: MANUAL DIFFERENTIAL MANUAL DIFFERENTIAL (MANUAL DIFF)
[2023-10-23 06:15] LABS: Chloride 101 mmol/L (98-107); Potassium 3.8 mmoL/L (3.5-5.1); Sodium 136 mmol/L (136-145)
[2023-10-23 06:17] LABS: Alanine Aminotransferase 23 U/L (12-78); Aspartate Amino Transferase 31 U/L (14-36); Blood Urea Nitrogen 11 mg/dl (7-17); Creatinine Clearance Estimated 41 mL/min (50-200); Estimated Glomerular Filt Rate 47 ml/min (>60); GFR (African American) 57 ML/MIN (>60)
[2023-10-23 06:18] LABS: Albumin Level 3.5 g/dl (3.5-5.0); Albumin/Globulin Ratio 1.3 (1.1-1.8); Alkaline Phosphatase 104 U/L (38-126); Anion Gap 7.8 mEq/L (5-15); Bilirubin,Total 0.2 mg/dl (0.2-1.3); Calcium 8.7 mg/dl (8.4-10.2); Carbon Dioxide 31 mmol/L (22.0-30.0); Globulin 2.7 g/dL (1.3-3.2); Glucose 169 mg/dl (74-100); Magnesium 2.5 mg/dl (1.6-2.3); Total Protein,Serum 6.2 g/dl (6.3-8.2)
[2023-10-23 06:31] VITALS: PULSE 66; PULSE 69
[2023-10-23] MEDS: IPRATROPIUM/ALBUTEROL 3 ML NEB IH (06:31)
[2023-10-23 07:52] LABS: Hypochromasia 1+; Lymphocytes % 16 % (10-50); Monocytes % 2 % (2-9); Neutrophils % 82 % (42-76); Total Cells Counted 100
[2023-10-23 07:53] LABS: Platelet Estimate Normal
[2023-10-23 08:00] VITALS: BP 133/59; PULSE 85; PULSE 90; RESP 18; TEMP 36.7; O2SAT 93
--- NOTE | 2023-10-23 08:19 | EXP.DC.SUM ---
General Admission date:: 10/21/23 Discharge date: 10/23/23 HPI HPI HPI: This is a 83-year-old female with a PMHx of COPD, no on home oxygen, CAD, Afib on xarelto, presented to ED today with hemoptysis. Stated started last month when she has had some thick saliva that has been blood-tinged every time she cough or clears her throat. She denies any hematemesis. Says she has not had any fevers or chills increased sputum production wheezing etc. She recently completed outpatient treatment for pneumonia and states she went to her PCP, who did a follow up chest x-ray that was unremarkable. Denies any significant weight loss has had chronic night sweats. No chest pain associated with this no fevers or chills. No history of lung cancer that she is aware of no lower extremity swelling history of DVT etc. Admitted for further work up and treatment. Hospital Course Hospital Course Hospital Course: 83-year-old female with a PMHx of COPD, no on home oxygen, CAD, Afib on xarelto, presented to ED today with hemoptysis. Stated started last month when she has had some thick saliva that has been blood-tinged every time she cough or clears her throat. On arrival CTA of chest was obtained, which shows an interval growth of the left lower lobe pulmonary mass which now measures 3.9 cm [address] had a CT scan back in January which demonstrated a spiculated mass at that time had stability but was concerning for malignancy and it has nearly doubled in size since that time. labs are grossly unremarkable, Hgb stable, Cr around baseline. findings were discussed with the ED provider for admission. Pulmonology was consulted, taken for bronchoscopy on 10/22. Tolerated procedure well. No further signs of significant hemoptysis or drop in hemoglobin. Stable for discharge home with close follow-up as an outpatient for further management of suspected lung cancer. Problems addressed as follows: - Hemoptysis. on the setting of lung mass and chronic anticoagulation due to Hx of Afib: Imaging reviewed showing lung mass increasing in size in the left lung. Pulmonology was consulted, taken for bronchoscopy on 10/22. Mass identified in airway. Biopsy obtained. No significant bleeding during procedure. Patient was reinitiated on Lovenox 1 mg/kg twice daily given concern for possible PE on CTA of chest and hypercoagulable state with cancer along with A-fib. Patient had no significant bleeding during admission. Hemoglobin stable at 10.8 on day of discharge, platelets 250. Plan for close follow-up with either pulmonology and oncology at [facility] (appointment scheduled) or cancer treatment Center of [facility] in [place] as the family was working on scheduling this appointment for next week. Patient provided with contact information for pulmonology clinic. Awaiting biopsy pathology for diagnosis of lung mass. Stable on room air at time of discharge. -History of CAD: Continue rosuvastatin -COPD: Not on exacerbation, duoNeb every 6 for wheezing or shortness of breath during admission. No dyspnea occurred. -Former smoker: Stopped smoking several years ago. Presented as a risk factor for lung cancer. Spent 30 minutes in discharge counseling, documentation, chart review, and direct care with patient. Exam Data for Last 24 hours Vital signs and Labs for Last 24 Hours: Temp Pulse Resp BP Pulse Ox O2 Del Method 98.0 F 70 18 100/60 L 91 L Room Air 10/22/23 08:00 10/22/23 08:00 10/22/23 08:00 10/22/23 08:00 10/22/23 08:00 10/22/23 08:00 Laboratory Results - last 24 hr 10/21/23 15:58: WBC 6.6, RBC 4.15 L, Hgb 11.5 L, Hct 35.6 L, MCV 85.9, MCH 27.7, MCHC 32.3, RDW 14.4, Plt Count 263, MPV 8.4, Neut % (Auto) 51.5, Lymph % (Auto) 35.8, [place] % (Auto) 6.4, Eos % (Auto) 5.6, Baso % (Auto) 0.7, Neut # (Auto) 3.4, Lymph # (Auto) 2.4, [place] # (Auto) 0.4, Eos # (Auto) 0.4, Baso # (Auto) 0.1, PT 12.4, INR 1.16 H, APTT 31.6 H, Sodium 139, Potassium 3.6, Chloride 99, Carbon Dioxide 36 H, Anion Gap 7.6, BUN 13, Creatinine 1.30 H, Estimated Creat Clear 33, Estimated GFR 39 L, Est GFR ( Amer) 47 L, Glucose 93, Calcium 8.6, Total Bilirubin 0.3, AST 24, ALT 12, Alkaline Phosphatase 114, Troponin I < 0.01, NT-Pro-B Natriuret Pep 403, Total Protein 6.8, Albumin 3.9, Globulin 2.9, Albumin/Globulin Ratio 1.3 10/21/23 19:21: Troponin I < 0.01 10/21/23 21:56: Troponin I < 0.01 10/22/23 06:45: WBC 6.9, RBC 3.97 L, Hgb 10.6 L, Hct 34.1 L, MCV 85.9, MCH 26.8 L, MCHC 31.2 L, RDW 14.2, Plt Count 242, MPV 7.7, Neut % (Auto) 52.8, Lymph % (Auto) 37.6, [place] % (Auto) 6.2, Eos % (Auto) 3.4, Baso % (Auto) 0.1, Neut # (Auto) 3.6, Lymph # (Auto) 2.6, [place] # (Auto) 0.4, Eos # (Auto) 0.2, Baso # (Auto) 0.0, Sodium 139, Potassium 3.7, Chloride 102, Carbon Dioxide 34 H, Anion Gap 6.7, BUN 10, Creatinine 1.30 H, Estimated Creat Clear 35, Estimated GFR 39 L, Est GFR ( Amer) 47 L, Glucose 110 H, Calcium 8.6, Magnesium 2.5 H, Total Bilirubin 0.4, AST 30, ALT 17 D, Alkaline Phosphatase 111, Total Protein 6.1 L, Albumin 3.5 D, Globulin 2.6, Albumin/Globulin Ratio 1.3 I & O for Last 24 hours: Intake & Output 10/19/23 10/20/23 10/21/23 10/22/23 23:59 23:59 23:59 23:59 Intake Total 120 / 120 Output Total 0 / 0 Balance 120 / 120 Weight 65.402 kg 67.313 kg Constitutional Constitutional: no acute distress, average body habitus and cooperative *Routine HEENT Exam Head: Present normocephalic Eye: Present EOMI and PERRL ENT: Present mucous membranes moist *Routine Neck Exam Neck: Present supple; Absent lymphadenopathy *Routine Respiratory Exam Respiratory: Present CTA bilaterally; Absent rhonchi, wheezes or crackles *Routine Cardiovascular Exam Cardiovascular: Present RRR *Routine Abdominal Exam Abdominal: Present soft and normoactive bowel sounds; Absent tenderness *Routine Extremities Exam Extremities: Absent cyanosis, clubbing or edema *Routine Skin Exam Skin: Present warm; Absent rash *Routine Neurological Exam Neurological: Present alert, oriented X3 and moving all extremities; Absent altered mental status Results Data Completed and Pending Labs on day of discharge: Labs from last 24 hours 10/22/23 10/21/23 10/21/23 06:45 21:56 19:21 WBC 6.9 RBC 3.97 L Hgb 10.6 L Hct 34.1 L MCV 85.9 MCH 26.8 L MCHC 31.2 L RDW 14.2 Plt Count 242 MPV 7.7 Neut % (Auto) 52.8 Lymph % (Auto) 37.6 [place]duff[place] % (Auto) 6.2 Eos % (Auto) 3.4 Baso % (Auto) 0.1 Neut # (Auto) 3.6 Lymph # (Auto) 2.6 [place]duff[place] # (Auto) 0.4 Eos # (Auto) 0.2 Baso # (Auto) 0.0 PT INR APTT Sodium 139 Potassium 3.7 Chloride 102 Carbon Dioxide 34 H Anion Gap 6.7 BUN 10 Creatinine 1.30 H Estimated Creat Clear 35 Estimated GFR 39 L Est GFR ( Amer) 47 L Glucose 110 H Calcium 8.6 Magnesium 2.5 H Total Bilirubin 0.4 AST 30 ALT 17 D Alkaline Phosphatase 111 Troponin I < 0.01 < 0.01 NT-Pro-B Natriuret Pep Total Protein 6.1 L Albumin 3.5 D Globulin 2.6 Albumin/Globulin Ratio 1.3 10/21/23 15:58 WBC 6.6 RBC 4.15 L Hgb 11.5 L Hct 35.6 L MCV 85.9 MCH 27.7 MCHC 32.3 RDW 14.4 Plt Count 263 MPV 8.4 Neut % (Auto) 51.5 Lymph % (Auto) 35.8 [place] % (Auto) 6.4 Eos % (Auto) 5.6 Baso % (Auto) 0.7 Neut # (Auto) 3.4 Lymph # (Auto) 2.4 [place] # (Auto) 0.4 Eos # (Auto) 0.4 Baso # (Auto) 0.1 PT 12.4 INR 1.16 H APTT 31.6 H Sodium 139 Potassium 3.6 Chloride 99 Carbon Dioxide 36 H Anion Gap 7.6 BUN 13 Creatinine 1.30 H Estimated Creat Clear 33 Estimated GFR 39 L Est GFR ( Amer) 47 L Glucose 93 Calcium 8.6 Magnesium Total Bilirubin 0.3 AST 24 ALT 12 Alkaline Phosphatase 114 Troponin I < 0.01 NT-Pro-B Natriuret Pep 403 Total Protein 6.8 Albumin 3.9 Globulin 2.9 Albumin/Globulin Ratio 1.3 DS: Diagnosis Discharge Diagnosis (1) Hemoptysis: Status: Acute Code(s): R04.2 - Hemoptysis (2) Anticoagulated: Status: Acute Code(s): Z79.01 - security attendant (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 transplanted heart: [place] heart Qualified Code(s): I25.10 - Atherosclerotic heart disease of [place] coronary artery without angina pectoris (6) COPD (chronic obstructive pulmonary disease): Status: Acute Code(s): J44.9 - Chronic obstructive pulmonary disease, unspecified Qualifiers: COPD type: unspecified COPD Qualified Code(s): J44.9 - Chronic obstructive pulmonary disease, unspecified (7) Ex-smoker: Status: Acute Code(s): Z87.891 - Personal history of nicotine dependence Meds Home Medications and Allergies Home Medications Medication Instructions Recorded Confirmed Type donepezil 5 mg tablet 5 mg PO HS Memory 04/30/20 10/21/23 History escitalopram oxalate 10 mg tablet 10 mg PO DAILY Mood 04/30/20 10/21/23 History rosuvastatin 20 mg tablet 20 mg PO HS Cholesterol 04/30/20 10/21/23 History trazodone 50 mg tablet 100 mg PO HS Sleep 07/23/22 10/21/23 History cyanocobalamin (vitamin B-12) 5,000 mcg PO DAILY Supplement 09/04/22 10/21/23 History 5,000 mcg capsule ondansetron HCl 4 mg tablet 4 mg PO Q8HP PRN Nausea 09/04/22 10/21/23 History ipratropium 20 mcg-albuterol 100 20 puff inhalation DAILYP PRN 09/10/22 10/21/23 History mcg/actuation mist for inhalation Breathing Problems (Combivent Respimat) omeprazole 40 mg capsule,delayed 40 mg PO DAILY Acid reflux 02/12/23 10/21/23 History release tramadol 50 mg tablet 50 mg PO Q6H 02/12/23 10/21/23 History gabapentin 100 mg capsule 100 mg PO TID Back pain 10/21/23 10/21/23 History (Neurontin) bisoprolol fumarate 5 mg tablet 5 mg PO DAILY High Blood Pressure 10/22/23 10/22/23 History furosemide 20 mg tablet 20 mg PO DAILY High Blood Pressure 10/22/23 10/22/23 History enoxaparin 80 mg/0.8 mL 65 mg (0.65 mL) SQ Q12H 14 days 10/23/23 Rx subcutaneous syringe #14 mL New Prescriptions to Start Prescriptions: enoxaparin Surya Vuong Allergies Allergy/AdvReac Type Severity Reaction Status Date / Time Antihistamines - Alkylamine Allergy Mild Verified 10/21/23 17:49 [ANTIHISTAMINES - ALKYLAMINE] codeine [CODEINE] Allergy Mild Verified 10/21/23 17:49 midodrine Allergy Mild Verified 10/21/23 17:49 Penicillins [PENICILLINS] Allergy Mild Verified 10/21/23 17:49 Sulfa (Sulfonamide Allergy Mild Verified 10/21/23 17:49 Antibiotics) [SULFA (SULFONAMIDE ANTIBIOTICS)] Discharge Plan Disposition Patient Disposition: Home, Self-Care Condition: Fair Follow up Plan Follow up with: Ronny Cuenca MD [Staff Physician] - 11/03/23 11:30 am Minda Jim MD [Physician] - 11/05/23 2:30 pm Jus Zee MD [Primary Care Provider] - 10/24/23 10:00 am Prescriptions/Medication Reconciliation: New enoxaparin 80 mg/0.8 mL Syringe 65 mg SQ Q12H 14 Days Qty: 14 0RF Continued ondansetron HCl 4 mg tablet 4 mg PO Q8HP PRN (Reason: Nausea) cyanocobalamin (vitamin B-12) 5,000 mcg capsule 5,000 mcg PO DAILY donepezil 5 MG tablet 5 mg PO HS escitalopram oxalate 10 MG tablet 10 mg PO DAILY rosuvastatin 20 MG tablet 20 mg PO HS trazodone 50 mg tablet 100 mg PO HS Patient Comments: TAKE 2 TABLETS BY MOUTH AT BEDTIME Combivent Respimat 20-100 mcg/actuation mist 20 puff INHALATION DAILYP PRN (Reason: Breathing Problems) Patient Comments: INHALE 1 PUFF BY MOUTH 4 TIMES DAILY gabapentin [Neurontin] 100 mg capsule 100 mg PO TID bisoprolol fumarate 5 mg tablet 5 mg PO DAILY Patient Comments: TAKE 1 TABLET BY MOUTH ONCE DAILY furosemide 20 mg tablet 20 mg PO DAILY Patient Comments: TAKE 1 TABLET BY MOUTH ONCE DAILY omeprazole 40 mg capsule,delayed release(DR/EC) 40 mg PO DAILY Patient Comments: TAKE 1 CAPSULE BY MOUTH ONCE DAILY tramadol 50 mg tablet 50 mg PO Q6H Patient Comments: TAKE 1 TABLET BY MOUTH EVERY 6 HOURS NEEDED FOR PAIN FOR 14 DAYS Discontinued Xarelto 15 mg tablet 15 mg PO DAILY Patient Comments: TAKE 1 TABLET BY MOUTH ONCE DAILY IN THE EVENING Problem Reconciliation Problems Reviewed?: Yes Patient Discharge Instructions ACTIVITY: Continue current activity DIET: continue same diet Patient Instructions: DI for Bronchoscopy, Diagnostic, DI for Surgical Site Infection, DI for Hemoptysis Providers Primary Care Provider: Jus Zee Admit Provider: Surya Vuong Attending Provider: Surya Vuong
[2023-10-23] MEDS: ENOXAPARIN 80MG/0.8ML SYRINGE 65 MG SQ (08:21)
[2023-10-23 10:22] LABS: D-Dimer 0.44 ug/mL (0.0-0.5)
--- NOTE | 2023-10-26 14:58 | CARE MANAGER ---
Spoke with patient's daughter. She states mother is doing fine. They leave for [place] tomorrow for the cancer center appointment. Daughter was unsure how to get the [facility] portal to work so I transferred her down to HIM. ADRIENNE Ratliff
== END 2023-10-23 10:55 | disposition home or self-care (01) ==
LOC: ER 17:11 → 2ND 18:07
PROVIDERS: Internal Medicine Pulmonary Disease; Admitting Provider Internal Medicine Adolescent Medicine; Emergency Provider Student in an Organized Health Care Education/Training Program; PCP Internal Medicine Adolescent Medicine; Visit Provider Internal Medicine Adolescent Medicine
PROC: (CPT 31624; principal; 2023-10-22 12:45)
DX: R04.2 Hemoptysis (principal); Z79.01 Long term (current) use of anticoagulants; R91.8 Other nonspecific abnormal finding of lung field; I48.0 Paroxysmal atrial fibrillation; I25.10 Atherosclerotic heart disease of native coronary artery without angina pectoris; J44.9 Chronic obstructive pulmonary disease, unspecified; Z87.891 Personal history of nicotine dependence; Z79.899 Other long term (current) drug therapy; R06.02 Shortness of breath
CPT/HCPCS: 31624; 31625; 31628; 36415; 71045; 71275; 76000; 80053; 83735; 83880; 84484; 85007; 85025; 85378; 85610; 85730; 87070; 87102; 87116; 87186; 87205; 87206; 88112; 88305; 89051; 93005; 93970; 94640; 99285; G0378; Q9967

== ENCOUNTER 2023-11-28 10:11 | Outpatient (CLI) | payer MEDICARE, OTHER, SELFPAY ==
[2023-11-28 11:01] LABS: Basophils % 0.5 % (0.1-2.0); Eosinophils # 0.2 K/mm3 (0.0-0.4); Eosinophils % 3.7 % (0.1-12.0); Hematocrit 33.6 % (37.0-47.0); Hemoglobin 10.5 g/dL (12.2-16.2); Lymphocytes # 0.8 K/mm3 (0.7-4.5); Lymphocytes % 15.8 % (10-50); Mean Corpuscular HGB Conc 31.2 g/dL (31.8-35.4); Mean Corpuscular Hemoglobin 27.7 pg (27.0-31.2); Mean Corpuscular Volume 88.8 fl (81-99); Mean Platelet Volume 8.3 fl (7.4-10.4); Monocytes # 0.4 K/mm3 (0.1-1.0); Monocytes % 7.3 % (1.7-9.3); Neutrophils # 3.6 K/mm3 (1.8-7.8); Neutrophils % 72.7 % (37.0-80.0); Platelet Count 266 K/mm3 (142-424); Red Blood Count 3.79 M/mm3 (4.20-5.40); Red Cell Distribution Width 15.1 % (11.5-17.5)
[2023-11-28 12:11] LABS: Alanine Aminotransferase 10 U/L (12-78); Albumin Level 3.4 g/dl (3.5-5.0); Albumin/Globulin Ratio 1.5 (1.1-1.8); Alkaline Phosphatase 122 U/L (38-126); Aspartate Amino Transferase 21 U/L (14-36); Bilirubin,Total 0.3 mg/dl (0.2-1.3); Blood Urea Nitrogen 9 mg/dl (7-17); Calcium 8.6 mg/dl (8.4-10.2); Carbon Dioxide 30 mmol/L (22.0-30.0); Chloride 107 mmol/L (98-107); Chol/HDL Ratio 2.7 (1-3.5); Cholesterol 120 mg/dl (140-200); Estimated Glomerular Filt Rate 60 ml/min (>60); GFR (African American) 72 ML/MIN (>60); Globulin 2.2 g/dL (1.3-3.2); Glucose 102 mg/dl (74-100); HDL Cholesterol 45 mg/dl (40-60); Sodium 141 mmol/L (136-145); Total Protein,Serum 5.6 g/dl (6.3-8.2); Triglycerides 152 mg/dl (30-150); VLDL Cholesterol 30 mg/dL (0-40)
[2023-11-28 12:22] LABS: Direct LDL Cholesterol 46.55 mg/dL (100-129)
[2023-11-28 12:27] LABS: 25-OH Vitamin D, Total 31.9 ng/mL (30-100)
[2023-11-28 12:42] LABS: Thyroid Stimulating Hormone 0.63 uIU/mL (0.465-4.68)
[2023-11-28 13:34] LABS: Vitamin B12 979 pg/mL (239-931)
[2023-12-01 21:40] LABS: QuantiFERON-TB Gold Plus Negative (Negative)
== END 2023-11-28 23:59 ==
LOC: LAB 10:11
PROVIDERS: PCP Internal Medicine Adolescent Medicine; Visit Provider Internal Medicine Adolescent Medicine
DX: I25.10 Atherosclerotic heart disease of native coronary artery without angina pectoris; I48.0 Paroxysmal atrial fibrillation; C34.92 Malignant neoplasm of unspecified part of left bronchus or lung; Z11.1 Encounter for screening for respiratory tuberculosis; Z79.899 Other long term (current) drug therapy; R79.89 Other specified abnormal findings of blood chemistry
CPT/HCPCS: 36415; 80053; 80061; 82306; 82607; 84443; 85025; 86480

== ENCOUNTER 2024-03-26 10:36 | Emergency (ER) | payer MEDICARE, OTHER, SELFPAY ==
[2024-03-26 10:45] VITALS: BP 137/62; PULSE 57; RESP 24; TEMP 36.8; O2SAT 95; BMI 26.2
--- NOTE | 2024-03-26 11:01 | EXP.UTC ---
Discharge Plan Disposition Patient Disposition: Home, Self-Care Condition: Good Prescriptions Prescriptions: New cefdinir 300 mg capsule 300 mg PO BID Qty: 20 0RF prednisone 20 mg tablet 20 mg PO BID Qty: 10 0RF No Action ondansetron HCl 4 mg tablet 4 mg PO Q8HP PRN (Reason: Nausea) cyanocobalamin (vitamin B-12) 5,000 mcg capsule 5,000 mcg PO DAILY donepezil 5 MG tablet 5 mg PO HS escitalopram oxalate 10 MG tablet 10 mg PO DAILY rosuvastatin 20 MG tablet 20 mg PO HS trazodone 50 mg tablet 100 mg PO HS Patient Comments: TAKE 2 TABLETS BY MOUTH AT BEDTIME Combivent Respimat 20-100 mcg/actuation mist 20 puff INHALATION DAILYP PRN (Reason: Breathing Problems) Patient Comments: INHALE 1 PUFF BY MOUTH 4 TIMES DAILY gabapentin [Neurontin] 100 mg capsule 100 mg PO TID bisoprolol fumarate 5 mg tablet 5 mg PO DAILY Patient Comments: TAKE 1 TABLET BY MOUTH ONCE DAILY furosemide 20 mg tablet 20 mg PO DAILY Patient Comments: TAKE 1 TABLET BY MOUTH ONCE DAILY enoxaparin 80 mg/0.8 mL Syringe 65 mg SQ Q12H 14 Days Qty: 14 0RF omeprazole 40 mg capsule,delayed release(DR/EC) 40 mg PO DAILY Patient Comments: TAKE 1 CAPSULE BY MOUTH ONCE DAILY tramadol 50 mg tablet 50 mg PO Q6H Patient Comments: TAKE 1 TABLET BY MOUTH EVERY 6 HOURS NEEDED FOR PAIN FOR 14 DAYS Referrals Follow up/Referrals: Jus Zee MD [Primary Care Provider] - See instructions Activity Restrictions/Add. Instructions Additional Instructions/Restrictions: Tylenol and ibuprofen as needed for pain or fever Humidifier/vaporizer/hot steamy shower Follow-up with primary care this week. Follow-up immediately in the ER of the [facility] for new or worsening symptoms or no noticeable improvement over the next 48-72 hours. Stop smoking Inhaler every 4-6 hours as needed. Should help open airways improved cough, wheezing, shortness of breath Start steroids tomorrow. Helps with inflammation therefore coughing and wheezing. Clinical Impressions Clinical Impression: Acute exacerbation of chronic obstructive pulmonary disease (COPD) Instructions Patient Instructions: DI for Acute Bronchitis Discharge ED Provider: Robbin ([facility])Maryann [facility] [place] HPI General Stated complaint: soa weezing Mode of Arrival: Ambulatory Source of Information: Patient Limitations: No Limitations Time Seen by Provider: 03/26/24 11:01 Description of Symptoms (Recalled from Triage Doc. by RN): PATIENT C/O SOA THAT HAS BEEN ON GOING HEENT Symptoms (Recalled from RN notes): No Resp Symptoms (Recalled from RN notes): Yes Skin Symptoms (Recalled from RN notes): No MS Symptoms (Recalled from RN notes): No Functional Status (Recalled from RN notes): WNL History of Present Illness Provider Complaint: 83 yr old female presents for soa and wheezing for a few days . pt states she has a hx of copd. pt states she has been working outside and sitting outside more. pt states she gave her self a breathing treatment this am. Related Data Home Medications Medication Instructions Recorded Confirmed donepezil 5 mg tablet 5 mg PO HS Memory 04/30/20 10/21/23 escitalopram oxalate 10 mg tablet 10 mg PO DAILY Mood 04/30/20 10/21/23 rosuvastatin 20 mg tablet 20 mg PO HS Cholesterol 04/30/20 10/21/23 trazodone 50 mg tablet 100 mg PO HS Sleep 07/23/22 10/21/23 cyanocobalamin (vitamin B-12) 5,000 mcg PO DAILY Supplement 09/04/22 10/21/23 5,000 mcg capsule ondansetron HCl 4 mg tablet 4 mg PO Q8HP PRN Nausea 09/04/22 10/21/23 ipratropium 20 mcg-albuterol 100 20 puff inhalation DAILYP PRN 09/10/22 10/21/23 mcg/actuation mist for inhalation Breathing Problems (Combivent Respimat) omeprazole 40 mg capsule,delayed 40 mg PO DAILY Acid reflux 02/12/23 10/21/23 release tramadol 50 mg tablet 50 mg PO Q6H 02/12/23 10/21/23 gabapentin 100 mg capsule 100 mg PO TID Back pain 10/21/23 10/21/23 (Neurontin) bisoprolol fumarate 5 mg tablet 5 mg PO DAILY High Blood Pressure 10/22/23 10/22/23 furosemide 20 mg tablet 20 mg PO DAILY High Blood Pressure 10/22/23 10/22/23 Previous Rx's Medication Instructions Recorded enoxaparin 80 mg/0.8 mL 65 mg (0.65 mL) SQ Q12H 14 days 10/23/23 subcutaneous syringe #14 mL cefdinir 300 mg capsule 300 mg PO BID #20 caps 03/26/24 prednisone 20 mg tablet 20 mg PO BID #10 tabs 03/26/24 Allergies Allergy/AdvReac Type Severity Reaction Status Date / Time Antihistamines - Alkylamine Allergy Mild Verified 10/21/23 17:49 [ANTIHISTAMINES - ALKYLAMINE] codeine [CODEINE] Allergy Mild Verified 10/21/23 17:49 midodrine Allergy Mild Verified 10/21/23 17:49 Penicillins [PENICILLINS] Allergy Mild Verified 10/21/23 17:49 Sulfa (Sulfonamide Allergy Mild Verified 10/21/23 17:49 Antibiotics) [SULFA (SULFONAMIDE ANTIBIOTICS)] Worker's Comp Is this a Worker's Comp case?: No [facility] Disclaimer: The information contained in this section may have been updated after the patient was seen, as this information can be updated by other users. 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) History of hysterectomy History of radiofrequency ablation procedure for cardiac arrhythmia Family History , 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) Family history of cancer Social History , 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) Smoking Status: Former smoker tobacco type: cigarettes second hand exposure: No alcohol intake: never substance use type: denies use current occupational status: employed and retired Travel in the last 8 weeks: None household members: spouse housing: house current occupational exposures/hazards: No caffeine: No ROS Obtained: Yes All systems reviewed & no additional complaints except as documented Constitutional Constitutional: Reports system reviewed and no additional complaints, except as documented Eyes Eyes: Reports system reviewed and no additional complaints, except as documented ENT Ears, Nose, Mouth, and Throat: Reports system reviewed and no additional complaints, except as documented Cardiovascular Cardiovascular: Reports system reviewed and no additional complaints, except as documented Respiratory Respiratory: Reports system reviewed and no additional complaints, except as documented, Reports as per HPI, Reports shortness of breath, Reports cough, Reports non-productive cough and Reports wheezing Gastrointestinal Gastrointestingal: Reports system reviewed and no additional complaints, except as documented Integumentary/Breasts Skin/Breast: Reports system reviewed and no additional complaints, except as documented Neurologic Neurologic: Reports system reviewed and no additional complaints, except as documented Endocrine Endocrine: Reports system reviewed and no additional complaints, except as documented Allergic/Immunologic Allergic/Immunologic: Reports system reviewed and no additional complaints, except as documented and Reports wheezing Physical Exam General General appearance: alert and in no apparent distress Head Head exam: atraumatic Eye Eye exam: Present normal appearance ENT ENT exam: Present normal exam, normal oropharynx, mucous membranes moist and TM's normal bilaterally Respiratory Respiratory exam: Present wheezes Cardiovascular Cardiovascular exam: Present regular rate and normal rhythm Neurological Exam Neurological exam: Present alert and oriented X3 Skin Skin exam: Present warm and intact Medical Decision Making Medical Records Medical records reviewed: Yes I reviewed the patient's medical records. Danilo Inquiry Pt receiving controlled substance: No Danilo was queried for this patient: No Vital Signs: 03/26/24 10:45 Temperature 98.2 F Temperature Source Oral Pulse Rate [Left Brachial] 57 L Respiratory Rate 24 Blood Pressure [Left Arm] 137/62 Blood Pressure Mean [Left Arm] 87 Blood Pressure Source [Left Arm] Automatic Cuff Blood Pressure Position [Left Arm] Sitting 02 Sat by Pulse Oximetry 95 Oxygen Delivery Method Room Air Lab Data Lab results reviewed: Yes I reviewed the patient's lab results.
--- NOTE | 2024-03-26 11:09 | XR_ITS ---
PROCEDURE INFORMATION: Exam: XR Chest Exam date and time: 03/26/2024 11:04 AM Age: 83 years old Clinical indication: Cough and shortness of breath; Additional info: SOB TECHNIQUE: Imaging protocol: Radiologic exam of the chest. Views: 2 views. Total images: 2 COMPARISON: CR XR CHEST PORTABLE 10/22/2023 4:06 PM FINDINGS: Lungs: Atelectatic and/or early infiltrative changes noted within both lung bases. Bilateral hyperinflation is present. Atelectatic changes noted within the left upper lung. Pleural spaces: Unremarkable. No pleural effusion. No pneumothorax. Heart/Mediastinum: The heart is not enlarged. Vasculature: Mild atherosclerotic disease. Bones/joints: The thoracic spine demonstrates mild degenerative changes at multiple levels. IMPRESSION: 1. Atelectatic and/or early infiltrative changes noted within both lung bases. 2. Bilateral hyperinflation is present. 3. Atelectatic changes noted within the left upper lung.
[2024-03-26 11:56] VITALS: BP 137/62; PULSE 57; RESP 24; TEMP 36.8; O2SAT 95
== END 2024-03-26 11:58 | disposition home or self-care (01) ==
PROVIDERS: Emergency Provider Nurse Practitioner Family; PCP Internal Medicine Adolescent Medicine
DX: J44.1 Chronic obstructive pulmonary disease with (acute) exacerbation (principal); R06.2 Wheezing; R06.02 Shortness of breath; Z87.891 Personal history of nicotine dependence
CPT/HCPCS: 71046; 99204; 99212; G0463

== ENCOUNTER 2025-07-10 13:44 | Outpatient (CLI) | payer MEDICARE, OTHER, SELFPAY ==
--- OUTSIDE RECORDS SUMMARY | 2024-12-17 17:30 | XMS_ITS ---
Author Organization [facility] Address [address] [place] [address] Care Team Providers Care Phone Manager Name Role Phone Jus Zee Primary Care Provider Jsu Zee Unavailable Unavailable Migration, Provider Unavailable Unavailable [...] rash Drug Allergy Active REASON FOR VISIT [facility] To [facility] Conversion Encounter Medications Medication SIG (Take, Route, [...] Active Encounters Encounter Location Date Provider Diagnosis [facility] [address] [facility] [address] [place] [address] 12/17/2024 Provider Migration Acute exacerbation o f [...] * Queenie BUCIOlucianoDOB: [birth year] (85 yo F)Acc No.[id number]:12/17/2024 Patient: Georgette ART Provider: Deana gibbons Migration :1940 A ge:84 Y S ex:Female Date:12/17/2024 Address:[address] [place] [address], [id number] Pcp:Jus Zee Subjective: * Chief Complaints: * [facility] . [facility] Conversion Encounter. * 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: * Medications: [...] Electronic signature of Prov ider Migration on 07/10/2025 at 02:36 PM EDT Sign off status: Pending * Provider: Deana gibbons Migration Date: 0 12/17/2024 Generated for Mohsen fox/Lynette/Oseas on: 1 02:36 PM EDT
--- OUTSIDE RECORDS SUMMARY | 2025-07-10 10:30 | XMS_ITS | Encounter Summary ---
Author Organization Healthcare Address [address] [place] [phone] Care Team Providers Care Press Operator Apprentice Name Role Phone Agustín Griffin MD Primary Care Provider [phone] Reason for Referral * Consultation (Routine) - Authorized Specialty Diagnoses / Procedures Referred By Brenda sahu Referred To Contact Diagnoses SCC (squamous cell carcinoma) Matt Canchola MD [address] [place] [address] Phone: tel: fax: Referral ID Status Reason Start Date Expiration Date V isits Requested Visits Authorized [id number] Authorized 07/10/2025 01/09/2027 1 1 * Consultation (Routine) - Authorized Specialty Diagnoses / Procedures Referred By Brenda sahu Referred To Contact Pulmonology Diagnoses Shortness of breath Matt Canchola MD [address] [place] [address] Phone: tel: fax: [facility] [address] [place] [address] Phone: tel: fax: Referral ID Status Reason Start Date Expiration Date Visits Requested Visits Authorized [id number] Authorized Specialty Services Required 01/09/2027 1 1 Scheduling Instructions Please schedule with Dr. Sorensen in [facility] Reason for Visit * Reason Comments New Patient * Consultation (Routine) - Closed Specialty Diagnoses / Procedures Referred By Brenda t Referred To Contact Hematology and Oncology Diagnoses Lung cancer (CMS/HCC) Jannette Howell, POWER STATION OPERATOR [address] [facility] [address] [place] [id number] Phone: tel: fax: [facility] [address] [facility] [place] [address] Phone: tel: fax: Referral ID Status Reason Start Date Expiration Date V isits Requested Visits Authorized [id number] Closed Specialty Services Required 07/03/2025 01/02/2027 1 1 Encounter Details Date Type Department Care Team (Late st Contact Info) Description 07/10/2025 10:30 AM EDT Office Visit [facility] [address] [facility] [place] [address] Matt Canchola MD [address] [place] [address] Shortness of breath (Primary Dx); [...] reach out to you with these appointments. documented in this encounter Plan of Treatment Scheduled Orders Name Type Priority Associated Diagnoses [...] documented as of this encounter Care Teams Press Operator Apprentice Relationship Specialty Start Date End Date Agustín Griffin MD [address] [place] [address] PCP - General 07/10/25 documented as of this encounter
--- NOTE | 2025-07-10 14:30 | CA_ITS ---
APPROVED REPORT EXAM: Comprehensive 2D, Doppler, and color-flow Echocardiogram Team Lead: Carlotta Browning RVT Ht: 4 ft 11 in Wt: 150lbs BSA: 1.63 BP: 106/74 mmHg Indications: SHORTNESS OF BREATH 2D Dimensions IVSd 1.32 cm F: 0.6-1.0 LVEF (Visual) 65.00 % PWd 1.32 cm F: 0.6 - 1.0 LA Volume 19.60 mL LVDd 3.20 cm F: 3.9 - 5.3 LA Volume Index 12.02 mL/m2 (M/F) 16-34 LVDs 1.62 cm F: 2.2 - 3.5 M-Mode Dimensions LA Diam 3.54 cm (1.9-4.0) TAPSE 2.32 (<1.7) LV Diastology E Decel Time 313 (160-240 msec) E/A Ratio 0.6 Aortic Valve CLARISSA Index 1.06 cm2/m2 AoV Peak Dyllan. 160.0 (50-130 cm/s) AO Peak GR. 10.20 mmHg AO Mean GR. 7.70 (<5 mmHg) AO VTI 42.3 (18-25 cm) CLARISSA (VTI) 1.77 (2.5-4.5 cm2) Mitral Valve MV E Max Dyllan. 63.0 (40-130 cm/s) MV A Velocity 101.0 (40-130 cm/s) E/A Ratio 0.62 MV PHT 92.0 ms Pulmonary Valve PV Peak Velocity 100.0 (50-150 cm/s) Left Ventricle The left ventricle is normal size. Left ventricular systolic function is normal. The left ventricular ejection fraction is within the normal range. There is increased left ventricular wall thickness. There is normal LV segmental wall motion. Transmitral Doppler flow pattern suggests impaired LV relaxation. LVEF is 55% Right Ventricle The right ventricle is mildly dilated. The right ventricular systolic function is normal. Atria Left atrium is mildly dilated. Right atrium is mildly dilated. There is no color Doppler evidence of interatrial shunt. Aortic Valve The aortic valve is mildly thickened. There is no hemodynamically significant aortic valvular stenosis. Trace aortic regurgitation is present. Mitral Valve The mitral valve is normal in structure. No evidence of mitral valve stenosis. Trace mitral regurgitation is present. Tricuspid Valve The tricuspid valve leaflets are thin and pliable. Trace tricuspid regurgitation. There is insufficient TR jet to estimate RVSP. Pulmonic Valve The pulmonary valve is grossly normal in structure. Mild pulmonic valve regurgitation is present. Great Vessels The aortic root is normal in size. IVC is normal in size and collapses >50% with inspiration. Pericardium Trivial, anterior pericardial effusion is present. No echo indications of tamponade. Other Information Study Quality: Fair Conclusion Normal biventricular systolic function. Mild RV dilation. Mild biatrial dilation. Mild PI. Trivial, anterior pericardial effusion is present. No echo indications of tamponade. Electronically signed by : Swathi Valero MD 07/12/2025 23:49:35
--- OUTSIDE RECORDS SUMMARY | 2025-07-10 14:40 | XMS_ITS | Encounter Summary ---
Author Organization Healthcare Address [address] [place] [address] Care Team Providers Care Manager Wireless Name Role Phone Agustín Griffin MD Primary Care Provider Encounter Details Date Type Department Care Team (Late st Contact Info) Description 05/25/2025 Orders Only External Location [address] [place] [address] Provider, External Social History Tobacco Use Types Packs/Day Years Used Date Smoking Tobacco: Never Assessed Comments Unknown Sex and Gender Information Value Date Recorded Sex Assigned at Not on file Legal Sex Female 11:14 AM EDT Gender Identity Not on file Sexual Orientation Not on file documented as of this encounter Plan of Treatment Not on file documented as of this encounter Procedures Procedure Name Priority Date/Time Associated Diagnosis Comments CT OUTSIDE IMAGES 05/25/2025 8:25 AM EDT documented in this encounter Results * CT OUTSIDE IMAGES (05/25/2025 8:25 AM EDT) Anatomical Region Laterality Modality Computed Tomogra phy 05/25/2025 8:25 AM EDT us External Provider IMG CT PROCEDURES Edited Resul t - Final documented in this encounter Visit Diagnoses Not on filedocumented in this encounter Care Teams Manager Wireless Relationship Specialty Start Date End Date Agustín Griffin MD [address] [place] [address] PCP - General 07/10/25 documented as of this encounter
--- OUTSIDE RECORDS SUMMARY | 2025-07-10 14:40 | XMS_ITS | Clinical Summary ---
Author Organization [facility] Address [address] [place] [address] Care Team Providers Care Shell Sorter Name Role Phone Jus Zee MD Primary Care Provider [phone] Allergies Active Allergy Reactions Criticality Noted Date Comments Antihistamines, Chlorpheniramine-Type Other (See Comments) Low 05/25/2016 Dried me out ; however, states can tolerate Claritin and Benadryl Codeine Other (See Comments) Low 05/25/2016 Has a hard time waking up after taking Penicillins Hives Low 05/25/2016 Sulfa Antibiotics Hives Low 08/26/2017 Medications omeprazole (PriLOSEC) 40 MG capsule Take 40 mg by mouth daily. Active albuterol (PROVENTIL) (2.5 MG/3ML) 0.083% nebulizer solution Take 2.5 mg by nebulization every 4 (four) hours as needed for wheezing. Active atorvastatin (LIPITOR) 40 MG tablet Take 40 mg by mouth Every Night. Active aspirin 81 MG tablet Take 81 mg by mouth Daily. Active clopidogrel (PLAVIX) 75 MG tablet Take 75 mg by mouth Daily. Active buPROPion SR (WELLBUTRIN SR) 150 MG 12 hr tablet Take 150 mg by mouth 2 (Two) Times a Day. Active nitroglycerin (NITROSTAT) 0.[address] 0.4 mg under the tongue Every 5 (Five) Minutes As Needed for Chest Pain. Take no more than 3 doses in 15 minutes. Active furosemide (LASIX) 40 MG tablet Take 40 mg by mouth Daily. Active bisoprolol (ZEBeta) 5 MG tablet TAKE ONE TABLET BY MOUTH ONCE DAILY 30 tablet 11 8 Active cyanocobalamin 1000 MCG/ML injection 9 Active traZODone (DESYREL) 50 MG tablet 9 Active vitamin D (ERGOCALCIFEROL ) 68556 units capsule capsule Take 50,000 Units by mouth 1 (One) Time Per Week. Active metFORMIN (GLUCOPHAGE) 500 MG tablet 8 Active ALPRAZolam (XANAX) 0.25 MG tablet Take 1 tablet by mouth As Needed for Anxiety (1 po 30 minutes before scan, may repeat X 1) for up to 2 doses. 2 tablet 9 Active methylPREDNISol one (MEDROL) 4 MG dose pack Take as directed on package instructions. 21 tablet 4 Active doxycycline (MONODOX) 100 MG capsule Take 1 capsule by mouth 2 (Two) Times a Day. 14 capsule 4 Active predniSONE (DELTASONE) 20 MG tablet Take 1 tablet by mouth Daily. 10 tablet 4 Active Active Problems Problem Noted Date Diagnosed Date Memory loss 10/20/2018 SVT (supraventricular tachycardia) 08/26/2017 Essential hypertension 08/26/2017 Type 2 diabetes mellitus 08/26/2017 Dyslipidemia 08/26/2017 Social History Tobacco Use Types Packs/Day Years Used Date Smoking Tobacco: Former Cigarettes 0.5 50 1 - 06/26/2017 Smokeless Tobacco: Never Tobacco Cessation:Counseling Given: No Alcohol Use Standard Drinks/Week Comments No 0 (1 standard drink = 0.6 oz pur e alcohol) Abuse Screen Answer Date Recorded Feels Unsafe at Home or Work/School no 08/31/2024 Feels Threatened by Someone no 08/14 Does Anyone Try to Keep You From Having Contact with Others or Doing Things Outside Your Home? no 08/31/2024 Physical Signs of Abuse Present no 08/31/2024 Comments No Sex and Gender Information Value Date Recorded Sex Assigned at Not on file Legal Sex Female 10:07 AM EDT Gender Identity Not on file Sexual Orientation Not on file Last Filed Vital Signs Vital Sign Reading Time Taken Comments Blood Pressure 130/84 08/31/2024 9:30 PM EST Pulse 71 08/31/2024 9:30 PM EST Temperature 36.9 C (98.5 F) 08/31/2024 6:34 PM EST Respiratory Rate 20 08/31/2024 6:27 PM EST Oxygen Saturation 100% 08/31/2024 9:30 PM EST Inhaled Oxygen Concentration - - Weight 62 kg (136 lb 11 oz) 08/31/2024 5:[address] Height 149.9 cm (4' 11 ) 08/31/2024 5:21 PM EST Body Mass Index 27.61 08/31/2024 5:21 PM EST Plan of Treatment Health Maintenance Due Date Last Done Comments DXA SCAN 1940 ZOSTER VACCINE (1 of 2) 1990 RSV Vaccine - Adults (1 - 1- dose 75+ series) 2015 ANNUAL PHYSICAL 08/26/2017 INFLUENZA VACCINE 04/14/2025 07/16/2022, 07/23/2020 COVID-19 Vaccine (2 - 2024- season) 05/15/202506/2021 TDAP/TD VACCINES (2 - Td or Tdap) 11/27/2033 024 HEMOGLOBIN A1C Discontinued 11/04/2017 Pneumococcal Vaccine 50+ Completed 07/16/2022, 05/2020 Procedures Procedure Name Priority Date/Time Associated Diagnosis Comments HEMOGLOBIN A1C STAT 11/04/2017 10:58 AM EST from Last 3 Months or Most Recently Relevant to Health Maintenance Results * (ABNORMAL) Hemoglobin A1c (11/04/2017 10:58 AM EST) Hemoglobin A1C 6.60(H) 4.80 - 5.60 % 11/04/2017 11:30 AM EST [facility] Blood Venipuncture / Unknown 11/04/2017 10:58 AM EST 11/04/2017 11:06 AM EST Narrative [facility] - 11/04/2017 11:30 AM EST The [place] [employer] recommends maintenance of Hemoglobin A1C at 7.0% or lower. Goals for Hemoglobin A1C reduction may need to be modified if hypoglycemia is a problem. us [facility] BLOOD ORDERABLES Final Res ult [facility]
[address] [place] [address], from Last 3 Months or Most Recently Relevant to Health Maintenance Insurance MEDICARE A & B Member Subscriber Plan / Payer (Ef fective 2005-Present) Name:Georgette Ocasio Member ID:[id number] Relation to Subscriber:Self Name:Georgette Ocasio Subscriber ID:[id number] Payer ID:[id number] Group ID:Not on file Type:Not on file Address: [address] Care Teams Shell Sorter Relationship Specialty Start Date End Date Jus Zee MD [address] [facility] [address] [place] [address] PCP - General Adolescent Medicine 08/26/17
--- OUTSIDE RECORDS SUMMARY | 2025-07-10 14:40 | XMS_ITS | Patient Health Record ---
Author Organization [facility] Address [address] [place] [address] [place] [address] Care Team Providers Care Process Tank Tender Name Role Phone Jus Zee Primary Care [...] Active midodrine Midodrine rash Drug Allergy Active Reason For Referral Reason Medical Records Referral Organization [facility] Referring Provider First Name Jus Referring Provider Last Name Saadia Referring Provider Speciality Internal M edicine Referral Priority Routine Medications Medication SIG (Take, Route, Frequency, Duration) Notes Start Date End Date Status Ondansetron HCl 4 MG 1 tab(s) orally every 8 hours; Duration: 10 days Active Rosuvastatin Calcium 20 MG 1 tab(s) orally once a day (at bedtime); Duration: 90 Active Ipratropium-Albuterol 0.5-2.5 (3) MG/3ML 3 mL by nebulizer three times daily; Duration: 30 day(s) Active traZODone HCl 50 MG 2 tabs orally once a day at bedtime; Duration: 90 days Active Xarelto 15 MG 1 tab(s) orally once a day (in the evening); Duration: 90 days Active predniSONE 20 MG 1 tab(s) orally once a day; Duration: 7 day(s) 06/29/2024 Active traMADol HCl 50 MG 1 tab(s) orally every 6 hours as needed for pain; Duration: 14 days 08/20/2023 Active Furosemide 20 MG 1 tab(s) orally once a day; Duration: 30 day(s) Active Gabapentin 100 MG TAKE 1 CAPSULE BY MOUTH THREE TIMES DAILY; Duration: 30 04/03/2025 Active Azelastine HCl 0.15 % 2 spray(s) intranasally 2 times a day; Duration: 30 days prn 09/30/2023 Active PROAIR HFA 90 MCG/INH 2 PUFF(S) INHALED TWICE PER DAY, NEEDED; Duration: 30 DAYS *Please review for potential replacement for e-prescription and drug interaction check* 01/29/2024 Active Escitalopram Oxalate 10 MG 1 tab(s) orally once a day; Duration: 90 days Active Spironolactone 25 MG Take 1 tablet by mouth twice daily; Duration: 30 Active Bisoprolol Fumarate 5 MG Take 1 tablet by mouth once daily; Duration: 90 Active Donepezil HCl 5 MG 1 tab(s) orally once a day (with supper); Duration: 90 days Active Omeprazole 40 MG 1 cap(s) orally once a day; Duration: 90 days Active Immunizations Vaccine Route Administration Date Status Comme nts Prevnar PCV-20 (Pneumococcal conjugate 20) IM Intramuscular 07/16/2022 Administered Pneumovax 23 IM Intramuscular 07/23/2020 Administered Fluzone High Dose IM Intramuscular 07/23/2020 Administered Fluzone High Dose IM Intramuscular 07/16/2022 Administered Covid [place] Unknown 11/21/2020 Administered Boostrix IM Intramuscular 11/28/2023 Administered Social History Tobacco Use: Social History Observation Description Date Details (start date - stop date) Former Smoker NA - NA Smoking: Question Answer Notes Are you a: former smoker How long has it been since you last smoked? 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 (Z79.01) Active confirmed Problem Vitamin D deficiency (15454954) Vitamin D deficiency (E55.9) Active confirmed Problem Type II diabetes mellitus without complication (568664841) Diabetes mellitus type 2, noninsulin dependent (E11.9) Active confirmed Problem Essential hypertension (54049089) Essential hypertension (I10) Active confirmed Problem Chronic obstructive bronchitis (disorder) (740095742) 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) Active confirmed Problem Thyroid nodule (863993795) Thyroid nodule (E04.1) Active confirmed Problem Memory loss (16906772) Memory loss (R41.3) Active confirmed Problem Atherosclerotic heart disease of [place] coronary artery without angina pectoris (747277778115882) Coronary artery disease involving [place] coronary artery of [place] heart without angina pectoris (I25.10) Active confirmed Problem Recurrent falls (036459990) Frequent falls (R29.6) Active confirmed Problem Obstructive sleep apnea (78347395) Obstructive sleep apnea (G47.33) Active confirmed Problem Chronic serous otitis media (12955461) Bilateral chronic serous otitis media (H65.23) Active confirmed Problem Ataxia (63709435) Ataxia (R27.0) Active confirm ed Problem Exacerbation of moderate persistent asthma (disorder) (140483344) Moderate persistent asthma with acute exacerbation (J45.41) Active confirmed Problem Carotid artery stenosis (36618009) Carotid stenosis (I65.29) Active confirmed Problem Angina pectoris (006184064) Angina pectoris (I20.9) Active confirmed Problem Carotid artery occlusion (213508652) Stenosis of carotid artery, unspecified laterality (I65.29) Active confirmed Problem Major depression, single episode (34641259) Depression, reactive (F32.9) Active confirmed Problem Heart failure (99603423) Acute exacerbation of congestive heart failure (I50.9) Active confirmed Problem Paroxysmal atrial fibrillation with rapid ventricular response (0977201358) Paroxysmal atrial fibrillation with rapid ventricular response (I48.0) Active confirmed Problem Atherosclerotic heart disease of [place] coronary artery without angina pectoris (926305840427099) 2-vessel coronary artery disease (I25.10) Active confirmed Problem Seasonal allergic rhinitis (930667256) Acute seasonal allergic rhinitis, unspecified trigger (J30.2) Active confirmed Problem Chronic kidney disease stage 2 (189570035) Stage 2 chronic kidney disease (N18.2) Active confirmed Problem Allergic rhinitis caused by pollen (03759639) Allergic rhinitis due to pollen, unspecified seasonality (J30.1) Active confirmed Problem Hypertensive heart failure (34603748) Unspecified hypertensive heart disease with heart failure (I11.0) Active confirmed Problem Malignant neoplasm of respiratory system (707983566) Nonsquamous nonsmall cell neoplasm of lung, 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 [address] [place] [address] 09/01/2024 Jus Besson [facility] [address] [address] 01/13/2025 Jus Besson [facility] [address] [facility] [address] [place] [address] 04/21/2025 Jus Besson Tuberculosis screening Z11.1 Assessments Encounter Date Diagnosis (ICD Code) Assessment Notes Treatment Notes Treatment Clinical Notes Section Notes 12/17/2024 Acute exacerbation of congestive heart failure (ICD-10 - I50.9) 04/21/2025 Tuberculosis screening (ICD-10 - Z11.1) Plan Of Treatment Pending Test Test Name Order Date Physical Therapy 10/12/2018 Physical Therapy 01/10/2019 Physical Therapy 06/14/2020 M-Complete Blood Count Auto Diff 023 M-Basic Metabolic Panel 02/03/2023 M-Vitamin B12 11/28/2023 M-Vitamin B12 08/08/2019 M-Vitamin D 25 Hydroxy 08/08/2019 M-Vitamin D 25 Hydroxy 11/28/2023 M-QuantiFERON TB Gold (In Tube) 11/28/19 M-Methylmalonic Acid 10/11/2018 QUANTIFERON TB GOLD 04/21/2025 ECHOCARDIOGRAM 05/07/2024 Insurance Providers Payer Name Payer Address Payer Phone Subscriber Number Group Number Insured Name Patient Relationship to Insured Coverage Start Date Coverage End Date [place] [address] [place] [place] [phone] [id number] Georgette Ocasio Self - patient is the insured [employer] [place] [address] [address] [place] [address] [id number] Georgette Ocasio Self - patient is the insured [employer] [address] [place] [address] ACL Georgette Ocasio Self - patient is the insured Medications Administered Medication Instructions Date of Administration Dosage Notes Dexamethasone 4mg Injection 05/07/2024 4 mg Kenalog 40mg 07/24/2017 40 mg Kenalog 40mg 09/28/2017 40 mg Medical (General) History 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 History ICD Code Heart disease- 3 stents placed Paroxysmal Afib Colonoscopy 2016- 2 polyps found Mammogram Jul 2017 DEXA Jun 2016 Fall with left tibial plateau fracture s tatus post ORIF July 2022 Surgical History Surgery Date(Month/Year) 3 cardiac stents 06/2017 total hysterectomy 1973 tubal ligation 1972 appendectomy 195 Ablation 10/2017 Hospitalization History Reason Date(Month/Year) Afib 04/2020 Ablation 10/2017 childbirth x4 Cardiac Stents- [facility] 06/2017
--- OUTSIDE RECORDS SUMMARY | 2025-07-10 14:40 | XMS_ITS | Clinical Summary ---
Author Organization [facility] Address [address] [place] [address] Care Team Providers Care Trade Mark Examiner Name Role Phone Agustín Griffin MD Primary Care Provider Allergies Active Allergy Reactions Criticality Noted Date Comments Antihistamines, Chlorpheniramine-Type Other - please document in the comment field Low 05/25/2016 Dried me out ; however, states can tolerate Claritin and Benadryl Propylamine derivative with histamine receptor antagonist mechanism of action (substance) Codeine Other - please document in the comment field,Rash Low 12/18/2015 Has a hard time waking up after taking codeine Diphenhydramine Rash Medium 10/18/2014 Penicillins Hives,Other - please document in the comment field Medium 05/25/2016 Sulfa Drugs Hives Medium 08/26/2017 Medications bisoprolol (Zebeta) 5 MG tablet Take 1 tablet by mouth daily. 5 Active escitalopram (Lexapro) 10 MG tablet Take 1 tablet by mouth daily. Active omeprazole (PriLOSEC) [address] capsule Take 1 capsule by mouth daily. 5 Active predniSONE (Deltasone) 5 MG tablet Take 1 tablet by mouth daily. as directed Active spironolactone (Aldactone) 25 MG tablet Take 1 tablet by mouth 2 times a day. Active rosuvastatin (Crestor) 20 MG tablet Take 1 tablet by mouth nightly. Active Xarelto 20 MG tablet Take 1 tablet every day by oral route as directed, for PE prophylaxis. 5 Active donepezil (Aricept) 5 MG tablet TAKE 1 TABLET BY MOUTH ONCE DAILY WITH SUPPER Active Cyanocobalamin (Vitamin B-12) 5000 MCG tablet dispersible Dissolve on the tongue. Active traMADol (Ultram) 50 MG tablet Take 1 tablet by mouth every 6 hours. Active ondansetron (Zofran) 4 MG tablet as needed. Active traZODone (Desyrel) 50 MG tablet TAKE 2 TABLETS BY MOUTH ONCE DAILY AT BEDTIME Active albuterol (Proventil) (2.5 MG/3ML) 0.083% nebulizer solution Take 3 mL by nebulization every 4 hours as needed for wheezing. Active budesonide-form oterol (Breyna) 160-4.5 MCG/ACT inhaler Inhale 2 puffs 2 times a day. Active Encounters Date Type Department Care Team Description 07/10/2025 10:30 AM EDT Office Visit [facility] [address] [facility]nd [place] [address] Matt Canchola MD Shortness of breath (Primary Dx); SCC (squamous cell carcinoma) 07/10/2025 Travel 05/25/2025 Orders Only External Location [address] [place] [address] Provider, External from Last 3 Months Social History Tobacco Use Types Packs/Day Years [...] Mass Index 30.06 07/10/2025 10:08 AM EDT Plan of Treatment Health Maintenance Due Date Last Done Comments [facility]-Bone Density Scan 1940 [facility]-Depression Screening 1940 [facility]-Medicare Annual Wellness (AWV) 1940 [facility]-/Child/Adol SDOH Screenings 1940 [facility]-Obesity Intervention 1946 [facility]- SDOH Screenings 1958 [facility]-Adult SDOH Screenings 1958 [facility]-Zoster Vaccines (1 of 2) 1959 [facility]-RSV Vaccine: 60+ Years o r (1 - 1-dose 75+ series) 2015 [id number] Vaccine (2 - Edmond risk series) 12/19/2020 11/21/2020 [facility]-Influenza Vaccine (#1) 05/15/202507/16, 07/23/2020 [facility]-DTaP,Tdap,and Td Vaccine s (2 - Td or Tdap) 11/27/2033 11/28/2023 [facility]-Pneumococcal Vaccine: 50 + Years Completed 07/16/2022, 07/23/2020 HPV Vaccines Aged Out No longer eligi ble based on patient's age to complete this topic [facility]-HIB Vaccines Aged Out No longer e ligible based on patient's age to complete this topic [facility]-Hepatitis A Vaccines Aged Out No longer eligible based on patient's age to complete this topic [facility]-IPV Vaccines Aged Out No longer e ligible based on patient's age to complete this topic [facility]-Rotavirus Vaccines Aged Out No lo nger eligible based on patient's age to complete this topic Procedures Procedure Name Priority Date/Time Associated Diagnosis Comments CT OUTSIDE IMAGES 05/25/2025 8:25 AM EDT from Last 3 Months Results * CT OUTSIDE IMAGES (05/25/2025 8:25 AM EDT) Anatomical Region Laterality Modality Computed Tomogra phy 05/25/2025 8:25 AM EDT us External Provider IMG CT PROCEDURES Edited Resul t - Final from Last 3 Months Insurance MEDICARE Care Teams Trade Mark Examiner Relationship Specialty Start Date End Date Agustín Griffin MD [address] [place] [address] PCP - General 07/10/25
--- OUTSIDE RECORDS SUMMARY | 2025-07-10 14:40 | XMS_ITS | Encounter Summary ---
Author Organization [facility] Address [address] [place] [address] Care Team Providers Care Over Hauler Helper Name Role Phone Agustín Griffin MD Primary Care Provider + [phone] Encounter Details Date Type Department Care Team (Latest Contact Info) Description 07/10/2025 Travel Social History Tobacco Use Types Packs/Day Years Used Date Smoking Tobacco: Former Cigarettes 1 64 1 [id number] Smokeless Tobacco: Never Alcohol Use Standard Drinks/Week Comments Never 0 [...] on file documented as of this encounter Functional Status * AUDIT-C Score [...] Jessica Reed documented as of this encounter Plan of Treatment Not on file documented as of this encounter Visit Diagnoses Not on filedocumented in this encounter Additional Health Concerns Assessment Noted Time A fall risk assessment has been complete d for the patient 07/10/2025 10:01 AM EDT documented as of this encounter Care Teams Over Hauler Helper Relationship Specialty Start Date End Date Agustín Griffin MD [address] [place] [address] PCP - General 07/10/25 documented as of this encounter
== END 2025-07-10 23:59 | disposition home or self-care (01) ==
LOC: RT 13:45
PROVIDERS: PCP Family Medicine; Visit Provider Nurse Practitioner
DX: I37.1 Nonrheumatic pulmonary valve insufficiency (principal); I51.7 Cardiomegaly
CPT/HCPCS: 93306

== ENCOUNTER 2025-07-13 10:04 | Outpatient (CLI) | payer MEDICARE, OTHER, SELFPAY ==
--- OUTSIDE RECORDS SUMMARY | 2025-07-10 10:30 | XMS_ITS | Encounter Summary ---
Author Organization Healthcare Address [address] [place] [id number] Care Team Providers Care Consultant Intern Name Role Phone Agustín Griffin MD Primary Care Provider [phone] Reason for Referral * Consultation (Routine) - Authorized Specialty Diagnoses / Procedures Referred By Brenda sahu Referred To Contact Diagnoses SCC (squamous cell carcinoma) Matt Canchola MD [address] [place] [address] Phone: tel: fax: Referral ID Status Reason Start Date Expiration Date V isits Requested Visits Authorized [id number] Authorized 07/10/2025 01/09/2027 1 1 * Consultation (Routine) - Authorized Specialty Diagnoses / Procedures Referred By Brenda sahu Referred To Contact Pulmonology Diagnoses Shortness of breath Matt Canchola MD [address] [place] [address] Phone: tel: fax: [facility] [address] [place] [address] Phone: tel: fax: Referral ID Status Reason Start Date Expiration Date Visits Requested Visits Authorized [id number] Authorized Specialty Services Required 01/09/2027 1 1 Scheduling Instructions Please schedule with Dr. Sorensen in [facility] Reason for Visit * Reason Comments New Patient * Consultation (Routine) - Closed Specialty Diagnoses / Procedures Referred By Brenda t Referred To Contact Hematology and Oncology Diagnoses Lung cancer (CMS/HCC) Jannette Howell, REPORTING SPECIALIST [address] [facility] [address] [place] [id number] Phone: tel: fax: [facility] [address] [facility] [place] [address] Phone: tel: fax: Referral ID Status Reason Start Date Expiration Date V isits Requested Visits Authorized [id number] Closed Specialty Services Required 07/03/2025 01/02/2027 1 1 Encounter Details Date Type Department Care Team (Late st Contact Info) Description 07/10/2025 10:30 AM EDT Office Visit [facility] [address] [facility] [place] [address] Matt Canchola MD [address] [place] [address] Shortness of breath (Primary Dx); [...] remission a 2023 and recently moved to [place] and looking to establish care. She was seen by Dr. Alberts Somerset who performed a PET-CT 07/07/25. We are [...] past pulmonary symptoms. Past Oncology Visit in [place] 09/2022 patient presented with hemoptysis and she [...] her initial visit at the clinic of [facility]. 11/03/2023: Patient underwent left lower lobe BAL; [...] remaining imaging from oncologist Plan -Refer to [facility] -Refer to [facility] -Request remaining records and imaging from [facility] Codey Sorensen DO Pulmonary and Critical [...] treated with SBRT. Will get records from [place], the old scan She will not need procedure currently. PET is negative for the LLL small nodule She will establish care with [facility] survivorship clinic. Has COPD and will refer [...] Description 10/05/2025 1:00 PM EST Ancillary Procedure [facility] Medicine Specialties [address] [place] [address] 10/05/2025 2:00 PM EST Office [facility] Medicine [facility] [address] [place] [address] Codey Sorensen, DO [address] [place], [place] [id number] Scheduled Orders Name Type Priority Associated Diagnoses [...] documented as of this encounter Care Teams Consultant Intern Relationship Specialty Start Date End Date Agustín Griffin MD [address] [place] [address] [address] [place] [address] PCP - General 07/10/25 documented as of this encounter
--- OUTSIDE RECORDS SUMMARY | 2025-07-13 10:30 | XMS_ITS | Clinical Summary ---
Author Organization [facility] Address [address] [place] [address] Care Team Providers Care Air Quality Technician Name Role Phone Agustín Griffin MD Primary [...] [facility] [address] [facility] [place] [address] Matt Canchola MD Shortness of breath (Primary Dx); SCC (squamous cell carcinoma) 07/10/2025 Travel 05/25/2025 Orders Only External Location [address] [place] [address] Provider, External from Last 3 Months Social [...] 07/10/2025 10:08 AM EDT Plan of Treatment Upcoming Encounters Date Type Department Care Team (Late st Contact Info) Description 10/05/2025 1:00 PM EST Ancillary Procedure [facility] [address] [place] [address] 10/05/2025 2:00 PM EST Office Visit [facility] [address] [place] [address] Codey Sorensen, DO [address] [place] [address] Health Maintenance Due Date Last Done Comments [facility]-Bone Density Scan 1940 [facility]-Depression Screening 1940 [facility]-Medicare Annual Wellness (AWV) 1940 [facility]-/Child/Adol SDOH Screenings 1940 [facility]-Obesity Intervention 1946 [facility]- SDOH Screenings 1958 [facility]-Adult SDOH Screenings 1958 [facility]-Zoster Vaccines (1 of 2) 1959 [facility]-RSV Vaccine: 60+ Years o r (1 - 1-dose 75+ series) 2015 [id number] Vaccine (2 - Edmond risk series) 12/19/2020 [...] Last 3 Months Insurance MEDICARE Care Teams Air Quality Technician Relationship Specialty Start Date End Date Agustín Griffin MD [address] [place] [address] PCP - General 07/10/25
--- OUTSIDE RECORDS SUMMARY | 2025-07-13 10:30 | XMS_ITS | Clinical Summary ---
Author Organization [facility] Address [address] [place] [address] Care Team Providers Care Principal Database Developer Name Role Phone Jus Zee MD Primary Care Provider [phone] Allergies Active Allergy Reactions Criticality Noted Date [...] tablet 9 Active vitamin D (ERGOCALCIFEROL ) 05968 units capsule capsule Take 50,000 Units by [...] Date Last Done Comments DXA SCAN 1940 DIABETIC EYE EXAM 1950 DIABETIC FOOT EXAM 1950 URINE MICROALBUMIN-CREATININE RATIO (uACR) 1950 ZOSTER VACCINE (1 of 2) 1990 RSV Vaccine - Adults (1 - 1- dose 75+ series) 2015 ANNUAL WELLNESS VISIT 08/26/2017 HEMOGLOBIN A1C 05/04/2018 11/04/2017 COVID-19 Vaccine (2 - Edmond risk series) 12/19/2020 11/21/2020 INFLUENZA VACCINE 04/14/2025 07/16/2022, 07/23/2020 TDAP/TD VACCINES (2 - Td or Tdap) 11/27/2033 024 Pneumococcal Vaccine 50+ Completed 07/16/2022, 05/2020 Procedures Procedure Name Priority Date/Time Associated Diagnosis Comments HEMOGLOBIN A1C STAT 11/04/2017 10:58 AM EST from Last 3 Months or Most Recently Relevant to Health Maintenance Results * (ABNORMAL) Hemoglobin A1c (11/04/2017 10:58 AM EST) Hemoglobin A1C 6.60(H) 4.80 - 5.60 % 11/04/2017 11:30 AM EST [facility] Blood Venipuncture / Unknown 11/04/2017 10:58 AM EST 11/04/2017 11:06 AM EST Narrative [facility] - 11/04/2017 11:30 AM EST The [place] [employer] recommends maintenance of Hemoglobin A1C at 7.0% or lower. Goals for Hemoglobin A1C reduction may need to be modified if hypoglycemia is a problem. us [facility] BLOOD ORDERABLES Final Res ult [facility]
[address] [place] [address], from Last 3 Months or Most Recently Relevant to Health Maintenance Insurance MEDICARE A & B [facility] Care Teams Principal Database Developer Relationship Specialty Start Date End Date Jus Zee MD [address] [facility] [address] [place] [address] PCP - General Adolescent Medicine 08/26/17
--- OUTSIDE RECORDS SUMMARY | 2025-07-13 10:30 | XMS_ITS | Encounter Summary ---
Author Organization [facility] Address [address] [place] [address] Care Team Providers Care Staff Training And Development Manager Name Role Phone Agustín Griffin MD Primary Care Provider Encounter Details Date Type Department Care Team (Late st Contact Info) Description 05/25/2025 Orders Only External Location [address] [place] [phone] Provider, External Social History Tobacco Use Types Packs/Day Years Used Date Smoking Tobacco: Never Assessed Comments Unknown Sex and Gender Information Value Date Recorded Sex Assigned at Not on file Legal Sex Female 11:14 AM EDT Gender Identity Not on file Sexual Orientation Not on file documented as of this encounter Plan of Treatment Upcoming Encounters Date Type Department Care Team (Late st Contact Info) Description 10/05/2025 1:00 PM EST Ancillary Procedure [facility] [address] [place] [address] 10/05/2025 2:00 PM EST Office Visit [facility] [address] [place] [address] Codey Sorensen, DO [address] [place] [address] documented as of this encounter Procedures Procedure [...] on filedocumented in this encounter Care Teams Staff Training And Development Manager Relationship Specialty Start Date End Date Agustín Griffin MD [address] [place] [address] PCP - General 07/10/25 documented as of this encounter
--- OUTSIDE RECORDS SUMMARY | 2025-07-13 10:30 | XMS_ITS | Encounter Summary ---
Author Organization [facility] Address [address] [place] [address] Care Team Providers Care Pharmacy Clinical Coordinator Name Role Phone Agustín Griffin MD Primary Care Provider + [phone] Encounter Details Date Type Department Care Team (Latest Contact Info) Description 07/10/2025 Travel Social History Tobacco Use Types Packs/Day Years Used Date Smoking Tobacco: Former Cigarettes 1 64 1 [id number] Smokeless Tobacco: Never Alcohol Use Standard Drinks/Week [...] Description 10/05/2025 1:00 PM EST Ancillary Procedure [address] [address] 10/05/2025 2:00 PM EST Office Visit [address] [address] Codey Sorensen, DO [address] [place], [place] [phone] documented as of this encounter Visit Diagnoses Not on filedocumented in this encounter Additional Health Concerns Assessment Noted Time A fall risk assessment has been complete d for the patient 07/10/2025 10:01 AM EDT documented as of this encounter Care Teams Pharmacy Clinical Coordinator Relationship Specialty Start Date End Date Agustín Griffin MD [facility] [place] [address] [place] [address] PCP - General 07/10/25 documented as of this encounter
[2025-07-13 10:42] LABS: Hematocrit 30.8 % (37.0-47.0); Hemoglobin 9.0 g/dL (12.2-16.2); Immature Granulocytes % 0.3 %; Mean Corpuscular HGB Conc 29.2 g/dL (31.8-35.4); Mean Corpuscular Hemoglobin 25.4 pg (27.0-31.2); Mean Corpuscular Volume 87.0 fl (81-99); Nucleated Red Blood Cells % 0 %; Platelet Count 243 K/mm3 (142-424); Red Blood Count 3.54 M/mm3 (4.20-5.40); Red Cell Distribution Width-SD 46.3 fL; White Blood Count 8.7 K/mm3 (4.8-10.8)
[2025-07-13 11:36] LABS: Albumin Level 3.2 g/dl (3.5-5.0); Chloride 103 mmol/L (98-107)
[2025-07-13 11:37] LABS: Potassium 4.7 mmoL/L (3.5-5.1); Sodium 135 mmol/L (136-145)
[2025-07-13 11:39] LABS: Alanine Aminotransferase 12 U/L (12-78); Anion Gap 9.7 mEq/L (5-15); Aspartate Amino Transferase 20 U/L (14-36); Bilirubin,Unconjugated 0.4 mg/dL (0.0-1.1); Carbon Dioxide 27 mmol/L (22.0-30.0); Total Protein,Serum 6.3 g/dl (6.3-8.2)
[2025-07-13 11:40] LABS: Alkaline Phosphatase 74 U/L (38-126); Bilirubin,Direct 0.0 mg/dl (0.0-0.4); Bilirubin,Indirect 0.4 mg/dL (0.0-0.9); Bilirubin,Total 0.4 mg/dl (0.2-1.3); Calcium 9.2 mg/dl (8.4-10.2); Cholesterol 134 mg/dl (140-200); Glucose 127 mg/dl (74-100); HDL Cholesterol 73 mg/dl (40-60); Magnesium 1.9 mg/dl (1.6-2.3); Triglycerides 129 mg/dl (30-150)
[2025-07-13 11:44] LABS: Blood Urea Nitrogen 17 mg/dl (7-17)
[2025-07-13 11:46] LABS: Free T4 (Free Thyroxine) 0.82 ng/dl (0.78-2.19)
[2025-07-13 12:01] LABS: Creatinine,Serum 1.50 mg/dl (0.52-1.04); Estimated Glomerular Filt Rate 33 ml/min (>60)
[2025-07-13 12:02] LABS: GFR (African American) 40 ML/MIN (>60)
[2025-07-13 12:10] LABS: Thyroid Stimulating Hormone 1.17 uIU/mL (0.465-4.68)
== END 2025-07-13 23:59 | disposition home or self-care (01) ==
LOC: LAB 10:05
PROVIDERS: PCP Family Medicine; Visit Provider Nurse Practitioner
DX: I25.10 Atherosclerotic heart disease of native coronary artery without angina pectoris (principal); E78.5 Hyperlipidemia, unspecified
CPT/HCPCS: 36415; 80048; 80061; 80076; 83735; 84439; 84443; 85025

== ENCOUNTER 2025-07-18 12:02 | Outpatient (CLI) | payer MEDICARE, OTHER, SELFPAY ==
--- OUTSIDE RECORDS SUMMARY | 2024-12-17 16:30 | XMS_ITS ---
Author Organization [facility] S[facility] Address [address] [place] [address] Care Team Providers Care Prosthetist Name Role Phone Jus Zee Primary Care Provider Jus Zee Unavailable Unavailable Migration, Provider Unavailable Unavailable Allergies Allergen (clinical drug ingredient) Drug/Non Drug Allergy documented on EMR Reaction Allergy Type Onset Date Status ANTIHISTAMINES (uncoded) Unknown Allergy Active SULFA DRUGS (uncoded) Unknown Allergy Active doxycycline Doxycycline vomiting Drug Allergy Act elin codeine Codeine vomiting, rash Drug Allergy Ac tive Penicillin rash Drug Allergy Active midodrine Midodrine rash Drug Allergy Active REASON FOR VISIT [facility] To [facility] Conversion Encounter Medications Medication SIG (Take, Route, Frequency, Duration) Notes Start Date End Date Status Rosuvastatin Calcium 20 MG 1 tab(s) orally once a day (at bedtime); Duration: 90 Active predniSONE 20 MG 1 tab(s) orally once a day; Duration: 7 day(s) 06/29/2024 Active Furosemide 20 MG 1 tab(s) orally once a day; Duration: 30 day(s) Active Gabapentin 100 MG 1 cap(s) orally 3 times a day; Duration: 30 days 11/23/2024 Active Omeprazole 40 MG 1 cap(s) orally once a day; Duration: 90 days Active traZODone HCl 50 MG 2 tabs orally once a day at bedtime; Duration: 90 days Active Xarelto 15 MG 1 tab(s) orally once a day (in the evening); Duration: 90 days Active traMADol HCl 50 MG 1 tab(s) orally every 6 hours as needed for pain; Duration: 14 days 08/20/2023 Active Azelastine HCl 0.15 % 2 spray(s) intranasally 2 times a day; Duration: 30 days prn 09/30/2023 Active PROAIR HFA 90 MCG/INH 2 PUFF(S) INHALED TWICE PER DAY, NEEDED; Duration: 30 DAYS *Please review for potential replacement for e-prescription and drug interaction check* 01/29/2024 Active Donepezil HCl 5 MG 1 tab(s) orally once a day (with supper); Duration: 90 days Active Ondansetron HCl 4 MG 1 tab(s) orally every 8 hours; Duration: 10 days Active Ipratropium-Albuterol 0.5-2.5 (3) MG/3ML 3 mL by nebulizer three times daily; Duration: 30 day(s) Active Spironolactone 25 MG 1 tab(s) orally twice daily; Duration: 30 days Active Escitalopram Oxalate 10 MG 1 tab(s) orally once a day; Duration: 90 days Active Bisoprolol Fumarate 5 MG 1 tab(s) orally once a day; Duration: 90 days Active Encounters Encounter Location Date Provider Diagnosis [facility] [address] [facility] [address] [place] [address] 12/17/2024 Provider Migration Acute exacerbation o f congestive heart failure I50.9 Assessments Encounter Date Diagnosis (ICD Code) Assessment Notes Treatment Notes Treatment Clinical Notes Section Notes 12/17/2024 Acute exacerbation of congestive heart failure (ICD-10 - I50.9) Plan Of Treatment Medication Medication Name Sig Start Date Stop Date Notes Rosuvastatin Calcium 20 MG 1 tab(s) oral ly once a day (at bedtime); Duration: 90 predniSONE 20 MG 1 tab(s) orally once a day; Duration: 7 day(s) 06/29/2024 Furosemide 20 MG 1 tab(s) orally once a day; Duration: 30 day(s) Gabapentin 100 MG 1 cap(s) orally 3 ti mes a day; Duration: 30 days 11/23/2024 Omeprazole 40 MG 1 cap(s) orally once a day; Duration: 90 days Donepezil HCl 5 MG 1 tab(s) orally once a day (with supper); Duration: 90 days Spironolactone 25 MG 1 tab(s) orally twi ce daily; Duration: 30 days Escitalopram Oxalate 10 MG 1 tab(s) oral ly once a day; Duration: 90 days Bisoprolol Fumarate 5 MG 1 tab(s) orally once a day; Duration: 90 days Progress Notes * Queenie BUCIOlucianoDOB: [birth year] (85 yo F)Acc No.[id number]:12/17/2024 Patient: Georgette ART Provider: Deana gibbons Migration :1940 A ge:84 Y S ex:Female Date:12/17/2024 Address:[address] [place] [address], [id number] Pcp:Jus Zee Subjective: * Chief Complaints: * 1 . [facility] Conversion Encounter. * 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: * Medications: T aking Ondansetron HCl 4 MG Tablet 1 tab(s) orally every 8 hours , Taking Ipratropium-Albuterol 0.5-2.5 (3) MG/3ML Solution 3 mL by nebulizer three times daily , Taking Xarelto 15 MG Tablet 1 tab(s) orally once a day (in the evening) , Taking traMADol HCl 50 MG Tablet 1 tab(s) orally every 6 hours as needed for pain , Taking traZODone HCl 50 MG Tablet 2 tabs orally once a day at bedtime , Taking Azelastine HCl 0.15 % Solution 2 spray(s) intranasally 2 times a day , Notes to Pharmacist: prn, Taking PROAIR HFA 90 MCG/INH AEROSOL 2 PUFF(S) INHALED TWICE PER DAY, NEEDED , Notes to Pharmacist: *Please review for potential replacement for e-prescription and drug interaction check* * Allergies: P enicillin: rash, ANTIHISTAMINES, Codeine: vomiting, rash, SULFA DRUGS, Midodrine: rash, Doxycycline: vomiting - Allergy. Objective: * Vitals: Assessment: * Assessment: 1. A cute exacerbation of congestive heart failure - I50.9 Plan: * Treatment: 2. O thers Start Escitalopram Oxalate Tablet, 10 MG, 1 tab(s), orally, once a day, 90 days, 90 Tablet, Refills 3; S tart predniSONE Tablet, 20 MG, 1 tab(s), orally, once a day, 7 day(s), 7; S tart Rosuvastatin Calcium Tablet, 20 MG, 1 tab(s), orally, once a day (at bedtime), 90, 90, Refills 3; S tart Furosemide Tablet, 20 MG, 1 tab(s), orally, once a day, 30 day(s), 30, Refills 1; S tart Omeprazole Capsule Delayed Release, 40 MG, 1 cap(s), orally, once a day, 90 days, 90 Capsule, Refills 1; S tart Bisoprolol Fumarate Tablet, 5 MG, 1 tab(s), orally, once a day, 90 days, 90 Tablet, Refills 1; S tart Donepezil HCl Tablet, 5 MG, 1 tab(s), orally, once a day (with supper), 90 days, 90, Refills 1; S tart Gabapentin Capsule, 100 MG, 1 cap(s), orally, 3 times a day, 30 days, 90 Capsule, Refills 1. * * Electronic signature of Prov ider Migration on 07/18/2025 at 12:06 PM EST Sign off status: Pending * Provider: Deana gibbons Migration Date: 0 12/17/2024 Generated for Mohsen fox/Lynette/Oseas on: 09/17/2024 12:06 PM EST
--- OUTSIDE RECORDS SUMMARY | 2025-07-10 09:30 | XMS_ITS | Encounter Summary ---
Author Organization Healthcare Address [address] [place] [id number] Care Team Providers Care Elementary School Librarian Name Role Phone Agustín Griffin MD Primary Care Provider [phone] Reason for Referral * Consultation (Routine) - Authorized Specialty Diagnoses / Procedures Referred By Brenda sahu Referred To Contact Diagnoses SCC (squamous cell carcinoma) Matt Canchola MD [address] [place] [address] Phone: tel: fax: Referral ID Status Reason Start Date Expiration Date V isits Requested Visits Authorized [id number] Authorized 07/10/2025 01/09/2027 1 1 * Consultation (Routine) - Authorized Specialty Diagnoses / Procedures Referred By Brenda sahu Referred To Contact Pulmonology Diagnoses Shortness of breath Matt Canchola MD [address] [place] [address] Phone: tel: fax: [facility] [address] [place] [address] Phone: tel: fax: Referral ID Status Reason Start Date Expiration Date Visits Requested Visits Authorized [id number] Authorized Specialty Services Required 01/09/2027 1 1 Scheduling Instructions Please schedule with Dr. Sorensen in [facility] Reason for Visit * Reason Comments New Patient * Consultation (Routine) - Closed Specialty Diagnoses / Procedures Referred By Brenda t Referred To Contact Hematology and Oncology Diagnoses Lung cancer (CMS/HCC) Jannette Howell, CUSTOMER RELATIONSHIP SPECIALIST [address] [facility] [address] [place] [id number] Phone: tel: fax: [facility] [address], [address] [place] [address] Phone: tel: fax: Referral ID Status Reason Start Date Expiration Date V isits Requested Visits Authorized [id number] Closed Specialty Services Required 07/03/2025 01/02/2027 1 1 Encounter Details Date Type Department Care Team (Late st Contact Info) Description 07/10/2025 10:30 AM EDT Office Visit [facility] [address] [place] [address] Matt Canchola MD [address] [place] [address] Shortness of breath (Primary Dx); SCC (squamous cell carcinoma) Social History Tobacco Use Types Packs/Day Years Used Date Smoking Tobacco: Former Cigarettes 1 64 1 955 - 2019 Smokeless Tobacco: Never Tobacco Cessation:Counseling Given: Not Answered Alcohol Use Standard Drinks/Week Comments Never 0 (1 standard drink = 0.6 oz pur e alcohol) AUDIT-C Answer Date Recorded Q1: How often do you have a drink containing alcohol? Never 07/10/2025 Q2: How many drinks containi ng alcohol do you have on a typical day when you are drinking? Patient does not drink Q3: How often do you have si x or more drinks on one occasion? Never 07/10/2025 Comments Unknown Sex and Gender Information Value Date Recorded Sex Assigned at Not on file Legal Sex Female 11:14 AM EDT Gender Identity Not on file Sexual Orientation Not on file documented as of this encounter Last Filed Vital Signs Vital Sign Reading Time Taken Comments Blood Pressure 124/51 07/10/2025 10:08 AM EDT Pulse 51 07/10/2025 10:08 AM EDT Temperature - - Respiratory Rate 14 07/10/2025 10:08 AM EDT Oxygen Saturation 97% 07/10/2025 10:08 AM EDT Inhaled Oxygen Concentration - - Weight 67.5 kg (148 lb 13 oz) 07/10/2025 10:08 A M EDT Height 149.9 cm (4' 11 ) 07/10/2025 10:08 AM EDT Body Mass Index 30.06 07/10/2025 10:08 AM EDT documented in this encounter Functional Status * AUDIT-C Score Answer Date of Assessment Author 0 07/10/2025 9:58 AM EDT Jessica Reed * Question Answer Date of Assessment Author Q1: How often do you have a drink containing alcohol? Never 07/10/2025 9:58 AM EDT Jessica Reed Q2: How many drinks containing alcohol do you have on a typical day when you are drinking? Patient does not drink 07/10/2025 9:58 AM EDT Jessica Reed Q3: How often do you have six or more drinks on one occasion? Never 07/10/2025 9:58 AM EDT Jessica Reed * Calculated C-SSRS Risk Score (Lifetime/Recent) Answer Date of Assessment Author No Risk Indicated 07/10/2025 10:00 AM EDT Jessica Monroe * Question Answer Date of Assessment Author 1. Wish to be (Past 1 Month) No 025 10:00 AM EDT Jessica Reed 2. Non-Specific Active Suici ivan Thoughts (Past 1 Month) No 07/10/2025 10:00 AM EDT Husam Reed 6. Suicidal Behavior (Lifetime) No 10:00 AM EDT Jessica Reed documented as of this encounter Miscellaneous Notes * Patient Instructions - Summer Jeffries RN - 07/10/2025 10:30 AM EDT You have been referred to the cancer survivorship clinic, as well as general pulmonology with a newlung function test. Scheduling will reach out to you with these appointments. * Progress Notes - Codey Sorensen, - 07/10/2025 10:30 AM EDT Images from the original note were not included. HEAD, NECK, RESPIRATORY CLINIC Referring physician: Jannette Howell APRN Chief Complaint No chief complaint on file. History Of Present Illness Georgette Ocasio is a 85 y.o. female presenting with lung nodule in the LLL. 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 She stated she was remission a 2023 and recently moved to [place] and looking to establish care. She was seen by Dr. Alberts Loyal who performed a PET-CT 07/07/25. We are seeing the patient as a new patient, on the request of Jannette Howell APRN. The single nodule/s are present in the LLL. The nodule measures 8 mm in diameter, the nodule is smooth. We reviewed the 05/25/25 scan showing the lingula nodule and ground glass changes. The patient had an abnormal imaging study but reports experiencing no current or past pulmonary symptoms. Past Oncology Visit in [place] 09/2022 patient presented with hemoptysis and she was diagnosed with pneumonia. 10/21/23 CTA chest : 1. Interval growth of left pulmonary mass which now measures up to 3.9cm. 2. Segmental RUL pulmonary arterial filling defect may reflect a small embolus although this is associated with some motion artifact. 10/22/2023 LEFT LUNG MASS BIOPSY A. Lung, endobronchial biopsy, left lower lobe:Benign bronchial wall with no abnormalities identified. B. Lung, transbronchial lung parenchyma with no abnormalities identified. 10/29/2023 PET PET avid LLL mass with surrounding airspace disease similar to outside CT imaging. 4.1 x 4 cm PET activity adjacent to the left heart margin is new from the outside study most likely inflammatory change. Old granulomatous disease. 4.3 cm infrarenal aortic aneurysm 11/24/2023: I saw the patient for her initial visit at the clinic of [facility]. 11/03/2023: Patient underwent left lower lobe BAL; Interpretation A. LUNG, LEFT LOWER LOBE, BAL / LEFT LOWER LOBE LUNG MASS FOR CYTOLOGY, BRONCHOALVEOLAR LAVAGE (THIN PREP CYTOLOGY AND CELL BLOCK MATERIAL): POSITIVE FOR MALIGNANCY. Past 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 She has no past medical history on file. Surgical History She has no past surgical history on file. Family History Family History[1] Social History She has no history on file for tobacco use, alcohol use, and drug use. Review of Systems: Complete 14 point review of systems is negative except for positives documented in HPI Allergies Patient has no allergy information on record. Home Medications Current Medications[2] Medications Ordered Prior to Encounter[3] Medications Current Scheduled Medications[4] Current Continuous Medications[5] Current PRN Medications[6] Physical Exam GENERAL: Alert and oriented x 3 EYES: anicteric sclerae, moist conjunctivae; no lid-lag; PERRLA HENT: Atraumatic; oropharynx clear with moist mucous membranes and no mucosal ulcerations; normal hard and soft palate NECK: Trachea midline; Neck is supple, no thyromegaly or lymphadenopathy . RESP: Airway patent, good air movement, mild wheezing but speaking in full sentences. CARD: RRR, without murmur, rubs, or gallop Extremities: No edema, cyanosis or clubbing. Pulses palpable +2. GI: No organomegaly or masses. Abdomen is soft, nontender and nondistended. BS present x 4 quadrants SKIN: Normal temperature, turgor and texture; no rash, ulcers or subcutaneous nodules NEURO: No deficits noted Last Recorded Vitals There were no vitals taken for this visit. Results CBC WBC ?? Hb ?? Plt ?? Hct ?? ANC ?? INR ??, PTT ??, Anti-Xa ?? BMP Na ?? Cl ?? BUN ?? Glu ?? K ?? Co2 ?? Cr ?? Ca ?? iCa ?? Mg ??, Phos ?? Lactate ?? LFT AST ?? AlkPhos ?? T Prot ?? ALK ?? Bili ?? Alb ?? D.Bili ?? Radiology CT Chest on 05/25/25 Showing TRUNG anterior nodule PET scan PET/CT on 07/07/25 reviewed in PACS and did not show significant PET uptake Assessment and Plan Georgette Ocasio is a 85 y.o. female presenting with lung nodule in the LLL. 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 She was referred to us due to concerns of the 8mm pulmonary nodule. Without PET positivity lower suspicion nodule is malignant however will refer to Lung Cancer survivorship clinic. #Squamous Cell Carcinoma s/p SBRT #LLL Pulmonary Nodule -In remission per patient 01/2024 -Diagnoses in 10/2023 on biopsy -Had PET/CT on 07/07/25 not showing PET positivity -Lower suspicion of malignancy however will have patient follow in lung cancer survivorship clinic,recommend follow up 6-[address] -Lee score of 7.7% -Awaiting remaining imaging from oncologist Plan -Refer to [facility] [place] [facility] -Refer to [facility] -Request remaining records and imaging from [facility] Codey Sorensen DO Pulmonary and Critical Care Fellow [1] No family history on file. [2] No current outpatient medications on file. [3] No current outpatient medications on file prior to visit. No current facility-administered medications on file prior to visit. [4] [5] [6] Cosigned by Matt Canchola MD at 07/11/2025 8:52 AM EDT Associated attestation - Matt Canchola MD - 07/11/2025 8:52 AM EDT I saw and evaluated the patient with the resident/fellow. I discussed the case with the resident/fellow and agree with the findings and plan as documented. History of biopsy proven cancer of the LLL, treated with SBRT. Will get records from [place], the old scan She will not need procedure currently. PET is negative for the LLL small nodule She will establish care with [facility]. Has COPD and will refer to gen pulm clinic as she would like to establish care the for all her health care needs. I personally spent a total of approximately 60 minutes on this encounter. This time includes face to face with patient, spent reviewing pertinent medical/family/social history, performing physical exam, clinically evaluating, interpreting labs/imaging, ordering necessary studies (i.e. medication, tests, procedures) and counseling patient, and discussion and/or coordination of care. This does not include time spent with patient by nursing or clerical staff. documented in this encounter Plan of Treatment Upcoming Encounters Date Type Department Care Team (Late st Contact Info) Description 10/05/2025 1:00 PM EST Ancillary Procedure [facility] Medicine Specialties [address] [place] [address] 10/05/2025 2:00 PM EST Office Visit [facility] Medicine [facility] [address] [place] [address] Codey Sorensen, DO [address] [place], [place] [phone] Scheduled Orders Name Type Priority Associated Diagnoses Orde r Schedule Pulmonary Function Test PFT Routine Shortness of breath 1 Occurrences starting 07/10/2025 until 01/11/2027 Scheduled Referrals Name Type Priority Associated Diagnoses Order Schedule Ambulatory referral to Pulmonology Outpatient Referral Routine Shortness of breath 1 Occurrences starting 07/10/2025 until 01/11/2027 Ambulatory referral to Cancer Survivorship Outpatient Referral Routine SCC (squamous cell carcinoma) Expected: 07/10/2025 (Approximate), Expires: 01/11/2027 documented as of this encounter Visit Diagnoses Diagnosis Shortness of breath- Primary SCC (squamous cell carcinoma) Other malignant neoplasm of skin, site unspecified documented in this encounter Additional Health Concerns Assessment Noted Time A fall risk assessment has been complete d for the patient 07/10/2025 10:01 AM EDT documented as of this encounter Care Teams Elementary [employer] Librarian Relationship Specialty Start Date End Date Agustín Griffin MD [address] [place] [address] [address] [place] [address] PCP - General 07/10/25 documented as of this encounter
--- NOTE | 2025-07-18 | CA_ITS ---
APPROVED REPORT Exam: Pharmacologic Technologist: Hermelinda Leroy Stress Nurse: Yolis LEON, RN Ht: 5 ft 9 in Wt: 149 lbs BSA: 1.82 m2 HR: 51 bpm BP: 134/60 mmHg Indications: Dyspnea, Coronary Artery Disease, Hyperlipidemia Stress Test Details Test: Lexiscan HR Resting HR: 51 bpm Max Heart Rate (APMHR): 135.023458 bpm Max HR Achieved: 81 bpm Target HR (85% APMHR): 114.179439 bpm % of APMHR: 60.00 Recovery HR: 76 bpm BP Resting BP: 134.0/60.0 mmHg Max BP: 153.0/69.0 mmHg Recovery BP: 153.0/69.0 mmHg ECG Resting ECG: Sinus rhythm/Bradycardia Stress ECG Conclusion Lungs clear to auscultation prior to test start. Symptoms: Dyspnea Arrhythmias/Ectopy: None ST-T Changes: Less than 0.[address] segment changes. Conclusion: Nondiagnostic ECG/Lexiscan Electronically signed by : Swathi Valero MD 07/19/2025 00:57:17
--- NOTE | 2025-07-18 12:00 | NM_ITS ---
APPROVED REPORT Exam: Nuclear Stress Test Indication: cp...soa Patient Location: Outpatient Stress Tech: Hermelinda Leroy MA Tech:Estefany Figueroa, JOSEPHT, RT (R)(N) Ht: 4 ft 11 in Wt: 135 lbs Bra Size: large HR: 51 bpm BP: 134/60 mmHg BSA: 1.56 m2 TID: 1.04 BMI: 27.2 History: cp...soa Procedure: Patient received 0.4 mg of intravenous Lexiscan, resting heart rate 51 bpm, resting blood pressure 134/60 mmHg, with Lexiscan maximum heart rate achieved was 81 bpm which is 85 % of the maximum predicted heart rate and blood pressure was 153/69 mmHg. With Lexiscan, patient denied any complaint of chest pain. The patient was not able to lay on her abdomen for the prone images. Cardiac Stress and Resting SPECT Images: Cardiac Stress and Resting SPECT images were obtained using technetium 99m Myoview 32.3 mCi stress and 10.47 mCi at rest. The patient could not lie on her abdomen. Therefore, prone stress imaging could not be performed. This may affect the diagnostic interpretation of the study findings. Resting and stress imaging in supine positions demonstrate no evidence of fixed or reversible perfusion defects. Gated imaging demonstrates normal global LV systolic function. LVEF is calculated at 72%. Conclusion: No evidence of fixed or reversible perfusion defects. Gated imaging demonstrates normal global LV systolic function. LVEF is calculated at 72%. Electronically signed by : Swathi Valero MD 07/19/2025 00:52:37
--- OUTSIDE RECORDS SUMMARY | 2025-07-18 12:06 | XMS_ITS | Continuity of Care Document ---
Author Organization [facility] Pulmonology [address] [place] [address] Care Team Providers Care Core Fitter Name Role Phone HAMMAD CABRERA Primary Care Provider Assessment No assessment recorded. Plan of Treatment Reminders Order Date Submit Date Provider Last Modified By Organization Details Last Modified Time Details Appointments None recorde d. Lab None recorde d. Referral None recorde d. Procedures None recorde d. Surgeries None recorde d. Imaging PET-CT, skull base to mid-thi gh scan 06/08/20 Gtwn [place] Number, [address] [facility], [place], [address], 11:53:15 Medication Orders None recorde d. Patient TargetsNo targets recorded. Patient InstructionsNo instructions recorded. Reason for Referral None Reported. Results Created Date Observation Date Name Description Value Unit Range Abnormal Flag Note LastModifiedBy Organization Detail LastModifiedTime 05/25/2005/25/2025 CT, chest , w/o contr ast [facility] [address] [place] [address] Phone: Fax: Name: PATRIA ROSALES Exam Date: : 1939 Age 84 years Gender : F Access ion: [id number] Physic geovanni: RYAN Mckeon, DIONY Facili ty: [facility] Facili ty HSV: Outpat ient Exam: CT CHEST W/O EXAM: CT CHEST WITHOU T CONTRA ST. INDICA TION: malign ant neopla sm of lower lobe left bronch us or lung . Per order: Simple and mucopu rulent chroni c bronch itis. TECHNI QUE: Chest CT was perfor med withou t contra st. Sagitt al and darnell l reform ats. This examin ation was perfor med using one or more of the follow ing dose optimi zation techni ques: Automa ulises exposu re contro l; Adjust ment of the mA and/or kV accord ing to patien t size; use of iterat elin recons tructi on techni que. Unless specif ied, no imagin g follow -up is recomm ended for incide ntal findin gs. COMPAR GABRIELE: No prior study was submit ulises for compar gabriele. FINDIN GS: DEVICE S:None . LUNG PARENC HYMA:M ild centri lobula r emphys ibis. Curvil inear opacit ies within each lung consis tent with scarri ng or atelec tasis. Calcif ied right middle lobe granul sheela. Part solid juxtap leural nodule within the third rail installer ior right lower lobe measur ing approx imatel y 5.8 x 4.8 x 5.3 mm. Solid noncal cified spicul ated nodula r densit y within the left lower lobe measur ing approx imatel y 9.7 x 9.6 x 11.6 mm. Solid noncal cified anteri or segmen t left upper lobe pulmon symone nodule measur ing approx imatel y 3.2 x 5.0 x 5.7 mm. AIRWAY :Visua lized portio n of the airway appear s patent . No obviou s endobr onchia l mass or signif icant bronch iectas is. MEDIAS TINUM: No pathol ogical ly enlarg ed medias tinal lymph nodes. No obviou s hilar adenop athy. Limite d evalua tion of the chun due to lack of vascul ar contra st. No obviou s esopha geal abnorm ality. HEART/ VASCUL AR STRUCT URES:N o heart chambe r enlarg ement or perica rdial effusi on. There are athero sclero tic darnell ry artery calcif icatio ns presen t. No thorac ic aortic aneury sm. Cannot exclud e dissec tion due to lack of vascul ar contra st. No obviou s abnorm ality of the pulmon symone arteri es. PLEURA /PLEUR AL CAVITY :No pneumo thorax or pleura l effusi on. OSSEOU S STRUCT URES:N o obviou s acute osseou s abnorm ality. Degene rative change s of the thorac ic spine. UPPER ABDOME N:Smal l hiatal hernia . No obviou s acute upper abdomi nal abnorm ality. Incomp letely visual ized infrar enal abdomi nal aortic aneury sm. Limite d imagin g of the upper abdomi nal organs due to lack of contra st. BREAST S/AXIL LAE:No obviou s breast abnorm ality. No axilla ry adenop athy. IMPRES PHILLY: 1. Multip le pulmon symone nodule s. Most signif icant: Suspic ious left solid pulmon symone nodule measur ing 11.6 mm. Consid er furthe r evalua tion with PET/CT or tissue sampli ng. 2. Mild centri lobula r emphys ibis. 3. 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 Legall y authen ticate d by DORIS LINDSEY 05-25 09:50: 30 4. Incomp letely visual ized infrar enal abdomi nal aortic aneury sm. Recomm end furthe r evalua tion with abdomi nal CTA. Commun icatio n note entere d at 9:48 AM easter n time Septem 2024. Electr onical ly signed by: Torrey Hutchison DO 2024 09:50 AM EDT RP Workst ation: [id number] Dictat ed By: Torrey Hutchison Transc ribed By: Transc ribed On: 025 9:50 AM Electr onical ly signed by: Torrey Hutchison 025 Thank you for referr PATRIA Melo to [facility]. Legall y authen ticate d by DORIS LINDSEY 05-25 09:50: 30 CC'ed Logic: Orderi ng Provid er: RYAN N DIONY Attend ing Provid er: NATESAI N DIONY Admitt ing Provid er: HUSSAI N DIONY [facility] [address], [place], [address], 05/30/2025 09:37:19 05/26/20 25 05/25/2025 PFT, compl ete No observ ation record ed. BARCODE Not Available 2024 11:47:04 07/12/2007/10/2025 trans -thor acic echoc ardio gram (TTE) (PROC ) No observ ation record ed. [email or web address] [facility] [address], [place], [address], 07/17/2025 06:47:44 Result Notes None recorded. Procedures Surgical History Date Name Laterality Status Provider Name and Address Organization Details Recorded Time 022 open reduction of fracture with internal fixation completed Emelina Rothamer [place] - [facility] & [place] 10/05/2024 11:14:34 018 cardiac electrophysiology completed Emelina Rothamer [place] [facility] & [place] 08/19/2024 11:32:20 018 destructive procedure completed Emelina Rothamer [place] [facility] & [place] 10/05/2024 11:17:13 017 Most Recent Mammogram completed Emelina Rothamer [place] - [facility] [place] [facility] [place] 10/05/2024 11:13:36 016 Most Recent Bone Density completed Emelina Rothamer [place] [facility] [place] [facility] [place] 10/05/2024 11:13:49 016 Date of Last Colonoscopy completed Emelina Rothamer [place] [facility] [place] [facility] [place] 10/05/2024 11:13:21 016 Colonoscopy completed Emelina Rothamer [place] [facility] [place] [facility] [place] 10/05/2024 11:13:03 973 Hysterectomy completed Emelina Rothamer [place] [facility] [place] [facility] [place] 08/19/2024 11:34:40 972 Tubal Ligation completed Emelina Rothamer [place] [facility] [place] [facility] [place] 08/19/2024 11:34:32 955 Appendectomy completed Emelina Rothamer [place] [facility] [place] [facility] [place] 08/19/2024 11:34:24 Stent Placement completed Emelina Rothamer [place] [facility] [place] [facility] [place] 08/19/2024 11:27:30 imaging guided percutaneous transluminal angioplasty of coronary artery with contrast completed Emelina Rothamer [place] [facility] & [place] 08/19/2024 11:33:02 colonoscopic polypectomy completed Emelina Rothamer [place] [facility] & [place] 08/19/2024 11:33:26 Imaging Results None recorded. Procedure Notes None recorded. Medical Equipment None Reported. Allergies Allergen ID Allergen Name Allergen Category Reaction Reaction Severity Criticality Documentation Date Start Date Code Code System Note Provider Name and Address Organization Details Recorded Time 906040 Propylami ne derivativ e with histamine receptor antagonis t mechanism of action (substanc e) medicatio n Not available Not available low 08/19/2024 37725 8008 SNOMED Chlor pheni sam e-Typ e; Stephanie olson me out ; [facility], [facility] can vicky ate Sarah tin and Benad ryl Emelina Rothamer null, [place] - [facility] & [place] 4 11:29:04 197238 midodrine medicatio n rash Not available Not available 08/19/2024 6963 RxNorm Emelina Roth[place] null, [place] - [facility] & [place] 4 11:24:14 467384 Product containin g penicilli n (product) medicatio n hives Not available low 08/19/2024 16489 8001 SNOMED Emelina Rothamer null, [place] - [facility] & [place] 4 11:29:10 326852 Substance with sulfonami de structure and antibacte rial mechanism of action (substanc e) medicatio n hives Not available low 08/19/2024 05805 8003 SNOMED Emelina Gould null, [place] - [facility] & [place] 4 11:29:17 347030 codeine medicatio n other rash vomiting Not available Not available Not available low 08/19/2024 2670 RxNorm Has a hard time wakin g up after takin g Emelina Gould null, [place] - [facility] - [place] & [place] 4 11:29:36 198469 doxycycli ne Not available vomiting Not available Not available 10/05/2024 3640 RxNorm Emelina Gould null, [place] - [facility] & [place] 5 11:15:28 Medications Name Sig Start Date Stop Date Status Note LastModified by Organization Details LastModified Time eq olo hcl op 0.2% derick INSTILL 1 DROP INTO AFFECTED EYE ONCE DAILY 09/08 completed Not Available Not Available Not Available promethazin e-DM 6.25 mg-15 mg/5 mL oral syrup TAKE 10 ML BY MOUTH EVERY 6 HOURS NEEDED FOR COUGH 09/08 completed Not Available Not Available Not Available nystatin 100,000 unit/mL oral suspension USE 5 ML BY MOUTH 4 TIMES DAILY UNTIL GONE 09/08 completed Not Available Not Available Not Available prednisone 10 mg tablet TAKE 2 TABLETS BY MOUTH ONCE DAILY FOR 7 DAYS, THEN 1 ONCE DAILY FOR 7 DAYS, THEN 1/2 (ONE-HALF ) ONCE DAILY THEREAFTE R 04/03 completed Not Available Not Available Not Available donepezil 5 mg tablet TAKE 1 TABLET BY MOUTH ONCE DAILY WITH SUPPER active Not Available Not Available No t Available albuterol sulfate 2.5 mg/3 mL (0.083 %) solution for nebulizatio n USE 1 VIAL IN NEBULIZER EVERY 8 HOURS NEEDED 04/03 completed Not Available Not Available Not Available trazodone 50 mg tablet TAKE 2 TABLETS BY MOUTH ONCE DAILY AT BEDTIME active Not Available Not Available No t Available prednisone 20 mg tablet TAKE 3 TABLETS BY MOUTH ONCE DAILY FOR 5 DAYS 12/22 completed Not Available Not Available Not Available prednisone 5 mg tablet TAKE 1 TABLET BY MOUTH ONCE DAILY DIRECTED active Not Available Not Available No t Available ciprofloxac in 500 mg tablet TAKE 1 TABLET BY MOUTH TWICE DAILY FOR 7 DAYS 09/08 completed Not Available Not Available Not Available omeprazole 40 mg capsule,del ayed release Take 1 capsule by mouth once daily 2024 active Not Available Not Available Not Avai lable tramadol 50 mg tablet Take 1 tablet every 6 hours by oral route. active Not Available Not Available No t Available spironolact one 25 mg tablet TAKE 1 TABLET BY MOUTH TWICE DAILY active Not Available Not Available No t Available ondansetron 8 mg disintegrat ing tablet 09/08 completed Not Available Not Available Not Available bisoprolol fumarate 5 mg tablet Take 1 tablet by mouth once daily 2024 active Not Available Not Available Not Avai lable doxycycline monohydrate 100 mg capsule TAKE 1 CAPSULE BY MOUTH TWICE DAILY 09/08 completed Not Available Not Available Not Available furosemide 20 mg tablet Take 1 tablet every day by oral route. 2024 active Not Available Not Available Not Avai lable gabapentin 100 mg capsule TAKE 1 CAPSULE BY MOUTH THREE TIMES DAILY active Not Available Not Available No t Available methylpredn isolone 4 mg tablets in a dose pack TAKE DIRECTED 09/08 completed Not Available Not Available Not Available albuterol sulfate HFA 90 mcg/actuati on aerosol inhaler INHALE 2 PUFFS BY MOUTH TWICE DAILY NEEDED 04/03 completed Not Available Not Available Not Available cefdinir 300 mg capsule TAKE 1 CAPSULE BY MOUTH TWICE DAILY 09/08 completed Not Available Not Available Not Available ipratropium bromide 0.02 % solution for inhalation USE 1 VIAL IN NEBULIZER EVERY 6 HOURS 09/08 completed Not Available Not Available Not Available enoxaparin 80 mg/0.8 mL subcutaneou s syringe 09/08 completed Not Available Not Available Not Available escitalopra m 10 mg tablet TAKE 1 TABLET BY MOUTH ONCE DAILY active Not Available Not Available No t Available rosuvastati n 20 mg tablet TAKE 1 TABLET BY MOUTH AT BEDTIME active Not Available Not Available No t Available rosuvastati n 40 mg tablet 09/08 completed Not Available Not Available Not Available Vitamin B12 active Not Available Not A vailable Not Available Xarelto 15 mg tablet TAKE 1 TABLET BY MOUTH ONCE DAILY IN THE EVENING 11/25 completed Not Available Not Available Not Available Xarelto 20 mg tablet Take 1 tablet every day by oral route as directed, for PE prophylax is. 2024 active Not Available Not Available Not Avai lable Zofran (base) prn active Not Available Not Available Not Available Trelegy Ellipta 100 mcg-62.5 mcg-25 mcg powder for inhalation Inhale 1 puff every day by inhalatio n route as directed, for COPD. 04/03 completed Not Available Not Available Not Available Breyna 160 mcg-4.5 mcg/actuati on HFA aerosol inhaler INHALE 2 PUFFS BY MOUTH TWICE DAILY active Not Available Not Available No t Available Vitals Date Recorded Body height Body temperature Oxygen saturation Oxygen saturation in Arterial blood by Pulse oximetry Heart rate Body mass index (BMI) Body weight Systolic And Diastolic Provider Name and Address Organization Details Last Updated DateTime 149.86 cm 97 [degF] 96 % 96 % 72 /min 29.3 kg/m2 92765.8 9 g 122/80 mm[Hg] Deandre Parmar [facility] & [place] 10:55:51 Social History Question Answer Notes LastModified by Organizat ion Details LastModified Time Tobacco Smoking Status Former Smoker Emelina Luis Fernando [facility] & [place] 10/05/2024 11:19:44 Do You Have An Advance Directive? Yes [email or web address] Information not available 09/08/2024 Are You Blind Or Do You Have Difficulty Seeing? No [email or web address] Information not available 09/08/2024 Is Blood Transfusion Acceptable In An Emergency? Yes [email or web address] Information not available 09/08/2024 What Is Your Level Of Caffeine Consumption? Occasional [email or web address] Information not available 09/08/2024 Are You Deaf Or Do You Have Serious Difficulty Hearing? No [email or web address] Information not available 09/08/2024 What Type Of Diet Are You Following? REGULAR [email or web address] Information not available 04/27/2025 Have There Been Any Changes To Your Family Or Social Situation? Yes In February [email or web address] Information not available 09/08/2024 When Did You Quit Smoking? 6-10yearssince lastcigarette 2019 Quit [email or web address] Information not available 04/27/2025 Do You Feel Safe At Home? Yes Information not available 09/08/2024 Do You Have A Medical Power Of Mobile Sales Technician? Yes [email or web address] Information not available 09/08/2024 How Many Children Do You Have? 3 [email or web address] Information not available 09/08/2024 Do You Have Any Pets? No Information not available 09/08/2024 What Is Your Relationship Status? [email or web address] Information not available 09/08/2024 Do You Use Your Seat Belt Or Car Seat Routinely? Yes Information not available 09/08/2024 Do You Have Smoke And Carbon Monoxide Detectors In Your Home? Yes [email or web address] Information not available 09/08/2024 At What Age Did You Start Smoking Tobacco? 13 [email or web address] Information not available 04/27/2025 Are You Passively Exposed To Smoke? No [email or web address] Information not available 09/08/2024 How Much Tobacco Do You Smoke? 1 PPD [email or web address] Information not available 04/27/2025 Do You Have Difficulty Walking Or Climbing Stairs? Yes [email or web address] Information not available 09/08/2024 Sex: Female Functional Status Question Answer Note LastModified by Organizat ion Details LastModified Time What is your level of alcohol consumption? None [email or web address] Information not available 09/08/2024 Do you have transportation difficulties? No [email or web address] Information not available 09/08/2024 Are you able to walk independently without assistance or assistive devices? YESASSIST [email or web address] Information not available 09/08/2024 Do you have difficulty doing errands alone? Yes [email or web address] Information not available 09/08/2024 Are you able to care for yourself independently? Yes Information not available 09/08/2024 Do you have difficulty dressing, bathing, grooming, or toileting? Yes Information not available 09/08/2024 Mental Status Question Answer Note LastModified by Organizat ion Details LastModified Time Do you feel stressed (tense, restless, nervous, or anxious, or unable to sleep at night)? [id number] [email or web address] Information not available 09/08/2024 Do you have difficulty concentrating, remembering or making decisions? No [email or web address] Information no t available 09/08/2024 Family History Relationship Description Onset Age of this Age Resolved Age Notes LastModified by Organization Details LastModified Time Mother Diabetes mellitus [email or web address] Not available 2024 13:47:20 Mother Malignant neoplasm of breast [email or web address] Not available 2024 13:47:20 Father Dementia [email or web address] Not availabl e 04/27/2025 13:47:20 Father Malignant neoplasm of prostate [email or web address] Not available 2024 13:47:20 Sister Diabetes mellitus [email or web address] Not available 2024 13:47:20 Brother Heart disease [email or web address] Not available 2024 11:18:08 Brother Sarcoidosis [email or web address] Not avai lable 04/27/2025 13:47:20 Son History of Hodgkin lymphoma [email or web address] Not available 2024 13:47:20 Son Family member [email or web address] Not available 2024 13:47:20 Notes:3 brothers, 2 sisters, 3 sons, 1 daughter, 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 Condition Response Diabetes Y Coronary Artery Disease Y Heart Problems Y Other Y Vision or Eye Problems Y Cancer Y Stroke Y Thyroid Problems Y Depression Y COPD Y Asthma Y Anemia Y Reflux/GERD Y High Cholesterol Y Heart Disease Y Hypertension Y Kidney Disease Y Gynecological History Statement/Question Response Most Recent Mammogram 07/15/2017 Date of Last Colonoscopy 09/14/2015 Most Recent Bone Density 06/14/2016 Obstetrics History GPAL:G 0 P 0 0 0 0 Immunizations Vaccine Type Date Status Note Provider Nam e and Address Organization Details Recorded Time Tdap 4 completed Emelina Escaleraamer null, [place] - [facility] - [place] & [place] 09/09/2024 16:41:36 COVID-19 vaccine, vector-nr, rS-Ad26, PF, 0.5 mL 1 completed Emelina Jwamer null, [place] [facility] [place] [facility] [place] 09/09/2024 16:41:36 Pneumococcal conjugate PCV20, polysaccharide [id number] conjugate, adjuvant, PF 2 completed Emelina Escaleraamer null, [place] [facility] [place] [facility] [place] 09/09/2024 16:41:36 pneumococcal polysaccharide PPV23 0 completed Emelina Rothamer null, [place] [facility] [place] [facility] [place] 09/09/2024 16:41:36 Influenza, high-dose, trivalent, PF 2 completed Emelina [place] null, [place] [facility] [place] [facility] [place] 09/09/2024 16:41:36 Influenza, high-dose, trivalent, PF 0 completed Emelina Rothamer null, [place] [facility] [place] [facility] [place] 09/09/2024 16:41:36 Past Encounters Encounter ID Performer Location Encounter Start Date Encounter Closed Date Diagnosis/Indication Diagnosis SNOMED-CT Code Diagnosis ICD10 Code Diagnosis IMO Codes Diagnosis Note [id number] Dionyamy Babcock MD [facility] Pulmon[facility] [address] [place] [address] 06/08/2025 10:37:52 06/08/2025 11:22:39 Mixed simple and mucopurulent chronic bronchitis 384121734 J41.8 039923 patient has already quit smokingAdv ised to continue home oxygen along with nebulizer treatments Respirator y twice dailyPFT's show severe airways obstructio n with good response to bronchodil ators Carcinoma of lung 267523 007 C34.90 96927 patient has completed chemothera py treatments for her bronchogen ic carcinomar epeat chest CT shows left lung nodule lower lobe about 11 mm Nodule of lung 362344286 R91.1 807001 Health Concerns Section Related Observation LastModified by Organization Detai ls LastModified Time None Recorded Concern Status LastModified by Organization Details LastModified Time None Recorded Payers Encounter Date Sequence Insurance Name Policy Number Policy Adame Covered Member ID Adame Member ID Guarantor Name 06/08/2025 1 [place] Georgette Ocasio [id number] Georgette Ocasio 06/08/2025 2 [facility] (MEDICARE SUPPLEMENT) Georgette Ocasio [id number] Georgette Ocasio Notes Date Note Type Note Provider Name and Address Organization Details Recorded Time 06/08/2025 text/html ROS as noted in the HPI 84 years old white female with history of COPD and lung cancer status post chemotherapy presents for follow-up patient has been doing well and denies any chest pain fever or hemoptysisShe takes respiratory along with prednisone dailyPatient denies any weight loss Diony Babcock MD [address], [place], [address], [facility] & [place] 06/08/2025 11:18:41 OBGyn Episode No OBEpisode recorded.
--- OUTSIDE RECORDS SUMMARY | 2025-07-18 12:06 | XMS_ITS | Data Portability ---
Author Organization [facility]IR[facility] Gutierrez [place] Address [address] [facility] [address] [place] [address] Assessment Encounter Date Assessment Date Assessment LastModified by Organization Details LastModified Time 05/19/2017 05/19/2017 pulse ox 92% on room air Not available 05/19/2017 14:00:04 Plan of Treatment Reminders Order Date Submit Date Provider Last Modified By Organization Details Last Modified Time Details Appointments None recorded. Lab None recorded. Referral None recorded. Procedures None recorded. Surgeries None recorded. Imaging None recorded. Medication Orders prednisone 20 mg tablet 2016 017 INTERFACE [facility], [address] [place] [address], [address], 7 17:59:33 Levaquin 500 mg tablet 2016 017 [facility] 3 [facility], [address], [address], 7 14:03:15 Depo-Medro l 80 mg/mL suspension for injection 2016 017 [email or web address] [facility], [address], [address], 7 14:59:11 Depo-Medro l 80 mg/mL suspension for injection 2016 017 [facility] 3 Not available 7 07:36:30 Levaquin 500 mg tablet 2016 017 INTERFACE [facility], [address] [place] [address], [address], 7 11:34:23 prednisone 20 mg tablet 2016 017 INTERFACE [facility], [address] [facility] [place], [address], 7 11:34:22 ProAir HFA 90 mcg/actuat ion aerosol inhaler 2016 017 INTERFACE [facility], [address] [facility] [place], [address], 7 11:35:06 Bromfed DM 2 mg-30 mg-10 mg/5 mL oral syrup 2016 017 [facility], [address] [place], [address], 7 13:51:55 Levaquin 500 mg tablet 2016 017 [facility], [address] [place], [address], 7 14:20:52 Depo-Medro l 80 mg/mL suspension for injection 2016 017 [email or web address] 3 Not available 7 14:24:02 Xopenex 1.25 mg/3 mL solution for nebulizati on 2016 017 [email or web address] Not available 7 16:16:19 Ventolin HFA 90 mcg/actuat ion aerosol inhaler 2016 017 [facility], [address] [place], [address], 7 13:52:35 Patient TargetsNo targets recorded. Patient Instructions Encounter Date Encounter Id Patient Instructions Last Modified By Organization Details Last Modified Time 10/01/2016 [id number] arthritis: care instructions [email or web address] Not available 10/01/2016 14:03:44 osteoarthritis: care instructions [id number] Not available 10/01/2016 14:03:44 bronchitis: care instructions [email or web address] Not available 10/01/2016 14:03:44 cough: care instructions [id number] Not available 10/01/2016 14:03:43 Acute Sinusitis: Care Instructions [email or web address] Not available 10/01/2016 14:03:44 chronic obstructive pulmonary disease (COPD): care instructions [email or web address] Not available 10/01/2016 14:03:44 learning about copd and how to prevent lung infections [id number] Not available 10/01/2016 14:03:44 high blood pressure: care instructions [email or web address] Not available 10/01/2016 14:03:44 learning about high blood pressure [email or web address] Not available 10/01/2016 14:03:44 Patient states s he has taken the Bromfed DM rx with no problems even though an allergy to antihistamines is listed. Not available 10/01/2016 13:49:20 02/23/2017 [id number] cough: care instructions Not available 02/23/2017 12:39:06 Acute Sinusitis: Care Instructions Not available 02/23/2017 12:39:06 bronchitis: care instructions Not available 02/23/2017 12:39:06 chronic obstructive pulmonary disease (COPD): care instructions Not available 02/23/2017 12:39:06 learning about copd and how to prevent lung infections Not available 02/23/2017 12:39:06 05/19/2017 [id number] Acute Sinusitis: Care Instructions RM Not available 05/21/2017 17:46:16 bronchitis: care instructions RM Not available 05/21/2017 17:49:51 chronic obstructive pulmonary disease (COPD): care instructions RM Not available 05/21/2017 17:48:57 learning about copd and how to prevent lung infections RM Not available 05/21/2017 17:48:57 Reason for Referral None Reported. Results Created Date Observation Date Name Description Value Unit Range Abnormal Flag Note LastModifiedBy Organization Detail LastModifiedTime 07/02/20 17 07/02/2017 XR, chest , 2 view No observ ation record ed. [email or web address] Not Available 2016 12:10:05 07/02/20 17 07/02/2017 US, aorta No observ ation record ed. [facility] (Scheduling) [address], [place], [address], 07/03/2017 12:01:16 07/02/20 17 07/02/2017 US, aorta No observ ation record ed. [facility] (Scheduling) [address], [place], [address], 07/03/2017 12:01:41 Result Notes None recorded. Problems Name Problem SNOMED Code Status Onset Date Resolution Date Notes Provider Name and Address Organization Details Recorded Time Chronic obstructiv e pulmonary disease 88884233 Active 2014 From Automated Load;Provi sachin: Rossana Hutchison;St atus: Active Not Available [facility] 6 10:59:27 Hypertensi ve disorder 41563452 Active 2014 From Automated Load;Provi sachin: Alex Hutchisona;St atus: Active Not Available [facility] 6 10:59:27 Hyperlipid emia 54020119 Active 2014 From Automated Load;Provi sachin: Alex Hutchisona;St atus: Active Not Available [facility] 6 10:59:28 Clinical finding Active 2014 From Automated Load;Provi sachin: Alex Hutchisona;St atus: Active Not Available [facility] 6 10:59:28 Constipati on 74113503 Active 2015 From Automated Load;Provi sachin: Alex Hutchisona;St atus: Active Not Available [facility] 6 10:59:28 Abdominal pain 46607942 Active 2015 From Automated Load;Provi sachin: Alex Hutchisona;St atus: Active Not Available [facility] 6 10:59:28 Acute sinusitis 82460501 Active 2015 From Automated Load;Provi sachin: Alex Hutchisona;St atus: Active Not Available [facility] 6 10:59:[address] Concept Active 2015 From Automated Load;Provi sachin: Hutchison, Madonna;St atus: Active Not Available [facility] 6 10:59:28 Diverticul itis of large intestine 5026487 Active 2015 From Automated Load;Provi sachin: Hutchison, Madonna;St atus: Active Not Available [facility] 6 10:59:29 Irritable bowel syndrome 26839552 Active 2015 From Automated Load;Provi sachin: Hutchison, Madonna;St atus: Active Not Available [facility] 6 10:59:29 Pain in limb 70592792 Active 2015 From Automated Load;Provi sachin: Hutchison, Madonna;St atus: Active Not Available [facility] 7 06:44:59 Pain of hip region 41150499 Active 2015 From Automated Load;Provi sachin: Hutchison, Madonna;St atus: Active Not Available [facility] 7 06:44:59 Chest pain 94635628 Active 2015 From Automated Load;Provi sachin: Hutchison, Charbelonna;St atus: Active Not Available [facility] 7 06:44:59 Abnormalit y of cortisol-b inding globulin 12880240 Active 2015 From Automated Load;Provi sachin: Hutchison, Madonna;St atus: Active Not Available [facility] 7 07:46:19 Nicotine dependence 82188837 Active 2015 From Automated Load;Provi sachin: Butch Rivas Jr;Stat us: Active Not Available [facility] 7 06:05:34 Abdominal aortic aneurysm without rupture 24456742 Active 2015 From Automated Load;Provi sachin: Butch Rivas Jr;Stat us: Active Not Available [facility] 7 07:46:19 Notes:: Depression Screening* Date:04/21/2016 Problem Notes None recorded. Medical Equipment None Reported. Allergies Allergen ID Allergen Name Allergen Category Reaction Reaction Severity Criticality Documentation Date Start Date Code Code System Note Provider Name and Address Organization Details Recorded Time 704147 Product containin g penicilli n (product) medicatio n hives moderate Not available 08/07/20162014 25887 8001 SNOMED React ion: HIVES ;Marlee rity: Moder ate; Comme nt: Creat ed By: Duane montgomery Date: 10:07 :43 AM; Not Available [facility] 6 13:12:22 [id number] codeine medicatio n Not available Not available Not available 08/07/20162015 2670 RxNorm Comme nt: Creat ed By: Jacinda Noguera ;Kia ulises Date: 11:53 :52 AM; Not Available [facility] 6 13:40:38 622214 diphenhyd ramine hydrochlo ride medicatio n rash moderate Not available 08/07/20162014 1362 RxNorm React ion: RASH; Sever ity: Moder ate; Comme nt: Creat ed By: Duane montgomery Date: 10:09 :18 AM; Not Available [facility] 6 13:40:38 Medications Name Sig Start Date Stop Date Status Note LastModified by Organization Details LastModified Time Bromfed DM 2 mg-30 mg-10 mg/5 mL oral syrup Take 10 mL every 4 hours by oral route. 2016 active Not Available Not Available Not Avai lable albuterol sulfate 2.5 mg/3 mL (0.083 %) solution for nebulizati on USE DIRECTED FOUR TIMES DAILY IN NEB MACHINE NEEDED 2016 active Not Available Not Available Not Avai lable verapamil ER 360 mg 24 hr capsule,ex tended release TAKE ONE CAPSULE BY MOUTH ONCE DAILY 2016 active Not Available Not Available Not Avai lable Medrol (Jerry) 4 mg tablets in a dose pack Take 1 dose pk by oral route. 2016 active Not Available Not Available Not Avai lable prednisone 20 mg tablet Take 3 tablets by oral route for 12 days. 2016 active Not Available Not Available Not Avai lable Zithromax Z-Jerry 250 mg tablet TAKE 2 TABLETS (500 MG) BY ORAL ROUTE ONCE DAILY FOR 1 DAY THEN 1 TABLET (250 MG) BY ORAL ROUTE ONCE DAILY FOR 4 DAYS 2016 active Not Available Not Available Not Avai lable omeprazole 40 mg capsule,de layed release TAKE ONE CAPSULE BY MOUTH ONCE DAILY 2016 active Not Available Not Available Not Avai lable Depo-Medro l 80 mg/mL suspension for injection Take 1 mL by injection route. 2016 active Not Available Not Available Not Avai lable Bentyl 20 mg tablet Four times a day 2015 active Frequency : qid;Alt Frequency : ac;Medica tion Descripti on: dicyclomi ne; Dosage:1; Route:ora l; refills:3 ; Quantity: 120 tablet Not Available Not Available Not Available Xopenex 1.25 mg/3 mL solution for nebulizati on Inhale 3 mL every 8 hours by nebulizat ion route. 2016 active Not Available Not Available Not Avai lable aspirin 81 mg tablet Daily active Duration: 30 days;Freq uency: daily;Med ication Descripti on: aspirin; Dosage:1; Route:ora l; refills:5 ; Quantity: 30 tablet Not Available Not Available Not Available Levaquin 500 mg tablet Take 1 tablet every 24 hours by oral route. 2016 active Not Available Not Available Not Avai lable albuterol sulfate concentrat e 5 mg/mL(0.5 %) solution for nebulizati on Four times a day 2014 active Instructi ons: use in neb machine qid prn;Frequ ency: qid;Medic ation Descripti on: albuterol ; Dosage:as directed; Route:inh alation; refills:3 ; Quantity: 1 solution Not Available Not Available Not Available Ventolin HFA 90 mcg/actuat ion aerosol inhaler INHALE TWO PUFFS BY MOUTH EVERY 4 HOURS 2016 active Not Available Not Available Not Avai lable coenzyme Q10 100 mg capsule Daily active Frequency : daily;Med ication Descripti on: ubiquinon e; Dosage:1; Route:ora l; refills:0 ; Quantity: 100 capsule Not Available Not Available Not Available Crestor 40 mg tablet Daily 2015 active Frequency : daily;Med ication Descripti on: rosuvasta tin; Dosage:1; Route:ora l; refills:4 ; Quantity: 30 tablet Not Available Not Available Not Available Linzess 145 mcg capsule Daily 2015 active Frequency : daily;Med ication Descripti on: linacloti de; Dosage:1; Route:ora l; refills:3 ; Quantity: 30 capsule Not Available Not Available Not Available Vitals Date Recorded Body height Body weight Body mass index (BMI) Body temperature Heart rate Respiratory rate Systolic And Diastolic Provider Name and Address Organization Details Last Updated DateTime 7 149.86 cm 32033.2 3 g 25.7 kg/m2 98 [degF] 68 /min 18 /min 184/100 mm[Hg] [facility] 7 13:17:34 Date Recorded Body height Body mass index (BMI) Body weight Body temperature Heart rate Respiratory rate Oxygen saturation Oxygen saturation in Arterial blood by Pulse oximetry Systolic And Diastolic Provider Name and Address Organization Details Last Updated DateTime 7 149.86 cm 25.1 kg/m2 86905.8 9 g 98.4 [degF] 80 /min 22 /min 96 % 96 % 136/80 mm[Hg] [facility] 7 10:45:56 Date Recorded Body height Body mass index (BMI) Body weight Body temperature Heart rate Respiratory rate Oxygen saturation Oxygen saturation in Arterial blood by Pulse oximetry Systolic And Diastolic Provider Name and Address Organization Details Last Updated DateTime 7 149.86 cm 25.7 kg/m2 56713.2 3 g 97 [degF] 66 /min 18 /min 92 % 92 % 146/90 mm[Hg] [facility] 7 13:18:56 Social History Question Answer Notes LastModified by Organizat ion Details LastModified Time Tobacco Smoking Status Current Every Day Smoker [facility] 10/01/2016 13:18:08 What Is Your Level Of Caffeine Consumption? Moderate Information not available 10/01/2016 How Much Tobacco Do You Chew? None Information not available 10/01/2016 What Type Of Diet Are You Following? REGULAR Information not available 10/01/2016 Education 12 Information n ot available 10/01/2016 Hard Of Hearing Or Deaf In One Or Both Ears? No Information not available 10/01/2016 Legally Blind In One Or Both Eyes? No Information not available 10/01/2016 Live Alone Or With Others? With Others Information not available 10/01/2016 Marital Status Informati on not available 10/01/2016 What Was The Date Of Your Most Recent Tobacco Screening? 05/19/2017 Information not available 11/01/2019 How Many Children Do You Have? 4 Information not available 10/01/2016 Seat Belts Used Routinely Yes Information not available 10/01/2016 Smoke Alarm In Home Yes Information not available 10/01/2016 Are You Passively Exposed To Smoke? Yes Information not available 10/01/2016 General Stress Level Medium Information not available 10/01/2016 How Many Years Have You Smoked Tobacco? 50 Information not available 10/01/2016 Sex: Unknown Functional Status Question Answer Note LastModified by Organization D etails LastModified Time What is your level of alcohol consumption? None Information not available 10/01/2016 Are you able to care for yourself independently? Yes Information not available 10/01/2016 What is your occupation? [employer] Information not available 10/01/2016 What is your exercise level? None Information not available 10/01/2016 Mental Status None recorded. Family History Nothing Reported. 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 No medical history recorded. Gynecological HistoryNo gynecological history recorded. Obstetrics History GPAL:G 0 P 0 0 0 0 Past Encounters Encounter ID Performer Location Encounter Start Date Encounter Closed Date Diagnosis/Indication Diagnosis SNOMED-CT Code Diagnosis ICD10 Code Diagnosis IMO Codes Diagnosis Note [id number] ROSSANA HUTCHISON, [facility] [address] [place] [address] 10/01/2016 12:32:29 10/01/2016 14:04:35 Cough 43984816 R05 Essential hypertension 91959321 I10 Chronic ob structive pulmonary disease 65322313 J44.9 Osteoarthritis 225870828 M19.90 Bronchitis 32641675 J40 Acute sinusitis 21416598 J01.90 [id number] ROSSANA HUTCHISON DO [address] [place] [address] 02/23/2017 09:43:11 02/25/2017 15:48:39 Chronic obstructive pulmonary disease 45553798 J44.9 Acute sinusitis 95275455 J01.90 Acute bronchitis 6073831 2 J20.9 Cough 61550433 R05 [id number] ROSSANA HUTCHISON DO [address] [place] [address] 05/19/2017 12:31:50 05/19/2017 14:41:18 Chronic obstructive pulmonary disease 52763694 J44.9 Acute bronchitis 3137183 2 J20.9 Acute sinusitis 32053403 J01.90 Health Concerns Section Related Observation LastModified by Organization Detai ls LastModified Time None Recorded Concern Status LastModified by Organization Details LastModified Time None Recorded Advance Directives Directive None Recorded Payers Insurance Date Sequence Insurance Name Policy Number Policy Adame Covered Member ID Adame Member ID Guarantor Name 08/08/2020 1 [place] Georgette Ocasio [id number] Georgette Ocasio 05/19/2017 2 [facility] (MEDICARE SUPPLEMENT) Georgette Ocasio [id number] Georgette Ocasio Notes Date Note Type Note Provider Name and Address Organization Details Recorded Time 10/01/2016 text/html she is had a cough that is somewhat productive and some shortness of breath with the cough and some wheezing and rattling in her chest and this is gone on for a couple of days and her had similar symptoms. She is a smoker. She needs refills on some of her medication. She also would like a prescription for Bromfed-DM cough syrup because her has a prescription for this and it helped him a lot. She is having some sinus pressure and drainage as well. She's had a headache. Her blood pressure is elevated here today but she checks it at home and it has been stable and she takes her medications daily. Her COPD has been stable otherwise. She's going to physical therapy for her left hip and it is helping. She was recently told she has cataracts and will be having surgery for those next month. Her GERD is stable. ROSSANA HUTCHISON DO [address] [place], [address], [facility] 10/01/2016 14:20:52 02/23/2017 text/html patient here today with several concerns. She states that she went to a [employer] last week and the had a hay ride and she was around a lot of hay and the next day she started feeling chest congestion and sinus drainage and sinus congestion and over the next few days she developed a cough and wheezing and she's been using her nebulizer machine and inhalers. She wonders if there something other than Ventolin that she could try his rescue inhaler because her insurance doesn't cover Ventolin. Her COPD had been stable up until this point but now she's concerned she has no infection because she's coughing up discolored mucus and having wheezing. She's also having sinus drainage. ROSSANA HUTCHISON DO [address] [place], [address], [facility] 02/23/2017 11:58:53 05/19/2017 text/html patient here today with several concerns. She states that she developed some sinus congestion and chest congestion within the last 2-3 days and she developed a cough productive of thick sputum and sinus drainage with thick mucus. She also developed some wheezing and began using her nebulizer machine at home and that has helped some over the last couple of days. She has been a heavy smoker for many years. She states she usually develops bronchitis a few times a year. She's had some sinus pressure as well. She stopped smoking 2 days ago when she developed the symptoms. ROSSANA HUTCHISON DO [address] [place], [address], [facility] 05/19/2017 14:08:35 OBGyn Episode No OBEpisode recorded.
--- OUTSIDE RECORDS SUMMARY | 2025-07-18 12:06 | XMS_ITS | Data Portability ---
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 Plan of Treatment Reminders Order Date Submit Date Provider Last Modified By Organization Details Last Modified Time Details Appointments None recorded. Lab CMP, serum or plasma 2024 025 [facility], [address], [address], [place], [address], 5 08:20:[address] referral - 84 yo with long h/o COPD as well as lung Cancer 2024 025 [email or web address] 3 [facility], [address] [facility], [address], [place], [address], 5 16:09:52 Procedures None recorded. Surgeries None recorded. Imaging PET-CT, skull base to mid-thigh scan 2024 025 [email or web address] [facility], [address] [place], [address], 5 11:53:15 PFT, complete 2024 025 [facility], [address] [place], [address], 5 14:29:33 CT, chest, w/o contrast 2024 025 [facility], [address] [facility], [place], [address], 5 09:55:20 Medication Orders Symbicort 160 mcg-4.5 mcg/actuati on HFA aerosol inhaler 2024 025 [facility], [address] [place] [address], [address], 5 10:09:13 prednisone 5 mg tablet 2024 025 [facility], [address] [place], [address], 5 10:07:21 prednisone 10 mg tablet 2024 025 [facility], [address] [place], [address], 5 09:26:40 Patient TargetsNo targets recorded. Patient Instructions Encounter Date Encounter Id Patient Instructions Last Modified By Organization Details Last Modified Time 12/22/2024 [id number] Established patient presents with new problem of moderate complexity and unknown prognosis requiring history, physical, and prescription medications. 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 cute exacerbation of chronic obstructive pulmonary disease 84 yo with long h/o COPD as well as lung Cancer Referring Physician: Agustín Griffin, Family Medicine, Encounter Date: 04/03/2025 Results Created Date Observation Date Name Description Value Unit Range Abnormal Flag Note LastModifiedBy Organization Detail LastModifiedTime 11/04/1911/05/2024 CMP14 +EGFR glucose 90 mg/dL 70-99 normal Not Available [facility] ([facility]) [address] [facility], [place], [address], 11/05/2024 08:20:31 11/04/19 25 11/05/2024 CMP14 +EGFR BUN 18 mg/dL 8-27 normal Not Available [facility] ([facility]) [address] [place], [address], 11/05/2024 08:20:31 11/04/19 25 11/05/2024 CMP14 +EGFR creatinine 1.34 mg/dL 0.57-1 .00 above high normal Not Available [facility] ([facility]) [address] [place], [address], 11/05/2024 08:20:31 11/04/19 25 11/05/2024 CMP14 +EGFR eGFR 39 mL/mi n/1.7 3 >59 below low normal Not Available [facility] ([facility]) [address] [place], [address], 11/05/2024 08:20:31 11/04/19 25 11/05/2024 CMP14 +EGFR BUN/creatini ne ratio 13 12-28 normal Not Available [facility] ([facility]) [address] [place], [address], 11/05/2024 08:20:31 11/04/19 25 11/05/2024 CMP14 +EGFR sodium 141 mmol/ L 134-14 4 normal Not Available [facility] ([facility]) [address] [place], [address], 11/05/2024 08:20:31 11/04/19 25 11/05/2024 CMP14 +EGFR potassium 4.7 mmol/ L 3.5-5. 2 normal Not Available [facility] ([facility]) [address] [place], [address], 11/05/2024 08:20:31 11/04/19 25 11/05/2024 CMP14 +EGFR chloride 104 mmol/ L 96-106 normal Not Available [facility] ([facility]) [address] [place], [address], 11/05/2024 08:20:31 11/04/19 25 11/05/2024 CMP14 +EGFR carbon dioxide, total 24 mmol/ L 20- normal Not Available [facility] ([facility]) [address] [place], [address], 11/05/2024 08:20:31 11/04/19 25 11/05/2024 CMP14 +EGFR calcium 8.8 mg/dL 8.7-10 .3 normal Not Available [facility] ([facility]) [address] [place], [address], 11/05/2024 08:20:31 11/04/19 25 11/05/2024 CMP14 +EGFR protein, total 5.6 g/dL 6.0-8. 5 below low normal Not Available [facility] ([facility]) [address] [place], [address], 11/05/2024 08:20:31 11/04/19 25 11/05/2024 CMP14 +EGFR albumin 3.8 g/dL 3.7-4. 7 normal Not Available [facility] ([facility]) [address] [place], [address], 11/05/2024 08:20:31 11/04/19 25 11/05/2024 CMP14 +EGFR globulin, total 1.8 g/dL 1.5-4. 5 Not Available [facility] ([facility]) [address] [place], [address], 11/05/2024 08:20:31 11/04/19 25 11/05/2024 CMP14 +EGFR bilirubin, total <0.2 mg/dL 0.0-1. 2 Not Available [facility] ([facility]) [address] [place], [address], 11/05/2024 08:20:31 11/04/19 25 11/05/2024 CMP14 +EGFR alkaline phosphatase 88 IU/L 44-121 normal Not Available [facility] [address] [facility], [place], [address], 11/05/2024 08:20:31 11/04/19 25 11/05/2024 CMP14 +EGFR AST (SGOT) 13 IU/L 0-40 normal Not Available [facility] ([facility]) [address] [facility], [place], [address], 11/05/2024 08:20:31 11/04/19 25 11/05/2024 CMP14 +EGFR ALT (SGPT) 6 IU/L 0-32 normal Not Available [facility] ([facility]) [address] [facility], [place], [address], 11/05/2024 08:20:31 05/25/20 25 05/25/2025 CT, chest , w/o contr ast [facility] [address] [place] [address] Phone: Fax: Name: PATRIA ROSALES Exam Date: 025 : 1939 Age 84 years Gender : F Access ion: [id number] Physic geovanni: RYAN N, DIONY Facili ty: [facility] Facili ty HSV: Outpat ient Exam: [...] Part solid juxtap leural nodule within the farm demonstrator ior right lower lobe measur ing approx [...] obviou s abnorm ality of the pulmon symoen arteri es. PLEURA /PLEUR AL CAVITY :No [...] Thank you for referr PATRIA Melo to [facility]. Legall y authen ticate d by DORIS LINDSEY 05-25 09:50: 30 CC'ed Logic: Orderi ng Provid er: HUSSAI N IDONY Attend ing Provid er: HUSSAI N DIONY Admitt ing Provid er: HUSSAI N DIONY [facility] [address] [facility], [place], [address], 05/30/2025 09:37:19 05/26/2005/25/2025 PFT, compl ete No observ ation record ed. BARCODE Not Available 2024 11:47:04 07/12/2007/10/2025 trans -thor acic echoc ardio gram (TTE) (PROC ) No observ ation record ed. [email or web address] [facility] [address], [place], [address], 07/17/2025 06:47:44 Result Notes Documentation Provider Name and Address Organization Details Recorded Time Ct, Chest, W/o Contrast : [facility] [address] [place] [address] Name: KAVITHA BUCIO Exam Date: 05/25/2025 : 1940 Age 84 years Gender: F Physician: DIONY BUSTILLO Facility[facility] Facility HSV: Outpatient Exam: CT CHEST W/O EXAM: CT CHEST WITHOUT CONTRAST. INDICATION: malignant neoplasm of lower lobe left bronchus or lung . Per order: Simple and mucopurulent chronic bronchitis. TECHNIQUE: Chest CT was performed without contrast. Sagittal and coronal reformats. This examination was performed using one or more of the following dose optimization techniques: Automated exposure control; Adjustment of the mA and/or kV according to patient size; use of iterative reconstruction technique. Unless specified, no imaging follow-up is recommended for incidental findings. COMPARISON: No prior study was submitted for comparison. FINDINGS: DEVICES:None. LUNG PARENCHYMA:Mild centrilobular emphysema. Curvilinear opacities within each lung consistent with scarring or atelectasis. Calcified right middle lobe granuloma. Part solid juxtapleural nodule within the posterior right lower lobe measuring approximately 5.8 x 4.8 x 5.3 mm. Solid noncalcified spiculated nodular density within the left lower lobe measuring approximately 9.7 x 9.6 x 11.6 mm. Solid noncalcified anterior segment left upper lobe pulmonary nodule measuring approximately 3.2 x 5.0 x 5.7 mm. AIRWAY:Visualized portion of the airway appears patent. No obvious endobronchial mass or significant bronchiectasis. MEDIASTINUM:No pathologically enlarged mediastinal lymph nodes. No obvious hilar adenopathy. Limited evaluation of the chun due to lack of vascular contrast. No obvious esophageal abnormality. HEART/VASCULAR STRUCTURES:No heart chamber enlargement or pericardial effusion. There are atherosclerotic coronary artery calcifications present. No thoracic aortic aneurysm. Cannot exclude dissection due to lack of vascular contrast. No obvious abnormality of the pulmonary arteries. PLEURA/PLEURAL CAVITY:No pneumothorax or pleural effusion. OSSEOUS STRUCTURES:No obvious acute osseous abnormality. Degenerative changes of the thoracic spine. UPPER ABDOMEN:Small hiatal hernia. No obvious acute upper abdominal abnormality. Incompletely visualized infrarenal abdominal aortic aneurysm. Limited imaging of the upper abdominal organs due to lack of contrast. BREASTS/AXILLAE:No obvious breast abnormality. No axillary adenopathy. IMPRESSION: 1. Multiple pulmonary nodules. Most significant: Suspicious left solid pulmonary nodule measuring 11.6 mm. Consider further evaluation with PET/CT or tissue sampling. 2. Mild centrilobular emphysema. 3. Atherosclerotic coronary artery disease. Legally authenticated by DORIS LINDSEY 2025-05-25 09:50:30 4. Incompletely visualized infrarenal abdominal aortic aneurysm. Recommend further evaluation with abdominal CTA. Communication note entered at 9:48 AM eastern time May 25, 2025. Electronically signed by: Torrey Hutchison DO 05/25/2025 09:50 AM EDT Dictated By: Torrey Hutchison Transcribed By: Transcribed On: 05/25/2025 9:50 AM Electronically signed by: Torrey Hutchison 05/25/2025 Thank you for referring KAVITHA BUCIO to [facility]. Legally authenticated by DORIS LINDSEY 2025-05-25 09:50:30 CC'ed Logic: Ordering Provider: IWONA VORA Attending Provider: IWONA VORA Admitting Provider: IWONA VORA Not Available [facility] 05/30/2025 09:37:19 Procedures Surgical History Date Name Laterality Status Provider Name and Address Organization Details Recorded Time 022 open reduction of fracture with internal fixation completed Emelina [place] [facility] [place] [facility] [place] 10/05/2024 11:14:34 018 cardiac electrophysiology completed Emelina [place] [facility] [place] [facility] [place] 08/19/2024 11:32:20 018 destructive procedure completed Emelina [place] [facility] [place] [facility] [place] 10/05/2024 11:17:13 017 Most Recent Mammogram completed Emelina [place] [facility] [place] [facility] [place] 10/05/2024 11:13:36 016 Most Recent Bone Density completed Emelina [place] [facility] [place] [facility] [place] 10/05/2024 11:13:49 016 Date of Last Colonoscopy completed Emelina [place] [facility] [place] [facility] [place] 10/05/2024 11:13:21 016 Colonoscopy completed Emelina [place] [facility] [place] [facility] [place] 10/05/2024 11:13:03 973 Hysterectomy completed Emelina [place] [facility] [place] [facility] [place] 08/19/2024 11:34:40 972 Tubal Ligation completed Emelina [place] [facility] [place] 08/19/2024 11:34:32 955 Appendectomy completed Emelina [place] [facility] [place] [facility] [place] 08/19/2024 11:34:24 Stent Placement completed Emelina [place] [facility] [place] [facility] [place] 08/19/2024 11:27:30 imaging guided percutaneous transluminal angioplasty of coronary artery with contrast completed Emelina [place] [facility] [place] [facility] [place] 08/19/2024 11:33:02 colonoscopic polypectomy completed Emelina [place] [facility] [place] 08/19/2024 11:33:26 Imaging Results None recorded. Procedure Notes None recorded. Medical Equipment None Reported. Allergies Allergen ID Allergen Name Allergen Category Reaction Reaction Severity Criticality Documentation Date Start Date Code Code System Note Provider Name and Address Organization Details Recorded Time 112061 Propylami ne derivativ e with histamine receptor antagonis t mechanism of action (substanc e) medicatio n Not available Not available low 08/19/2024 56221 9436 SNOMED Chlor pheni sam e-Typ e; Stephanie d me out ; howev er, state s can vicky ate Sarah tin and Benad ryl Emelina [place] null, [place] [facility] [place] [facility] [place] 11:29:04 417002 midodrine medicatio n rash Not available Not available 08/19/2024 6963 RxNorm Emelina Escal[place] null, [place] - [facility] & [place] 4 11:24:14 306053 Product containin g penicilli n (product) medicatio n hives Not available low 08/19/2024 16989 8001 SNOMED Emelina Jwamer null, [place] [facility] & [place] 4 11:29:10 346253 Substance with sulfonami de structure and antibacte rial mechanism of action (substanc e) medicatio n hives Not available low 08/19/2024 72506 8003 SNOMED Emelina Jwamer null, [place] [facility] & [place] 4 11:29:17 450345 codeine medicatio n other rash vomiting Not available Not available Not available low 08/19/2024 2670 RxNorm Has a hard time wakin g up after takin g Emelina Escal[place] null, [place] - [facility] & [place] 4 11:29:36 548498 doxycycli ne Not available vomiting Not available Not available 10/05/2024 3640 RxNorm Emelina Escaleraamer madhavi, [place] - [facility] & [place] 5 11:15:28 Medications Name Sig Start Date [...] Available Vitals Date Recorded Body height Body mass index (BMI) Body weight Body temperature Oxygen saturation Oxygen saturation in Arterial blood by Pulse oximetry Heart rate Oxygen saturation Oxygen saturation in Arterial blood by Pulse oximetry Oxygen saturation Oxygen saturation in Arterial blood by Pulse oximetry Systolic And Diastolic Provider Name and Address Organization Details Last Updated DateTime 5 149.86 cm 29.7 kg/m2 74473.0 8 g 97.1 [degF] 75 % 75 % 67 /min 64 % 64 % 97 % 97 % 118/70 mm[Hg] [facility] & [place] 5 14:01:02 Date Recorded Body height Body mass index (BMI) Body weight Body temperature Oxygen saturation Oxygen saturation in Arterial blood by Pulse oximetry Heart rate Systolic And Diastolic Provider Name and Address Organization Details Last Updated DateTime 5 149.86 cm 29.7 kg/m2 32650.7 5 g 97.7 [degF] 95 % 95 % 72 /min 128/84 mm[Hg] Yesenia Pearl [facility] & [place] 5 14:58:44 Date Recorded Body height Body mass index (BMI) Body weight Body temperature Oxygen saturation Oxygen saturation in Arterial blood by Pulse oximetry Heart rate Systolic And Diastolic Provider Name and Address Organization Details Last Updated DateTime 5 149.86 cm 29.3 kg/m2 84166.9 g 97.7 [degF] 93 % 93 % 58 /min 124/76 mm[Hg] Yesenia Pearl [facility] & [place] 5 09:25:39 Date Recorded Body height Body mass index (BMI) Body weight Body temperature Oxygen saturation Oxygen saturation in Arterial blood by Pulse oximetry Heart rate Systolic And Diastolic Provider Name and Address Organization Details Last Updated DateTime 5 149.86 cm 28.9 kg/m2 22401.7 1 g 97.1 [degF] 96 % 96 % 60 /min 93/84 mm[Hg] Deandre LEVY [facility] & [place] 5 14:02:00 Date Recorded Body height Body temperature Oxygen saturation Oxygen saturation in Arterial blood by Pulse oximetry Heart rate Body mass index (BMI) Body weight Systolic And Diastolic Provider Name and Address Organization Details Last Updated DateTime 5 149.86 cm 97 [degF] 96 % 96 % 72 /min 29.3 kg/m2 87826.8 9 g 122/80 mm[Hg] Deandre LEVY [facility] & [place] 5 10:55:51 Social History Question Answer Notes LastModified by Organizat ion Details LastModified Time Tobacco Smoking Status Former Smoker Emelina Luis Fernando hendrickson [place] [facility] & [place] 10/05/2024 11:19:44 Do You Have An Advance Directive? Yes [email or web address] Information not available 09/08/2024 Are You Blind Or Do You Have Difficulty Seeing? No [email or web address] Information not available 09/08/2024 Is Blood Transfusion Acceptable In An Emergency? Yes [email or web address] Information not available 09/08/2024 What Is Your Level Of Caffeine Consumption? Occasional [email or web address] Information not available 09/08/2024 Are You Deaf Or Do You Have Serious Difficulty Hearing? No Information not available 09/08/2024 What Type Of Diet Are You Following? REGULAR Information not available 04/27/2025 Have There Been Any Changes To Your Family Or Social Situation? Yes In February Information not available 09/08/2024 When Did You Quit Smoking? 6-10yearssince lastcigarette 2019 Quit [email or web address] Information not available 04/27/2025 Do You Feel Safe At Home? 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 3 [email or web address] Information not available 09/08/2024 Do You Have Any Pets? No [email or web address] Information not available 09/08/2024 What Is Your Relationship Status? [email or web address] Information not available 09/08/2024 Do You Use Your Seat Belt Or Car Seat Routinely? Yes [email or web address] Information not available 09/08/2024 Do You Have Smoke And Carbon Monoxide Detectors In Your Home? Yes [email or web address] Information not available 09/08/2024 At What Age Did You Start Smoking Tobacco? 13 [email or web address] Information not available 04/27/2025 Are You Passively Exposed To Smoke? No [email or web address] Information not available 09/08/2024 How Much Tobacco Do You Smoke? 1 PPD [email or web address] Information not available 04/27/2025 Do You Have Difficulty Walking Or Climbing Stairs? Yes [email or web address] Information not available 09/08/2024 Sex: Female Functional Status Question Answer Note LastModified by Organizat ion Details LastModified Time What is your level of alcohol consumption? None [email or web address] Information not available 09/08/2024 Do you have transportation difficulties? No Information not available 09/08/2024 Are you able to walk independently without assistance or assistive devices? YESASSIST [email or web address] Information not available 09/08/2024 Do you have difficulty doing errands alone? Yes [email or web address] Information not available 09/08/2024 Are you able to care for yourself independently? Yes [email or web address] Information not available 09/08/2024 Do you have difficulty dressing, bathing, grooming, or toileting? Yes [email or web address] Information not available 09/08/2024 Mental Status Question Answer Note LastModified by Organizat ion Details LastModified Time Do you feel stressed (tense, restless, nervous, or anxious, or unable to sleep at night)? [id number] [email or web address] Information not available 09/08/2024 Do you have difficulty concentrating, remembering or making decisions? No [email or web address] Information no t available 09/08/2024 Family History [...] daughter, 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 Condition Response Diabetes Y Heart Problems Y Coronary Artery Disease Y Other Y Vision or Eye Problems [...] and Address Organization Details Recorded Time Tdap completed Emelina hendrickson, [place] [facility] [place] [facility] [place] 09/09/2024 16:41:36 COVID-19 vaccine, vector-nr, rS-Ad26, PF, 0.5 mL 1 completed Emelina [place] null, [place] [facility] [place] [facility] [place] 09/09/2024 16:41:36 Pneumococcal conjugate PCV20, polysaccharide MUV626 conjugate, adjuvant, PF 2 completed Emelina [place] [facility] [place] [facility] [place] 09/09/2024 16:41:36 pneumococcal polysaccharide PPV23 0 completed Emelina [place] [facility] [place] [facility] [place] 09/09/2024 16:41:36 Influenza, high-dose, trivalent, PF 2 completed Emelina [place] [facility] [place] [facility] [place] 09/09/2024 16:41:36 Influenza, high-dose, trivalent, PF 0 completed Emelina [place] [facility] [place] [facility] [place] 09/09/2024 16:41:36 Past Encounters Encounter ID Performer Location Encounter Start Date Encounter Closed Date Diagnosis/Indication Diagnosis SNOMED-CT Code Diagnosis ICD10 Code Diagnosis IMO Codes Diagnosis Note [id number] Agustín Griffin MD [facility] [address] [facility] [place] [address] 09/08/2024 12:55:26 09/08/2024 14:14:29 Chronic obstructive pulmonary disease 77337415 J44.9 Review of her meds indicates she is only taking albuterol at moment. Unsure why she is not on a daily med for her COPD. Try Trelegy- 14 day sample given. Needs order for portable 02 concentrat or Pain in lower limb 53402 006 M79.606 unsure why this has begun to hurt again after 2 years. We will taper her off prednisone over the course of the next 2 weeks and see how she does [id number] Agustín Griffin MD [facility] [address] [facility] [address] 10/13/2024 13:25:23 10/13/2024 14:22:01 Chronic obstructive pulmonary disease 07844396 J44.9 Since she reports subjective improvemen t with the Trelegy, I would like to keep her on it. I have given her another 2 week sample and will send in script. 02 orders for big (stationar y) and small (portable concentrat or) have already been sent to [facility]. Contact number for F/U is given to pt's daughter-i n-law today [id number] Agustín Griffin MD [facility] [address] [facility] [place] [address] 11/04/2024 13:41:26 11/04/2024 15:29:43 Hypoxemia 732493943 R09.02 Pt performed 6 min walk test. Initial 02 sat registerd 75% dropped to a low of 64% at which point test concluded. After 5 min rest, room air 02 climbed to high of 97% History of recurrent deep vein thrombosis [id number] 08367 Z86.718 On Xarelto. Check CMP to see what her eGFR is. If greater than 50, will RF at 20 mg, if 50 or less, will fill the 15 mg [id number] Agustín Griffin MD [address] [place] [address] 12/22/2024 14:37:48 12/22/2024 16:44:30 Pain in bilateral legs [id number] 4805932 M79.604 M79.605 [id number] Has responded to steroids in the past. We discussed the concerns for being on steroids detention but given patient's status an interest in staying off pain meds it is reasonable to try her on some low-dose steroids. We will start at 20 mg daily and taper down to 5 mg daily and see how she does. [id number] Agustín Griffin MD [address] [place] [address] 04/03/2025 09:04:06 04/03/2025 10:13:37 Acute exacerbation of chronic obstructive pulmonary disease 171819390 J44.1 773185 Restarting prednisone 5 mg daily. Add Symbicort. Refer to pulmonolog y Pain in bi lateral legs [id number] 4584368 M79.604 M79.605 D/C gabapentin and restart prednisone . Essential hypertension 08212239 I10 blood pressure is 124/76. Currently stable on bisoprolol 5 daily Pulmonary embolism on long-term anticoagulation therapy 806782676 Z79.01 stable on Xarelto. We will continue [id number] Diony Bustillo MD [facility] [address] [place] [address] 04/27/2025 13:41:29 04/27/2025 14:21:57 Mixed simple and mucopurulent chronic bronchitis 298648851 J41.8 [id number] patient has already quit smokingAdv ised to continue home oxygen along with nebulizer treatments Respirator y twice dailyWill order PFTs Carcinoma of lung 107685 007 C34.32 [id number] patient has completed radiation treatments for her bronchogen ic carcinomaW e will repeat CT chest [id number] Diony Bustillo MD [facility] [address] [place] [address] 06/08/2025 10:37:52 06/08/2025 11:22:39 Mixed simple and mucopurulent chronic bronchitis 462820934 J41.8 364584 patient has already quit smokingAdv ised to continue home oxygen along with nebulizer treatments Respirator y twice dailyPFT's show severe airways obstructio n with good response to bronchodil ators Carcinoma of lung 721053 007 C34.90 90869 patient has completed chemothera py treatments for her bronchogen ic carcinomar epeat chest CT shows left lung nodule lower lobe about 11 mm Nodule of lung 595823724 R91.1 [id number] Health Concerns Section Related Observation LastModified by Organization Detai ls LastModified Time None Recorded Concern Status LastModified by Organization Details LastModified Time None Recorded Advance Directives Directive Y: Payers Insurance Date Sequence Insurance Name Policy Number Policy Adame Covered Member ID Adame Member ID Guarantor Name 09/27/2024 2 UNSPECIFIED REMIT PAYOR Kavitha Bucio 06/05/2025 2 [employer] (MEDICARE SUPPLEMENT) Kavitha Bucio [id number] Kavitha Bucio 05/22/2025 1 [place] Kavitha Bucio [id number] Kavitha Bucio Notes Date Note Type Note Provider Name and Address Organization Details Recorded Time 11/04/2024 text/html Pt presents in need of 6 min walk test due to DME CO requiring this before providing home and portable 02 concentrator. Pt has COPD. Also needs RF of Xarelto. Agustín Griffin MD [address], [place], [address], [facility] 11/04/2024 14:53:47 12/22/2024 text/html Pt presents c/o leg pain, present x years, particularly worse over the past 6 years. Has been on gabapentin 100 mg twice a day for some time but no real response. It is difficult to ascertain an exact diagnosis. She does note that she has responded to steroids in the past. At present, she is hardly able to stand for any length of time or walk for any distance due to the pain. Agustín Griffin MD [address], [place], [address], [facility] 12/23/2024 07:19:43 04/03/2025 text/html 84 yo WF with long h/o COPD presents c/o cough and wheezing, runny nose. No longer on TrelegyDue to expense. Also ran out of the prednisone which she has been taking daily for neuropathic pain but likely helping her lungs as well. 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 presents for evaluationPatient is on home oxygenShe also to express treat twice dailyShe complains of scant mucoid expectoration but she does wheeze and has effort intolerance with dyspnea severe on exertionPatient denies any chest pain fever or hemoptysis there is no history of w Dionyamy Bustillo MD [address], [place], [address], [facility] [place] 04/27/2025 14:16:24 06/08/2025 text/html ROS as noted in the HPI 84 years old white female with history of COPD and lung cancer status post chemotherapy presents for follow-up patient has been doing well and denies any chest pain fever or hemoptysisShe takes respiratory along with prednisone dailyPatient denies any weight loss Diony Bustillo MD [address], [place], [address], [facility] [place] 06/08/2025 11:18:41 OBGyn Episode No OBEpisode recorded.
--- OUTSIDE RECORDS SUMMARY | 2025-07-18 12:06 | XMS_ITS | Clinical Summary ---
Author Organization [facility] Address [address] [place] [address] Care Team Providers Care Umbrella Finisher Name Role Phone Agustín Griffin MD Primary [...] [facility] [address] [facility]nd [place] [address] Matt Canchola MD Shortness of breath (Primary Dx); SCC (squamous cell carcinoma) 07/10/2025 Travel 05/25/2025 Orders Only External Location [address] [place] [address] Provider, External from Last 3 Months Social [...] Description 10/05/2025 1:00 PM EST Ancillary Procedure [facility] [address] [place] [address] 10/05/2025 2:00 PM EST Office Visit [facility] [address] [place] [address] Codey Sorensen, DO [address] [place] [address] Health Maintenance Due Date Last Done Comments [facility]-Bone Density Scan 1940 [facility]-Depression Screening 1940 [facility]-Medicare Annual Wellness (AWV) 1940 [facility]-/Child/Adol SDOH Screenings 1940 [facility]-Obesity Intervention 1946 [facility]- SDOH Screenings 1958 [facility]-Adult SDOH Screenings 1958 [facility]-Zoster Vaccines (1 of 2) 1959 [facility]-RSV Vaccine: 60+ Years o r (1 - 1-dose 75+ series) 2015 [facility]-PZLQO-15 Vaccine (2 - Edmond risk series) 12/19/2020 [...] Last 3 Months Insurance MEDICARE Care Teams Umbrella Finisher Relationship Specialty Start Date End Date Agustín Griffin MD [address] [place] [address] PCP - General 07/10/25
--- OUTSIDE RECORDS SUMMARY | 2025-07-18 12:07 | XMS_ITS | Patient Health Record ---
Author Organization [facility] Address [address] [place] [address] Care Team Providers Care Back Up Worker Name Role Phone Jus Zee Primary Care [...] For Referral Reason Medical Records Referral Organization [facility] Referring Provider First Name Jus [...] Vaccine Route Administration Date Status Comme nts Boostrix IM Intramuscular 11/28/2023 Administered Covid Edmond Unknown 11/21/2020 Administered Fluzone High Dose IM Intramuscular 07/23/2020 Administered Fluzone High Dose IM Intramuscular 07/16/2022 Administered Pneumovax 23 IM Intramuscular 07/23/2020 Administered Prevnar PCV-20 (Pneumococcal conjugate 20) IM Intramuscular 07/16/2022 Administered Social History Tobacco Use: Social History Observation Description Date Details (start date - stop date) Former Smoker NA - NA Smoking: Question Answer Notes Are you a: former smoker How long has it been since you last smoked? 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) use of anticoagulants (Z79.01) Active confirmed Problem Vitamin D deficiency (44309531) Vitamin D deficiency (E55.9) Active confirmed Problem Type II diabetes mellitus without complication (672448031) Diabetes mellitus type 2, noninsulin dependent (E11.9) Active confirmed Problem Essential hypertension (28565578) Essential hypertension (I10) Active confirmed Problem Chronic obstructive bronchitis (disorder) (193698050) 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) Active confirmed Problem Thyroid nodule (839810197) Thyroid nodule (E04.1) Active confirmed Problem Memory loss (86088237) Memory loss (R41.3) Active confirmed Problem 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 pectoris (525292549967493) Coronary artery disease involving yuhaaviatam coronary artery of yuhaaviatam heart without angina pectoris (I25.10) Active confirmed Problem Recurrent falls (427427515) Frequent falls (R29.6) Active confirmed Problem Obstructive sleep apnea (39202899) Obstructive sleep apnea (G47.33) Active confirmed Problem Chronic serous otitis media (97878909) Bilateral chronic serous otitis media (H65.23) Active confirmed Problem Ataxia (05020590) Ataxia (R27.0) Active confirm ed Problem Exacerbation of moderate persistent asthma (disorder) (211916330) Moderate persistent asthma with acute exacerbation (J45.41) Active confirmed Problem Carotid artery stenosis (46213640) Carotid stenosis (I65.29) Active confirmed Problem Angina pectoris (931364430) Angina pectoris (I20.9) Active confirmed Problem Carotid artery occlusion (420403985) Stenosis of carotid artery, unspecified laterality (I65.29) Active confirmed Problem Major depression, single episode (47699062) Depression, reactive (F32.9) Active confirmed Problem Heart failure (85593715) Acute exacerbation of congestive heart failure (I50.9) Active confirmed Problem Paroxysmal atrial fibrillation with rapid ventricular response (6889711881) Paroxysmal atrial fibrillation with rapid ventricular response (I48.0) Active confirmed Problem 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 pectoris (702745126835201) 2-vessel coronary artery disease (I25.10) Active confirmed Problem Seasonal allergic rhinitis (502482241) Acute seasonal allergic rhinitis, unspecified trigger (J30.2) Active confirmed Problem Chronic kidney disease stage 2 (607073568) Stage 2 chronic kidney disease (N18.2) Active confirmed Problem Allergic rhinitis caused by pollen (69960681) Allergic rhinitis due to pollen, unspecified seasonality (J30.1) Active confirmed Problem Hypertensive heart failure (66056242) Unspecified hypertensive heart disease with heart failure (I11.0) Active confirmed Problem Malignant neoplasm of respiratory system (807548599) Nonsquamous nonsmall cell neoplasm of lung, left (C34.92) Active confirmed Encounters Encounter Location Date Provider Diagnosis [facility] [address] [facility] [address] [place] [address] 12/17/2024 Provider Migration Acute exacerbation o f congestive heart failure I50.9 [facility] [address] [facility] [address] [place] [address] 09/01/2024 Jus Besson [facility] [address] [address] 01/13/2025 Jus Besson [facility] [address] [facility] [address] [place] [address] 04/21/2025 Jus Besson Tuberculosis screening Z11.1 Assessments [...] 023 M-Basic Metabolic Panel 02/03/2023 M-Vitamin B12 08/08/2019 M-Vitamin B12 11/28/2023 M-Vitamin D 25 Hydroxy 11/28/2023 M-Vitamin D 25 Hydroxy 08/08/2019 M-QuantiFERON TB Gold (In Tube) 11/28/19 M-Methylmalonic Acid 10/11/2018 QUANTIFERON TB GOLD 04/21/2025 ECHOCARDIOGRAM 05/07/2024 Insurance Providers Payer Name Payer Address Payer Phone Subscriber Number Group Number Insured Name Patient Relationship to Insured Coverage Start Date Coverage End Date [place] [address] [place] [phone] [id number] Georgette Ocasio Self - patient is the insured [employer] [place] [address] [address] [place] [address] [id number] Georgette Ocasio Self - patient is the insured [employer] [address] [place] [address] [phone] ACL Georgette Ocasio Self - patient is [...] 04/2020 Ablation 10/2017 childbirth x4 Cardiac Stents- [facility] 06/2017
--- OUTSIDE RECORDS SUMMARY | 2025-07-18 12:07 | XMS_ITS | Encounter Summary ---
Author Organization Healthcare Address [address] [place] [address] Care Team Providers Care Cardiology Teacher Name Role Phone Agustín Griffin MD Primary Care Provider Encounter Details Date Type Department Care Team (Late st Contact Info) Description 05/25/2025 Orders Only External Location [address] [phone] Provider, External Social History Tobacco Use Types [...] Description 10/05/2025 1:00 PM EST Ancillary Procedure [facility] [address] [place] [address] 10/05/2025 2:00 PM EST Office Visit [facility] [address] [place] [address] Codey Sorensen, DO [address] [place] [address] documented as of this encounter [...] on filedocumented in this encounter Care Teams Cardiology Teacher Relationship Specialty Start Date End Date Agustín Griffin MD [address] [place] [address] PCP - General 07/10/25 documented as of this encounter
--- OUTSIDE RECORDS SUMMARY | 2025-07-18 12:07 | XMS_ITS | Encounter Summary ---
Author Organization [facility] Address [address] [place] [address] Care Team Providers Care Highway Inspector Name Role Phone Agustín Griffin MD Primary Care Provider + [phone] Encounter Details Date Type Department Care Team (Latest Contact Info) Description 07/10/2025 Travel Social History Tobacco Use Types Packs/Day Years Used Date Smoking Tobacco: Former Cigarettes 1 64 1 [address]2018 Smokeless Tobacco: Never Alcohol Use Standard Drinks/Week [...] Description 10/05/2025 1:00 PM EST Ancillary Procedure [address] [address] 10/05/2025 2:00 PM EST Office Visit [address] [address] Codey Sorensen, DO [address] [place], [place] [phone] documented as of this encounter Visit Diagnoses Not on filedocumented in this encounter Additional Health Concerns Assessment Noted Time A fall risk assessment has been complete d for the patient 07/10/2025 10:01 AM EDT documented as of this encounter Care Teams Highway Inspector Relationship Specialty Start Date End Date Agustín Griffin MD [facility] [place] [address] [address] [place] [address] PCP - General 07/10/25 documented as of this encounter
[2025-07-18 13:05] VITALS: BP 134/60; PULSE 51; RESP 14
[2025-07-18] MEDS: ISOTOPE MYOVIEW (PER STUDY) 1 DOSE IV (13:26)
[2025-07-18] MEDS: SODIUM CHLORIDE 0.9% 10ML SYR (RAD ONLY) 10 ML IV ×2 (13:26)
== END 2025-07-18 23:59 | disposition home or self-care (01) ==
LOC: RAD 12:04
PROVIDERS: PCP Family Medicine; Visit Provider Nurse Practitioner
DX: I25.10 Atherosclerotic heart disease of native coronary artery without angina pectoris (principal); E78.5 Hyperlipidemia, unspecified
CPT/HCPCS: 78452; 93017; 93018; A9502; J2785